=== PATIENT | male | born 1960 | race Caucasian/White ===

== ENCOUNTER 2016-10-10 11:48 | Inpatient (IN) | payer OTHER ==
[2016-10-09 16:40] VITALS: BMI 26.5
[2016-10-10] VITALS (18 sets, daily range): BP systolic 132–156; BP diastolic 63–90; PULSE 72–97; RESP 13–29; Ht 172.7 cm; Wt 72.7 kg
[~2016-10-10] VITALS: Ht 172.7 cm; Wt 72.7 kg
[~2016-10-10 11:48] MED LIST: ACET325T33 PO; ASC500 PO; Accucheck XX; BISA5TAB6 PO; CEFAZOLIN 1 GM INJ ONE; CEFAZOLIN 1 GM/50 ML (PMX) 50 ML IVPB SCH; CLOP75TA27 PO; DOCU-144 PO; ENAL10TA PO; FURO20TA3 PO; GLIM1TAB2 PO; HYDR-3498 PO; METF-480 PO; NIT1OI2 TD; NITR0.4T6 SL; NOVO3I SC; PANT40TA4 PO; TRAM-40 PO; ZINC220C5 PO; ZOLP5TAB PO
[2016-10-10] MEDS ORDERED: MUPI15CR9 TOP (12:13)
[2016-10-10] MEDS ORDERED: DOCU-144 PO (12:14)
[2016-10-10] MEDS ORDERED: CRAN425C PO (12:15)
[2016-10-10] MEDS ORDERED: BISA10SU55 RC (12:16)
[2016-10-10] MEDS ORDERED: GLIM1TAB2 PO (12:17)
[2016-10-10] MEDS ORDERED: NA P135E RC (12:17)
[2016-10-10] MEDS ORDERED: FURO20TA3 PO (12:18)
[2016-10-10] MEDS ORDERED: MAGN400O4 PO (12:18)
[2016-10-10] MEDS ORDERED: MULTI PO (12:21)
[2016-10-10] MEDS ORDERED: HYDR-906 PO (12:22)
[2016-10-10] MEDS ORDERED: ACET-2047 PO (12:23)
[2016-10-10] MEDS ORDERED: MIDAZOLAM 1 MG/ML 2 ML INJ ONE (15:36)
[2016-10-10] MEDS ORDERED: LIDOCAINE 1%/EPI (MDV) 20 ML INJ ONE (15:59)
[2016-10-10] MEDS ORDERED: LIDOCAINE 1% (STERILE-PAK) 30 ML INJ ONE (15:59)
[2016-10-10] MEDS ORDERED: MINERAL OIL LIGHT 10 ML VIAL ONE (16:00)
[2016-10-10] MEDS ORDERED: THROMBIN 5000 UNIT VIAL ONE (16:00)
[2016-10-10] MEDS ORDERED: FENTAnyl 50 MCG/ML VIAL IV PRN (16:30)
[2016-10-10] MEDS ORDERED: morphine (1 MG/ML) 10ML SYRINGE IV PRN (16:30)
[2016-10-10] MEDS ORDERED: MEPERIDINE 25 MG INJ IV PRN (16:30)
[2016-10-10] MEDS ORDERED: DIPHENHYDRAMINE 50 MG INJ IV PRN (16:30)
[2016-10-10] MEDS ORDERED: ONDANSETRON 4 MG INJ IV PRN ×2 (16:30→17:30)
[2016-10-10] MEDS ORDERED: LIDOCAINE 2% (SDV) 5 ML INJ ONE (16:50)
[2016-10-10] MEDS ORDERED: PROPOFOL 20 ML ONE (16:50)
[2016-10-10] MEDS ORDERED: ONDANSETRON 4 MG INJ ONE (16:56)
[2016-10-10] MEDS ORDERED: morphine 2 MG INJ IV PRN (17:30)
[2016-10-10] MEDS ORDERED: HYDROCODONE/APAP (5/325) TAB PO PRN ×2 (17:30→18:00)
[2016-10-10] MEDS ORDERED: morphine 10 MG INJ IM PRN (17:30)
[2016-10-10] MEDS ORDERED: DEXTROSE 50% 50 ML SYRINGE IV PRN ×2 (18:00)
[2016-10-10] MEDS ORDERED: GLUCOSE GEL 15 GRAM TUBE PO PRN ×2 (18:00)
[2016-10-10] MEDS ORDERED: GLUCOSE GEL 15 GRAM TUBE BUCCAL PRN (18:00)
[2016-10-10] MEDS ORDERED: MAGNESIUM HYDROXIDE 30ML CUP PO PRN (18:00)
[2016-10-10] MEDS ORDERED: GLUCAGON 1 MG INJ IM PRN (18:00)
[2016-10-10] MEDS ORDERED: BISACODYL 10 MG SUPP PR PRN (18:00)
--- NOTE | 2016-10-10 18:06 | OPR ---
DATE OF OPERATION: 10/10/2016 PREOPERATIVE DIAGNOSES: 1. Right foot ulceration. 2. Open transmetatarsal amputation. 3. Diabetes with peripheral neuropathy. 4. History of left above-knee amputation. POSTOPERATIVE DIAGNOSES: 1. Right foot ulceration. 2. Open transmetatarsal amputation. 3. Diabetes with peripheral neuropathy. 4. History of left above-knee amputation. SURGEON: JEWELS MCKNIGHT DPM. TILE DECORATOR: None. PROCEDURE PERFORMED: 1. Right foot excisional debridement of skin, subcutaneous tissue, muscle and bone 10 x 3 cm. 2. Delayed primary closure, right foot. PATHOLOGY: Bone cultures and bone for pathology. ESTIMATED BLOOD LOSS: 40 mL. GRAFT: None. COMPLICATIONS: None. ANESTHESIA: MAC with local. INDICATION FOR PROCEDURE: A 56-year-old male with open transmetatarsal amputation with delayed woun d healing. He has history of contralateral above knee amputation with gait disturbance. He has typ e 2 diabetes with peripheral neuropathy and history of tobacco use. The patient presents with impro lissy wound appearance and attempts for wound closure. PROCEDURE IN DETAIL: I discussed planned procedure, risks, benefits, potential complications and in formed consent was obtained. Preoperatively the site was marked. Patient was given a gram of Ancef preoperatively. The patient brought into the operating room and placed in the supine position. Fo rmal timeout was performed. The right lower extremity was prepared with chlorhexidine and Betadine and prepped and draped in usual sterile fashion. I am using a rongeur for excisional debridement of the wound performed including sample of bone which was sent for culture as well as for pathology. The Versajet was used for hydrosurgical debridement using saline solution. The patient had good ble eding tissue. Ulceration measured 10 x 3 cm. Hemostasis was achieved with compression and at this time, the skin flaps were advanced and delayed primary closure with a combination of superficial cally p sutures using 2-0 and 3-0 nylon. The patient tolerated procedure well, had lidocaine 1% injected with an ankle block preoperatively and the patient had estimated blood loss of 40 mL. Hemostasis wa s achieved with compression and wounds were dressed with Xeroform, 4 x 4 gauze, Webril and bias. Th e patient transferred to PACU with vital signs stable. POSTOPERATIVE PLAN: The patient will be admitted for 23-hour observation and monitoring of pain and continue IV antibiotics and hyperglycemia management by Dr. Belle. Dictated By: JEWELS NEAL/LINNEA Conf#: [id number] DID#: [id number]
[2016-10-10] MEDS: metFORMIN 850 MG TAB PO SCH (19:50)
[2016-10-10] MEDS: DOCUSATE SODIUM 100 MG CAP PO SCH (21:28)
[2016-10-10] MEDS: CEFAZOLIN 1 GM/50 ML (PMX) 50 ML IVPB SCH (21:28)
--- NOTE | 2016-10-10 23:07 | HP ---
Date/Time of Note Date/Time of Note DATE: 10/10/16 TIME: 23:04 Assessment/Plan VTE Prophylaxis VTE Prophylaxis Intervention: other Lines/Catheters IV Catheter Type (from Nrsg): Saline Lock Assessment/Plan Chief Complaint/Hosp Course 1. Hypertension. hx 2. Diabetes mellitus. 3. Hyperlipidemia. 4. History of peripheral vascular disease status post left above-knee amputation. 5. History of a previous right toe amputation. 6. Anemia of chronic disease. 7 Rt foot surgery plan per dr cobb Problems: HPI/ROS Admit Date/Time Admit Date/Time Oct 10, 2016 at 11:48 ROS Constitutional: no complaints Eyes: no complaints ENT: no complaints Respiratory: no complaints Cardiovascular: no complaints Gastrointestinal: no complaints Genitourinary: no complaints Musculoskeletal: no complaints Skin: no complaints Neurologic: no complaints Endocrine: No other Lymphatic: no complaints Psychological: no complaints Immunologic: no complaints PMH/Family/Social Past Medical History Medical History: diabetes, hypertension Past Surgical History Past Surgical Hx: other (left aka) Family History Significant Family History: no pertinent family hx Social History Smoking Status: Unknown if ever smoked Drug Use: none Exam/Review of Systems Vital Signs Vitals Vital Signs Date Time Temp Pulse Resp B/P Pulse Ox O2 Delivery O2 Flow Rate FiO2 10/10/16 19:40 97.9 75 16 132/63 99 10/10/16 18:59 Room Air Exam Constitutional: alert, oriented, well developed Psych: nl mood/affect, no complaints Head: atraumatic, normocephalic Eyes: EOMI, nl conjunctiva, nl lids Neck: non-tender, supple Respiratory: clear to auscultation Cardiovascular: nl pulses, regular rate and rhythm Gastrointestinal: nl liver, spleen, non-tender, soft Musculoskeletal: nl extremities to inspection Extremities: No cyanosis, No edema Neurological: EMERGENCY MANAGER II-XII intact, nl mental status, nl speech, nl strength Medications Medications Current Medications Cefazolin Sodium (Ancef 1 Gm/50 ml (Pmx)) 50 ml @ 100 mls/hr Q8 IVPB Last administered on 10/10/16t 21:28; Admin Dose 100 MLS/HR; Start 10/10/16 at 22:00 Acetaminophen/ Hydrocodone Bitart ([place] (5/325)) 1 tab Q4H PRN PO PAIN LEVEL 1 -5; Start 10/10/16 at 17:30 Acetaminophen/ Hydrocodone Bitart ([place] (5/325)) 2 tab Q4H PRN PO PAIN 6-8; Start 10/10/16 at 17:30 Morphine Sulfate (morphine) 2 mg Q2H PRN IV PAIN 9-10; Start 10/10/16 at 17:30 Morphine Sulfate (morphine) 2 mg Q4H PRN IM PAIN 9-10; Start 10/10/16 at 17:30 Ondansetron HCl (Zofran Inj) 4 mg Q6H PRN IV NAUSEA AND/OR VOMITING; Start 10/10 at 17:30 Ascorbic Acid (Vitamin C) 1,000 mg DAILY PO ; Start 10/11/16 at 09:00 Bisacodyl (Dulcolax Supp) 10 mg PRN PRN [place] constipation; Start 10/10/16 at 18:00 Clopidogrel Bisulfate (plaVIX) 75 mg DAILY PO ; Start 10/11/16 at 09:00 Docusate Sodium (Colace) 200 mg QHS PO Last administered on 10/10/16t 21:28; Admin Dose 200 MG; Start 10/10/16 at 21:00 Enalapril Maleate (Vasotec) 10 mg DAILY PO ; Start 10/11/16 at 09:00 Furosemide (Lasix) 20 mg DAILY PO ; Start 10/11/16 at 09:00 Magnesium Hydroxide (Milk Of Mag) 30 ml DAILY PRN PO CONSTIPATION; Start at 18:00 Multivitamins Therapeutic (Theragran) 1 tab DAILY PO ; Start 10/11/16 at 09:00 Mupirocin (Bactroban) 1 applic DAILY TOP ; Start 10/11/16 at 09:00 Pantoprazole (Protonix Tab) 40 mg DAILY@06 PO ; Start 10/11/16 at 06:00 Miscellaneous Information 1 ea NOTE XX ; Start 10/10/16 at 18:00 Glucose (Glutose) 15 gm Q15M PRN PO DECREASED GLUCOSE; Start 10/10/16 at 18:00 Glucose (Glutose) 22.5 gm Q15M PRN PO DECREASED GLUCOSE; Start 10/10/16 at 18:00 Dextrose (D50w Syringe) 25 ml Q15M PRN IV DECREASED GLUCOSE; Start 10/10/16 at 18:00 Dextrose (D50w Syringe) 50 ml Q15M PRN IV DECREASED GLUCOSE; Start 10/10/16 at 18:00 Glucagon (Glucagen) 1 mg Q15M PRN IM DECREASED GLUCOSE; Start 10/10/16 at 18:00 Glucose (Glutose) 15 gm Q15M PRN BUCCAL DECREASED GLUCOSE; Start 10/10/16 at 18: 00 Diagnostic Test (Pha) (Accucheck) 1 ea 02 XX ; Start 10/11/16 at 02:00 LUIS ENRIQUE MAN MD Oct 10, 2016 23:07
[2016-10-11] MEDS ORDERED: ACCUCHECK XX SCH (02:00)
[2016-10-11] MEDS: ACCUCHECK XX SCH (02:00)
[2016-10-11] MEDS: CEFAZOLIN 1 GM/50 ML (PMX) 50 ML IVPB SCH ×3 (05:44→21:01)
[2016-10-11] MEDS: PANTOPRAZOLE (EC) 40 MG TAB PO SCH (05:44)
[2016-10-11 06:14] LABS: BASOPHIL # 0.1 10^3/ul (0.0-0.1); BASOPHILS % 0.8 % (0.0-2.0); EOSINOPHILS # 0.5 10^3/ul (0.0-0.5); EOSINOPHILS % 4.1 % (0.0-7.0); HEMATOCRIT 29.3 % (42.0-52.0); HEMOGLOBIN 9.8 g/dl (14.0-18.0); LYMPHOCYTES # 1.9 10^3/ul (0.8-2.9); LYMPHOCYTES % 16.6 % (15.0-51.0); MEAN CORPUSCULAR HGB CONC 33.5 g/dl (32.0-37.0); MEAN CORPUSCULAR VOLUME 80.6 fl (82.0-101.0); MEAN PLATELET VOLUME 8.6 fl (7.4-10.4); MONOCYTE # 0.6 10^3/ul (0.3-0.9); MONOCYTES % 5.3 % (0.0-11.0); NEUTROPHIL # 8.3 10^3/ul (1.6-7.5); NEUTROPHILS % 73.2 % (39.0-77.0); PLATELET COUNT 283 10^3/UL (140-440); RED BLOOD COUNT 3.63 10^6/ul (4.70-6.10); RED CELL DISTRIBUTION WIDTH 17.1 % (11.5-14.5); UNCORRECTED WBC 11.3 10^3/ul (4.8-10.8); WHITE BLOOD COUNT 11.3 10^3/ul (4.8-10.8)
[2016-10-11 06:33] LABS: CONDITION 1; LH ANALYZER COMMENTS 1
[2016-10-11 06:55] LABS: POTASSIUM 4.1 mmol/L (3.5-5.1)
[2016-10-11 06:57] LABS: CREATININE 1.05 mg/dl (0.61-1.24)
[2016-10-11 06:58] LABS: CALCIUM 8.9 mg/dl (8.4-10.2)
[2016-10-11] MEDS: GLIMEPIRIDE 2 MG TAB PO SCH ×2 (07:50→11:52)
[2016-10-11] MEDS: INSULIN ASPART [NOVOLOG] 3 ML PEN SC SCH ×4 (07:50→20:58)
[2016-10-11] MEDS: metFORMIN 850 MG TAB PO SCH ×2 (07:50→17:01)
[2016-10-11 07:59] VITALS: BP 158/70; RESP 18
[2016-10-11] MEDS: MULTIVITAMINS THERAPEUTIC TAB PO SCH (09:34)
[2016-10-11] MEDS: CLOPIDOGREL 75 MG TAB PO SCH (09:34)
[2016-10-11] MEDS: ENALAPRIL 10 MG TAB PO SCH (09:34)
[2016-10-11] MEDS: FUROSEMIDE 20 MG TAB PO SCH (09:34)
[2016-10-11] MEDS: MUPIROCIN 2% 15 GM CR TOP SCH (09:35)
[2016-10-11] MEDS: ASCORBIC ACID 500 MG TAB PO SCH (09:35)
--- NOTE | 2016-10-11 12:36 | PN ---
Date/Time of Note Date/Time of Note DATE: 10/11/16 TIME: 12:31 Assessment/Plan VTE Prophylaxis VTE Prophylaxis Intervention: SCD's Lines/Catheters IV Catheter Type (from Nrsg): Saline Lock Assessment/Plan Assessment/Plan 1. Right foot Open wound ulceration with infection s/p Right foot excisional debridement of skin, subcutaneous tissue, muscle and bone 10 x 3 cm. Delayed primary closure, right foot. 2. H/o Left AKA due to severe PVD 3. Hypertension. 4. Diabetes mellitus. 5. Hyperlipidemia. Plan: wound care IV abx Pain control podiatry has been follwoing will wait for Podiatry final recommendations Subjective 24 Hr Interval Summary Free Text/Dictation s/p Right foot excisional debridement of skin, subcutaneous tissue, muscle and bone , Pain controlled Exam/Review of Systems Vital Signs Vitals Vital Signs Date Time Temp Pulse Resp B/P Pulse Ox O2 Delivery O2 Flow Rate FiO2 10/11/16 07:59 98.0 84 18 158/70 100 10/10/16 18:59 Room Air Intake and Output 10/10/16 10/10/16 10/11/16 15:00 23:00 07:00 Intake Total 500 ml 620 ml Output Total 20 ml 800 ml Balance 480 ml -180 ml Exam Constitutional: alert, oriented, well developed Respiratory: clear to auscultation Cardiovascular: nl pulses, regular rate and rhythm Gastrointestinal: nl liver, spleen, non-tender, soft Musculoskeletal: nl extremities to inspection Extremities: No cyanosis, No edema, Right LE dressing present Neurological: ASSISTANT VICE PRESIDENT II-XII intact, nl mental status, nl speech, nl strength Results Result Diagram: 10/11/16 0508 10/11/16 0508 Results 24 hrs Laboratory Tests Test 10/10/16 17:02 10/10/16 19:43 10/10/16 21:27 10/11/16 05:08 Bedside Glucose 105 104 108 Anion Gap 16 Basophils # 0.1 Basophils % 0.8 Blood Morphology Comment Blood Urea Nitrogen 20 Calcium Level 8.9 Carbon Dioxide Level 27 Chloride Level 106 Creatinine 1.05 Eosinophils # 0.5 Eosinophils % 4.1 Glucose Level 98 Hematocrit 29.3 L Hemoglobin 9.8 L Hemoglobin A1c 6.4 H Lymphocytes # 1.9 Lymphocytes % 16.6 Mean Corpuscular Hemoglobin 27.0 L Mean Corpuscular Hemoglobin Concent 33.5 Mean Corpuscular Volume 80.6 L Mean Platelet Volume 8.6 Monocytes # 0.6 Monocytes % 5.3 Neutrophils # 8.3 H Neutrophils % 73.2 Nucleated Red Blood Cells # 0.0 Nucleated Red Blood Cells % 0.0 Platelet Count 283 # Potassium Level 4.1 Red Blood Count 3.63 L Red Cell Distribution Width 17.1 #H Sodium Level 145 H White Blood Count 11.3 H Test 10/11/16 07:49 10/11/16 11:51 Bedside Glucose 111 122 Medications Medications Current Medications Cefazolin Sodium (Ancef 1 Gm/50 ml (Pmx)) 50 ml @ 100 mls/hr Q8 IVPB Last administered on 10/11/16 05:44; Admin Dose 100 MLS/HR; Start 10/10/16 at 22:00 Acetaminophen/ Hydrocodone Bitart ([place] (5/325)) 1 tab Q4H PRN PO PAIN LEVEL 1 -5; Start 10/10/16 at 17:30 Acetaminophen/ Hydrocodone Bitart ([place] (5/325)) 2 tab Q4H PRN PO PAIN 6-8; Start 10/10/16 at 17:30 Morphine Sulfate (morphine) 2 mg Q2H PRN IV PAIN 9-10; Start 10/10/16 at 17:30 Morphine Sulfate (morphine) 2 mg Q4H PRN IM PAIN 9-10; Start 10/10/16 at 17:30 Ondansetron HCl (Zofran Inj) 4 mg Q6H PRN IV NAUSEA AND/OR VOMITING; Start 10/10 at 17:30 Ascorbic Acid (Vitamin C) 1,000 mg DAILY PO Last administered on 10/11/16 09:35 ; Admin Dose 1,000 MG; Start 10/11/16 at 09:00 Bisacodyl (Dulcolax Supp) 10 mg PRN PRN [place] constipation; Start 10/10/16 at 18:00 Clopidogrel Bisulfate (plaVIX) 75 mg DAILY PO Last administered on 10/11/16 09: 34; Admin Dose 75 MG; Start 10/11/16 at 09:00 Docusate Sodium (Colace) 200 mg QHS PO Last administered on 10/10/16 21:28; Admin Dose 200 MG; Start 10/10/16 at 21:00 Enalapril Maleate (Vasotec) 10 mg DAILY PO Last administered on 10/11/16 09:34 ; Admin Dose 10 MG; Start 10/11/16 at 09:00 Furosemide (Lasix) 20 mg DAILY PO Last administered on 10/11/16 09:34; Admin Dose 20 MG; Start 10/11/16 at 09:00 Magnesium Hydroxide (Milk Of Mag) 30 ml DAILY PRN PO CONSTIPATION; Start at 18:00 Multivitamins Therapeutic (Theragran) 1 tab DAILY PO Last administered on 09:34; Admin Dose 1 TAB; Start 10/11/16 at 09:00 Mupirocin (Bactroban) 1 applic DAILY TOP Last administered on 10/11/16 09:35; Admin Dose 1 APPLIC; Start 10/11/16 at 09:00 Pantoprazole (Protonix Tab) 40 mg DAILY@06 PO Last administered on 10/11/16 05: 44; Admin Dose 40 MG; Start 10/11/16 at 06:00 Miscellaneous Information 1 ea NOTE XX ; Start 10/10/16 at 18:00 Glucose (Glutose) 15 gm Q15M PRN PO DECREASED GLUCOSE; Start 10/10/16 at 18:00 Glucose (Glutose) 22.5 gm Q15M PRN PO DECREASED GLUCOSE; Start 10/10/16 at 18:00 Dextrose (D50w Syringe) 25 ml Q15M PRN IV DECREASED GLUCOSE; Start 10/10/16 at 18:00 Dextrose (D50w Syringe) 50 ml Q15M PRN IV DECREASED GLUCOSE; Start 10/10/16 at 18:00 Glucagon (Glucagen) 1 mg Q15M PRN IM DECREASED GLUCOSE; Start 10/10/16 at 18:00 Glucose (Glutose) 15 gm Q15M PRN BUCCAL DECREASED GLUCOSE; Start 10/10/16 at 18: 00 Diagnostic Test (Pha) (Accucheck) 1 ea 02 XX ; Start 10/11/16 at 02:00 OLMAN TRACY MD Oct 11, 2016 12:36
[2016-10-11] MEDS: DOCUSATE SODIUM 100 MG CAP PO SCH (20:58)
[2016-10-12] MEDS: ACCUCHECK XX SCH (02:00)
[2016-10-12] MEDS: PANTOPRAZOLE (EC) 40 MG TAB PO SCH (05:07)
[2016-10-12] MEDS: CEFAZOLIN 1 GM/50 ML (PMX) 50 ML IVPB SCH ×3 (05:07→21:34)
[2016-10-12] MEDS: ACETAMINOPHEN 325 MG TAB PO PRN ×2 (05:15→13:52)
[2016-10-12 07:50] VITALS: BP 114/56; RESP 19
[2016-10-12] MEDS: INSULIN ASPART [NOVOLOG] 3 ML PEN SC SCH ×4 (08:15→20:22)
[2016-10-12] MEDS: MULTIVITAMINS THERAPEUTIC TAB PO SCH (08:17)
[2016-10-12] MEDS: metFORMIN 850 MG TAB PO SCH ×2 (08:17→17:24)
[2016-10-12] MEDS: CLOPIDOGREL 75 MG TAB PO SCH (08:17)
[2016-10-12] MEDS: GLIMEPIRIDE 2 MG TAB PO SCH ×2 (08:17→12:13)
[2016-10-12] MEDS: ASCORBIC ACID 500 MG TAB PO SCH (08:17)
[2016-10-12] MEDS: FUROSEMIDE 20 MG TAB PO SCH (08:18)
[2016-10-12] MEDS: ENALAPRIL 10 MG TAB PO SCH (08:18)
[2016-10-12] MEDS: MUPIROCIN 2% 15 GM CR TOP SCH (09:00)
--- NOTE | 2016-10-12 11:19 | PN ---
Date/Time of Note Date/Time of Note DATE: 10/12/16 TIME: 11:13 Assessment/Plan VTE Prophylaxis VTE Prophylaxis Intervention: SCD's Lines/Catheters IV Catheter Type (from Nrsg): Saline Lock Assessment/Plan Assessment/Plan 1. Right foot Open wound ulceration with infection s/p Right foot excisional debridement of skin, subcutaneous tissue, muscle and bone 10 x 3 cm. Delayed primary closure, right foot.- wound cx grew enterococcus, 2. H/o Left AKA due to severe PVD 3. Hypertension. 4. Diabetes mellitus. 5. Hyperlipidemia. Plan: wound Cx grew Staph Aureus and enterococcus IV abx Pain control podiatry has been follwoing will wait for Podiatry final recommendations Subjective 24 Hr Interval Summary Free Text/Dictation wound cx grew Staph Aureus and Enterococcus Exam/Review of Systems Vital Signs Vitals Vital Signs Date Time Temp Pulse Resp B/P Pulse Ox O2 Delivery O2 Flow Rate FiO2 10/12/16 07:50 98.1 82 19 114/56 100 10/10/16 18:59 Room Air Intake and Output 10/11/16 10/11/16 10/12/16 15:00 23:00 07:00 Intake Total 1100 ml 480 ml Output Total 1600 ml 400 ml Balance -500 ml 80 ml Exam Constitutional: alert, oriented, well developed Psych: nl mood/affect, no complaints Respiratory: clear to auscultation Cardiovascular: nl pulses, regular rate and rhythm Gastrointestinal: nl liver, spleen, non-tender, soft Musculoskeletal: nl extremities to inspection Extremities: No cyanosis, No edema Neurological: FRENCH WEAVER II-XII intact, nl mental status, nl speech, nl strength Results Result Diagram: 10/11/16 0508 10/11/16 0508 Results 24 hrs Laboratory Tests Test 10/11/16 11:51 10/11/16 17:00 10/11/16 20:57 10/12/16 07:46 Bedside Glucose 122 100 100 105 Medications Medications Current Medications Cefazolin Sodium (Ancef 1 Gm/50 ml (Pmx)) 50 ml @ 100 mls/hr Q8 IVPB Last administered on 10/12/16t 05:07; Admin Dose 100 MLS/HR; Start 10/10/16 at 22:00 Acetaminophen/ Hydrocodone Bitart ([place] (5/325)) 1 tab Q4H PRN PO PAIN LEVEL 1 -5; Start 10/10/16 at 17:30 Acetaminophen/ Hydrocodone Bitart ([place] (5/325)) 2 tab Q4H PRN PO PAIN 6-8; Start 10/10/16 at 17:30 Morphine Sulfate (morphine) 2 mg Q2H PRN IV PAIN 9-10; Start 10/10/16 at 17:30 Morphine Sulfate (morphine) 2 mg Q4H PRN IM PAIN 9-10; Start 10/10/16 at 17:30 Ondansetron HCl (Zofran Inj) 4 mg Q6H PRN IV NAUSEA AND/OR VOMITING; Start 10/10 at 17:30 Ascorbic Acid (Vitamin C) 1,000 mg DAILY PO Last administered on 10/12/16 08:17 ; Admin Dose 1,000 MG; Start 10/11/16 at 09:00 Bisacodyl (Dulcolax Supp) 10 mg PRN PRN [place] constipation; Start 10/10/16 at 18:00 Clopidogrel Bisulfate (plaVIX) 75 mg DAILY PO Last administered on 10/12/16 08: 17; Admin Dose 75 MG; Start 10/11/16 at 09:00 Docusate Sodium (Colace) 200 mg QHS PO Last administered on 10/11/16 20:58; Admin Dose 200 MG; Start 10/10/16 at 21:00 Enalapril Maleate (Vasotec) 10 mg DAILY PO Last administered on 10/12/16 08:18 ; Admin Dose 10 MG; Start 10/11/16 at 09:00 Furosemide (Lasix) 20 mg DAILY PO Last administered on 10/12/16 08:18; Admin Dose 20 MG; Start 10/11/16 at 09:00 Magnesium Hydroxide (Milk Of Mag) 30 ml DAILY PRN PO CONSTIPATION; Start at 18:00 Multivitamins Therapeutic (Theragran) 1 tab DAILY PO Last administered on 08:17; Admin Dose 1 TAB; Start 10/11/16 at 09:00 Mupirocin (Bactroban) 1 applic DAILY TOP Last administered on 10/11/16 09:35; Admin Dose 1 APPLIC; Start 10/11/16 at 09:00 Pantoprazole (Protonix Tab) 40 mg DAILY@06 PO Last administered on 10/12/16t 05: 07; Admin Dose 40 MG; Start 10/11/16 at 06:00 Miscellaneous Information 1 ea NOTE XX ; Start 10/10/16 at 18:00 Glucose (Glutose) 15 gm Q15M PRN PO DECREASED GLUCOSE; Start 10/10/16 at 18:00 Glucose (Glutose) 22.5 gm Q15M PRN PO DECREASED GLUCOSE; Start 10/10/16 at 18:00 Dextrose (D50w Syringe) 25 ml Q15M PRN IV DECREASED GLUCOSE; Start 10/10/16 at 18:00 Dextrose (D50w Syringe) 50 ml Q15M PRN IV DECREASED GLUCOSE; Start 10/10/16 at 18:00 Glucagon (Glucagen) 1 mg Q15M PRN IM DECREASED GLUCOSE; Start 10/10/16 at 18:00 Glucose (Glutose) 15 gm Q15M PRN BUCCAL DECREASED GLUCOSE; Start 10/10/16 at 18: 00 Diagnostic Test (Pha) (Accucheck) 1 ea 02 XX ; Start 10/11/16 at 02:00 OLMAN TRACY MD Oct 12, 2016 11:18
[2016-10-12 19:33] VITALS: BP 117/69; RESP 20
[2016-10-12] MEDS: DOCUSATE SODIUM 100 MG CAP PO SCH (20:22)
[2016-10-12] MEDS: HYDROCODONE/APAP (5/325) TAB PO PRN (22:25)
[2016-10-13] MEDS: ACCUCHECK XX SCH (01:47)
[2016-10-13 06:01] LABS: INR 1.08; PT RATIO 1.1
[2016-10-13 06:02] LABS: PARTIAL THROMBOPLASTIN TIME 37.4 Sec (25.0-35.0)
[2016-10-13 06:06] LABS: POTASSIUM 3.6 mmol/L (3.5-5.1)
[2016-10-13 06:09] LABS: CALCIUM 8.8 mg/dl (8.4-10.2); CREATININE 1.33 mg/dl (0.61-1.24)
[2016-10-13 06:12] LABS: BASOPHILS % 0.3 % (0.0-2.0); EOSINOPHILS # 0.5 10^3/ul (0.0-0.5); HEMATOCRIT 29.3 % (42.0-52.0); HEMOGLOBIN 9.9 g/dl (14.0-18.0); MEAN CORPUSCULAR HGB CONC 33.7 g/dl (32.0-37.0); MEAN CORPUSCULAR VOLUME 80.1 fl (82.0-101.0); MEAN PLATELET VOLUME 8.5 fl (7.4-10.4); MONOCYTES % 7.9 % (0.0-11.0); NEUTROPHIL # 8.5 10^3/ul (1.6-7.5); NEUTROPHILS % 70.8 % (39.0-77.0); PLATELET COUNT 284 10^3/UL (140-440); RED BLOOD COUNT 3.66 10^6/ul (4.70-6.10); RED CELL DISTRIBUTION WIDTH 17.3 % (11.5-14.5)
[2016-10-13 06:18] LABS: CONDITION 1; LH ANALYZER COMMENTS 1
[2016-10-13] MEDS: PANTOPRAZOLE (EC) 40 MG TAB PO SCH (06:18)
[2016-10-13] MEDS: CEFAZOLIN 1 GM/50 ML (PMX) 50 ML IVPB SCH (06:18)
[2016-10-13 07:22] VITALS: BP 120/56; RESP 18
[2016-10-13] MEDS: CLOPIDOGREL 75 MG TAB PO SCH (08:10)
[2016-10-13] MEDS: MULTIVITAMINS THERAPEUTIC TAB PO SCH (08:11)
[2016-10-13] MEDS: FUROSEMIDE 20 MG TAB PO SCH (08:11)
[2016-10-13] MEDS: ASCORBIC ACID 500 MG TAB PO SCH (08:11)
[2016-10-13] MEDS: ENALAPRIL 10 MG TAB PO SCH (08:11)
[2016-10-13] MEDS: GLIMEPIRIDE 2 MG TAB PO SCH ×2 (08:12→12:44)
[2016-10-13] MEDS: INSULIN ASPART [NOVOLOG] 3 ML PEN SC SCH ×4 (08:15→20:45)
[2016-10-13] MEDS: HYDROCODONE/APAP (5/325) TAB PO PRN (08:15)
[2016-10-13] MEDS: metFORMIN 850 MG TAB PO SCH ×2 (09:14→17:58)
[2016-10-13] MEDS: MUPIROCIN 2% 15 GM CR TOP SCH (09:14)
--- NOTE | 2016-10-13 09:28 | PDOCDIS ---
Discharge Instructions CONDITION Patient Condition: Stable HOME CARE INSTRUCTIONS: Special Diet: DIABETIC DIET ACTIVITY: Activity Restrictions: Slowly Increase Activity FOLLOW UP/APPOINTMENTS Appointments f/u dr cobb 1 wk LUIS ENRIQUE MAN MD Oct 13, 2016 09:28
[2016-10-13] MEDS ORDERED: VANCOMYCIN IV PER PHARMACY XX SCH (09:30)
[2016-10-13] MEDS: DIPHENHYDRAMINE 25 MG CAP PO PRN ×2 (10:42→20:48)
[2016-10-13] MEDS ORDERED: VANCOMYCIN 1.75 GM in NS 500 ML IVPB SCH (11:00)
--- NOTE | 2016-10-13 15:05 | PN ---
Date/Time of Note Date/Time of Note DATE: 10/13/16 TIME: 15:02 Assessment/Plan VTE Prophylaxis VTE Prophylaxis Intervention: other Lines/Catheters IV C[facility]ter Type (from [facility] Saline Lock Urinary Cath still in place: No Assessment/Plan Chief Complaint/Hosp Course 1. Hypertension. hx 2. Diabetes mellitus. 3. Hyperlipidemia. 4. History of peripheral vascular disease status post left above-knee amputation. 5. History of a previous right toe amputation. 6. Anemia of chronic disease. 7 Rt foot surgery 1. Right foot Open wound ulceration with infection s/p Right foot excisional debridement of skin, subcutaneous tissue, muscle and bone 10 x 3 cm. Delayed primary closure, right foot.- wound cx grew enterococcus, plan per dr cobb antibiotic for vre and mrsa snf Problems: Subjective 24 Hr Interval Summary Respiratory: no complaints Cardiovascular: no complaints Exam/Review of Systems Vital Signs Vitals Vital Signs Date Time Temp Pulse Resp B/P Pulse Ox O2 Delivery O2 Flow Rate FiO2 10/13/16 07:22 98.4 87 18 120/56 100 10/10/16 18:59 Room Air Intake and Output 10/12/16 10/12/16 10/13/16 15:00 23:00 07:00 Intake Total 50 ml 890 ml 290 ml Output Total 350 ml 300 ml Balance 50 ml 540 ml -10 ml Exam Neck: supple Respiratory: clear to auscultation Cardiovascular: regular rate and rhythm Gastrointestinal: soft Extremities: other (foot dressing+) Results Result Diagram: 10/13/16 0502 10/13/16 0502 Results 24 hrs Laboratory Tests Test 10/12/16 17:20 10/12/16 20:21 10/13/16 05:02 10/13/16 07:42 Bedside Glucose 87 104 97 Activated Partial Thromboplast Time 37.4 H Anion Gap 18 H Basophils # 0.0 Basophils % 0.3 Blood Morphology Comment Blood Urea Nitrogen 25 H Calcium Level 8.8 Carbon Dioxide Level 26 Chloride Level 99 Creatinine 1.33 H Eosinophils # 0.5 Eosinophils % 4.0 Glucose Level 76 Hematocrit 29.3 L Hemoglobin 9.9 L INR International Normalized Ratio 1.08 Lymphocytes # 2.0 Lymphocytes % 17.0 Mean Corpuscular Hemoglobin 27.0 L Mean Corpuscular Hemoglobin Concent 33.7 Mean Corpuscular Volume 80.1 L Mean Platelet Volume 8.5 Monocytes # 1.0 H Monocytes % 7.9 Neutrophils # 8.5 H Neutrophils % 70.8 Nucleated Red Blood Cells # 0.0 Nucleated Red Blood Cells % 0.0 Platelet Count 284 Potassium Level 3.6 Prothrombin Time 14.0 Prothrombin Time Ratio 1.1 Red Blood Count 3.66 L Red Cell Distribution Width 17.3 H Sodium Level 139 White Blood Count 12.0 H Test 10/13/16 09:11 10/13/16 11:45 Bedside Glucose 106 85 Medications Medications Current Medications Acetaminophen/ Hydrocodone Bitart ([place] (5/325)) 1 tab Q4H PRN PO PAIN LEVEL 1 -5; Start 10/10/16 at 17:30 Acetaminophen/ Hydrocodone Bitart ([place] (5/325)) 2 tab Q4H PRN PO PAIN 6-8 Last administered on 10/13/16 08:15; Admin Dose 2 TAB; Start 10/10/16 at 17:30 Morphine Sulfate (morphine) 2 mg Q2H PRN IV PAIN 9-10; Start 10/10/16 at 17:30 Morphine Sulfate (morphine) 2 mg Q4H PRN IM PAIN 9-10; Start 10/10/16 at 17:30 Ondansetron HCl (Zofran Inj) 4 mg Q6H PRN IV NAUSEA AND/OR VOMITING; Start 10/10 at 17:30 Ascorbic Acid (Vitamin C) 1,000 mg DAILY PO Last administered on 10/13/16 08:11 ; Admin Dose 1,000 MG; Start 10/11/16 at 09:00 Bisacodyl (Dulcolax Supp) 10 mg PRN PRN [place] constipation; Start 10/10/16 at 18:00 Clopidogrel Bisulfate (plaVIX) 75 mg DAILY PO Last administered on 10/13/16 08: 10; Admin Dose 75 MG; Start 10/11/16 at 09:00 Docusate Sodium (Colace) 200 mg QHS PO Last administered on 10/12/16 20:22; Admin Dose 200 MG; Start 10/10/16 at 21:00 Enalapril Maleate (Vasotec) 10 mg DAILY PO Last administered on 10/13/16 08:11 ; Admin Dose 10 MG; Start 10/11/16 at 09:00 Furosemide (Lasix) 20 mg DAILY PO Last administered on 10/13/16 08:11; Admin Dose 20 MG; Start 10/11/16 at 09:00 Magnesium Hydroxide (Milk Of Mag) 30 ml DAILY PRN PO CONSTIPATION; Start at 18:00 Multivitamins Therapeutic (Theragran) 1 tab DAILY PO Last administered on 08:11; Admin Dose 1 TAB; Start 10/11/16 at 09:00 Pantoprazole (Protonix Tab) 40 mg DAILY@06 PO Last administered on 10/13/16 06: 18; Admin Dose 40 MG; Start 10/11/16 at 06:00 Miscellaneous Information 1 ea NOTE XX ; Start 10/10/16 at 18:00 Glucose (Glutose) 15 gm Q15M PRN PO DECREASED GLUCOSE; Start 10/10/16 at 18:00 Glucose (Glutose) 22.5 gm Q15M PRN PO DECREASED GLUCOSE; Start 10/10/16 at 18:00 Dextrose (D50w Syringe) 25 ml Q15M PRN IV DECREASED GLUCOSE; Start 10/10/16 at 18:00 Dextrose (D50w Syringe) 50 ml Q15M PRN IV DECREASED GLUCOSE; Start 10/10/16 at 18:00 Glucagon (Glucagen) 1 mg Q15M PRN IM DECREASED GLUCOSE; Start 10/10/16 at 18:00 Glucose (Glutose) 15 gm Q15M PRN BUCCAL DECREASED GLUCOSE; Start 10/10/16 at 18: 00 Diagnostic Test (Pha) (Accucheck) 1 ea 02 XX ; Start 10/11/16 at 02:00 Diphenhydramine HCl 25 mg 25 mg BID PRN PO ITCHING Last administered on 10:42; Admin Dose 25 MG; Start 10/13/16 at 09:30 Linezolid (Zyvox 600mg/D5W (Pmx)) 300 ml @ 300 mls/hr Q12 IVPB ; Start 10/13/16 at 21:00 Mupirocin (Bactroban) 1 applic BID TOP ; Start 10/13/16 at 21:00; Stop 10/23/16 at 09:01 LUIS ENRIQUE MAN MD Oct 13, 2016 15:05
[2016-10-13] MEDS: TRIMETHOPRIM/SULFAMETHOX (DS) TAB NGT SCH (18:08)
--- NOTE | 2016-10-13 19:24 | CONS ---
DATE OF ADMISSION: 10/10/2016 DATE OF CONSULTATION: 10/13/2016 SUBJECTIVE FINDINGS: The patient is status post debridement and wound closure. Wound cultures as w ell as surgical specimen reveals MRSA and VRE. The patient denies any fever, nausea, vomiting. Rel ates minor pain to the right foot. OBJECTIVE FINDINGS: VITAL SIGNS: Temperature is 98.4, pulse is 87, respiratory rate is 18, blood pressure is 120/56, pu lse ox is 100%. GENERAL: The patient alert and oriented, in no acute distress. LUNGS: Regular respiration. EXTREMITIES: The patient's right foot has a 2+ DP pulse. Right foot transmetatarsal amputation mary roximately 90% of the wound with good color. The lateral aspect, there is presence of skin necrosis . There is no malodor or cellulitis. The patient has a left above knee amputation. LABORATORIES: Reveal WBC 12, hemoglobin 9.9, hematocrit 29.3, platelets 284. Sodium 139, potassium 3.6, chloride 99, BUN 25, creatinine 1.3. Wound cultures: Right foot MRSA and VRE. Pathology res ults pending. ASSESSMENT: 1. Right foot diabetic foot ulceration. 2. Status post debridement and closure. 3. Infection with the polymicrobial organisms, vancomycin resistant enterococcus and methicillin re sistant Staphylococcus aureus. PLAN: Cultures reviewed. Pathology pending. Given the multidrug resistant organisms, likely to re quire IV antibiotics. The patient with sensitivity to doxycycline and Bactrim. The patient initiat ed on these. ID consulted. [facility]. [facility]. Recommend discharge planning. Dictated By: JEWELS MCKNIGHT DPM RB/LINNEA Conf#: [id number] DID#: [id number]
--- NOTE | 2016-10-13 19:44 | CONS ---
DATE OF ADMISSION: 10/10/2016 DATE OF CONSULTATION: 10/13/2016 TYPE OF CONSULTATION: Infectious disease. REASON FOR CONSULTATION: Antibiotic management. HISTORY OF PRESENT ILLNESS: Claus Parks is a 56-year-old male with numerous problems who comes in with a diabetic foot on the right. His past problems include: 1. Hypertension. 2. Adult-onset diabetes mellitus. 3. Hyperlipidemia. 4. Peripheral vascular disease status post left above knee amputation. 5. Previous right toe amputation. 6. Anemia of chronic disease. 7. Status post right foot surgery. Acutely, the patient is admitted with a white count of 11.3, H and H of 9.8 and 29.3, platelet count of 283,000. On the , white count was 12,000. BUN and creatinine are 25/1.33. X-rays are pendi ng. A culture of the wound, surgical biopsy culture, shows methicillin-resistant Staphylococcus and vancomycin-resistant enterococcus. Biopsy was done on the by Dr. Mcknight, showed this growth a nd cultures were done for acid fast and for fungus. Operative record shows right foot excisional de bridement of the skin, subcutaneous tissue, muscle, and bone, 10 x 3 cm, delayed primary closure, ri ght foot. PAST MEDICAL HISTORY: Operations as outlined. FAMILY HISTORY: Noncontributory. SOCIAL HISTORY: He does not smoke, drink, or abuse drugs. ALLERGIES: NONE TO PENICILLIN, SULFA, OR FOODS. MEDICATIONS: Per chart. REVIEW OF SYSTEMS: As per HPI. PHYSICAL EXAMINATION: GENERAL: The patient is well-developed, well-nourished male who is alert, responsive, in no acute d istress. VITAL SIGNS: Stable. He is afebrile. SKIN: Without generalized rash. HEENT: Within normal limits. NECK: Supple. LYMPH NODES: None palpable. CHEST: Decreased breath sounds at the bases. HEART: Without murmur or gallop. ABDOMEN: Soft, nontender without organosplenomegaly or masses. EXTREMITIES: He has a left AKA. His right lower extremity is status post debridement. RECTAL AND GENITAL: Deferred. NEUROLOGIC: No focal neurological abnormalities. IMPRESSION AND PLAN: The patient was changed to linezolid, because he has vancomycin-resistant Ente rococcus, so we switched over to linezolid, which makes a lot of sense. We will continue him on thi s regimen. I will dictate my findings to Dr. Man and Dr. Mcknight. I want to thank them for askin g us to see this unfortunate gentleman in consultation. Dictated By: GHAZALA LEYVA MD, JD/LINNEA Conf#: [id number] DID#: [id number] CC: LUIS ENRIQUE MAN MD; JEWELS MCKNIGHT DPM;*End*
[2016-10-13 20:00] VITALS: BP 130/61; RESP 20
[2016-10-13] MEDS: LINEZOLID 600 MG/D5W (PMX) 300 ML IVPB SCH (20:44)
[2016-10-13] MEDS: DOCUSATE SODIUM 100 MG CAP PO SCH (20:45)
[2016-10-13] MEDS: DOXYCYCLINE 100 MG TAB PO SCH (20:45)
[2016-10-13] MEDS: MUPIROCIN 2% 22 GM OINT TOP SCH (20:50)
[2016-10-13] MEDS ORDERED: MUPIROCIN 2% 22 GM OINT TOP SCH (21:00)
[2016-10-13] MEDS ORDERED: TIGECYCLINE 50 MG in SOD CHLORIDE 0.9% 100 ML IVPB SCH (21:00)
[2016-10-13] MEDS ORDERED: VANCOMYCIN 750 MG in SOD CHLORIDE 0.9% 150 ML IVPB SCH (23:00)
[2016-10-14] MEDS: ACCUCHECK XX SCH (02:00)
[2016-10-14] MEDS: PANTOPRAZOLE (EC) 40 MG TAB PO SCH (05:51)
[2016-10-14] MEDS: INSULIN ASPART [NOVOLOG] 3 ML PEN SC SCH ×4 (08:15→21:00)
[2016-10-14 08:26] VITALS: BP 127/63; RESP 16
[2016-10-14] MEDS: DOXYCYCLINE 100 MG TAB PO SCH (09:16)
[2016-10-14] MEDS: CLOPIDOGREL 75 MG TAB PO SCH (09:16)
[2016-10-14] MEDS: ASCORBIC ACID 500 MG TAB PO SCH (09:16)
[2016-10-14] MEDS: FUROSEMIDE 20 MG TAB PO SCH (09:17)
[2016-10-14] MEDS: TRIMETHOPRIM/SULFAMETHOX (DS) TAB NGT SCH (09:17)
[2016-10-14] MEDS: GLIMEPIRIDE 2 MG TAB PO SCH ×2 (09:17→12:30)
[2016-10-14] MEDS: ENALAPRIL 10 MG TAB PO SCH (09:18)
[2016-10-14] MEDS: DIPHENHYDRAMINE 25 MG CAP PO PRN (09:18)
[2016-10-14] MEDS: metFORMIN 850 MG TAB PO SCH ×2 (09:28→18:27)
[2016-10-14] MEDS: LINEZOLID 600 MG/D5W (PMX) 300 ML IVPB SCH ×2 (09:28→21:46)
[2016-10-14] MEDS: MULTIVITAMINS THERAPEUTIC TAB PO SCH (09:28)
[2016-10-14] MEDS: MUPIROCIN 2% 22 GM OINT TOP SCH ×2 (09:28→21:47)
--- NOTE | 2016-10-14 13:31 | CONS ---
Date/Time of Note Date/Time of Note DATE: 10/14/16 TIME: 13:30 Assessment/Plan Assessment/Plan Chief Complaint/Hosp Course Per dw Dr Jenkins pt needs to be treated for OM. Can be dc on PO Zyvox vs IV Daptomycin with PCC for 6 weeks Problems: Consultation Date/Type/Reason Admit Date/Time Oct 10, 2016 at 11:48 Initial Consult Date Type of Consultation: ID Exam/Review of Systems Vital Signs Vitals Vital Signs Date Time Temp Pulse Resp B/P Pulse Ox O2 Delivery O2 Flow Rate FiO2 10/14/16 08:26 98.2 87 16 127/63 99 10/10/16 18:59 Room Air Intake and Output 10/13/16 10/13/16 10/14/16 15:00 23:00 07:00 Intake Total 1700 ml 300 ml Output Total 900 ml 1780 ml 1300 ml Balance -900 ml -80 ml -1000 ml Results Result Diagram: 10/13/16 0502 10/13/16 0502 Results 24 hrs Laboratory Tests Test 10/13/16 17:24 10/13/16 20:44 10/14/16 07:39 10/14/16 12:21 Bedside Glucose 79 124 90 157 Test 10/14/16 12:25 Bedside Glucose 148 Medications Medications Current Medications Acetaminophen/ Hydrocodone Bitart ([place] (5/325)) 1 tab Q4H PRN PO PAIN LEVEL 1 -5; Start 10/10/16 at 17:30 Acetaminophen/ Hydrocodone Bitart ([place] (5/325)) 2 tab Q4H PRN PO PAIN 6-8 Last administered on 10/13/16 08:15; Admin Dose 2 TAB; Start 10/10/16 at 17:30 Morphine Sulfate (morphine) 2 mg Q2H PRN IV PAIN 9-10; Start 10/10/16 at 17:30 Morphine Sulfate (morphine) 2 mg Q4H PRN IM PAIN 9-10; Start 10/10/16 at 17:30 Ondansetron HCl (Zofran Inj) 4 mg Q6H PRN IV NAUSEA AND/OR VOMITING; Start 10/10 at 17:30 Ascorbic Acid (Vitamin C) 1,000 mg DAILY PO Last administered on 10/14/16 09: 16; Admin Dose 1,000 MG; Start 10/11/16 at 09:00 Bisacodyl (Dulcolax Supp) 10 mg PRN PRN [place] constipation; Start 10/10/16 at 18:00 Clopidogrel Bisulfate (plaVIX) 75 mg DAILY PO Last administered on 10/14/16 09 :16; Admin Dose 75 MG; Start 10/11/16 at 09:00 Docusate Sodium (Colace) 200 mg QHS PO Last administered on 10/13/16 20:45; Admin Dose 200 MG; Start 10/10/16 at 21:00 Enalapril Maleate (Vasotec) 10 mg DAILY PO Last administered on 10/14/16 09:18 ; Admin Dose 10 MG; Start 10/11/16 at 09:00 Furosemide (Lasix) 20 mg DAILY PO Last administered on 10/14/16 09:17; Admin Dose 20 MG; Start 10/11/16 at 09:00 Magnesium Hydroxide (Milk Of Mag) 30 ml DAILY PRN PO CONSTIPATION; Start at 18:00 Multivitamins Therapeutic (Theragran) 1 tab DAILY PO Last administered on 09:28; Admin Dose 1 TAB; Start 10/11/16 at 09:00 Pantoprazole (Protonix Tab) 40 mg DAILY@06 PO Last administered on 10/14/16 05 :51; Admin Dose 40 MG; Start 10/11/16 at 06:00 Miscellaneous Information 1 ea NOTE XX ; Start 10/10/16 at 18:00 Glucose (Glutose) 15 gm Q15M PRN PO DECREASED GLUCOSE; Start 10/10/16 at 18:00 Glucose (Glutose) 22.5 gm Q15M PRN PO DECREASED GLUCOSE; Start 10/10/16 at 18:00 Dextrose (D50w Syringe) 25 ml Q15M PRN IV DECREASED GLUCOSE; Start 10/10/16 at 18:00 Dextrose (D50w Syringe) 50 ml Q15M PRN IV DECREASED GLUCOSE; Start 10/10/16 at 18:00 Glucagon (Glucagen) 1 mg Q15M PRN IM DECREASED GLUCOSE; Start 10/10/16 at 18:00 Glucose (Glutose) 15 gm Q15M PRN BUCCAL DECREASED GLUCOSE; Start 10/10/16 at 18: 00 Diagnostic Test (Pha) (Accucheck) 1 ea 02 XX ; Start 10/11/16 at 02:00 Diphenhydramine HCl 25 mg 25 mg BID PRN PO ITCHING Last administered on 09:18; Admin Dose 25 MG; Start 10/13/16 at 09:30 Linezolid (Zyvox 600mg/D5W (Pmx)) 300 ml @ 300 mls/hr Q12 IVPB Last administered on 10/14/16 09:28; Admin Dose 300 MLS/HR; Start 10/13/16 at 21:00 Mupirocin (Bactroban) 1 applic BID TOP Last administered on 10/14/16 09:28; Admin Dose 1 APPLIC; Start 10/13/16 at 21:00; Stop 10/23/16 at 09:01 SUNNY PRECIADO NP Oct 14, 2016 13:31
--- NOTE | 2016-10-14 15:09 | PN ---
DATE: 10/14/2016 SUBJECTIVE: This is an infectious disease progress note. No acute changes overnight. The patient is alert, looks comfortable. Denies pain, no fevers. VITAL SIGNS: Stable. WBC yesterday was 12. ANTIMICROBIALS: He is on Zyvox. MICROBIOLOGY: Wound culture growing MRSA and VRE. Nares swab came back positive for MRSA. PHYSICAL EXAMINATION: GENERAL: Well-developed, middle-aged man who is awake, in no distress. HEENT: Head atraumatic, normocephalic. Sclerae anicteric. Buccal mucosa dry. NECK: Supple, trachea midline. CHEST: Rise symmetrical. Breath sounds clear. HEART: S1, S2. ABDOMEN: Soft. Bowel tones present. EXTREMITIES: With right foot dressing intact. ASSESSMENT: 1. Right foot cellulitis, osteomyelitis, status post debridement and closure with wound culture growing methicillin-resistant Staphylococcus aureus and vancomycin-resistant enterococcus. 2. Methicillin-resistant Staphylococcus aureus nares colonization. 3. Diabetes. 4. Peripheral vascular disease status post left above knee amputation. PLAN: The patient remains stable. As per discussion with Dr. Jenkins patient needs to be on 6 weeks antibiotics either oral Zyvox or we can switch him to IV daptomycin. We will also order topical Bactroban to nares and Hibiclens bath daily for 7 days. Dictated By: SUNNY PRECIADO CREDIT CARD ANALYST for GHAZALA RIVERA/LINNEA Conf#: [id number] DID#: [id number] JOSUE
--- NOTE | 2016-10-14 17:41 | PN ---
Date/Time of Note Date/Time of Note DATE: 10/14/16 TIME: 17:40 Assessment/Plan VTE Prophylaxis VTE Prophylaxis Intervention: other Lines/Catheters IV Catheter Type (from Nrs): Saline Lock Urinary Cath still in place: No Assessment/Plan Chief Complaint/Hosp Course 1. Hypertension. hx 2. Diabetes mellitus. 3. Hyperlipidemia. 4. History of peripheral vascular disease status post left above-knee amputation. 5. History of a previous right toe amputation. 6. Anemia of chronic disease. 7 Rt foot surgery . Right foot Open wound ulceration with infection s/p Right foot excisional debridement of skin, subcutaneous tissue, muscle and bone 10 x 3 cm. Delayed primary closure, right foot.- wound cx grew enterococcus, mrsa/vre plan per dr cobb antibiotic for vre and mrsa snf Problems: Subjective 24 Hr Interval Summary ENT: no complaints Respiratory: no complaints Exam/Review of Systems Vital Signs Vitals Vital Signs Date Time Temp Pulse Resp B/P Pulse Ox O2 Delivery O2 Flow Rate FiO2 10/14/16 08:26 98.2 87 16 127/63 99 10/10/16 18:59 Room Air Intake and Output 10/13/16 10/13/16 10/14/16 15:00 23:00 07:00 Intake Total 1700 ml 300 ml Output Total 900 ml 1780 ml 1300 ml Balance -900 ml -80 ml -1000 ml Exam Neck: supple Respiratory: clear to auscultation Cardiovascular: regular rate and rhythm Gastrointestinal: soft Musculoskeletal: nl extremities to inspection Results Result Diagram: 10/13/16 0502 10/13/16 0502 Results 24 hrs Laboratory Tests Test 10/13/16 20:44 10/14/16 07:39 10/14/16 12:21 10/14/16 12:25 Bedside Glucose 124 90 157 148 Test 10/14/16 17:05 Bedside Glucose 74 Medications Medications Current Medications Acetaminophen/ Hydrocodone Bitart ([place] (5/325)) 1 tab Q4H PRN PO PAIN LEVEL 1 -5; Start 10/10/16 at 17:30 Acetaminophen/ Hydrocodone Bitart ([place] (5/325)) 2 tab Q4H PRN PO PAIN 6-8 Last administered on 10/13/16t 08:15; Admin Dose 2 TAB; Start 10/10/16 at 17:30 Morphine Sulfate (morphine) 2 mg Q2H PRN IV PAIN 9-10; Start 10/10/16 at 17:30 Morphine Sulfate (morphine) 2 mg Q4H PRN IM PAIN 9-10; Start 10/10/16 at 17:30 Ondansetron HCl (Zofran Inj) 4 mg Q6H PRN IV NAUSEA AND/OR VOMITING; Start 10/10 at 17:30 Ascorbic Acid (Vitamin C) 1,000 mg DAILY PO Last administered on 10/14/16 09: 16; Admin Dose 1,000 MG; Start 10/11/16 at 09:00 Bisacodyl (Dulcolax Supp) 10 mg PRN PRN [place] constipation; Start 10/10/16 at 18:00 Clopidogrel Bisulfate (plaVIX) 75 mg DAILY PO Last administered on 10/14/16 09 :16; Admin Dose 75 MG; Start 10/11/16 at 09:00 Docusate Sodium (Colace) 200 mg QHS PO Last administered on 10/13/16 20:45; Admin Dose 200 MG; Start 10/10/16 at 21:00 Enalapril Maleate (Vasotec) 10 mg DAILY PO Last administered on 10/14/16 09:18 ; Admin Dose 10 MG; Start 10/11/16 at 09:00 Furosemide (Lasix) 20 mg DAILY PO Last administered on 10/14/16 09:17; Admin Dose 20 MG; Start 10/11/16 at 09:00 Magnesium Hydroxide (Milk Of Mag) 30 ml DAILY PRN PO CONSTIPATION; Start at 18:00 Multivitamins Therapeutic (Theragran) 1 tab DAILY PO Last administered on 09:28; Admin Dose 1 TAB; Start 10/11/16 at 09:00 Pantoprazole (Protonix Tab) 40 mg DAILY@06 PO Last administered on 10/14/16 05 :51; Admin Dose 40 MG; Start 10/11/16 at 06:00 Miscellaneous Information 1 ea NOTE XX ; Start 10/10/16 at 18:00 Glucose (Glutose) 15 gm Q15M PRN PO DECREASED GLUCOSE; Start 10/10/16 at 18:00 Glucose (Glutose) 22.5 gm Q15M PRN PO DECREASED GLUCOSE; Start 10/10/16 at 18:00 Dextrose (D50w Syringe) 25 ml Q15M PRN IV DECREASED GLUCOSE; Start 10/10/16 at 18:00 Dextrose (D50w Syringe) 50 ml Q15M PRN IV DECREASED GLUCOSE; Start 10/10/16 at 18:00 Glucagon (Glucagen) 1 mg Q15M PRN IM DECREASED GLUCOSE; Start 10/10/16 at 18:00 Glucose (Glutose) 15 gm Q15M PRN BUCCAL DECREASED GLUCOSE; Start 10/10/16 at 18: 00 Diagnostic Test (Pha) (Accucheck) 1 ea 02 XX ; Start 10/11/16 at 02:00 Diphenhydramine HCl 25 mg 25 mg BID PRN PO ITCHING Last administered on 09:18; Admin Dose 25 MG; Start 10/13/16 at 09:30 Linezolid (Zyvox 600mg/D5W (Pmx)) 300 ml @ 300 mls/hr Q12 IVPB Last administered on 10/14/16 09:28; Admin Dose 300 MLS/HR; Start 10/13/16 at 21:00 Mupirocin (Bactroban) 1 applic BID TOP ; Start 10/14/16 at 21:00 LUIS ENRIQUE MAN MD Oct 14, 2016 17:41
[2016-10-14 19:35] VITALS: BP 126/60; RESP 20
--- NOTE | 2016-10-14 20:00 | CONS ---
DATE OF ADMISSION: 10/10/2016 DATE OF CONSULTATION: 10/14/2016 SUBJECTIVE FINDINGS: The patient is status post debridement and closure. Had cultures, which were from bone. Has polymicrobial organisms with multidrug resistance with MRSA and VRE. The patient cl inically nonseptic. He denies any fever, nausea, vomiting, or chills. The patient recommended anti biotics with either Zyvox or IV daptomycin per infectious disease. OBJECTIVE FINDINGS: VITAL SIGNS: Temperature 98.2, pulse is 87, respiratory rate 16, blood pressure 127/63, pulse oxime try is 99%. GENERAL: The patient alert and oriented, no acute distress. EXTREMITIES: Left above-knee amputation. Right foot with transmetatarsal amputation with closure s utures present. There is incision closed with sutures. There is mild serous drainage from the cent ral aspect. Localized skin necrosis without cellulitis, malodor. The plantar flap appears viable. The patient has a 1+ DP pulse. LABORATORIES: WBC on 10/13/2016 of 12. ASSESSMENT: 1. Right foot osteomyelitis, chronic, mid foot. 2. History of amputation. 3. Diabetic foot ulceration status post closure. PLAN: The patient seen and evaluated. Delay with transferred due to laboratory findings. Bone cul tures became available for evaluation and, due to multidrug resistant bacteria, requires further hos pitalization with ID consultation pending. PICC line versus oral Zyvox pending. Once coordinated, can be discharged to a fdc facility. Continue Hibiclens daily for the foot. Dictated By: JEWELS NEAL/LINNEA Conf#: [id number] DID#: [id number]
[2016-10-14] MEDS: DOCUSATE SODIUM 100 MG CAP PO SCH ×2 (21:00→21:46)
[2016-10-15] MEDS: ACCUCHECK XX SCH (02:00)
[2016-10-15 06:09] LABS: CREATININE 1.46 mg/dl (0.61-1.24)
[2016-10-15] MEDS: PANTOPRAZOLE (EC) 40 MG TAB PO SCH (07:07)
[2016-10-15] MEDS: metFORMIN 850 MG TAB PO SCH ×2 (08:07→17:06)
[2016-10-15] MEDS: CLOPIDOGREL 75 MG TAB PO SCH (08:07)
[2016-10-15 08:08] VITALS: BP 122/61; RESP 16
[2016-10-15] MEDS: GLIMEPIRIDE 2 MG TAB PO SCH ×2 (08:08→11:51)
[2016-10-15] MEDS: MULTIVITAMINS THERAPEUTIC TAB PO SCH (08:08)
[2016-10-15] MEDS: ASCORBIC ACID 500 MG TAB PO SCH (08:08)
[2016-10-15] MEDS: ENALAPRIL 10 MG TAB PO SCH (08:10)
[2016-10-15] MEDS: FUROSEMIDE 20 MG TAB PO SCH (08:10)
[2016-10-15] MEDS: MUPIROCIN 2% 22 GM OINT TOP SCH (08:14)
[2016-10-15] MEDS: INSULIN ASPART [NOVOLOG] 3 ML PEN SC SCH ×3 (08:15→17:10)
[2016-10-15] MEDS: LINEZOLID 600 MG/D5W (PMX) 300 ML IVPB SCH (08:34)
[2016-10-15] MEDS ORDERED: LIDOCAINE 1% (MDV) 20 ML INJ SC ONE (11:30)
[2016-10-15 13:14] LABS: BASOPHILS % 0.2 % (0.0-2.0); EOSINOPHILS # 0.4 10^3/ul (0.0-0.5); HEMATOCRIT 31.8 % (42.0-52.0); HEMOGLOBIN 10.5 g/dl (14.0-18.0); LYMPHOCYTES # 1.1 10^3/ul (0.8-2.9); LYMPHOCYTES % 11.8 % (15.0-51.0); MEAN CORPUSCULAR HEMOGLOBIN 26.4 pg (29.0-33.0); MEAN CORPUSCULAR HGB CONC 32.9 g/dl (32.0-37.0); MEAN CORPUSCULAR VOLUME 80.3 fl (82.0-101.0); MEAN PLATELET VOLUME 8.1 fl (7.4-10.4); MONOCYTE # 0.7 10^3/ul (0.3-0.9); MONOCYTES % 7.6 % (0.0-11.0); NEUTROPHIL # 7.3 10^3/ul (1.6-7.5); NEUTROPHILS % 76.4 % (39.0-77.0); PLATELET COUNT 324 10^3/UL (140-440); RED BLOOD COUNT 3.96 10^6/ul (4.70-6.10); RED CELL DISTRIBUTION WIDTH 16.9 % (11.5-14.5); UNCORRECTED WBC 9.6 10^3/ul (4.8-10.8); WHITE BLOOD COUNT 9.6 10^3/ul (4.8-10.8)
[2016-10-15 13:15] LABS: CONDITION 1; LH ANALYZER COMMENTS 1
--- NOTE | 2016-10-15 14:00 | CONS ---
Date/Time of Note Date/Time of Note DATE: 10/15/16 TIME: 13:58 Consult Date/Type/Reason Admit Date/Time Oct 10, 2016 at 11:48 Type of Consultation: ID Subjective no events, alert, feels good, no fevers, nad Objective Vital Signs Date Time Temp Pulse Resp B/P Pulse Ox O2 Delivery O2 Flow Rate FiO2 10/15/16 08:08 98.5 87 16 122/61 99 Intake and Output 10/14/16 10/14/16 10/15/16 15:00 23:00 07:00 Intake Total 1600 ml 850 ml Output Total 1100 ml 800 ml Balance 500 ml 50 ml Results/Medications Result Diagram: 10/15/16 1302 10/15/16 0540 Results 24 hrs Laboratory Tests Test 10/14/16 17:05 10/14/16 21:44 10/15/16 05:40 10/15/16 08:06 Bedside Glucose 74 114 99 Blood Urea Nitrogen 26 H Creatinine 1.46 H Test 10/15/16 11:51 10/15/16 13:02 Bedside Glucose 119 Basophils # 0.0 Basophils % 0.2 Blood Morphology Comment Eosinophils # 0.4 Eosinophils % 4.0 Hematocrit 31.8 L Hemoglobin 10.5 L Lymphocytes # 1.1 Lymphocytes % 11.8 L Mean Corpuscular Hemoglobin 26.4 L Mean Corpuscular Hemoglobin Concent 32.9 Mean Corpuscular Volume 80.3 L Mean Platelet Volume 8.1 Monocytes # 0.7 Monocytes % 7.6 Neutrophils # 7.3 Neutrophils % 76.4 Nucleated Red Blood Cells # 0.0 Nucleated Red Blood Cells % 0.0 Platelet Count 324 Red Blood Count 3.96 L Red Cell Distribution Width 16.9 H White Blood Count 9.6 Medications Current Medications Acetaminophen/ Hydrocodone Bitart ([place] (5/325)) 1 tab Q4H PRN PO PAIN LEVEL 1 -5; Start 10/10/16 at 17:30 Acetaminophen/ Hydrocodone Bitart ([place] (5/325)) 2 tab Q4H PRN PO PAIN 6-8 Last administered on 10/13/16t 08:15; Admin Dose 2 TAB; Start 10/10/16 at 17:30 Morphine Sulfate (morphine) 2 mg Q2H PRN IV PAIN 9-10; Start 10/10/16 at 17:30 Morphine Sulfate (morphine) 2 mg Q4H PRN IM PAIN 9-10; Start 10/10/16 at 17:30 Ondansetron HCl (Zofran Inj) 4 mg Q6H PRN IV NAUSEA AND/OR VOMITING; Start 10/10 at 17:30 Ascorbic Acid (Vitamin C) 1,000 mg DAILY PO Last administered on 10/15/16 08: 08; Admin Dose 1,000 MG; Start 10/11/16 at 09:00 Bisacodyl (Dulcolax Supp) 10 mg PRN PRN [place] constipation; Start 10/10/16 at 18:00 Clopidogrel Bisulfate (plaVIX) 75 mg DAILY PO Last administered on 10/15/16 08 :07; Admin Dose 75 MG; Start 10/11/16 at 09:00 Docusate Sodium (Colace) 200 mg QHS PO Last administered on 10/13/16 20:45; Admin Dose 200 MG; Start 10/10/16 at 21:00 Enalapril Maleate (Vasotec) 10 mg DAILY PO Last administered on 10/15/16 08:10 ; Admin Dose 10 MG; Start 10/11/16 at 09:00 Furosemide (Lasix) 20 mg DAILY PO Last administered on 10/15/16 08:10; Admin Dose 20 MG; Start 10/11/16 at 09:00 Magnesium Hydroxide (Milk Of Mag) 30 ml DAILY PRN PO CONSTIPATION; Start at 18:00 Multivitamins Therapeutic (Theragran) 1 tab DAILY PO Last administered on 08:08; Admin Dose 1 TAB; Start 10/11/16 at 09:00 Pantoprazole (Protonix Tab) 40 mg DAILY@06 PO Last administered on 10/15/16 07 :07; Admin Dose 40 MG; Start 10/11/16 at 06:00 Miscellaneous Information 1 ea NOTE XX ; Start 10/10/16 at 18:00 Glucose (Glutose) 15 gm Q15M PRN PO DECREASED GLUCOSE; Start 10/10/16 at 18:00 Glucose (Glutose) 22.5 gm Q15M PRN PO DECREASED GLUCOSE; Start 10/10/16 at 18:00 Dextrose (D50w Syringe) 25 ml Q15M PRN IV DECREASED GLUCOSE; Start 10/10/16 at 18:00 Dextrose (D50w Syringe) 50 ml Q15M PRN IV DECREASED GLUCOSE; Start 10/10/16 at 18:00 Glucagon (Glucagen) 1 mg Q15M PRN IM DECREASED GLUCOSE; Start 10/10/16 at 18:00 Glucose (Glutose) 15 gm Q15M PRN BUCCAL DECREASED GLUCOSE; Start 10/10/16 at 18: 00 Diagnostic Test (Pha) (Accucheck) 1 ea 02 XX ; Start 10/11/16 at 02:00 Diphenhydramine HCl 25 mg 25 mg BID PRN PO ITCHING Last administered on 09:18; Admin Dose 25 MG; Start 10/13/16 at 09:30 Linezolid (Zyvox 600mg/D5W (Pmx)) 300 ml @ 300 mls/hr Q12 IVPB Last administered on 10/15/16 08:34; Admin Dose 300 MLS/HR; Start 10/13/16 at 21:00 Mupirocin (Bactroban) 1 applic BID TOP Last administered on 10/15/16 08:14; Admin Dose 1 APPLIC; Start 10/14/16 at 21:00 Assessment/Plan Chief Complaint/Hosp Course ANTIMICROBIALS: Zyvox. MICROBIOLOGY: Wound culture growing MRSA and VRE. Nares swab came back positive for MRSA. PHYSICAL EXAMINATION: GENERAL: Well-developed, middle-aged man who is awake, in no distress. HEENT: Head atraumatic, normocephalic. Sclerae anicteric. Buccal mucosa dry. NECK: Supple, trachea midline. CHEST: Rise symmetrical. Breath sounds clear. HEART: S1, S2. ABDOMEN: Soft. Bowel tones present. EXTREMITIES: With right foot dressing intact. ASSESSMENT: 1. Right foot cellulitis, osteomyelitis, status post debridement and closure with wound culture growing methicillin-resistant Staphylococcus aureus and vancomycin-resistant enterococcus. 2. Methicillin-resistant Staphylococcus aureus nares colonization. 3. Diabetes. 4. Peripheral vascular disease status post left above knee amputation. PLAN: The patient remains stable. Continue avx, Bactroban to nares and Hibiclens baths daily, pending dc planning. Abx for 6 weeks==> Zyvox vs Daptomycin with PICC [facility] staff Problems: SUNNY PRECIADO NP Oct 15, 2016 14:00
--- NOTE | 2016-10-16 15:17 | QN ---
Documentation Comment [id number] LUIS ENRIQUE MAN MD Oct 16, 2016 15:17
--- NOTE | 2016-10-16 17:17 | DS ---
DATE OF ADMISSION: 10/10/2016 DATE OF DISCHARGE: 10/15/2016 HISTORY OF PRESENT ILLNESS: The patient was admitted with a foot wound, was seen by Dr. Jenkins in consultation. The patient has right foot ulcerations, open transmetatarsal amputation, diabetes wit h peripheral neuropathy, history of left [id number] amputation. The patient was monitored close ly, seen in infectious disease consultation, and received pain medication. The patient's cultures g rew MRSA and VRE. The patient was started on Zyvox p.o. and patient was cleared to be discharged ho ne. DISCHARGE DIAGNOSES: 1. Methicillin resistant Staphylococcus aureus and vancomycin resistant enterococcus foot status po st transmetatarsal amputation. 2. Anemia. 3. Leukocytosis. 4. Underlying chronic kidney disease. DISCHARGE MEDICATIONS: Will continue: 1. Tylenol. 2. Ascorbic acid. 3. ____. 4. Plavix. 5. Cranberry extract. 6. Docusate sodium. 7. Enalapril. 8. Lasix. 9. Amaryl. 10. [place]. 11. Magnesium hydroxide. 12. Metformin. 13. Multiple vitamin. 14. Bactroban. 15. Nitroglycerin. 16. Protonix. 17. Zyvox. FOLLOWUP: The patient to follow with Dr. Lane and Dr. Jenkins as an outpatient. DISCHARGE CONDITION: The patient is stable at the time of discharge. DIET: Cardiac diet. Dictated By: LUIS ENRIQUE MAN MD BS/NTS Conf#: [id number] DID#: [id number]
== END 2016-10-15 18:15 | DRG 629 ==
LOC: REC 11:48 → MS2 18:40
PROVIDERS: ADMIT Podiatrist Foot & Ankle Surgery; ATTEND Podiatrist Foot & Ankle Surgery
PROC: 0QBN0ZZ Excision of Right Metatarsal, Open Approach (ICD-10-PCS; principal; 2016-10-10 15:30)
DX: E11.69 Type 2 diabetes mellitus with other specified complication (principal); L03.115 Cellulitis of right lower limb; M86.671 Other chronic osteomyelitis, right ankle and foot; E11.621 Type 2 diabetes mellitus with foot ulcer; E11.22 Type 2 diabetes mellitus with diabetic chronic kidney disease; E11.42 Type 2 diabetes mellitus with diabetic polyneuropathy; L97.519 Non-pressure chronic ulcer of other part of right foot with unspecified severity; E11.51 Type 2 diabetes mellitus with diabetic peripheral angiopathy without gangrene; Z89.612 Acquired absence of left leg above knee; E78.5 Hyperlipidemia, unspecified; Z72.0 Tobacco use; Z89.431 Acquired absence of right foot; D63.8 Anemia in other chronic diseases classified elsewhere; B95.2 Enterococcus as the cause of diseases classified elsewhere; B95.62 Methicillin resistant Staphylococcus aureus infection as the cause of diseases classified elsewhere; Z16.21 Resistance to vancomycin; I12.9 Hypertensive chronic kidney disease with stage 1 through stage 4 chronic kidney disease, or unspecified chronic kidney disease; N18.9 Chronic kidney disease, unspecified
CPT/HCPCS: 80048; 82565; 82962; 83036; 84520; 85025; 85610; 85730; 87070; 87081; 87102; 87116; 88304; 88311; J0690; J1815; J2250; J2405; J3010; J3370; J7040

== ENCOUNTER 2016-12-19 14:36 | Inpatient (IN) | payer OTHER ==
[~2016-12-19] VITALS: Ht 167.6 cm; Wt 70.0 kg
[2016-12-19] VITALS (27 sets, daily range): BP systolic 127–180; BP diastolic 59–93; PULSE 67–93; RESP 15–27; Ht 167.6 cm; Wt 70.0 kg
[~2016-12-19 14:36] MED LIST changes: +ACET-2047 PO; -ACET325T33 PO; -Accucheck XX; +BISA10SU55 RC; -BISA5TAB6 PO; -CEFAZOLIN 1 GM/50 ML (PMX) 50 ML IVPB SCH; +CRAN425C PO; -HYDR-3498 PO; +HYDR-906 PO; +MAGN400O4 PO; +MULTI PO; +MUPI15CR9 TOP; +NA P135E RC; -NIT1OI2 TD; -NOVO3I SC; -TRAM-40 PO; -ZINC220C5 PO; -ZOLP5TAB PO
[2016-12-19] MEDS ORDERED: DEXT38GE15 PO (17:12)
[2016-12-19] MEDS ORDERED: PROPOFOL 20 ML ONE (17:17)
[2016-12-19] MEDS ORDERED: LIDOCAINE 2% (SDV) 5 ML INJ ONE (17:17)
[2016-12-19] MEDS ORDERED: MIDAZOLAM 1 MG/ML 2 ML INJ ONE (17:17)
[2016-12-19] MEDS ORDERED: LIDOCAINE 1% (STERILE-PAK) 30 ML INJ ONE (17:20)
[2016-12-19] MEDS ORDERED: METHYLENE BLUE 10 MG/ML VIAL ONE (17:33)
[2016-12-19] MEDS ORDERED: GELATIN SIZE 100 SPONGE ONE (17:41)
[2016-12-19] MEDS ORDERED: PROPOFOL 100 ML ONE (17:50)
--- NOTE | 2016-12-19 18:01 | OPR ---
Date/Time of Note Date/Time of Note DATE: 12/19/16 TIME: 17:56 Operative Report Free Text/Dictation Right foot debridement Procedure Date: Dec 19, 2016 Preoperative Diagnosis Right foot diabetic foot ulceration Right foot open transmetatarsal amputation h/o osteomyelitis h/o left AKA tobacco use DM2 with neuropathy Postoperative Diagnosis same Operation Performed Right foot debridement of bone 12 x 3 cm Biopsy of bone right 5th metatarsal Surgeon: JEWELS MCKNIGHT DPM Anesthesia: MAC, other Anesthesiologist: GARCIA ANDRES Tourniquet Time: none Estimated Blood Loss: 10 - 50 ml's Specimens bone for pathology 5th metatarsal culture tissue culture bone Tubes/Drains none Complications: None Pt Condition Post Procedure: stable Disposition: PACU, other JEWELS MCKNIGHT DPM Dec 19, 2016 18:00
[2016-12-19] MEDS ORDERED: MEPERIDINE 25 MG INJ IV PRN (18:30)
[2016-12-19] MEDS ORDERED: HYDROmorphONE (0.2 MG/ML) 10ML SYG IV PRN ×3 (18:30)
[2016-12-19] MEDS ORDERED: OXYCODONE/ACETAMINOPHEN (5/325) TAB PO PRN ×2 (18:30)
[2016-12-19] MEDS ORDERED: hydrALAzine 20 MG INJ IV PRN (18:30)
[2016-12-19] MEDS ORDERED: VANCOMYCIN IV PER PHARMACY XX SCH (18:30)
[2016-12-19] MEDS ORDERED: IBUPROFEN 600 MG TAB PO PRN (18:30)
[2016-12-19] MEDS ORDERED: METOCLOPRAMIDE 10 MG INJ IV PRN (18:30)
[2016-12-19] MEDS ORDERED: ONDANSETRON 4 MG INJ IV PRN ×2 (18:30)
[2016-12-19] MEDS ORDERED: DIPHENHYDRAMINE 50 MG INJ IV PRN (18:30)
--- NOTE | 2016-12-19 19:04 | OPR ---
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 PREOPERATIVE DIAGNOSES: 1. Right foot diabetic foot ulceration. 2. Osteomyelitis history. 3. Type 2 diabetes. 4. Right foot open transmetatarsal amputation. 5. Left above-knee amputation. POSTOPERATIVE DIAGNOSES: 1. Right foot diabetic foot ulceration. 2. Osteomyelitis history. 3. Type 2 diabetes. 4. Right foot open transmetatarsal amputation. 5. Left above-knee amputation. PATHOLOGY: Tissue culture, bone culture and bone for pathology. ANESTHESIA: MAC with local 20 mL of lidocaine 1%. HEMOSTASIS: Compression and Gelfoam. ESTIMATED BLOOD LOSS: 30 mL. COMPLICATIONS: None. INDICATION FOR PROCEDURE: The patient with delayed wound healing, has nonviable tissue. At this ti me presents for a debridement with lavage using hydrosurgical instrumentation. I discussed planned procedure in [place]. Informed consent was obtained, the foot was marked preoperatively and all of his questions were answered to his satisfaction. DESCRIPTION OF PROCEDURE: The patient brought into the operating room and placed in the supine posi tion. Formal timeout was performed. The foot was properly marked, confirmed by the surgical team. Extremity was prepped and draped in usual sterile fashion and at this time, the base of the wound w as painted with methylene blue. Ankle block was given, using lidocaine 1% plain and using the Versa jet and saline solution, the wound was debrided of nonviable skin and subcutaneous tissue. A rongeu r was used to obtain a tissue sample as well as a bone sample from fifth metatarsal. Bone was sent also for pathology from the fifth metatarsal and the patient had estimated blood loss of 30 mL. Ulc eration measured approximately 12 x 3 cm and hemostasis was achieved using compression as well as Ge lfoam and was wrapped with 4 x 4, Kerlix and bias. The patient transferred to PACU with vital signs stable. POSTOPERATIVE PLAN: Recommend hospitalization initiation on IV antibiotics, ID consultation and fu rther recommendations pending the clinical appearance. Likely to require revisional surgical interv ention for wound closure. Dr. Belle consulted for medical management. Dictated By: JEWELS NEAL/LINNEA Conf#: [id number] DID#: [id number]
--- NOTE | 2016-12-19 19:12 | CONS ---
DATE OF ADMISSION: 12/19/2016 DATE OF CONSULTATION: 12/19/2016 CHIEF COMPLAINT: Right foot ulceration. HISTORY OF PRESENT ILLNESS: This is a 56-year-old gentleman who is postop wound debridement of the right foot. The patient with history of osteomyelitis and is being admitted for IV antibiotics and staged intervention. PAST MEDICAL HISTORY: 1. Hypertension. 2. Diabetes type 2. 3. Diabetes with peripheral neuropathy. 4. Hyperlipidemia. 5. Left above-knee amputation. 6. Right transmetatarsal amputation. 7. Anemia of chronic disease. FAMILY HISTORY: Diabetes. SOCIAL HISTORY: Tobacco use 1 or 2 cigarettes daily. Denies any recreational drug use. PHYSICAL EXAMINATION: VITAL SIGNS: Temperature 97.6, pulse 81, respiratory rate 18, blood pressure 164/77, pulse ox room air. GENERAL: The patient is alert and pleasant mood. HEAD: Normocephalic, atraumatic. NECK: Trachea is midline. PULMONARY: Regular respiration unlabored. ABDOMEN: The patient has a soft abdomen and nontender. EXTREMITIES: The patient has left above-knee amputation. Right foot open transmetatarsal amputatio n with ulceration distal aspect, has a 2+ PT pulse, 1+ DP, and 2+ popliteal pulse. The patient has dry skin. No evidence of decubitus ulceration. Transmetatarsal amputation noted with viable planta r skin. Skin is warm. No lymphangitis or tender popliteal lymph nodes. ASSESSMENT: 1. Right foot diabetic foot ulceration, status post debridement of wound. 2. Differential diagnosis: Osteomyelitis. 3. Transmetatarsal amputation. 4. Limited mobility from prior above knee amputation. 5. Diabetes type 2. 6. Tobacco use. PLAN: The patient is being admitted, initiated on broad spectrum IV antibiotics. ID consultation. Dr. Rolando Belle, medically manage. We will await culture results. Anticipate revisional procedur e for skin grafting or allograft application. Dictated By: JEWELS NEAL/LINNEA Conf#: [id number] DID#: [id number]
[2016-12-19] MEDS ORDERED: VANCOMYCIN 1.25 GM in SOD CHLORIDE 0.9% 250 ML IVPB ONE (21:00)
[2016-12-19] MEDS: PIPER-TAZO 3.375 GM IV (PMX) 100 ML IVPB SCH ×2 (22:00→23:49)
[2016-12-19] MEDS: INSULIN ASPART [NOVOLOG] 3 ML PEN SC SCH (22:57)
[2016-12-19] MEDS: ACCU-CHEK XX SCH (22:57)
[2016-12-19] MEDS ORDERED: GLUCOSE GEL 15 GRAM TUBE PO PRN ×2 (23:00)
[2016-12-19] MEDS ORDERED: GLUCAGON 1 MG INJ IM PRN (23:00)
[2016-12-19] MEDS ORDERED: GLUCOSE GEL 15 GRAM TUBE BUCCAL PRN (23:00)
[2016-12-19] MEDS ORDERED: DEXTROSE 50% 50 ML SYRINGE IV PRN ×2 (23:00)
[2016-12-20] VITALS: BP 143/73; PULSE 72; RESP 16
[2016-12-20 05:08] LABS: ADD SCAN DIFF NO
[2016-12-20 05:18] LABS: BASOPHIL # 0.1 10^3/ul (0.0-0.1); BASOPHILS % 0.3 % (0.0-2.0); EOSINOPHILS # 0.3 10^3/ul (0.0-0.5); EOSINOPHILS % 1.9 % (0.0-7.0); HEMATOCRIT 31.4 % (42.0-52.0); HEMOGLOBIN 10.1 g/dl (14.0-18.0); LYMPHOCYTES # 1.4 10^3/ul (0.8-2.9); LYMPHOCYTES % 9.5 % (15.0-51.0); MEAN CORPUSCULAR HEMOGLOBIN 26.6 pg (29.0-33.0); MEAN CORPUSCULAR HGB CONC 32.2 g/dl (32.0-37.0); MEAN CORPUSCULAR VOLUME 82.8 fl (82.0-101.0); MEAN PLATELET VOLUME 10.8 fl (7.4-10.4); MONOCYTE # 0.7 10^3/ul (0.3-0.9); NEUTROPHILS % 82.9 % (39.0-77.0); PLATELET COUNT 263 10^3/UL (140-415); RED BLOOD COUNT 3.79 10^6/ul (4.70-6.10); RED CELL DISTRIBUTION WIDTH 15.5 % (11.5-14.5); WHITE BLOOD COUNT 14.5 10^3/ul (4.8-10.8)
[2016-12-20 05:55] LABS: ALBUMIN 3.5 g/dl (3.3-4.9)
[2016-12-20 05:58] LABS: BILIRUBIN,INDIRECT 0.1 mg/dl (0-1.1); BILIRUBIN,TOTAL 0.1 mg/dl (0.2-1.3); CREATININE 1.1 mg/dl (0.61-1.24)
[2016-12-20 05:59] LABS: ALBUMIN/GLOBULIN RATIO 0.97; CALCIUM 8.6 mg/dl (8.4-10.2); TOTAL PROTEIN 7.1 g/dl (6.1-8.1)
[2016-12-20] MEDS: PIPER-TAZO 3.375 GM IV (PMX) 100 ML IVPB SCH ×3 (07:43→21:17)
[2016-12-20] MEDS: PANTOPRAZOLE (EC) 40 MG TAB PO SCH (07:43)
[2016-12-20] MEDS: ENOXAPARIN 40 MG/0.4 ML SYG SC SCH (07:45)
[2016-12-20 07:48] VITALS: BP 132/66; RESP 22
[2016-12-20] MEDS: INSULIN ASPART [NOVOLOG] 3 ML PEN SC SCH ×4 (07:50→20:59)
[2016-12-20] MEDS ORDERED: VANCOMYCIN 1 GM in NS 250 ML IVPB SCH (09:00)
--- NOTE | 2016-12-20 10:35 | CONS ---
Date/Time of Note Date/Time of Note DATE: 12/20/16 TIME: 10:16 Assessment/Plan Assessment/Plan Chief Complaint/Hosp Course 1. Pt needs to improve his gait, will order crutches and wheelchair for home use 2. Pt needs strict glycemic control and physical therapy. Will wait for surgeon to clear pt on weight bearing status 3. wound care per dr Jenkins Problems: Cont'd Hospitalization Reason: wound care, after surgical procedure reabilitation Consultation Date/Type/Reason Admit Date/Time Dec 19, 2016 at 14:36 Date of Consultation: Dec 20, 2016 Reason for Consultation 1. Diabetes mellitus type II with peripheral neuropathy 2. Hypertension, controlled 3. Left Above the knee amputation 4. Right foot ulceration with delayed healing 5. S/p debridement of the right foot with open metatarsal amputation 6. Gait impairment Constitutional: other (imbalance) Eyes: no complaints ENT: no complaints Respiratory: no complaints Cardiovascular: no complaints Gastrointestinal: no complaints Genitourinary: no complaints Musculoskeletal: restricted range of motion Skin: other (right foot wound) Neurologic: no complaints Endocrine: no complaints Psychological: other (bad mood) Immunologic: no complaints Past Medical History Medical History: hypertension, other (periferal vascular disease) Past Surgical History Past Surgical Hx: other (recent rightfoot debridement) Family History Significant Family History: diabetes Social History Alcohol Use: occasionally Smoking Status: Current some day smoker Drug Use: none Exam/Review of Systems Vital Signs Vitals Vital Signs Date Time Temp Pulse Resp B/P Pulse Ox O2 Delivery O2 Flow Rate FiO2 12/20/16 07:48 98.8 86 22 132/66 99 12/20/16 00:00 Room Air Intake and Output 12/19/16 12/19/16 12/20/16 15:00 23:00 07:00 Intake Total 1900 ml 1450 ml Output Total 30 ml 800 ml Balance 1870 ml 650 ml Exam Constitutional: alert, oriented, well developed Psych: other (impulsive) Head: normocephalic Eyes: nl conjunctiva ENMT: nl external ears & nose Neck: supple Respiratory: clear to auscultation Cardiovascular: regular rate and rhythm Gastrointestinal: soft Genitourinary - Male: nl penis Musculoskeletal: nl extremities to inspection Extremities: other (left AKA, s/p debridement right foot 12/19/2016) Neurological: nl mental status, nl speech Skin: nl turgor Results Result Diagram: 12/20/16 0426 12/20/16 0426 Results 24 hrs Laboratory Tests Test 12/19/16 15:52 12/19/16 20:25 12/19/16 22:53 12/20/16 04:26 Bedside Glucose 125 171 Creatinine 0.99 1.10 Alanine Aminotransferase (ALT/SGPT) 15 Albumin 3.5 Albumin/Globulin Ratio 0.97 Alkaline Phosphatase 87 Anion Gap 16 Aspartate Amino Transf (AST/SGOT) 17 Basophils # 0.1 Basophils % 0.3 Blood Urea Nitrogen 29 H Calcium Level 8.6 Carbon Dioxide Level 27 Chloride Level 103 Direct Bilirubin 0.00 Eosinophils # 0.3 Eosinophils % 1.9 Globulin 3.60 H Glucose Level 166 Hematocrit 31.4 L Hemoglobin 10.1 L Indirect Bilirubin 0.1 Lymphocytes # 1.4 Lymphocytes % 9.5 L Mean Corpuscular Hemoglobin 26.6 L Mean Corpuscular Hemoglobin Concent 32.2 Mean Corpuscular Volume 82.8 Mean Platelet Volume 10.8 #H Monocytes # 0.7 Monocytes % 5.0 Neutrophils # 12.0 H Neutrophils % 82.9 H Nucleated Red Blood Cells # 0.0 Nucleated Red Blood Cells % 0.0 Platelet Count 263 Potassium Level 4.0 Red Blood Count 3.79 L Red Cell Distribution Width 15.5 H Sodium Level 142 Total Bilirubin 0.1 L Total Protein 7.1 White Blood Count 14.5 #H Test 12/20/16 07:56 Bedside Glucose 138 Medications Medications Current Medications Ibuprofen (Motrin) 600 mg Q6H PRN PO PAIN LEVEL 6-10; Start 12/19/16 at 18:30 Acetaminophen/ Hydrocodone Bitart ([place] (5/325)) 1 tab Q6H PRN PO PAIN LEVEL 6 -10; Start 12/19/16 at 18:30 Ondansetron HCl (Zofran Inj) 4 mg Q6H PRN IV NAUSEA AND/OR VOMITING; Start at 18:30 Diphenhydramine HCl (Benadryl) 25 mg Q6H PRN IV ITCHING; Start 12/19/16 at 18: 30 Pantoprazole (Protonix Tab) 40 mg DAILY@06 PO Last administered on 12/20/16t 07 :43; Admin Dose 40 MG; Start 12/20/16 at 06:00 Enoxaparin Sodium 40 mg 40 mg DAILY@07 SC Last administered on 12/20/16 07:45 ; Admin Dose 40 MG; Start 12/20/16 at 07:00 Piperacillin Sod/ Tazobactam Sod 100 ml @ 200 mls/hr Q8 IVPB Last administered on 12/20/16 07:43; Admin Dose 200 MLS/HR; Start 12/19/16 at 22:00 Vancomycin HCl (Vancocin) 250 ml @ 125 mls/hr Q12H IVPB Last administered on 08:49; Admin Dose 125 MLS/HR; Start 12/20/16 at 09:00; Stop 12/20/16 at 13:00 Diagnostic Test (Pha) (Accucheck) 1 ea 02 XX ; Start 12/20/16 at 02:00 Miscellaneous Information 1 ea NOTE XX ; Start 12/19/16 at 23:00 Glucose (Glutose) 15 gm Q15M PRN PO DECREASED GLUCOSE; Start 12/19/16 at 23:00 Glucose (Glutose) 22.5 gm Q15M PRN PO DECREASED GLUCOSE; Start 12/19/16 at 23: 00 Dextrose (D50w Syringe) 25 ml Q15M PRN IV DECREASED GLUCOSE; Start 12/19/16 at 23:00 Dextrose (D50w Syringe) 50 ml Q15M PRN IV DECREASED GLUCOSE; Start 12/19/16 at 23:00 Glucagon (Glucagen) 1 mg Q15M PRN IM DECREASED GLUCOSE; Start 12/19/16 at 23:00 Glucose 15 gm 15 gm Q15M PRN BUCCAL DECREASED GLUCOSE; Start 12/19/16 at 23:00 Vancomycin HCl/ Sodium Chloride (Vancocin/NS) 150 ml @ 75 mls/hr Q12H IVPB ; Start 12/20/16 at 23:00 Miscellaneous Information (*Rx Drug Level Order Reminder*) VANCOMYCIN TROUGH AT 1000 ONCE ONCE XX ; Start 12/21/16 at 10:00; Stop 12/21/16 at 10:01 RADHA ESTRADA Dec 20, 2016 10:33
[2016-12-20 19:00] VITALS: BP 153/73; RESP 19
[2016-12-20 19:43] VITALS: BP 150/70; PULSE 72; RESP 18
[2016-12-20] MEDS: GENTAMICIN 0.1% 15 GM OINT TOP SCH (21:00)
[2016-12-20] MEDS: VANCOMYCIN 750 MG in SOD CHLORIDE 0.9% 150 ML IVPB SCH (22:38)
[2016-12-21] MEDS: ACCU-CHEK XX SCH (01:54)
--- NOTE | 2016-12-21 04:22 | CONS ---
DATE OF ADMISSION: 12/19/2016 DATE OF CONSULTATION: 12/20/2016 SUBJECTIVE FINDINGS: The patient is postoperative day #1 right foot debridement. The patient has p reliminary cultures, gram-negative rods. Denies any fever, nausea, vomiting. The patient with elev ated white count. OBJECTIVE FINDINGS: VITAL SIGNS: Temperature 99, pulse is 77, respiratory rate 19, blood pressure 153/73, pulse ox is 9 8%. GENERAL: The patient alert, oriented, no acute distress. RESPIRATORY: Regular respiration. EXTREMITIES: Left above-knee amputation. Right foot transmetatarsal amputation. Dressings clean, dry, and intact. LABORATORY DATA: Cultures: Preliminary gram-negative rods. WBC 14.5, hemoglobin 10.1, hematocrit 31.4, platelets 263. Sodium 142, potassium 4, chloride 103, BUN 29, creatinine 1.1, glucose 166. ASSESSMENT 1. Right foot transmetatarsal amputation, open, status post debridement. 2. Peripheral arterial disease, awaiting consultation by Dr. Morejon. 3. Diabetes type 2 with peripheral neuropathy. 4. Leukocytosis. PLAN: Recommend daily dressing changes with gentamicin ointment. Further recommendations pending v ascular consultation and biopsy results. Wound clinically appears improved and discussed alternativ es for skin graft or skin graft alternatives. The patient is currently on vancomycin and Zosyn. Th e patient is weightbearing as tolerated with crutches and assistance. Dictated By: JEWELS NEAL/LINNEA Conf#: [id number] DID#: [id number]
[2016-12-21] MEDS: PANTOPRAZOLE (EC) 40 MG TAB PO SCH (05:59)
[2016-12-21] MEDS: PIPER-TAZO 3.375 GM IV (PMX) 100 ML IVPB SCH (05:59)
[2016-12-21] MEDS: ENOXAPARIN 40 MG/0.4 ML SYG SC SCH (06:01)
[2016-12-21 06:07] LABS: CREATININE 1.08 mg/dl (0.61-1.24)
[2016-12-21] MEDS: INSULIN ASPART [NOVOLOG] 3 ML PEN SC SCH ×4 (07:50→20:49)
[2016-12-21 08:57] VITALS: BP 162/78; RESP 20
[2016-12-21] MEDS: GENTAMICIN 0.1% 15 GM OINT TOP SCH ×3 (09:55→21:32)
[2016-12-21] MEDS: VANCOMYCIN 750 MG in SOD CHLORIDE 0.9% 150 ML IVPB SCH (11:34)
--- NOTE | 2016-12-21 15:20 | CONS ---
Date/Time of Note Date/Time of Note DATE: 12/21/16 TIME: 15:00 Assessment/Plan Assessment/Plan Chief Complaint/Hosp Course 1. R foot acute on chronic cellulitis/OM, s/p debridement==> cx + Kleb ESBL/ Enterococcus 2. Diabetes. 3. Peripheral vascular disease status post left above knee amputation. 4. Hx MRSA colonization Plan: Change abx to Invanz and Zyvox, f/u final cx, podiatry rec-s Problems: Consultation Date/Type/Reason Admit Date/Time Dec 19, 2016 at 14:36 Type of Consultation: ID Referring Provider: JEWELS MCKNIGHT DPM Constitutional: other (imbalance) Eyes: no complaints ENT: no complaints Respiratory: no complaints Cardiovascular: no complaints Gastrointestinal: no complaints Genitourinary: no complaints Musculoskeletal: restricted range of motion Skin: other (right foot wound) Neurologic: no complaints Endocrine: no complaints Psychological: other (impulsive) Immunologic: no complaints Past Medical History Medical History: hypertension, other (periferal vascular disease) Past Surgical History Past Surgical Hx: other (recent rightfoot debridement) Social History Alcohol Use: occasionally Smoking Status: Current some day smoker Drug Use: none Exam/Review of Systems Vital Signs Vitals Vital Signs Date Time Temp Pulse Resp B/P Pulse Ox O2 Delivery O2 Flow Rate FiO2 12/21/16 08:57 98.2 78 20 162/78 98 12/20/16 19:43 Room Air Intake and Output 12/20/16 12/20/16 12/21/16 15:00 23:00 07:00 Intake Total 350 ml 750 ml 1250 ml Output Total 1200 ml 900 ml Balance 350 ml -450 ml 350 ml Results Result Diagram: 12/20/16 0426 12/21/16 0425 Results 24 hrs Laboratory Tests Test 12/20/16 17:37 12/20/16 20:12 12/21/16 04:25 12/21/16 08:43 Bedside Glucose 174 153 136 Blood Urea Nitrogen 18 # Creatinine 1.08 Test 12/21/16 10:10 12/21/16 12:09 Vancomycin Level Trough 13.4 Bedside Glucose 174 Medications Medications Current Medications Ibuprofen (Motrin) 600 mg Q6H PRN PO PAIN LEVEL 6-10; Start 12/19/16 at 18:30 Acetaminophen/ Hydrocodone Bitart ([place] (5/325)) 1 tab Q6H PRN PO PAIN LEVEL 6 -10; Start 12/19/16 at 18:30 Ondansetron HCl (Zofran Inj) 4 mg Q6H PRN IV NAUSEA AND/OR VOMITING; Start at 18:30 Diphenhydramine HCl (Benadryl) 25 mg Q6H PRN IV ITCHING; Start 12/19/16 at 18: 30 Pantoprazole (Protonix Tab) 40 mg DAILY@06 PO Last administered on 12/21/16 05 :59; Admin Dose 40 MG; Start 12/20/16 at 06:00 Enoxaparin Sodium 40 mg 40 mg DAILY@07 SC Last administered on 12/21/16 06:01 ; Admin Dose 40 MG; Start 12/20/16 at 07:00 Piperacillin Sod/ Tazobactam Sod (Zosyn 3.375gm/ 100 ml (Pmx)) 100 ml @ 200 mls /hr Q8 IVPB Last administered on 12/21/16 05:59; Admin Dose 200 MLS/HR; Start 12/19/16 at 22:00 Diagnostic Test (Pha) (Accucheck) 1 ea 02 XX ; Start 12/20/16 at 02:00 Miscellaneous Information 1 ea NOTE XX ; Start 12/19/16 at 23:00 Glucose (Glutose) 15 gm Q15M PRN PO DECREASED GLUCOSE; Start 12/19/16 at 23:00 Glucose (Glutose) 22.5 gm Q15M PRN PO DECREASED GLUCOSE; Start 12/19/16 at 23: 00 Dextrose (D50w Syringe) 25 ml Q15M PRN IV DECREASED GLUCOSE; Start 12/19/16 at 23:00 Dextrose (D50w Syringe) 50 ml Q15M PRN IV DECREASED GLUCOSE; Start 12/19/16 at 23:00 Glucagon (Glucagen) 1 mg Q15M PRN IM DECREASED GLUCOSE; Start 12/19/16 at 23:00 Glucose 15 gm 15 gm Q15M PRN BUCCAL DECREASED GLUCOSE; Start 12/19/16 at 23:00 Vancomycin HCl/ Sodium Chloride (Vancocin/NS) 150 ml @ 75 mls/hr Q12H IVPB Last administered on 12/21/16 11:34; Admin Dose 75 MLS/HR; Start 12/20/16 at 23 :00 Gentamicin Sulfate (Gentamicin 0.1% Oint) 1 applic TID TOP Last administered on 12/21/16t 12:39; Admin Dose 1 APPLIC; Start 12/20/16 at 21:00 SUNNY PRECIADO NP Dec 21, 2016 15:11
[2016-12-21] MEDS: ERTAPENEM SODIUM 1 GM in SOD CHLORIDE 0.9% 100 ML IVPB SCH (16:35)
--- NOTE | 2016-12-21 18:03 | CONS ---
Date/Time of Note Date/Time of Note DATE: 12/21/16 TIME: 18:00 Assessment/Plan Assessment/Plan Problems: (1) PAD (peripheral artery disease) Additional Assessment/Plan Patient with likely SEVER PAD DM Amputation Non healing DM foot ulcer amputaiton Pt will need Vascular Duplex likely below the knee disease. will need peripheral angiogram with possbile intervention. will fu with art duplex Thank you Dr Jenkins for consultation. Consultation Date/Type/Reason Admit Date/Time Dec 19, 2016 at 14:36 Date of Consultation: Dec 21, 2016 Type of Consultation: Endovascular Cardiology Reason for Consultation PAD Hx of Present Illness Patient is 56 year old male with PMH of Dm, HTN, HLD, PAD with leg ampuation of left leg AKA, came in with non healing ulcer s/p debridement. I was consulted for severe PAD and possbile endovascular revascularization for possible severe PAD. Pt does have signs of ischemia on skin. Constitutional: other Eyes: no complaints ENT: no complaints Respiratory: no complaints Cardiovascular: no complaints Gastrointestinal: no complaints Genitourinary: no complaints Musculoskeletal: restricted range of motion Skin: other Neurologic: no complaints Endocrine: no complaints Psychological: other Immunologic: no complaints Past Medical History Medical History: hypertension, other Past Surgical History Past Surgical Hx: other Social History Alcohol Use: occasionally Smoking Status: Current some day smoker Drug Use: none Exam/Review of Systems Vital Signs Vitals Vital Signs Date Time Temp Pulse Resp B/P Pulse Ox O2 Delivery O2 Flow Rate FiO2 12/21/16 08:57 98.2 78 20 162/78 98 12/20/16 19:43 Room Air Intake and Output 12/20/16 12/20/16 12/21/16 15:00 23:00 07:00 Intake Total 350 ml 750 ml 1250 ml Output Total 1200 ml 900 ml Balance 350 ml -450 ml 350 ml Exam Constitutional: alert, oriented Psych: no complaints Head: normocephalic Eyes: nl conjunctiva ENMT: nl external ears & nose Neck: supple Respiratory: clear to auscultation Cardiovascular: regular rate and rhythm Gastrointestinal: soft Results Result Diagram: 12/20/16 0426 12/21/16 0425 Results 24 hrs Laboratory Tests Test 12/20/16 20:12 12/21/16 04:25 12/21/16 08:43 12/21/16 10:10 Bedside Glucose 153 136 Blood Urea Nitrogen 18 # Creatinine 1.08 Vancomycin Level Trough 13.4 Test 12/21/16 12:09 12/21/16 17:36 Bedside Glucose 174 105 Medications Medications Current Medications Ibuprofen (Motrin) 600 mg Q6H PRN PO PAIN LEVEL 6-10; Start 12/19/16 at 18:30 Acetaminophen/ Hydrocodone Bitart ([place] (5/325)) 1 tab Q6H PRN PO PAIN LEVEL 6 -10; Start 12/19/16 at 18:30 Ondansetron HCl (Zofran Inj) 4 mg Q6H PRN IV NAUSEA AND/OR VOMITING; Start at 18:30 Diphenhydramine HCl (Benadryl) 25 mg Q6H PRN IV ITCHING; Start 12/19/16 at 18: 30 Pantoprazole (Protonix Tab) 40 mg DAILY@06 PO Last administered on 12/21/16 05 :59; Admin Dose 40 MG; Start 12/20/16 at 06:00 Enoxaparin Sodium (Lovenox) 40 mg DAILY@07 SC Last administered on 12/21/16 06 :01; Admin Dose 40 MG; Start 12/20/16 at 07:00 Diagnostic Test (Pha) (Accucheck) 1 ea 02 XX ; Start 12/20/16 at 02:00 Miscellaneous Information 1 ea NOTE XX ; Start 12/19/16 at 23:00 Glucose (Glutose) 15 gm Q15M PRN PO DECREASED GLUCOSE; Start 12/19/16 at 23:00 Glucose (Glutose) 22.5 gm Q15M PRN PO DECREASED GLUCOSE; Start 12/19/16 at 23: 00 Dextrose (D50w Syringe) 25 ml Q15M PRN IV DECREASED GLUCOSE; Start 12/19/16 at 23:00 Dextrose (D50w Syringe) 50 ml Q15M PRN IV DECREASED GLUCOSE; Start 12/19/16 at 23:00 Glucagon (Glucagen) 1 mg Q15M PRN IM DECREASED GLUCOSE; Start 12/19/16 at 23:00 Glucose (Glutose) 15 gm Q15M PRN BUCCAL DECREASED GLUCOSE; Start 12/19/16 at 23 :00 Gentamicin Sulfate 1 applic 1 applic TID TOP Last administered on 12/21/16 12: 39; Admin Dose 1 APPLIC; Start 12/20/16 at 21:00 Ertapenem/Sodium Chloride (Invanz/NS) 100 ml @ 200 mls/hr Q24H IVPB Last administered on 12/21/16t 16:35; Admin Dose 200 MLS/HR; Start 12/21/16 at 15:30 Linezolid (Zyvox) 600 mg BID PO ; Start 12/21/16 at 21:00 TANIA SEALS MD Dec 21, 2016 18:03
--- NOTE | 2016-12-21 18:10 | PN ---
DATE: 12/21/2016 REQUESTING PHYSICIAN: Dr. Jenkins and Dr. Belle. Thank you for this consultation. HISTORY OF PRESENT ILLNESS: This is a 56-year-old man well known to our service from multi ple previous admissions. The patient was seen by our service in August 2017 for right lower extre mity osteomyelitis with wound culture at that time grew out VRE and MRSA. The patient also has a hi story of diabetes, peripheral vascular disease, status post left above knee amputation, MRSA nares c olonization. He was readmitted with recurrent infection of his right foot, underwent right foot ope n transmetatarsal amputation with debridement of the bone on 12/19/2016. MICROBIOLOGY: Cultures are growing Klebsiella, ESBL, Enterococcus species, gram-negative rods. ANTIMICROBIALS: 1. The patient is on vancomycin. 2. Topical gentamicin. 3. Zosyn. LABORATORY DATA: WBC 14.5, hemoglobin and hematocrit 10.1 and 31.4, platelets 363,000, neutrophils 82.9, BUN 18, creatinine 1.08. PAST MEDICAL HISTORY: Significant for also hypertension, hyperlipidemia, anemia of chronic disease, multiple right foot surgeries. SOCIAL HISTORY: No smoking, alcohol, or illicits. ALLERGIES: NONE. PHYSICAL EXAMINATION: GENERAL: This is a well-nourished, well-developed, middle-aged man who is alert, in no dis tress. HEENT: Head atraumatic, normocephalic. Sclerae anicteric. Buccal mucosa pink. NECK: Supple, trachea midline. CHEST: Rise symmetrical. Breath sounds clear. HEART: S1, S2. ABDOMEN: Soft, bowel tones present. EXTREMITIES: With right foot dressings intact. IMPRESSION: A 56-year-old man who has numerous medical problems, readmitted for infected right foot , status post incision and drainage with culture growing Klebsiella, extended-spectrum beta lactamas e, enterococcus, and gram-negative rods. Patient with a history of methicillin-resistant Staphyloco ccus aureus and vancomycin resistant enterococcus that he grew on previous admission from his wounds . We are going to start him on Zyvox and Invanz to cover Klebsiella, extended-spectrum beta-lactama se, and Enterococcus species. Await for final cultures. Await for bone biopsy and pathology report . We will follow podiatry recommendations in regards to length of antibiotics. Above was discussed with Dr. Ghazala Lane. Dictated By: SUNNY PRECIADO [employer] TECHNICIAN for GHAZAL[facility] RIVERA/LINNEA Conf#: [id number] DID#: [id number]
[2016-12-21 20:00] VITALS: BP 164/77; RESP 18
[2016-12-21] MEDS: ZYVOX 600 MG TAB PO SCH (21:32)
[2016-12-21] MEDS: HYDROCODONE/APAP (5/325) TAB PO PRN (21:33)
[2016-12-21 22:38] VITALS: BP 138/61; RESP 16
[2016-12-22] VITALS (21 sets, daily range): BP systolic 135–193; BP diastolic 60–88; PULSE 68–88; RESP 14–22
[2016-12-22] MEDS: ACCU-CHEK XX SCH (01:42)
[2016-12-22] MEDS: PANTOPRAZOLE (EC) 40 MG TAB PO SCH (06:22)
[2016-12-22] MEDS: ENOXAPARIN 40 MG/0.4 ML SYG SC SCH (06:24)
--- NOTE | 2016-12-22 07:31 | RADRPT ---
PROCEDURE: Doppler US right lower extremity arteries. CLINICAL INDICATION: Right leg pain. Claudication that interferes significantly with the patient' s lifestyle. TECHNIQUE: Multiple longitudinal and transverse images of the right lower extremity arteries were obtained with galeas scale, pulsed Doppler and color Doppler imaging. COMPARISON: No prior studies are available for comparison. FINDINGS: Location Right PVH760 cm/sec PSFA73 cm/sec MSFA73 cm/sec DSFA84 cm/sec LIB277 cm/sec PTA46 cm/sec DPA27 cm/sec There is normal triphasic flow in the right common femoral artery, superficial femoral artery, and p opliteal artery. Biphasic flow is present in the posterior tibial artery and monophasic flow is pre sent in the dorsalis pedis artery. Ankle-brachial index was unobtainable due to calcified vessels. IMPRESSION: 1. Normal femoral and popliteal systems. 2. Abnormal calf arteries consistent with significant stenosis or occlusion. RPTAT: QQ .Srini Sandoval MD, MD Date Time Electronically viewed and signed by .Srini Sandoval MD, MD on 12/22/2016 07:31 .R/
[2016-12-22] MEDS: INSULIN ASPART [NOVOLOG] 3 ML PEN SC SCH ×4 (07:50→20:34)
[2016-12-22] MEDS: ZYVOX 600 MG TAB PO SCH ×2 (08:58→20:33)
[2016-12-22] MEDS: GENTAMICIN 0.1% 15 GM OINT TOP SCH ×3 (08:58→20:35)
--- NOTE | 2016-12-22 11:14 | CONS ---
DATE OF ADMISSION: 12/19/2016 DATE OF CONSULTATION: 12/22/2016 SUBJECTIVE FINDINGS: The patient being followed for right foot open transmetatarsal amputation, sta tus post debridement with polymicrobial infection. Patient with Klebsiella pneumoniae, ESBL and gra m-negative rods and Enterococcus species. The patient seen for vascular consultation noninvasive te sts performed, results reveal abnormal calf arteries consistent with significant stenosis or occlusi on. The patient denies any acute complaints. VITAL SIGNS: Temperature 98.2, pulse is 82, respiratory rate 18, blood pressure 174/81, pulse oxime try is 92 on room air. EXTREMITIES: Patient with left AKA, stable right transmetatarsal amputation with open wound, decrea sed malodor. Patient has decreased protective sensation. There is a persistent nonviable tissue to the right foot. Ulceration measures approximately 12 x 3 cm. Decreased malodor and mild serosanguin eous drainage. ASSESSMENT: 1. Right foot open transmetatarsal amputation with polymicrobial growth. 2. Diabetes type 2 with neuropathy. 3. Peripheral arterial disease with infrapopliteal involvement. 4. Leukocytosis. PLAN: Patient with polymicrobial infection initiated on Zyvox. Bone biopsy results are pending. Re commend revisional debridement to help reduce bacterial bioburden and will coordinate with surgical scheduling. Discussed planned procedure with patient. Obtained consents. Dictated By: JEWELS NEAL/LINNEA Conf#: [id number] DID#: [id number]
[2016-12-22] MEDS: ERTAPENEM SODIUM 1 GM in SOD CHLORIDE 0.9% 100 ML IVPB SCH (16:06)
[2016-12-22 16:24] LABS: ADD SCAN DIFF NO
[2016-12-22 16:26] LABS: BASOPHILS % 0.4 % (0.0-2.0); EOSINOPHILS # 0.3 10^3/ul (0.0-0.5); EOSINOPHILS % 4.4 % (0.0-7.0); HEMATOCRIT 31.9 % (42.0-52.0); HEMOGLOBIN 10.6 g/dl (14.0-18.0); LYMPHOCYTES # 1.7 10^3/ul (0.8-2.9); LYMPHOCYTES % 23.6 % (15.0-51.0); MEAN CORPUSCULAR HEMOGLOBIN 27.2 pg (29.0-33.0); MEAN CORPUSCULAR HGB CONC 33.2 g/dl (32.0-37.0); MEAN PLATELET VOLUME 10.3 fl (7.4-10.4); MONOCYTE # 0.6 10^3/ul (0.3-0.9); MONOCYTES % 7.8 % (0.0-11.0); NEUTROPHIL # 4.5 10^3/ul (1.6-7.5); NEUTROPHILS % 63.7 % (39.0-77.0); PLATELET COUNT 273 10^3/UL (140-415); RED BLOOD COUNT 3.89 10^6/ul (4.70-6.10); RED CELL DISTRIBUTION WIDTH 14.6 % (11.5-14.5)
[2016-12-22] MEDS ORDERED: MIDAZOLAM 1 MG/ML 2 ML INJ ONE (17:07)
[2016-12-22] MEDS ORDERED: FENTAnyl 50 MCG/ML VIAL ONE (17:07)
[2016-12-22] MEDS ORDERED: GELATIN SIZE 100 SPONGE ONE (17:35)
[2016-12-22] MEDS ORDERED: LIDOCAINE 2% (SDV) 5 ML INJ ONE (17:48)
[2016-12-22] MEDS ORDERED: PROPOFOL 20 ML ONE (17:48)
[2016-12-22] MEDS ORDERED: ONDANSETRON 4 MG INJ ONE (17:49)
[2016-12-22] MEDS ORDERED: ONDANSETRON 4 MG INJ IV PRN ×2 (18:00)
[2016-12-22] MEDS ORDERED: hydrALAzine 20 MG INJ IV PRN (18:00)
[2016-12-22] MEDS ORDERED: morphine (1 MG/ML) 10ML SYRINGE IV PRN (18:00)
[2016-12-22] MEDS ORDERED: MEPERIDINE 25 MG INJ IV PRN (18:00)
[2016-12-22] MEDS ORDERED: DIPHENHYDRAMINE 50 MG INJ IV PRN ×2 (18:00)
[2016-12-22] MEDS ORDERED: LABETALOL HCL 20MG INJ IV PRN (18:00)
[2016-12-22] MEDS ORDERED: FENTAnyl 50 MCG/ML VIAL IV PRN (18:00)
--- NOTE | 2016-12-22 20:47 | PN ---
DATE: 12/22/2016 SUBJECTIVE: No acute changes. The patient is alert, denies pain, discomfort. No fevers. VITAL SIGNS: Stable. ANTIMICROBIALS: Zyvox, Invanz. MICROBIOLOGY: Wound culture on 12/19/2016 grew Proteus mirabilis, Klebsiella extended-spectrum beta -lactamase, enterococcus species and Staphylococcus aureus. PHYSICAL EXAMINATION: GENERAL: This is a well-nourished, well-developed, middle-aged man who is alert, in no dis tress. HEENT: Head atraumatic, normocephalic. Sclerae anicteric. Buccal mucosa pink. NECK: Supple. CHEST: Rise symmetrical. Breath sounds clear. HEART: S1, S2. ABDOMEN: Soft. Bowel tones present. EXTREMITIES: With right foot dressing intact. ASSESSMENT: 1. Right foot open transmetatarsal amputation with wound culture growing multiple multi-drug resist ant organism. 2. Diabetes. 3. Peripheral arterial disease status post left above knee amputation. 4. History of methicillin-resistant Staphylococcus aureus nares colonization. PLAN: The patient remains stable, covered with appropriate antimicrobials. Followed by podiatry. We are going to repeat labs in a.m. Continue present care. Follow vascular and podiatry recommenda tions. Dictated By: SUNNY PRECIADO SLOT FLOORPERSON for GHAZALA RIVERA/LINNEA Conf#: [id number] DID#: [id number]
[2016-12-23] VITALS (11 sets, daily range): BP systolic 82–158; BP diastolic 51–72; PULSE 63–84; RESP 16–20
[2016-12-23] MEDS: ACCU-CHEK XX SCH (02:00)
--- NOTE | 2016-12-23 04:51 | OPR ---
DATE OF OPERATION: 12/22/2016 SURGEON: Jewels Jenkins DPM LOGISTICS PLANNER: None. PREOPERATIVE DIAGNOSES: 1. Right foot infected diabetic foot ulceration. 2. Polymicrobial infection Escherichia coli extended-spectrum beta lactase and Klebsiella. 3. Right foot transmetatarsal amputation, open. 4. Left above-knee amputation. 5. Diabetes with peripheral neuropathy. 6. Peripheral arterial disease. POSTOPERATIVE DIAGNOSES: 1. Right foot infected diabetic foot ulceration. 2. Polymicrobial infection Escherichia coli extended-spectrum beta lactase and Klebsiella. 3. Right foot transmetatarsal amputation, open. 4. Left above-knee amputation. 5. Diabetes with peripheral neuropathy. 6. Peripheral arterial disease. PROCEDURE PERFORMED: 1. Excisional debridement, skin, subcutaneous tissue, muscle and bone 13 x 3 cm, right foot. 2. Biopsy of bone. ANESTHESIA: MAC. ESTIMATED BLOOD LOSS: 30 mL. COMPLICATIONS: None. INDICATION FOR PROCEDURE: A 56-year-old gentleman status post debridement has improvement in clinic al appearance of the wound bed, has polymicrobial infection, though multidrug resistant bacteria. R ecommend further debridement. The patient has undergone arterial noninvasives and consultation with vascular. The foot was marked in the holding area, discussed planned procedure, risks, benefits, p otential complications. Informed consent was obtained. Discussed planned in [place] with the patie nt and planned procedure due to persistent infection. PROCEDURE IN DETAIL: The patient was brought into the operating room and placed in the supine posit ion. Formal timeout performed. The foot was properly marked, confirmed by the surgical team, prepp ed and draped in the usual sterile fashion. At this time, using a combination of instrumentation, p ickups, scissors, rongeur, curet, and the Versajet hydrosurgical debridement, the wound was debrided of nonviable skin, slough, necrotic fascia, tendon, and bone. Bone was obtained from the first met atarsal for culture as well as pathology. Wound was irrigated with hydrogen peroxide. Estimated bl ood loss of 30 mL. The patient tolerated the procedure well and was transferred to the PACU with vi sonia signs stable. The patient had estimated blood loss of 30 mL. Hemostasis was achieved intraoper atively with compression and Gelfoam. Dictated By: JEWELS JENKINS DPM RB/LINNEA Conf#: [id number] [facility]#: [id number]
[2016-12-23] MEDS: ENOXAPARIN 40 MG/0.4 ML SYG SC SCH (06:22)
[2016-12-23] MEDS: PANTOPRAZOLE (EC) 40 MG TAB PO SCH (06:23)
[2016-12-23] MEDS: INSULIN ASPART [NOVOLOG] 3 ML PEN SC SCH ×4 (07:50→20:51)
--- NOTE | 2016-12-23 08:41 | CONS ---
Date/Time of Note Date/Time of Note DATE: 12/23/16 TIME: 08:39 Consult Date/Type/Reason Admit Date/Time Dec 19, 2016 at 14:36 Initial Consult Date 12/21/16 Type of Consultation: Endovascular Cardiology Ordering Provider: JEWELS MCKNIGHT DPM Objective Vital Signs Date Time Temp Pulse Resp B/P Pulse Ox O2 Delivery O2 Flow Rate FiO2 12/23/16 07:58 98.5 88 20 158/72 96 12/23/16 00:05 Room Air Intake and Output 12/22/16 12/22/16 12/23/16 15:00 23:00 07:00 Intake Total 700 ml Output Total 30 ml Balance 670 ml Results/Medications Result Diagram: 12/22/16 1610 12/21/16 0425 Results 24 hrs Laboratory Tests Test 12/22/16 12:19 12/22/16 16:03 12/22/16 16:10 12/22/16 20:01 Bedside Glucose 143 100 108 Basophils # 0.0 Basophils % 0.4 Eosinophils # 0.3 Eosinophils % 4.4 Hematocrit 31.9 L Hemoglobin 10.6 L Lymphocytes # 1.7 Lymphocytes % 23.6 Mean Corpuscular Hemoglobin 27.2 L Mean Corpuscular Hemoglobin Concent 33.2 Mean Corpuscular Volume 82.0 Mean Platelet Volume 10.3 Monocytes # 0.6 Monocytes % 7.8 Neutrophils # 4.5 Neutrophils % 63.7 Nucleated Red Blood Cells # 0.0 Nucleated Red Blood Cells % 0.0 Platelet Count 273 Red Blood Count 3.89 L Red Cell Distribution Width 14.6 H White Blood Count 7.0 # Test 12/23/16 08:18 Bedside Glucose 132 Medications Current Medications Ibuprofen (Motrin) 600 mg Q6H PRN PO PAIN LEVEL 6-10; Start 12/19/16 at 18:30 Acetaminophen/ Hydrocodone Bitart ([place] (5/325)) 1 tab Q6H PRN PO PAIN LEVEL 6 -10 Last administered on 12/21/16 21:33; Admin Dose 1 TAB; Start 12/19/16 at 18 :30 Enoxaparin Sodium (Lovenox) 40 mg DAILY@07 SC Last administered on 12/23/16 06 :22; Admin Dose 40 MG; Start 12/20/16 at 07:00 Diagnostic Test (Pha) (Accucheck) 1 XX ; Start 12/20/16 at 02:00 Miscellaneous Information 1 ea NOTE XX ; Start 12/19/16 at 23:00 Glucose (Glutose) 15 gm Q15M PRN PO DECREASED GLUCOSE; Start 12/19/16 at 23:00 Glucose (Glutose) 22.5 gm Q15M PRN PO DECREASED GLUCOSE; Start 12/19/16 at 23: 00 Dextrose (D50w Syringe) 25 ml Q15M PRN IV DECREASED GLUCOSE; Start 12/19/16 at 23:00 Dextrose (D50w Syringe) 50 ml Q15M PRN IV DECREASED GLUCOSE; Start 12/19/16 at 23:00 Glucagon (Glucagen) 1 mg Q15M PRN IM DECREASED GLUCOSE; Start 12/19/16 at 23:00 Glucose 15 gm 15 gm Q15M PRN BUCCAL DECREASED GLUCOSE; Start 12/19/16 at 23:00 Ertapenem/Sodium Chloride (Invanz/NS) 100 ml @ 200 mls/hr Q24H IVPB Last administered on 12/22/16 16:06; Admin Dose 200 MLS/HR; Start 12/21/16 at 15:30 Linezolid (Zyvox) 600 mg BID PO Last administered on 12/22/16 20:33; Admin Dose 600 MG; Start 12/21/16 at 21:00 Ondansetron HCl (Zofran Inj) 4 mg Q6H PRN IV NAUSEA AND/OR VOMITING; Start at 18:00 Diphenhydramine HCl (Benadryl) 25 mg Q6H PRN IV ITCHING; Start 12/22/16 at 18: 00 Pantoprazole (Protonix Tab) 40 mg DAILY@06 PO Last administered on 12/23/16 06 :23; Admin Dose 40 MG; Start 12/23/16 at 06:00 Clonidine (Catapres) 0.1 mg Q6H PRN PO HIGH BP; Start 12/22/16 at 21:30 Assessment/Plan Chief Complaint/Hosp Course Patient is 56 year old male with PMH of Dm, HTN, HLD, PAD with leg ampuation of left leg AKA, came in with non healing ulcer s/p debridement. I was consulted for severe PAD and possbile endovascular revascularization for possible severe PAD. Pt does have signs of ischemia on skin. Problems: Additional Assessment/Plan Non healing right foot ulcer. Patient has CLI with non healing ulcer Debridement was done Severe below the knee disease which need revascularization to prevent amputation. NPO plan for BLE today wit possible interventions. will .TANIA Gan MD Dec 23, 2016 08:41
[2016-12-23] MEDS: ZYVOX 600 MG TAB PO SCH (09:26)
[2016-12-23] MEDS ORDERED: HEPARIN 1000 UNITS/NS (A-LINE) 1,000 ML ONE (11:17)
[2016-12-23] MEDS ORDERED: LIDOCAINE 1% (MDV) 20 ML INJ ONE (11:17)
[2016-12-23] MEDS ORDERED: IODIXANOL LOCM 100 ML BTL ONE (11:17)
[2016-12-23] MEDS ORDERED: MIDAZOLAM 1 MG/ML 2 ML INJ ONE (11:17)
[2016-12-23] MEDS ORDERED: FENTAnyl 50 MCG/ML VIAL ONE ×2 (11:18→13:17)
[2016-12-23] MEDS ORDERED: SOD CHLORIDE 0.9% 500 ML ONE (11:23)
[2016-12-23] MEDS ORDERED: VERAPAMIL IV ONE (12:30)
[2016-12-23] MEDS ORDERED: NITROGLYCERIN IRR ONE (12:30)
[2016-12-23] MEDS ORDERED: SOD CHLORIDE 0.9% IRR ONE (12:30)
[2016-12-23] MEDS ORDERED: SOD CHLORIDE 0.9% IV ONE (12:30)
[2016-12-23] MEDS ORDERED: NITROGLYCERIN IV ONE (12:30)
[2016-12-23] MEDS ORDERED: VERAPAMIL IRR ONE (12:30)
[2016-12-23] MEDS ORDERED: NITROGLYCERIN 50 MG/D5W (PMX) 250 ML ONE (13:16)
[2016-12-23] MEDS ORDERED: NITROGLYCERIN (IC) 100 MCG/ML INJ ONE (13:48)
[2016-12-23] MEDS ORDERED: VANCOMYCIN IV PER PHARMACY XX SCH (14:00)
--- NOTE | 2016-12-23 14:08 | PN ---
DATE: 12/23/2016 SUBJECTIVE: No acute changes. The patient is awake, looks comfortable, no fevers. Vital signs sta ble. ANTIMICROBIALS: The patient is on: 1. Oral Zyvox. 2. Invanz. MICROBIOLOGY: Wound culture growing Klebsiella pneumoniae ESBL, Proteus, enterococcus species and M RSA. Anaerobic culture grew Bacteroides fragilis. PHYSICAL EXAMINATION: GENERAL: Well-developed, middle-aged, man in no distress. HEENT: Head atraumatic, normocephalic. Sclerae anicteric. Buccal mucosa pink. NECK: Supple. CHEST: Rise symmetrical. Breath sounds clear. HEART: S1, S2. ABDOMEN: Soft, bowel sounds present. EXTREMITIES: With right foot dressing intact. ASSESSMENT 1. Right foot infected diabetic ulceration with osteomyelitis, status post open transmetatarsal amp utation. 2. Diabetes. 3. Severe peripheral vascular disease with a history of left above-knee amputation. PLAN: The patient remains stable. He is being followed by multiple consultants. As per discussion with Dr. Jenkins, we will plan to treat him for osteomyelitis for 6 weeks. We are going to change Zyvox to IV vancomycin or IV daptomycin to cover MRSA and enterococcus. Dictated By: SUNNY PERCIADO MEAT STUFFER for GHAZALA RIVERA/NTS Conf#: [id number] DID#: [id number]
[2016-12-23] MEDS ORDERED: ALTEPLASE (CATHFLO) 2 MG INJ CATHETER SCH (14:30)
[2016-12-23] MEDS ORDERED: VANCOMYCIN 750 MG in SOD CHLORIDE 0.9% 150 ML IVPB SCH (14:30)
[2016-12-23] MEDS ORDERED: HEPARIN 1000 UNITS/ML 10 ML INJ ONE ×2 (14:32)
[2016-12-23] MEDS ORDERED: ONDANSETRON 4 MG INJ ONE (14:37)
[2016-12-23] MEDS: SOD CHLORIDE 0.9% 1,000 ML IV SCH (15:38)
[2016-12-23] MEDS: ERTAPENEM SODIUM 1 GM in SOD CHLORIDE 0.9% 100 ML IVPB SCH ×2 (15:39→16:40)
[2016-12-23] MEDS: morphine 2 MG INJ IV PRN (15:56)
[2016-12-23] MEDS: HYDROCODONE/APAP (5/325) TAB PO PRN (16:53)
[2016-12-23] MEDS: CLOPIDOGREL 75 MG TAB PO SCH (17:35)
[2016-12-23] MEDS: MUPIROCIN 2% 22 GM OINT TOP SCH (21:15)
[2016-12-24 00:11] VITALS: BP 118/58; RESP 18
[2016-12-24] MEDS: ACCU-CHEK XX SCH ×2 (01:28→21:48)
[2016-12-24] MEDS: SOD CHLORIDE 0.9% 1,000 ML IV SCH (04:16)
[2016-12-24] MEDS: VANCOMYCIN 750 MG in SOD CHLORIDE 0.9% 150 ML IVPB SCH ×2 (05:17→17:53)
[2016-12-24] MEDS: PANTOPRAZOLE (EC) 40 MG TAB PO SCH (05:17)
[2016-12-24 05:27] VITALS: BP 118/59; RESP 20
[2016-12-24 05:34] LABS: CREATININE 1.26 mg/dl (0.61-1.24)
[2016-12-24] MEDS: ENOXAPARIN 40 MG/0.4 ML SYG SC SCH (06:29)
[2016-12-24 07:00] VITALS: BP 111/59; RESP 20
--- NOTE | 2016-12-24 07:43 | SP ---
DATE OF PROCEDURE: 12/23/2016 REFERRING PHYSICIAN: Kj Jenkins DPM INDICATIONS FOR THE PROCEDURE: 1. Critical limb ischemia. 2. Open wound, nonhealing ulcer, diabetic foot. 3. Resting ischemic leg pain. PROCEDURES PERFORMED: 1. Abdominal aortogram with runoff. 2. 3rd order catheterization. 3. Ultrasound-guided access of the artery. 4. Intra-arterial drug administration. 5. Successful atherectomy with PIANO STRINGER with drug-coated balloon with stenting of distal SFA with Zilver PTX 6.0 x 40 mm. 6. Successful atherectomy with drug-coated balloon of popliteal artery. 7. Successful atherectomy of tibioperoneal trunk with drug-coated balloon, PIANO STRINGER. 8. Successful atherectomy with PIANO STRINGER of peroneal artery. 9. Successful atherectomy with PIANO STRINGER of non cdl driver tibial artery. 10. Successful atherectomy with PIANO STRINGER of anterior tibial artery. 11. Successful mechanical thrombectomy of tibioperoneal trunk. PROCEDURE DETAILS: After informed consent, the patient was brought to cardiac catheterization lab. The patient has been explained in detail regarding the procedure and procedure complications. The patient has a nonhealing diabetic ulcer on the bone. The patient has been explained in detail regarding the criticalness of the procedure as well as incidence of losing limb amputation versus IM hemodialysis due to contrast nephropathy. The patient agrees for the procedure. Final check was performed prior to the procedure. The patient's left groin was prepped and draped and accessed with a 4-Irish sheath. Followed by that, a left groin, left leg angiogram was performed. Followed by that, with the help of 0.035 wire and Omni Flush catheter, abdominal aortogram was performed, and access was performed up and over to right lower extremity. Followed by right lower extremity access, the right lower extremity angiogram was performed and found to have significant distal SFA stenosis, popliteal stenosis as well as below the knee, 0 vessel runoff going to the foot. At this time, we decided to go ahead and intervene the patient. Sheath was upsized to a 6-Irish sheath, 90 cm. Followed by that, we entered below the knee area with a 0.014 Fielder XT wire with the 0.014 support catheter. Then successfully crossed the SECURITIES TELLER of TP trunk to peroneal artery and successful drug-coated balloon angioplasty was performed in the distal SFA, TP trunk and peroneal artery. Followed by that, atherectomy with a good angiographic result. Followed by that, a second Fielder XT wire was crossed ___ __ posterior tibial artery and it was extended . Atherectomy was performed and balloon angioplasty was performed. After the balloon angioplasty of the posterior tibial artery, there was only selective posterior tibial artery and peroneal artery was closed. Before the start of the procedure, there was a clot seen into TP trunk and now it was better than before. Followed by that, we did a drug-coated balloon angioplasty of the tibioperoneal trunk as well as popliteal artery with good angiographic results. Followed by that, we took a 3.0 x 220 mm balloon and angioplasty was performed of the posterior tibial artery. At this time, we had good flow going from TP trunk all the way to the posterior tibial artery. We did see a clot still remaining into the TP trunk area. After the balloon angioplasty, we decided to do a thrombectomy with a 5-Irish catheter and successful thrombectomy was performed with tibioperoneal trunk. Followed by that, we took a second drug-coated balloon and drug-coated balloon angioplasty was performed of the distal SFA and followed by that short segment of the distal SFA was stented with Zilver PTX 6.0 x 40 mm drug-eluting stent. Followed by that, with good angiographic result after thrombectomy, we had a 1-vessel runoff going to the foot. This was posterior tibial. At this time, we paid our attention to the anterior tibial artery. Fielder XT wire was taken out and entered into anterior tibial artery and successfully recanalized anterior tibial SECURITIES TELLER all the way to the pedal and we took a Viper wire and a successful atherectomy was performed. Followed by that, balloon angioplasty with 3.0 x 220 mm balloon angioplasty was performed and a second 2.5 x 150 mm balloon angioplasty was performed at the feet area with a good angiographic result with good flow into the pedal access. Followed by that, final angiographic result was performed and was found to have a 2-vessel good runoff posterior tibial and anterior tibial going to the foot, as well as less than 10% residual stenosis of the popliteal and distal SFA area. BILATERAL LOWER EXTREMITY FINDINGS: 1. Abdominal aorta, mild diffuse disease. 2. Bilateral common iliac, external iliac and common femoral artery with mild diffuse disease. Left lower extremity angiography, 100% occluded left SFA. The patient is an amputee on the left side with no vessel going except profunda femoris supplying the left leg. RIGHT LOWER EXTREMITY ANGIOGRAPHY: 1. Superficial femoral artery: Proximal to mid segment with mild diffuse disease. The distal segment has 70% calcified stenosis going into popliteal. 2. Popliteal artery: Severely diffuse disease with multiple 70% to 80% stenosis. 3. Anterior tibial artery: Proximal to mid segments and multiple 90% to 99% stenosis followed by 100% occluded distal anterior tibial artery. 4. Tibioperoneal trunk: 99% stenosis of tibioperoneal trunk with fresh thrombus seen in the TP trunk. 5. Peroneal artery: Ostial 99% stenosis followed by a severely calcified 100% occluded peroneal artery. 6. Posterior tibial artery: 99% ostial posterior tibial calcified stenosis followed the mid segment has 100% occluded severely calcified non cdl driver tibial artery. There is no good vessel going into the foot. CONCLUSION: 1. Severe 3-vessel below the knee disease. 2. Severe SFA and popliteal disease. 3. Successful recanalization of anterior tibial artery and posterior tibial artery with atherectomy and balloon angioplasty. 4. Successful thrombectomy of tibioperoneal trunk. 5. Successful drug-coated balloon angioplasty of the tibioperoneal trunk and popliteal with atherectomy. 6. Successful drug-coated balloon angioplasty with atherectomy with a Zilver PTX drug-coated stent placed into distal SFA, 6.0 x 40 mm. RECOMMENDATION: 1. Plavix started at least for 3 months. 2. Aggressive wound care as per podiatry. Lifestyle modification and aggressive medical management. Dictated By: TANIA BECKETT/LINNEA Conf#: [id number] DID#: [id number]
[2016-12-24] MEDS: INSULIN ASPART [NOVOLOG] 3 ML PEN SC SCH ×4 (07:50→21:00)
[2016-12-24] MEDS: CLOPIDOGREL 75 MG TAB PO SCH (08:12)
[2016-12-24] MEDS: MUPIROCIN 2% 22 GM OINT TOP SCH (08:18)
--- NOTE | 2016-12-24 12:22 | CONS ---
Date/Time of Note Date/Time of Note DATE: 12/24/16 TIME: 12:20 Assessment/Plan Assessment/Plan Chief Complaint/Hosp Course SUBJECTIVE: No acute changes. The patient is awake, looks comfortable, no fevers. Vital signs stable. ANTIMICROBIALS: The patient is on: 1. Vanco. 2. Invanz. MICROBIOLOGY: Wound culture growing Klebsiella pneumoniae ESBL, Proteus, enterococcus species and MRSA. Anaerobic culture grew Bacteroides fragilis. PHYSICAL EXAMINATION: GENERAL: Well-developed, middle-aged, man in no distress. HEENT: Head atraumatic, normocephalic. Sclerae anicteric. Buccal mucosa pink. NECK: Supple. CHEST: Rise symmetrical. Breath sounds clear. HEART: S1, S2. ABDOMEN: Soft, bowel sounds present. EXTREMITIES: With right foot dressing intact. ASSESSMENT 1. Right foot infected diabetic ulceration with osteomyelitis, status post open transmetatarsal amputation==> patho is negative OM. 2. Diabetes. 3. Severe peripheral vascular disease with a history of left above-knee amputation. PLAN: The patient remains stable. No OM per patho report, continue abx for 2 weeks==> will dw Dr Jenkins final plan for abx [facility] staff Problems: Consultation Date/Type/Reason Admit Date/Time Dec 19, 2016 at 14:36 Initial Consult Date 12/21/16 Type of Consultation: ID Referring Provider: JEWELS JENKINS DPM Exam/Review of Systems Vital Signs Vitals Vital Signs Date Time Temp Pulse Resp B/P Pulse Ox O2 Delivery O2 Flow Rate FiO2 12/24/16 07:00 98.7 77 20 111/59 98 12/23/16 18:30 Room Air Intake and Output 12/23/16 12/23/16 12/24/16 15:00 23:00 07:00 Intake Total 800 ml 323 ml 1300 ml Output Total 900 ml 450 ml 550 ml Balance -100 ml -127 ml 750 ml Results Result Diagram: 12/22/16 1610 12/24/16 0443 Results 24 hrs Laboratory Tests Test 12/23/16 17:43 12/23/16 20:48 12/24/16 04:43 12/24/16 08:15 Bedside Glucose 157 156 90 Blood Urea Nitrogen 15 Creatinine 1.26 H Test 12/24/16 12:13 Bedside Glucose 162 Medications Medications Current Medications Ibuprofen (Motrin) 600 mg Q6H PRN PO PAIN LEVEL 6-10; Start 12/19/16 at 18:30 Acetaminophen/ Hydrocodone Bitart ([place] (5/325)) 1 tab Q6H PRN PO PAIN LEVEL 6 -10 Last administered on 12/23/16 16:53; Admin Dose 1 TAB; Start 12/19/16 at 18 :30 Enoxaparin Sodium (Lovenox) 40 mg DAILY@07 SC Last administered on 12/24/16 06 :29; Admin Dose 40 MG; Start 12/20/16 at 07:00 Diagnostic Test (Pha) (Accucheck) 1 ea 02 XX ; Start 12/20/16 at 02:00 Miscellaneous Information 1 ea NOTE XX ; Start 12/19/16 at 23:00 Glucose (Glutose) 15 gm Q15M PRN PO DECREASED GLUCOSE; Start 12/19/16 at 23:00 Glucose (Glutose) 22.5 gm Q15M PRN PO DECREASED GLUCOSE; Start 12/19/16 at 23: 00 Dextrose (D50w Syringe) 25 ml Q15M PRN IV DECREASED GLUCOSE; Start 12/19/16 at 23:00 Dextrose (D50w Syringe) 50 ml Q15M PRN IV DECREASED GLUCOSE; Start 12/19/16 at 23:00 Glucagon (Glucagen) 1 mg Q15M PRN IM DECREASED GLUCOSE; Start 12/19/16 at 23:00 Glucose 15 gm 15 gm Q15M PRN BUCCAL DECREASED GLUCOSE; Start 12/19/16 at 23:00 Ertapenem/Sodium Chloride (Invanz/NS) 100 ml @ 200 mls/hr Q24H IVPB Last administered on 12/23/16 16:40; Admin Dose 200 MLS/HR; Start 12/21/16 at 15:30 Ondansetron HCl (Zofran Inj) 4 mg Q6H PRN IV NAUSEA AND/OR VOMITING Last administered on 12/23/16 15:56; Admin Dose 4 MG; Start 12/22/16 at 18:00 Diphenhydramine HCl (Benadryl) 25 mg Q6H PRN IV ITCHING; Start 12/22/16 at 18: 00 Pantoprazole (Protonix Tab) 40 mg DAILY@06 PO Last administered on 12/24/16 05 :17; Admin Dose 40 MG; Start 12/23/16 at 06:00 Clonidine (Catapres) 0.1 mg Q6H PRN PO HIGH BP; Start 12/22/16 at 21:30 Miscellaneous Information (* Miscellaneous Pharmacy Order) HOLD all METFORMIN ... ONCE XX ; Start 12/23/16 at 15:00; Stop 12/25/16 at 14:59 Morphine Sulfate (morphine) 2 mg Q4H PRN IV PAIN Last administered on 15:56; Admin Dose 2 MG; Start 12/23/16 at 16:00 Clopidogrel Bisulfate (plaVIX) 75 mg DAILY PO Last administered on 12/24/16 08 :12; Admin Dose 75 MG; Start 12/23/16 at 17:00 Mupirocin 1 applic 1 applic DAILY TOP Last administered on 12/24/16 08:18; Admin Dose 1 APPLIC; Start 12/23/16 at 21:00 Vancomycin HCl/ Sodium Chloride (Vancocin/NS) 150 ml @ 75 mls/hr Q12H IVPB Last administered on 12/24/16 05:17; Admin Dose 75 MLS/HR; Start 12/24/16 at 05 :30 SUNNY PRECIADO NP Dec 24, 2016 12:22
[2016-12-24] MEDS: ERTAPENEM SODIUM 1 GM in SOD CHLORIDE 0.9% 100 ML IVPB SCH (15:27)
[2016-12-24] MEDS: morphine 2 MG INJ IV PRN (15:28)
[2016-12-24 20:03] VITALS: BP 164/74; RESP 18
[2016-12-25 05:51] LABS: CREATININE 1.12 mg/dl (0.61-1.24)
[2016-12-25] MEDS: PANTOPRAZOLE (EC) 40 MG TAB PO SCH (06:18)
[2016-12-25] MEDS: ENOXAPARIN 40 MG/0.4 ML SYG SC SCH (06:20)
[2016-12-25] MEDS: VANCOMYCIN 750 MG in SOD CHLORIDE 0.9% 150 ML IVPB SCH ×2 (06:28→17:15)
[2016-12-25] MEDS: INSULIN ASPART [NOVOLOG] 3 ML PEN SC SCH ×4 (07:50→20:22)
[2016-12-25] MEDS: CLOPIDOGREL 75 MG TAB PO SCH (08:16)
[2016-12-25] MEDS: MUPIROCIN 2% 22 GM OINT TOP SCH (08:16)
[2016-12-25 08:21] VITALS: BP 149/70; RESP 18
--- NOTE | 2016-12-25 13:12 | CONS ---
Date/Time of Note Date/Time of Note DATE: 12/25/16 TIME: 13:11 Assessment/Plan Assessment/Plan Chief Complaint/Hosp Course SUBJECTIVE: No acute changes. The patient is awake, looks comfortable, no fevers. ANTIMICROBIALS: The patient is on: 1. Vanco. 2. Invanz. MICROBIOLOGY: Wound culture growing Klebsiella pneumoniae ESBL, Proteus, enterococcus species and MRSA. Anaerobic culture grew Bacteroides fragilis. PHYSICAL EXAMINATION: GENERAL: Well-developed, middle-aged, man in no distress. HEENT: Head atraumatic, normocephalic. Sclerae anicteric. Buccal mucosa pink. NECK: Supple. CHEST: Rise symmetrical. Breath sounds clear. HEART: S1, S2. ABDOMEN: Soft, bowel sounds present. EXTREMITIES: With right foot dressing intact. ASSESSMENT 1. Right foot infected diabetic ulceration, status post open transmetatarsal amputation==> patho is negative OM. 2. Diabetes. 3. Severe peripheral vascular disease with a history of left above-knee amputation. PLAN: The patient remains stable. No OM per patho report, will keep on current abx for 2 weeks==> per adia [facility] staff Problems: Consultation Date/Type/Reason Admit Date/Time Dec 19, 2016 at 14:36 Initial Consult Date 12/21/16 Type of Consultation: ID Referring Provider: JEWELS MCKNIGHT DPM Exam/Review of Systems Vital Signs Vitals Vital Signs Date Time Temp Pulse Resp B/P Pulse Ox O2 Delivery O2 Flow Rate FiO2 12/25/16 08:21 98.2 76 18 149/70 99 12/23/16 18:30 Room Air Intake and Output 12/24/16 12/24/16 12/25/16 15:00 23:00 07:00 Intake Total 150 ml 740 ml 850 ml Output Total 650 ml 700 ml Balance 150 ml 90 ml 150 ml Results Result Diagram: 12/22/16 1610 12/25/16 0445 Results 24 hrs Laboratory Tests Test 12/24/16 17:50 12/24/16 20:28 12/25/16 04:40 12/25/16 04:45 Bedside Glucose 109 125 Vancomycin Level Trough 14.3 Blood Urea Nitrogen 16 Creatinine 1.12 Test 12/25/16 08:15 12/25/16 12:11 Bedside Glucose 113 142 Medications Medications Current Medications Ibuprofen (Motrin) 600 mg Q6H PRN PO PAIN LEVEL 6-10; Start 12/19/16 at 18:30 Acetaminophen/ Hydrocodone Bitart ([place] (5/325)) 1 tab Q6H PRN PO PAIN LEVEL 6 -10 Last administered on 12/23/16 16:53; Admin Dose 1 TAB; Start 12/19/16 at 18 :30 Enoxaparin Sodium (Lovenox) 40 mg DAILY@07 SC Last administered on 12/25/16 06 :20; Admin Dose 40 MG; Start 12/20/16 at 07:00 Diagnostic Test (Pha) (Accucheck) 1 ea 02 XX ; Start 12/20/16 at 02:00 Miscellaneous Information 1 ea NOTE XX ; Start 12/19/16 at 23:00 Glucose (Glutose) 15 gm Q15M PRN PO DECREASED GLUCOSE; Start 12/19/16 at 23:00 Glucose (Glutose) 22.5 gm Q15M PRN PO DECREASED GLUCOSE; Start 12/19/16 at 23: 00 Dextrose (D50w Syringe) 25 ml Q15M PRN IV DECREASED GLUCOSE; Start 12/19/16 at 23:00 Dextrose (D50w Syringe) 50 ml Q15M PRN IV DECREASED GLUCOSE; Start 12/19/16 at 23:00 Glucagon (Glucagen) 1 mg Q15M PRN IM DECREASED GLUCOSE; Start 12/19/16 at 23:00 Glucose 15 gm 15 gm Q15M PRN BUCCAL DECREASED GLUCOSE; Start 12/19/16 at 23:00 Ertapenem/Sodium Chloride (Invanz/NS) 100 ml @ 200 mls/hr Q24H IVPB Last administered on 12/24/16 15:27; Admin Dose 200 MLS/HR; Start 12/21/16 at 15:30 Ondansetron HCl (Zofran Inj) 4 mg Q6H PRN IV NAUSEA AND/OR VOMITING Last administered on 12/23/16 15:56; Admin Dose 4 MG; Start 12/22/16 at 18:00 Diphenhydramine HCl (Benadryl) 25 mg Q6H PRN IV ITCHING; Start 12/22/16 at 18: 00 Pantoprazole (Protonix Tab) 40 mg DAILY@06 PO Last administered on 12/25/16 06 :18; Admin Dose 40 MG; Start 12/23/16 at 06:00 Clonidine (Catapres) 0.1 mg Q6H PRN PO HIGH BP; Start 12/22/16 at 21:30 Miscellaneous Information (* Miscellaneous Pharmacy Order) HOLD all METFORMIN ... ONCE XX ; Start 12/23/16 at 15:00; Stop 12/25/16 at 14:59 Morphine Sulfate (morphine) 2 mg Q4H PRN IV PAIN Last administered on 15:28; Admin Dose 2 MG; Start 12/23/16 at 16:00 Clopidogrel Bisulfate (plaVIX) 75 mg DAILY PO Last administered on 12/25/16 08 :16; Admin Dose 75 MG; Start 12/23/16 at 17:00 Mupirocin 1 applic 1 applic DAILY TOP Last administered on 12/25/16 08:16; Admin Dose 1 APPLIC; Start 12/23/16 at 21:00 Vancomycin HCl/ Sodium Chloride (Vancocin/NS) 150 ml @ 75 mls/hr Q12H IVPB Last administered on 12/25/16 06:28; Admin Dose 75 MLS/HR; Start 12/24/16 at 05 :30 SUNNY PRECIADO NP Dec 25, 2016 13:12
[2016-12-25] MEDS: ERTAPENEM SODIUM 1 GM in SOD CHLORIDE 0.9% 100 ML IVPB SCH (15:42)
--- NOTE | 2016-12-25 16:18 | CONS ---
Date/Time of Note Date/Time of Note DATE: 12/25/16 TIME: 16:17 Consult Date/Type/Reason Admit Date/Time Dec 19, 2016 at 14:36 Initial Consult Date 12/21/16 Type of Consultation: Endovascular Cardiology Ordering Provider: JEWELS MCKNIGHT DPM Objective Vital Signs Date Time Temp Pulse Resp B/P Pulse Ox O2 Delivery O2 Flow Rate FiO2 12/25/16 08:21 98.2 76 18 149/70 99 12/23/16 18:30 Room Air Intake and Output 12/24/16 12/24/16 12/25/16 15:00 23:00 07:00 Intake Total 150 ml 740 ml 850 ml Output Total 650 ml 700 ml Balance 150 ml 90 ml 150 ml Results/Medications Result Diagram: 12/22/16 1610 12/25/16 0445 Results 24 hrs Laboratory Tests Test 12/24/16 17:50 12/24/16 20:28 12/25/16 04:40 12/25/16 04:45 Bedside Glucose 109 125 Vancomycin Level Trough 14.3 Blood Urea Nitrogen 16 Creatinine 1.12 Test 12/25/16 08:15 12/25/16 12:11 Bedside Glucose 113 142 Medications Current Medications Ibuprofen (Motrin) 600 mg Q6H PRN PO PAIN LEVEL 6-10; Start 12/19/16 at 18:30 Acetaminophen/ Hydrocodone Bitart ([place] (5/325)) 1 tab Q6H PRN PO PAIN LEVEL 6 -10 Last administered on 12/23/16t 16:53; Admin Dose 1 TAB; Start 12/19/16 at 18 :30 Enoxaparin Sodium (Lovenox) 40 mg DAILY@07 SC Last administered on 12/25/16t 06 :20; Admin Dose 40 MG; Start 12/20/16 at 07:00 Diagnostic Test (Pha) (Accucheck) 1 ea 02 XX ; Start 12/20/16 at 02:00 Miscellaneous Information 1 ea NOTE XX ; Start 12/19/16 at 23:00 Glucose (Glutose) 15 gm Q15M PRN PO DECREASED GLUCOSE; Start 12/19/16 at 23:00 Glucose (Glutose) 22.5 gm Q15M PRN PO DECREASED GLUCOSE; Start 12/19/16 at 23: 00 Dextrose (D50w Syringe) 25 ml Q15M PRN IV DECREASED GLUCOSE; Start 12/19/16 at 23:00 Dextrose (D50w Syringe) 50 ml Q15M PRN IV DECREASED GLUCOSE; Start 12/19/16 at 23:00 Glucagon (Glucagen) 1 mg Q15M PRN IM DECREASED GLUCOSE; Start 12/19/16 at 23:00 Glucose 15 gm 15 gm Q15M PRN BUCCAL DECREASED GLUCOSE; Start 12/19/16 at 23:00 Ertapenem/Sodium Chloride (Invanz/NS) 100 ml @ 200 mls/hr Q24H IVPB Last administered on 12/25/16 15:42; Admin Dose 200 MLS/HR; Start 12/21/16 at 15:30 Ondansetron HCl (Zofran Inj) 4 mg Q6H PRN IV NAUSEA AND/OR VOMITING Last administered on 12/23/16 15:56; Admin Dose 4 MG; Start 12/22/16 at 18:00 Diphenhydramine HCl (Benadryl) 25 mg Q6H PRN IV ITCHING; Start 12/22/16 at 18: 00 Pantoprazole (Protonix Tab) 40 mg DAILY@06 PO Last administered on 12/25/16 06 :18; Admin Dose 40 MG; Start 12/23/16 at 06:00 Clonidine (Catapres) 0.1 mg Q6H PRN PO HIGH BP; Start 12/22/16 at 21:30 Morphine Sulfate (morphine) 2 mg Q4H PRN IV PAIN Last administered on 15:28; Admin Dose 2 MG; Start 12/23/16 at 16:00 Clopidogrel Bisulfate (plaVIX) 75 mg DAILY PO Last administered on 12/25/16 08 :16; Admin Dose 75 MG; Start 12/23/16 at 17:00 Mupirocin 1 applic 1 applic DAILY TOP Last administered on 12/25/16 08:16; Admin Dose 1 APPLIC; Start 12/23/16 at 21:00 Vancomycin HCl/ Sodium Chloride (Vancocin/NS) 150 ml @ 75 mls/hr Q12H IVPB Last administered on 12/25/16 06:28; Admin Dose 75 MLS/HR; Start 12/24/16 at 05 :30 Assessment/Plan Chief Complaint/Hosp Course Patient is 56 year old male with PMH of Dm, HTN, HLD, PAD with leg ampuation of left leg AKA, came in with non healing ulcer s/p debridement. I was consulted for severe PAD and possbile endovascular revascularization for possible severe PAD. Pt does have signs of ischemia on skin. Problems: Additional Assessment/Plan Pt leg is significantly warm Will repeat Art Duplex. will ./TANIA Gan MD Dec 25, 2016 16:18
--- NOTE | 2016-12-25 17:30 | RADRPT ---
PROCEDURE: Doppler US right lower extremity arteries. CLINICAL INDICATION: Right leg pain. Recent right lower extremity vascular surgery. TECHNIQUE: Multiple longitudinal and transverse images of the right lower extremity arteries were obtained with galeas scale, pulsed Doppler and color Doppler imaging. COMPARISON: 12/22/2016. FINDINGS: Location Right CFA67 cm/sec RQNL033 cm/sec ITEK945 cm/sec KCYY119 cm/sec SBE844 cm/sec ATA64 cm/sec PTA93 cm/sec DPA20 cm/sec Triphasic normal flow is present in the right common femoral artery. Biphasic flow is present in th e right superficial femoral artery, popliteal artery, posterior tibial artery, and anterior tibial a rtery. Abnormal monophasic flow is present in the right dorsalis pedis artery. IMPRESSION: 1. Normal right femoral and popliteal systems. 2. Abnormal monophasic flow in the right dorsalis pedis artery which may indicate significant steno sis. RPTAT: QQ .Srini Sandoval MD, MD Date Time Electronically viewed and signed by .Srini Sandoval MD, on 12/25/2016 17:30 .R/
[2016-12-25 20:33] VITALS: BP 151/70; RESP 20
[2016-12-26] MEDS: ACCU-CHEK XX SCH (02:00)
[2016-12-26] MEDS: PANTOPRAZOLE (EC) 40 MG TAB PO SCH (06:15)
[2016-12-26] MEDS: VANCOMYCIN 750 MG in SOD CHLORIDE 0.9% 150 ML IVPB SCH ×2 (06:16→17:47)
[2016-12-26] MEDS: ENOXAPARIN 40 MG/0.4 ML SYG SC SCH (06:22)
[2016-12-26 08:47] VITALS: BP 161/77; RESP 18
[2016-12-26] MEDS: CLOPIDOGREL 75 MG TAB PO SCH (09:06)
[2016-12-26] MEDS: MUPIROCIN 2% 22 GM OINT TOP SCH (09:07)
[2016-12-26] MEDS: INSULIN ASPART [NOVOLOG] 3 ML PEN SC SCH ×4 (09:11→21:00)
--- NOTE | 2016-12-26 11:32 | CONS ---
Date/Time of Note Date/Time of Note DATE: 12/26/16 TIME: 11:32 Assessment/Plan Assessment/Plan Chief Complaint/Hosp Course SUBJECTIVE: No acute changes. The patient is awake, looks comfortable, no fevers. ANTIMICROBIALS: The patient is on: 1. Vanco. 2. Invanz. MICROBIOLOGY: Wound culture growing Klebsiella pneumoniae ESBL, Proteus, enterococcus species and MRSA. Anaerobic culture grew Bacteroides fragilis. PHYSICAL EXAMINATION: GENERAL: Well-developed, middle-aged, man in no distress. HEENT: Head atraumatic, normocephalic. Sclerae anicteric. Buccal mucosa pink. NECK: Supple. CHEST: Rise symmetrical. Breath sounds clear. HEART: S1, S2. ABDOMEN: Soft, bowel sounds present. EXTREMITIES: With right foot dressing intact. ASSESSMENT 1. Right foot infected diabetic ulceration, status post open transmetatarsal amputation==> patho is negative OM. 2. Diabetes. 3. Severe peripheral vascular disease with a history of left above-knee amputation. PLAN: The patient remains stable. No OM per patho report, will keep on current abx for 2 weeks==> per dw Dr Jenkins DW staff DW Dr Belle Problems: Consultation Date/Type/Reason Admit Date/Time Dec 19, 2016 at 14:36 Initial Consult Date 12/21/16 Type of Consultation: id Referring Provider: JEWELS JENKINS DPM Exam/Review of Systems Vital Signs Vitals Vital Signs Date Time Temp Pulse Resp B/P Pulse Ox O2 Delivery O2 Flow Rate FiO2 12/26/16 08:47 97.7 73 18 161/77 100 12/23/16 18:30 Room Air Intake and Output 12/25/16 12/25/16 12/26/16 15:00 23:00 07:00 Intake Total 490 ml 900 ml Output Total 950 ml 850 ml Balance -460 ml 50 ml Results Result Diagram: 12/22/16 1610 12/25/16 0445 Results 24 hrs Laboratory Tests Test 12/25/16 12:11 12/25/16 17:14 12/25/16 20:08 12/26/16 01:41 Bedside Glucose 142 206 203 170 Test 12/26/16 08:19 Bedside Glucose 154 Medications Medications Current Medications Ibuprofen (Motrin) 600 mg Q6H PRN PO PAIN LEVEL 6-10; Start 12/19/16 at 18:30 Acetaminophen/ Hydrocodone Bitart ([place] (5/325)) 1 tab Q6H PRN PO PAIN LEVEL 6 -10 Last administered on 12/23/16 16:53; Admin Dose 1 TAB; Start 12/19/16 at 18 :30 Enoxaparin Sodium (Lovenox) 40 mg DAILY@07 SC Last administered on 12/26/16 06 :22; Admin Dose 40 MG; Start 12/20/16 at 07:00 Diagnostic Test (Pha) (Accucheck) 1 ea 02 XX ; Start 12/20/16 at 02:00 Miscellaneous Information 1 ea NOTE XX ; Start 12/19/16 at 23:00 Glucose (Glutose) 15 gm Q15M PRN PO DECREASED GLUCOSE; Start 12/19/16 at 23:00 Glucose (Glutose) 22.5 gm Q15M PRN PO DECREASED GLUCOSE; Start 12/19/16 at 23: 00 Dextrose (D50w Syringe) 25 ml Q15M PRN IV DECREASED GLUCOSE; Start 12/19/16 at 23:00 Dextrose (D50w Syringe) 50 ml Q15M PRN IV DECREASED GLUCOSE; Start 12/19/16 at 23:00 Glucagon (Glucagen) 1 mg Q15M PRN IM DECREASED GLUCOSE; Start 12/19/16 at 23:00 Glucose 15 gm 15 gm Q15M PRN BUCCAL DECREASED GLUCOSE; Start 12/19/16 at 23:00 Ertapenem/Sodium Chloride (Invanz/NS) 100 ml @ 200 mls/hr Q24H IVPB Last administered on 12/25/16 15:42; Admin Dose 200 MLS/HR; Start 12/21/16 at 15:30 Ondansetron HCl (Zofran Inj) 4 mg Q6H PRN IV NAUSEA AND/OR VOMITING Last administered on 12/23/16 15:56; Admin Dose 4 MG; Start 12/22/16 at 18:00 Diphenhydramine HCl (Benadryl) 25 mg Q6H PRN IV ITCHING; Start 12/22/16 at 18: 00 Pantoprazole (Protonix Tab) 40 mg DAILY@06 PO Last administered on 12/26/16 06 :15; Admin Dose 40 MG; Start 12/23/16 at 06:00 Clonidine (Catapres) 0.1 mg Q6H PRN PO HIGH BP; Start 12/22/16 at 21:30 Morphine Sulfate (morphine) 2 mg Q4H PRN IV PAIN Last administered on 15:28; Admin Dose 2 MG; Start 12/23/16 at 16:00 Clopidogrel Bisulfate (plaVIX) 75 mg DAILY PO Last administered on 12/26/16 09 :06; Admin Dose 75 MG; Start 12/23/16 at 17:00 Mupirocin 1 applic 1 applic DAILY TOP Last administered on 12/26/16 09:07; Admin Dose 1 APPLIC; Start 12/23/16 at 21:00 Vancomycin HCl/ Sodium Chloride (Vancocin/NS) 150 ml @ 75 mls/hr Q12H IVPB Last administered on 12/26/16 06:16; Admin Dose 75 MLS/HR; Start 12/24/16 at 05 :30 SUNNY PRECIADO NP Dec 26, 2016 11:32
--- NOTE | 2016-12-26 15:27 | CONS ---
Date/Time of Note Date/Time of Note DATE: 12/26/16 TIME: 15:25 Assessment/Plan Assessment/Plan Chief Complaint/Hosp Course 1. Pt ambulated with cratches 2. Per oliva skin gaft might be needed to cover skin defect. 3. wound care per dr eJnkins Problems: Additional Assessment/Plan 1. Per surgeon Consultation Date/Type/Reason Admit Date/Time Dec 19, 2016 at 14:36 Initial Consult Date 12/21/16 Type of Consultation: Dr Belle Reason for Consultation nephrology Referring Provider: JEWELS JENKINS DPM 24 HR Interval Summary Constitutional: improved, no complaints Exam/Review of Systems Vital Signs Vitals Vital Signs Date Time Temp Pulse Resp B/P Pulse Ox O2 Delivery O2 Flow Rate FiO2 12/26/16 08:47 97.7 73 18 161/77 100 12/23/16 18:30 Room Air Intake and Output 12/25/16 12/25/16 12/26/16 15:00 23:00 07:00 Intake Total 490 ml 900 ml Output Total 950 ml 850 ml Balance -460 ml 50 ml Exam Constitutional: alert, oriented Psych: nl mood/affect, no complaints Head: normocephalic Respiratory: clear to auscultation Cardiovascular: regular rate and rhythm Gastrointestinal: soft Extremities: other (left ALA, right metatarsal wound with amputation) Results Result Diagram: 12/22/16 1610 12/25/16 0445 Results 24 hrs Laboratory Tests Test 12/25/16 17:14 12/25/16 20:08 12/26/16 01:41 12/26/16 08:19 Bedside Glucose 206 203 170 154 Test 12/26/16 12:32 Bedside Glucose 180 Medications Medications Current Medications Ibuprofen (Motrin) 600 mg Q6H PRN PO PAIN LEVEL 6-10; Start 12/19/16 at 18:30 Acetaminophen/ Hydrocodone Bitart ([place] (5/325)) 1 tab Q6H PRN PO PAIN LEVEL 6 -10 Last administered on 12/23/16 16:53; Admin Dose 1 TAB; Start 12/19/16 at 18 :30 Enoxaparin Sodium (Lovenox) 40 mg DAILY@07 SC Last administered on 12/26/16 06 :22; Admin Dose 40 MG; Start 12/20/16 at 07:00 Diagnostic Test (Pha) (Accucheck) 1 ea 02 XX ; Start 12/20/16 at 02:00 Miscellaneous Information 1 ea NOTE XX ; Start 12/19/16 at 23:00 Glucose (Glutose) 15 gm Q15M PRN PO DECREASED GLUCOSE; Start 12/19/16 at 23:00 Glucose (Glutose) 22.5 gm Q15M PRN PO DECREASED GLUCOSE; Start 12/19/16 at 23: 00 Dextrose (D50w Syringe) 25 ml Q15M PRN IV DECREASED GLUCOSE; Start 12/19/16 at 23:00 Dextrose (D50w Syringe) 50 ml Q15M PRN IV DECREASED GLUCOSE; Start 12/19/16 at 23:00 Glucagon (Glucagen) 1 mg Q15M PRN IM DECREASED GLUCOSE; Start 12/19/16 at 23:00 Glucose 15 gm 15 gm Q15M PRN BUCCAL DECREASED GLUCOSE; Start 12/19/16 at 23:00 Ertapenem/Sodium Chloride (Invanz/NS) 100 ml @ 200 mls/hr Q24H IVPB Last administered on 12/25/16 15:42; Admin Dose 200 MLS/HR; Start 12/21/16 at 15:30 Ondansetron HCl (Zofran Inj) 4 mg Q6H PRN IV NAUSEA AND/OR VOMITING Last administered on 12/23/16 15:56; Admin Dose 4 MG; Start 12/22/16 at 18:00 Diphenhydramine HCl (Benadryl) 25 mg Q6H PRN IV ITCHING; Start 12/22/16 at 18: 00 Pantoprazole (Protonix Tab) 40 mg DAILY@06 PO Last administered on 12/26/16 06 :15; Admin Dose 40 MG; Start 12/23/16 at 06:00 Clonidine (Catapres) 0.1 mg Q6H PRN PO HIGH BP; Start 12/22/16 at 21:30 Morphine Sulfate (morphine) 2 mg Q4H PRN IV PAIN Last administered on 15:28; Admin Dose 2 MG; Start 12/23/16 at 16:00 Clopidogrel Bisulfate (plaVIX) 75 mg DAILY PO Last administered on 12/26/16 09 :06; Admin Dose 75 MG; Start 12/23/16 at 17:00 Mupirocin 1 applic 1 applic DAILY TOP Last administered on 12/26/16 09:07; Admin Dose 1 APPLIC; Start 12/23/16 at 21:00 Vancomycin HCl/ Sodium Chloride (Vancocin/NS) 150 ml @ 75 mls/hr Q12H IVPB Last administered on 12/26/16 06:16; Admin Dose 75 MLS/HR; Start 12/24/16 at 05 :30 RADHA ESTRADA 24, 2017 15:27
[2016-12-26] MEDS: ERTAPENEM SODIUM 1 GM in SOD CHLORIDE 0.9% 100 ML IVPB SCH (15:46)
--- NOTE | 2016-12-26 15:53 | CONS ---
Date/Time of Note Date/Time of Note DATE: 12/26/16 TIME: 15:51 Consult Date/Type/Reason Admit Date/Time Dec 19, 2016 at 14:36 Initial Consult Date 12/21/16 Type of Consultation: Endovascular Interventions Ordering Provider: JEWELS MCKNIGHT DPM Objective Vital Signs Date Time Temp Pulse Resp B/P Pulse Ox O2 Delivery O2 Flow Rate FiO2 12/26/16 08:47 97.7 73 18 161/77 100 12/23/16 18:30 Room Air Intake and Output 12/25/16 12/25/16 12/26/16 15:00 23:00 07:00 Intake Total 490 ml 900 ml Output Total 950 ml 850 ml Balance -460 ml 50 ml Results/Medications Result Diagram: 12/22/16 1610 12/25/16 0445 Results 24 hrs Laboratory Tests Test 12/25/16 17:14 12/25/16 20:08 12/26/16 01:41 12/26/16 08:19 Bedside Glucose 206 203 170 154 Test 12/26/16 12:32 Bedside Glucose 180 Medications Current Medications Ibuprofen (Motrin) 600 mg Q6H PRN PO PAIN LEVEL 6-10; Start 12/19/16 at 18:30 Acetaminophen/ Hydrocodone Bitart ([place] (5/325)) 1 tab Q6H PRN PO PAIN LEVEL 6 -10 Last administered on 12/23/16 16:53; Admin Dose 1 TAB; Start 12/19/16 at 18 :30 Enoxaparin Sodium (Lovenox) 40 mg DAILY@07 SC Last administered on 12/26/16 06 :22; Admin Dose 40 MG; Start 12/20/16 at 07:00 Diagnostic Test (Pha) (Accucheck) 1 ea 02 XX ; Start 12/20/16 at 02:00 Miscellaneous Information 1 ea NOTE XX ; Start 12/19/16 at 23:00 Glucose (Glutose) 15 gm Q15M PRN PO DECREASED GLUCOSE; Start 12/19/16 at 23:00 Glucose (Glutose) 22.5 gm Q15M PRN PO DECREASED GLUCOSE; Start 12/19/16 at 23: 00 Dextrose (D50w Syringe) 25 ml Q15M PRN IV DECREASED GLUCOSE; Start 12/19/16 at 23:00 Dextrose (D50w Syringe) 50 ml Q15M PRN IV DECREASED GLUCOSE; Start 12/19/16 at 23:00 Glucagon (Glucagen) 1 mg Q15M PRN IM DECREASED GLUCOSE; Start 12/19/16 at 23:00 Glucose 15 gm 15 gm Q15M PRN BUCCAL DECREASED GLUCOSE; Start 12/19/16 at 23:00 Ertapenem/Sodium Chloride (Invanz/NS) 100 ml @ 200 mls/hr Q24H IVPB Last administered on 12/26/16 15:46; Admin Dose 200 MLS/HR; Start 12/21/16 at 15:30 Ondansetron HCl (Zofran Inj) 4 mg Q6H PRN IV NAUSEA AND/OR VOMITING Last administered on 12/23/16 15:56; Admin Dose 4 MG; Start 12/22/16 at 18:00 Diphenhydramine HCl (Benadryl) 25 mg Q6H PRN IV ITCHING; Start 12/22/16 at 18: 00 Pantoprazole (Protonix Tab) 40 mg DAILY@06 PO Last administered on 12/26/16 06 :15; Admin Dose 40 MG; Start 12/23/16 at 06:00 Clonidine (Catapres) 0.1 mg Q6H PRN PO HIGH BP; Start 12/22/16 at 21:30 Morphine Sulfate (morphine) 2 mg Q4H PRN IV PAIN Last administered on 15:28; Admin Dose 2 MG; Start 12/23/16 at 16:00 Clopidogrel Bisulfate (plaVIX) 75 mg DAILY PO Last administered on 12/26/16 09 :06; Admin Dose 75 MG; Start 12/23/16 at 17:00 Mupirocin 1 applic 1 applic DAILY TOP Last administered on 12/26/16 09:07; Admin Dose 1 APPLIC; Start 12/23/16 at 21:00 Vancomycin HCl/ Sodium Chloride (Vancocin/NS) 150 ml @ 75 mls/hr Q12H IVPB Last administered on 12/26/16 06:16; Admin Dose 75 MLS/HR; Start 12/24/16 at 05 :30 Assessment/Plan Chief Complaint/Hosp Course Patient is 56 year old male with PMH of Dm, HTN, HLD, PAD with leg ampuation of left leg AKA, came in with non healing ulcer s/p debridement. I was consulted for severe PAD and possbile endovascular revascularization for possible severe PAD. Pt does have signs of ischemia on skin. Problems: Additional Assessment/Plan Stable doing fine good Repeat US now pt has triphsic flow in to AT and PT. good healing TANIA SEALS MD Dec 26, 2016 15:53
--- NOTE | 2016-12-26 16:07 | RADRPT ---
Echocardiogram Report Patient Name: YASIR PINTO Gender: Male Date: 1960 Study Date: 22-Dec-2016 Tractor Technician: Cl Mejia [facility] Location: 404 Ref. Physician: LILI MOREJON Quality: Good Procedures: Transthoracic echocardiogram with complete 2D, M-Mode, and doppler examination. Indications: Pre-op. 2D/M Mode Doppler Measurement Value Normal Ranges Measurement Value Normal Ranges LVIDd 2D 5.1 3.5 - 5.6 cm AV Peak Humberto 0.9 m/sec LVIDs 2D 3.2 2.1 - 4.1 cm AV Peak PG 3.5 mmHg LVPWd 2D 1.0 0.6 - 1.1 cm LVOT Peak Humberto 0.7 m/sec IVSd 2D 1.0 0.6 - 1.1 cm LVOT Peak PG 2.2 mmHg AoR Diam 2D 2.8 2.0 - 3.7 cm MV E Peak Humberto 0.7 m/sec EDV 2D 121.3 cm3 MV A Peak Humberto 0.7 m/sec ESV 2D 33.7 cm3 MV E/A 1.0 LA Dimen 2D 4.2 2.3 - 4.0 cm MV Decel Time 188 msec MV Decel [place] 4 MV E/A 1.0 Findings Left Ventricle: Normal left ventricular systolic function. Normal left ventricular cavity size. Normal left ventricular wall thickness. Ejection fraction is visually estimated at 65 %. Tissue Doppler/Mitral Doppler indices are consistent with impaired relaxation (Stage I diastolic dysfunction). Right Ventricle: Normal right ventricular size. Normal right ventricular systolic function. Left Atrium: There is mild enlargement of left atrium. Right Atrium: The right atrium is normal in size. Mitral Valve: Normal appearance and function of the mitral valve with trace physiologic regurgitation. Aortic Valve: Normal appearance of the aortic valve. No significant aortic stenosis or insufficiency. Tricuspid Valve: Normal appearance of the tricuspid valve. Unable to obtain RVSP due to minimal presence of tricuspid regurgitation. Pulmonic Valve: Normal pulmonic valve appearance. There is trace pulmonic regurgitation. Pericardium: Normal pericardium with no significant pericardial effusion. Aorta: Normal aortic root. IVC: Normal size and normal respiratory collapse consistent with normal right atrial pressure. Conclusions 1.Normal left ventricular systolic function. Normal left ventricular cavity size. Normal left ventricular wall thickness. Ejection fraction is visually estimated at 65 %. Tissue Doppler/Mitral Doppler indices are consistent with impaired relaxation (Stage I diastolic dysfunction). 2.Normal appearance and function of the mitral valve with trace physiologic regurgitation. 3.Normal appearance of the aortic valve. No significant aortic stenosis or insufficiency. 4.Normal appearance of the tricuspid valve. Unable to obtain RVSP due to minimal presence of tricuspid regurgitation. Electronically Signed By: Lili Morejon 26-Dec-2016 16:05:56 -0700 Patient Name: YASIR PINTO Study Date: 22-Dec-2016 [id number]
[2016-12-26 20:49] VITALS: BP 163/74; RESP 20
--- NOTE | 2016-12-26 21:00 | CONS ---
DATE OF ADMISSION: 12/19/2016 DATE OF CONSULTATION: 12/26/2016 SUBJECTIVE FINDINGS: The patient is status post debridement of right foot and status post atherecto my with SHIELD RUNNER with drug-coated balloon and stenting of the distal SFA, atherectomy of the popliteal ar cherry and tibioperoneal trunk, peroneal artery, posterior tibial artery and anterior tibial artery. The patient currently with isolation status due to Klebsiella, ESBL Proteus, enterococcus and MRSA, and B fragilis. REVIEW OF SYSTEMS: The patient denies any fever, nausea, vomiting. OBJECTIVE FINDINGS: VITAL SIGNS: Temperature 97.7, pulse 73, respiratory rate 18, blood pressure 161/77, pulse ox is 10 0%. GENERAL: The patient is alert and oriented, in no acute distress. Regular respiration. EXTREMITIES: Foot with transmetatarsal amputation, right foot open with exposed bone. There is dec reased edema, no malodor. The patient has a warm foot. 2+ DP, PT pulse. Left above-knee amputatio n. LABORATORIES: WBC 7, hemoglobin 10.6, hematocrit 31.9, platelets 273. ASSESSMENT: 1. Right foot status post open transmetatarsal amputation. 2. Diabetes type 2. 3. Peripheral arterial disease, status post endovascular revascularization. 4. Left above-knee amputation. PLAN: Recommend discharge planning. Patient unable to be discharged given lack of private roomsmary anne iven his isolation status. Continue antibiotics. Will obtain new cultures. The patient is plannin g to be discharged to [facility] once a room is available or patient is no longer isolation status. Dictated By: JEWELS NEAL/LINNEA Conf#: [id number] DID#: [id number]
[2016-12-27] MEDS: ACCU-CHEK XX SCH (02:00)
[2016-12-27 05:02] LABS: ADD SCAN DIFF NO
[2016-12-27 05:06] LABS: BASOPHILS % 0.2 % (0.0-2.0); EOSINOPHILS # 0.6 10^3/ul (0.0-0.5); EOSINOPHILS % 6.6 % (0.0-7.0); HEMATOCRIT 29.1 % (42.0-52.0); HEMOGLOBIN 9.7 g/dl (14.0-18.0); LYMPHOCYTES # 1.9 10^3/ul (0.8-2.9); LYMPHOCYTES % 22.8 % (15.0-51.0); MEAN CORPUSCULAR HEMOGLOBIN 27.3 pg (29.0-33.0); MEAN CORPUSCULAR HGB CONC 33.3 g/dl (32.0-37.0); MEAN PLATELET VOLUME 10.5 fl (7.4-10.4); MONOCYTE # 0.7 10^3/ul (0.3-0.9); MONOCYTES % 8.1 % (0.0-11.0); NEUTROPHIL # 5.3 10^3/ul (1.6-7.5); NEUTROPHILS % 62.1 % (39.0-77.0); PLATELET COUNT 270 10^3/UL (140-415); RED BLOOD COUNT 3.55 10^6/ul (4.70-6.10); RED CELL DISTRIBUTION WIDTH 14.6 % (11.5-14.5); WHITE BLOOD COUNT 8.5 10^3/ul (4.8-10.8)
[2016-12-27] MEDS: VANCOMYCIN 750 MG in SOD CHLORIDE 0.9% 150 ML IVPB SCH ×2 (05:19→18:21)
[2016-12-27 05:22] LABS: CREATININE 0.99 mg/dl (0.61-1.24)
[2016-12-27] MEDS: PANTOPRAZOLE (EC) 40 MG TAB PO SCH (06:00)
[2016-12-27] MEDS: ENOXAPARIN 40 MG/0.4 ML SYG SC SCH (06:44)
[2016-12-27 08:12] VITALS: BP 164/75; RESP 20
[2016-12-27] MEDS: INSULIN ASPART [NOVOLOG] 3 ML PEN SC SCH ×5 (08:56→20:09)
[2016-12-27] MEDS: morphine 2 MG INJ IV PRN ×3 (09:08→17:05)
--- NOTE | 2016-12-27 09:54 | CONS ---
Date/Time of Note Date/Time of Note DATE: 12/27/16 TIME: 09:53 Assessment/Plan Assessment/Plan Chief Complaint/Hosp Course ID PROGRESS NOTE TOTAL ABX DAY # 9 => Vanco IV + Invanz 24H INTERVAL SUMMARY * A/A/O -> "No dolor", doing OK, no c/p * MICROBIOLOGY: Wound culture growing Klebsiella pneumoniae ESBL, Proteus, enterococcus species and MRSA. Anaerobic culture grew Bacteroides fragilis. PHYSICAL EXAMINATION: GENERAL: VSS, NAD HEENT: Unremarkable NECK: Trach midline CHEST: Equal chest rise bilaterally, without dyspnea on observation HEART: Pulse RRR ABDOMEN: Soft EXTREMITIES: Warm, right foot dressing intact. SKIN: See hard chart skin assessment ID ASSESSMENT: 56 yo M w/PMHx 1. Right foot infected diabetic ulceration, status post open transmetatarsal amputation=> patho is negative OM. 2. Diabetes w/complication of DM Peripheral Neuropathy 3. Severe peripheral vascular disease with a history of left above-knee amputation. ()MRSA Nares INVASIVES: PIV ABX ALLERGY: KNDA CURRENT ABX: TOTAL ABX DAY # 9 => Vanco IV + Invanz ID RECOMMENDATIONS: 1. Per Clair's ID report => February DC home on current ABX for an additional 14 days for a total of 3 weeks . . Problems: Consultation Date/Type/Reason Admit Date/Time Dec 19, 2016 at 14:36 Initial Consult Date 12/21/16 Type of Consultation: ID Referring Provider: JEWELS MCKNIGHT DPM Exam/Review of Systems Vital Signs Vitals Vital Signs Date Time Temp Pulse Resp B/P Pulse Ox O2 Delivery O2 Flow Rate FiO2 12/27/16 08:12 98.3 67 20 164/75 97 12/23/16 18:30 Room Air Intake and Output 12/26/16 12/26/16 12/27/16 15:00 23:00 07:00 Intake Total 1450 ml 690 ml Output Total 640 ml 650 ml Balance 810 ml 40 ml Results Result Diagram: 12/27/16 0438 12/27/16 0435 Results 24 hrs Laboratory Tests Test 12/26/16 12:32 12/26/16 20:59 12/27/16 04:35 12/27/16 04:38 Bedside Glucose 180 144 Blood Urea Nitrogen 14 Creatinine 0.99 White Blood Count 8.5 # Red Blood Count 3.55 L Hemoglobin 9.7 L Hematocrit 29.1 L Mean Corpuscular Volume 82.0 Mean Corpuscular Hemoglobin 27.3 L Mean Corpuscular Hemoglobin Concent 33.3 Red Cell Distribution Width 14.6 H Platelet Count 270 Mean Platelet Volume 10.5 H Neutrophils % 62.1 Lymphocytes % 22.8 Monocytes % 8.1 Eosinophils % 6.6 Basophils % 0.2 Nucleated Red Blood Cells % 0.0 Neutrophils # 5.3 Lymphocytes # 1.9 Monocytes # 0.7 Eosinophils # 0.6 H Basophils # 0.0 Nucleated Red Blood Cells # 0.0 Test 12/27/16 08:09 Bedside Glucose 153 Medications Medications Current Medications Ibuprofen (Motrin) 600 mg Q6H PRN PO PAIN LEVEL 6-10; Start 12/19/16 at 18:30 Acetaminophen/ Hydrocodone Bitart ([place] (5/325)) 1 tab Q6H PRN PO PAIN LEVEL 6 -10 Last administered on 12/23/16 16:53; Admin Dose 1 TAB; Start 12/19/16 at 18 :30 Enoxaparin Sodium (Lovenox) 40 mg DAILY@07 SC Last administered on 12/27/16 06 :44; Admin Dose 40 MG; Start 12/20/16 at 07:00 Diagnostic Test (Pha) (Accucheck) 1 ea 02 XX ; Start 12/20/16 at 02:00 Miscellaneous Information 1 ea NOTE XX ; Start 12/19/16 at 23:00 Glucose (Glutose) 15 gm Q15M PRN PO DECREASED GLUCOSE; Start 12/19/16 at 23:00 Glucose (Glutose) 22.5 gm Q15M PRN PO DECREASED GLUCOSE; Start 12/19/16 at 23: 00 Dextrose (D50w Syringe) 25 ml Q15M PRN IV DECREASED GLUCOSE; Start 12/19/16 at 23:00 Dextrose (D50w Syringe) 50 ml Q15M PRN IV DECREASED GLUCOSE; Start 12/19/16 at 23:00 Glucagon (Glucagen) 1 mg Q15M PRN IM DECREASED GLUCOSE; Start 12/19/16 at 23:00 Glucose 15 gm 15 gm Q15M PRN BUCCAL DECREASED GLUCOSE; Start 12/19/16 at 23:00 Ertapenem/Sodium Chloride (Invanz/NS) 100 ml @ 200 mls/hr Q24H IVPB Last administered on 12/26/16 15:46; Admin Dose 200 MLS/HR; Start 12/21/16 at 15:30 Ondansetron HCl (Zofran Inj) 4 mg Q6H PRN IV NAUSEA AND/OR VOMITING Last administered on 12/23/16 15:56; Admin Dose 4 MG; Start 12/22/16 at 18:00 Diphenhydramine HCl (Benadryl) 25 mg Q6H PRN IV ITCHING; Start 12/22/16 at 18: 00 Pantoprazole (Protonix Tab) 40 mg DAILY@06 PO Last administered on 12/26/16 06 :15; Admin Dose 40 MG; Start 12/23/16 at 06:00 Clonidine (Catapres) 0.1 mg Q6H PRN PO HIGH BP; Start 12/22/16 at 21:30 Morphine Sulfate (morphine) 2 mg Q4H PRN IV PAIN Last administered on 09:08; Admin Dose 2 MG; Start 12/23/16 at 16:00 Clopidogrel Bisulfate (plaVIX) 75 mg DAILY PO Last administered on 12/26/16 09 :06; Admin Dose 75 MG; Start 12/23/16 at 17:00 Mupirocin 1 applic 1 applic DAILY TOP Last administered on 12/26/16 09:07; Admin Dose 1 APPLIC; Start 12/23/16 at 21:00 Vancomycin HCl/ Sodium Chloride (Vancocin/NS) 150 ml @ 75 mls/hr Q12H IVPB Last administered on 12/27/16 05:19; Admin Dose 75 MLS/HR; Start 12/24/16 at 05 :30 CAMILLE ENCISO NP Dec 27, 2016 09:54
--- NOTE | 2016-12-27 11:01 | CONS ---
Date/Time of Note Date/Time of Note DATE: 12/27/16 TIME: 10:58 Assessment/Plan Assessment/Plan Chief Complaint/Hosp Course 1. Pt ambulated with crutches 2. Per surgeon skin graft might be needed to cover skin defect. 3. wound care per dr Jenkins Problems: Consultation Date/Type/Reason Admit Date/Time Dec 19, 2016 at 14:36 Initial Consult Date 12/21/16 Type of Consultation: nephrology Reason for Consultation Dr Belle Referring Provider: JEWELS JENKINS DPM 24 HR Interval Summary Constitutional: improved, no complaints Exam/Review of Systems Vital Signs Vitals Vital Signs Date Time Temp Pulse Resp B/P Pulse Ox O2 Delivery O2 Flow Rate FiO2 12/27/16 08:12 98.3 67 20 164/75 97 12/23/16 18:30 Room Air Intake and Output 12/26/16 12/26/16 12/27/16 15:00 23:00 07:00 Intake Total 1450 ml 690 ml Output Total 640 ml 650 ml Balance 810 ml 40 ml Exam Eyes: nl conjunctiva ENMT: nl external ears & nose Neck: supple Cardiovascular: regular rate and rhythm Gastrointestinal: soft Genitourinary - Male: nl penis Extremities: other (left AKA, right foot with dresasing) Results Result Diagram: 12/27/16 0438 12/27/16 0435 Results 24 hrs Laboratory Tests Test 12/26/16 12:32 12/26/16 20:59 12/27/16 04:35 12/27/16 04:38 Bedside Glucose 180 144 Blood Urea Nitrogen 14 Creatinine 0.99 White Blood Count 8.5 # Red Blood Count 3.55 L Hemoglobin 9.7 L Hematocrit 29.1 L Mean Corpuscular Volume 82.0 Mean Corpuscular Hemoglobin 27.3 L Mean Corpuscular Hemoglobin Concent 33.3 Red Cell Distribution Width 14.6 H Platelet Count 270 Mean Platelet Volume 10.5 H Neutrophils % 62.1 Lymphocytes % 22.8 Monocytes % 8.1 Eosinophils % 6.6 Basophils % 0.2 Nucleated Red Blood Cells % 0.0 Neutrophils # 5.3 Lymphocytes # 1.9 Monocytes # 0.7 Eosinophils # 0.6 H Basophils # 0.0 Nucleated Red Blood Cells # 0.0 Test 12/27/16 08:09 Bedside Glucose 153 Medications Medications Current Medications Ibuprofen (Motrin) 600 mg Q6H PRN PO PAIN LEVEL 6-10; Start 12/19/16 at 18:30 Acetaminophen/ Hydrocodone Bitart ([place] (5/325)) 1 tab Q6H PRN PO PAIN LEVEL 6 -10 Last administered on 12/23/16 16:53; Admin Dose 1 TAB; Start 12/19/16 at 18 :30 Enoxaparin Sodium (Lovenox) 40 mg DAILY@07 SC Last administered on 12/27/16 06 :44; Admin Dose 40 MG; Start 12/20/16 at 07:00 Diagnostic Test (Pha) (Accucheck) 1 ea 02 XX ; Start 12/20/16 at 02:00 Miscellaneous Information 1 ea NOTE XX ; Start 12/19/16 at 23:00 Glucose (Glutose) 15 gm Q15M PRN PO DECREASED GLUCOSE; Start 12/19/16 at 23:00 Glucose (Glutose) 22.5 gm Q15M PRN PO DECREASED GLUCOSE; Start 12/19/16 at 23: 00 Dextrose (D50w Syringe) 25 ml Q15M PRN IV DECREASED GLUCOSE; Start 12/19/16 at 23:00 Dextrose (D50w Syringe) 50 ml Q15M PRN IV DECREASED GLUCOSE; Start 12/19/16 at 23:00 Glucagon (Glucagen) 1 mg Q15M PRN IM DECREASED GLUCOSE; Start 12/19/16 at 23:00 Glucose 15 gm 15 gm Q15M PRN BUCCAL DECREASED GLUCOSE; Start 12/19/16 at 23:00 Ertapenem/Sodium Chloride (Invanz/NS) 100 ml @ 200 mls/hr Q24H IVPB Last administered on 12/26/16 15:46; Admin Dose 200 MLS/HR; Start 12/21/16 at 15:30 Ondansetron HCl (Zofran Inj) 4 mg Q6H PRN IV NAUSEA AND/OR VOMITING Last administered on 12/23/16 15:56; Admin Dose 4 MG; Start 12/22/16 at 18:00 Diphenhydramine HCl (Benadryl) 25 mg Q6H PRN IV ITCHING; Start 12/22/16 at 18: 00 Pantoprazole (Protonix Tab) 40 mg DAILY@06 PO Last administered on 3/24/17at 06 :15; Admin Dose 40 MG; Start 12/23/16 at 06:00 Clonidine (Catapres) 0.1 mg Q6H PRN PO HIGH BP; Start 12/22/16 at 21:30 Morphine Sulfate (morphine) 2 mg Q4H PRN IV PAIN Last administered on 09:08; Admin Dose 2 MG; Start 12/23/16 at 16:00 Clopidogrel Bisulfate (plaVIX) 75 mg DAILY PO Last administered on 12/26/16 09 :06; Admin Dose 75 MG; Start 12/23/16 at 17:00 Mupirocin 1 applic 1 applic DAILY TOP Last administered on 12/26/16 09:07; Admin Dose 1 APPLIC; Start 12/23/16 at 21:00 Vancomycin HCl/ Sodium Chloride (Vancocin/NS) 150 ml @ 75 mls/hr Q12H IVPB Last administered on 12/27/16 05:19; Admin Dose 75 MLS/HR; Start 12/24/16 at 05 :30 RADHA ESTRADA Dec 27, 2016 11:01
[2016-12-27] MEDS: CLOPIDOGREL 75 MG TAB PO SCH (12:34)
[2016-12-27] MEDS: MUPIROCIN 2% 22 GM OINT TOP SCH (12:34)
--- NOTE | 2016-12-27 13:12 | CONS ---
Date/Time of Note Date/Time of Note DATE: 12/27/16 TIME: 13:12 Consult Date/Type/Reason Admit Date/Time Dec 19, 2016 at 14:36 Initial Consult Date 12/21/16 Type of Consultation: Card Ordering Provider: JEWELS MCKNIGHT DPM Objective Vital Signs Date Time Temp Pulse Resp B/P Pulse Ox O2 Delivery O2 Flow Rate FiO2 12/27/16 08:12 98.3 67 20 164/75 97 12/23/16 18:30 Room Air Intake and Output 12/26/16 12/26/16 12/27/16 15:00 23:00 07:00 Intake Total 1450 ml 690 ml Output Total 640 ml 650 ml Balance 810 ml 40 ml Results/Medications Result Diagram: 12/27/16 0438 12/27/16 0435 Results 24 hrs Laboratory Tests Test 12/26/16 20:59 12/27/16 04:35 12/27/16 04:38 12/27/16 08:09 Bedside Glucose 144 153 Blood Urea Nitrogen 14 Creatinine 0.99 White Blood Count 8.5 # Red Blood Count 3.55 L Hemoglobin 9.7 L Hematocrit 29.1 L Mean Corpuscular Volume 82.0 Mean Corpuscular Hemoglobin 27.3 L Mean Corpuscular Hemoglobin Concent 33.3 Red Cell Distribution Width 14.6 H Platelet Count 270 Mean Platelet Volume 10.5 H Neutrophils % 62.1 Lymphocytes % 22.8 Monocytes % 8.1 Eosinophils % 6.6 Basophils % 0.2 Nucleated Red Blood Cells % 0.0 Neutrophils # 5.3 Lymphocytes # 1.9 Monocytes # 0.7 Eosinophils # 0.6 H Basophils # 0.0 Nucleated Red Blood Cells # 0.0 Test 12/27/16 12:32 Bedside Glucose 234 H Medications Current Medications Ibuprofen (Motrin) 600 mg Q6H PRN PO PAIN LEVEL 6-10; Start 12/19/16 at 18:30 Acetaminophen/ Hydrocodone Bitart ([place] (5/325)) 1 tab Q6H PRN PO PAIN LEVEL 6 -10 Last administered on 12/23/16 16:53; Admin Dose 1 TAB; Start 12/19/16 at 18 :30 Enoxaparin Sodium (Lovenox) 40 mg DAILY@07 SC Last administered on 12/27/16 06 :44; Admin Dose 40 MG; Start 12/20/16 at 07:00 Diagnostic Test (Pha) (Accucheck) 1 ea 02 XX ; Start 12/20/16 at 02:00 Miscellaneous Information 1 ea NOTE XX ; Start 12/19/16 at 23:00 Glucose (Glutose) 15 gm Q15M PRN PO DECREASED GLUCOSE; Start 12/19/16 at 23:00 Glucose (Glutose) 22.5 gm Q15M PRN PO DECREASED GLUCOSE; Start 12/19/16 at 23: 00 Dextrose (D50w Syringe) 25 ml Q15M PRN IV DECREASED GLUCOSE; Start 12/19/16 at 23:00 Dextrose (D50w Syringe) 50 ml Q15M PRN IV DECREASED GLUCOSE; Start 12/19/16 at 23:00 Glucagon (Glucagen) 1 mg Q15M PRN IM DECREASED GLUCOSE; Start 12/19/16 at 23:00 Glucose 15 gm 15 gm Q15M PRN BUCCAL DECREASED GLUCOSE; Start 12/19/16 at 23:00 Ertapenem/Sodium Chloride (Invanz/NS) 100 ml @ 200 mls/hr Q24H IVPB Last administered on 12/26/16 15:46; Admin Dose 200 MLS/HR; Start 12/21/16 at 15:30 Ondansetron HCl (Zofran Inj) 4 mg Q6H PRN IV NAUSEA AND/OR VOMITING Last administered on 12/23/16 15:56; Admin Dose 4 MG; Start 12/22/16 at 18:00 Diphenhydramine HCl (Benadryl) 25 mg Q6H PRN IV ITCHING; Start 12/22/16 at 18: 00 Pantoprazole (Protonix Tab) 40 mg DAILY@06 PO Last administered on 12/26/16 06 :15; Admin Dose 40 MG; Start 12/23/16 at 06:00 Clonidine (Catapres) 0.1 mg Q6H PRN PO HIGH BP; Start 12/22/16 at 21:30 Morphine Sulfate (morphine) 2 mg Q4H PRN IV PAIN Last administered on 12:34; Admin Dose 2 MG; Start 12/23/16 at 16:00 Clopidogrel Bisulfate (plaVIX) 75 mg DAILY PO Last administered on 12/27/16 12 :34; Admin Dose 75 MG; Start 12/23/16 at 17:00 Mupirocin 1 applic 1 applic DAILY TOP Last administered on 12/27/16 12:34; Admin Dose 1 APPLIC; Start 12/23/16 at 21:00 Vancomycin HCl/ Sodium Chloride (Vancocin/NS) 150 ml @ 75 mls/hr Q12H IVPB Last administered on 12/27/16 05:19; Admin Dose 75 MLS/HR; Start 12/24/16 at 05 :30 Miscellaneous Information (*Rx Drug Level Order Reminder*) VANCOMYCIN TROUGH AT 0430 ONCE ONCE XX ; Start 12/28/16 at 04:30; Stop 12/28/16 at 04:31 Assessment/Plan Chief Complaint/Hosp Course Patient is 56 year old male with PMH of Dm, HTN, HLD, PAD with leg ampuation of left leg AKA, came in with non healing ulcer s/p debridement. I was consulted for severe PAD and possbile endovascular revascularization for possible severe PAD. Pt does have signs of ischemia on skin. Problems: Additional Assessment/Plan Pt stable good flow no below the knee wound care TANIA SEALS MD Dec 27, 2016 13:12
[2016-12-27] MEDS: ERTAPENEM SODIUM 1 GM in SOD CHLORIDE 0.9% 100 ML IVPB SCH (15:30)
[2016-12-27 19:25] VITALS: BP 165/76; RESP 16
[2016-12-27 20:29] VITALS: BP 165/82; PULSE 68; RESP 18
[2016-12-28] MEDS: ACCU-CHEK XX SCH (02:00)
[2016-12-28] MEDS: PANTOPRAZOLE (EC) 40 MG TAB PO SCH (06:08)
[2016-12-28] MEDS: VANCOMYCIN 750 MG in SOD CHLORIDE 0.9% 150 ML IVPB SCH (06:08)
[2016-12-28] MEDS: ENOXAPARIN 40 MG/0.4 ML SYG SC SCH (06:09)
[2016-12-28 07:40] VITALS: BP 155/75; RESP 16
[2016-12-28] MEDS: INSULIN ASPART [NOVOLOG] 3 ML PEN SC SCH ×4 (07:50→21:07)
[2016-12-28] MEDS: CLOPIDOGREL 75 MG TAB PO SCH (09:30)
[2016-12-28] MEDS: MUPIROCIN 2% 22 GM OINT TOP SCH (11:47)
[2016-12-28] MEDS: morphine 2 MG INJ IV PRN (11:47)
[2016-12-28] MEDS: ERTAPENEM SODIUM 1 GM in SOD CHLORIDE 0.9% 100 ML IVPB SCH (15:30)
--- NOTE | 2016-12-28 16:22 | CONS ---
Date/Time of Note Date/Time of Note DATE: 12/28/16 TIME: 16:21 Consult Date/Type/Reason Admit Date/Time Dec 19, 2016 at 14:36 Initial Consult Date 12/21/16 Type of Consultation: Card Ordering Provider: JEWELS MCKNIGHT DPM Objective Vital Signs Date Time Temp Pulse Resp B/P Pulse Ox O2 Delivery O2 Flow Rate FiO2 12/28/16 07:40 98.4 69 16 155/75 98 12/27/16 20:29 Room Air Intake and Output 12/27/16 12/27/16 12/28/16 15:00 23:00 07:00 Intake Total 900 ml 700 ml Output Total 1000 ml 1200 ml Balance -100 ml -500 ml Results/Medications Result Diagram: 12/27/16 0438 12/27/16 0435 Results 24 hrs Laboratory Tests Test 12/27/16 17:55 12/27/16 20:04 12/28/16 03:37 12/28/16 04:25 Bedside Glucose 217 186 219 Vancomycin Level Trough 17.2 Test 12/28/16 08:36 12/28/16 11:49 Bedside Glucose 176 166 Medications Current Medications Ibuprofen (Motrin) 600 mg Q6H PRN PO PAIN LEVEL 6-10; Start 12/19/16 at 18:30 Acetaminophen/ Hydrocodone Bitart ([place] (5/325)) 1 tab Q6H PRN PO PAIN LEVEL 6 -10 Last administered on 12/23/16 16:53; Admin Dose 1 TAB; Start 12/19/16 at 18 :30 Enoxaparin Sodium (Lovenox) 40 mg DAILY@07 SC Last administered on 12/28/16 06 :09; Admin Dose 40 MG; Start 12/20/16 at 07:00 Diagnostic Test (Pha) (Accucheck) 1 ea 02 XX Last administered on 12/28/16 02: 00; Admin Dose 1 EA; Start 12/20/16 at 02:00 Miscellaneous Information 1 ea NOTE XX ; Start 12/19/16 at 23:00 Glucose (Glutose) 15 gm Q15M PRN PO DECREASED GLUCOSE; Start 12/19/16 at 23:00 Glucose (Glutose) 22.5 gm Q15M PRN PO DECREASED GLUCOSE; Start 12/19/16 at 23: 00 Dextrose (D50w Syringe) 25 ml Q15M PRN IV DECREASED GLUCOSE; Start 12/19/16 at 23:00 Dextrose (D50w Syringe) 50 ml Q15M PRN IV DECREASED GLUCOSE; Start 12/19/16 at 23:00 Glucagon (Glucagen) 1 mg Q15M PRN IM DECREASED GLUCOSE; Start 12/19/16 at 23:00 Glucose 15 gm 15 gm Q15M PRN BUCCAL DECREASED GLUCOSE; Start 12/19/16 at 23:00 Ertapenem/Sodium Chloride (Invanz/NS) 100 ml @ 200 mls/hr Q24H IVPB Last administered on 12/27/16 15:30; Admin Dose 200 MLS/HR; Start 12/21/16 at 15:30 Ondansetron HCl (Zofran Inj) 4 mg Q6H PRN IV NAUSEA AND/OR VOMITING Last administered on 12/23/16 15:56; Admin Dose 4 MG; Start 12/22/16 at 18:00 Diphenhydramine HCl (Benadryl) 25 mg Q6H PRN IV ITCHING; Start 12/22/16 at 18: 00 Pantoprazole (Protonix Tab) 40 mg DAILY@06 PO Last administered on 12/28/16 06 :08; Admin Dose 40 MG; Start 12/23/16 at 06:00 Clonidine (Catapres) 0.1 mg Q6H PRN PO HIGH BP Last administered on 12/27/16 20:08; Admin Dose 0.1 MG; Start 12/22/16 at 21:30 Morphine Sulfate (morphine) 2 mg Q4H PRN IV PAIN Last administered on 11:47; Admin Dose 2 MG; Start 12/23/16 at 16:00 Clopidogrel Bisulfate (plaVIX) 75 mg DAILY PO Last administered on 12/28/16 09 :30; Admin Dose 75 MG; Start 12/23/16 at 17:00 Mupirocin 1 applic 1 applic DAILY TOP Last administered on 12/28/16 11:47; Admin Dose 1 APPLIC; Start 12/23/16 at 21:00 Vancomycin HCl (Vancocin) 100 ml @ 100 mls/hr Q12H IVPB ; Start 12/28/16 at 21: 00 Assessment/Plan Chief Complaint/Hosp Course Patient is 56 year old male with PMH of Dm, HTN, HLD, PAD with leg ampuation of left leg AKA, came in with non healing ulcer s/p debridement. I was consulted for severe PAD and possbile endovascular revascularization for possible severe PAD. Pt does have signs of ischemia on skin. Problems: Additional Assessment/Plan doing much fine post PAD intervention repeat US open arteries wound care wll ./TANIA Gan MD Dec 28, 2016 16:22
[2016-12-28 19:45] VITALS: BP 143/67; RESP 17
--- NOTE | 2016-12-28 20:50 | CONS ---
Date/Time of Note Date/Time of Note DATE: 12/28/16 TIME: 20:49 Assessment/Plan Assessment/Plan Chief Complaint/Hosp Course ID PROGRESS NOTE TOTAL ABX DAY # 10 => Vanco IV + Invanz 24H INTERVAL SUMMARY * Doing well -- watching TV, NAD, no fevers, no c.o "I don't know" to the plan = = DC planning in process * MICROBIOLOGY: Wound culture growing Klebsiella pneumoniae ESBL, Proteus, enterococcus species and MRSA. Anaerobic culture grew Bacteroides fragilis. PHYSICAL EXAMINATION: GENERAL: VSS, NAD HEENT: Unremarkable NECK: Trach midline CHEST: Equal chest rise bilaterally, without dyspnea on observation HEART: Pulse RRR ABDOMEN: Soft EXTREMITIES: Warm, right foot dressing intact. SKIN: See hard chart skin assessment ID ASSESSMENT: 56 yo M w/PMHx 1. Right foot infected diabetic ulceration, status post open transmetatarsal amputation=> patho is negative OM. 2. Diabetes w/complication of DM Peripheral Neuropathy 3. Severe peripheral vascular disease with a history of left above-knee amputation. ()MRSA Nares INVASIVES: PIV ABX ALLERGY: KNDA CURRENT ABX: TOTAL ABX DAY # 10 => Vanco IV + Invanz ID RECOMMENDATIONS: 1. Per Clair's ID report => February DC home on current ABX for an additional 14 days for a total of 3 weeks . . Problems: Consultation Date/Type/Reason Admit Date/Time Dec 19, 2016 at 14:36 Initial Consult Date 12/21/16 Type of Consultation: ID Referring Provider: JEWELS MCKNIGHT DPM Exam/Review of Systems Vital Signs Vitals Vital Signs Date Time Temp Pulse Resp B/P Pulse Ox O2 Delivery O2 Flow Rate FiO2 12/28/16 19:45 98.3 63 17 143/67 99 12/27/16 20:29 Room Air Intake and Output 12/27/16 12/27/16 12/28/16 15:00 23:00 07:00 Intake Total 900 ml 700 ml Output Total 1000 ml 1200 ml Balance -100 ml -500 ml Results Result Diagram: 12/27/16 0438 12/27/16 0435 Results 24 hrs Laboratory Tests Test 12/28/16 03:37 12/28/16 04:25 12/28/16 08:36 12/28/16 11:49 Bedside Glucose 219 176 166 Vancomycin Level Trough 17.2 Test 12/28/16 17:35 12/28/16 20:36 Bedside Glucose 216 184 Medications Medications Current Medications Ibuprofen (Motrin) 600 mg Q6H PRN PO PAIN LEVEL 6-10; Start 12/19/16 at 18:30 Acetaminophen/ Hydrocodone Bitart ([place] (5/325)) 1 tab Q6H PRN PO PAIN LEVEL 6 -10 Last administered on 12/23/16 16:53; Admin Dose 1 TAB; Start 12/19/16 at 18 :30 Enoxaparin Sodium (Lovenox) 40 mg DAILY@07 SC Last administered on 12/28/16 06 :09; Admin Dose 40 MG; Start 12/20/16 at 07:00 Diagnostic Test (Pha) (Accucheck) 1 ea 02 XX Last administered on 12/28/16 02: 00; Admin Dose 1 EA; Start 12/20/16 at 02:00 Miscellaneous Information 1 ea NOTE XX ; Start 12/19/16 at 23:00 Glucose (Glutose) 15 gm Q15M PRN PO DECREASED GLUCOSE; Start 12/19/16 at 23:00 Glucose (Glutose) 22.5 gm Q15M PRN PO DECREASED GLUCOSE; Start 12/19/16 at 23: 00 Dextrose (D50w Syringe) 25 ml Q15M PRN IV DECREASED GLUCOSE; Start 12/19/16 at 23:00 Dextrose (D50w Syringe) 50 ml Q15M PRN IV DECREASED GLUCOSE; Start 12/19/16 at 23:00 Glucagon (Glucagen) 1 mg Q15M PRN IM DECREASED GLUCOSE; Start 12/19/16 at 23:00 Glucose 15 gm 15 gm Q15M PRN BUCCAL DECREASED GLUCOSE; Start 12/19/16 at 23:00 Ertapenem/Sodium Chloride (Invanz/NS) 100 ml @ 200 mls/hr Q24H IVPB Last administered on 12/28/16 15:30; Admin Dose 200 MLS/HR; Start 12/21/16 at 15:30 Ondansetron HCl (Zofran Inj) 4 mg Q6H PRN IV NAUSEA AND/OR VOMITING Last administered on 12/23/16 15:56; Admin Dose 4 MG; Start 12/22/16 at 18:00 Diphenhydramine HCl (Benadryl) 25 mg Q6H PRN IV ITCHING; Start 12/22/16 at 18: 00 Pantoprazole (Protonix Tab) 40 mg DAILY@06 PO Last administered on 12/28/16 06 :08; Admin Dose 40 MG; Start 12/23/16 at 06:00 Clonidine (Catapres) 0.1 mg Q6H PRN PO HIGH BP Last administered on 12/27/16 20:08; Admin Dose 0.1 MG; Start 12/22/16 at 21:30 Morphine Sulfate (morphine) 2 mg Q4H PRN IV PAIN Last administered on 11:47; Admin Dose 2 MG; Start 12/23/16 at 16:00 Clopidogrel Bisulfate (plaVIX) 75 mg DAILY PO Last administered on 12/28/16 09 :30; Admin Dose 75 MG; Start 12/23/16 at 17:00 Mupirocin 1 applic 1 applic DAILY TOP Last administered on 12/28/16 11:47; Admin Dose 1 APPLIC; Start 12/23/16 at 21:00 Vancomycin HCl (Vancocin) 100 ml @ 100 mls/hr Q12H IVPB ; Start 12/28/16 at 21: 00 CAMILLE ENCISO NP Dec 28, 2016 20:50
[2016-12-28] MEDS: VANCOMYCIN 500MG/NS (PMX) 100 ML IVPB SCH (20:51)
[2016-12-29] MEDS: ACCU-CHEK XX SCH (02:05)
[2016-12-29 06:14] LABS: CREATININE 1.1 mg/dl (0.61-1.24)
[2016-12-29] MEDS: PANTOPRAZOLE (EC) 40 MG TAB PO SCH (06:16)
[2016-12-29] MEDS: ENOXAPARIN 40 MG/0.4 ML SYG SC SCH (06:24)
[2016-12-29 08:19] VITALS: BP 137/70; RESP 16
[2016-12-29] MEDS: CLOPIDOGREL 75 MG TAB PO SCH (09:39)
[2016-12-29] MEDS: INSULIN ASPART [NOVOLOG] 3 ML PEN SC SCH ×4 (09:40→21:16)
[2016-12-29] MEDS: VANCOMYCIN 500MG/NS (PMX) 100 ML IVPB SCH ×2 (09:42→21:15)
[2016-12-29] MEDS: MUPIROCIN 2% 22 GM OINT TOP SCH (09:43)
--- NOTE | 2016-12-29 12:00 | CONS ---
Date/Time of Note Date/Time of Note DATE: 12/29/16 TIME: 11:59 Assessment/Plan Assessment/Plan Chief Complaint/Hosp Course SUBJECTIVE: No acute changes. no fevers. ANTIMICROBIALS: The patient is on: 1. Vanco. 2. Invanz. MICROBIOLOGY: Wound culture growing Klebsiella pneumoniae ESBL, Proteus, enterococcus species and MRSA. Anaerobic culture grew Bacteroides fragilis. PHYSICAL EXAMINATION: GENERAL: Well-developed, middle-aged, man in no distress. HEENT: Head atraumatic, normocephalic. Sclerae anicteric. Buccal mucosa pink. NECK: Supple. CHEST: Rise symmetrical. Breath sounds clear. HEART: S1, S2. ABDOMEN: Soft, bowel sounds present. EXTREMITIES: With right foot dressing intact. ASSESSMENT 1. Right foot infected diabetic ulceration, status post open transmetatarsal amputation==> patho is negative OM. 2. Diabetes. 3. Severe peripheral vascular disease with a history of left above-knee amputation. PLAN: The patient remains stable. Continue abx for 10 more days, pending SNF DW staff DW Dr Belle Problems: Consultation Date/Type/Reason Admit Date/Time Dec 19, 2016 at 14:36 Initial Consult Date 12/21/16 Type of Consultation: ID Referring Provider: JEWELS MCKNIGHT DPM Exam/Review of Systems Vital Signs Vitals Vital Signs Date Time Temp Pulse Resp B/P Pulse Ox O2 Delivery O2 Flow Rate FiO2 12/29/16 08:19 98.4 68 16 137/70 100 12/27/16 20:29 Room Air Intake and Output 12/28/16 12/28/16 12/29/16 15:00 23:00 07:00 Intake Total 150 ml 200 ml 600 ml Output Total 450 ml Balance 150 ml 200 ml 150 ml Results Result Diagram: 12/27/16 0438 12/29/16 0422 Results 24 hrs Laboratory Tests Test 12/28/16 17:35 12/28/16 20:36 12/29/16 02:02 12/29/16 04:22 Bedside Glucose 216 184 144 Blood Urea Nitrogen 18 Creatinine 1.10 Test 12/29/16 08:13 Bedside Glucose 170 Medications Medications Current Medications Ibuprofen (Motrin) 600 mg Q6H PRN PO PAIN LEVEL 6-10; Start 12/19/16 at 18:30 Acetaminophen/ Hydrocodone Bitart ([place] (5/325)) 1 tab Q6H PRN PO PAIN LEVEL 6 -10 Last administered on 12/23/16 16:53; Admin Dose 1 TAB; Start 12/19/16 at 18 :30 Enoxaparin Sodium (Lovenox) 40 mg DAILY@07 SC Last administered on 12/29/16 06 :24; Admin Dose 40 MG; Start 12/20/16 at 07:00 Diagnostic Test (Pha) (Accucheck) 1 ea 02 XX Last administered on 12/29/16 02: 05; Admin Dose 1 EA; Start 12/20/16 at 02:00 Miscellaneous Information 1 ea NOTE XX ; Start 12/19/16 at 23:00 Glucose (Glutose) 15 gm Q15M PRN PO DECREASED GLUCOSE; Start 12/19/16 at 23:00 Glucose (Glutose) 22.5 gm Q15M PRN PO DECREASED GLUCOSE; Start 12/19/16 at 23: 00 Dextrose (D50w Syringe) 25 ml Q15M PRN IV DECREASED GLUCOSE; Start 12/19/16 at 23:00 Dextrose (D50w Syringe) 50 ml Q15M PRN IV DECREASED GLUCOSE; Start 12/19/16 at 23:00 Glucagon (Glucagen) 1 mg Q15M PRN IM DECREASED GLUCOSE; Start 12/19/16 at 23:00 Glucose 15 gm 15 gm Q15M PRN BUCCAL DECREASED GLUCOSE; Start 12/19/16 at 23:00 Ertapenem/Sodium Chloride (Invanz/NS) 100 ml @ 200 mls/hr Q24H IVPB Last administered on 12/28/16 15:30; Admin Dose 200 MLS/HR; Start 12/21/16 at 15:30 Ondansetron HCl (Zofran Inj) 4 mg Q6H PRN IV NAUSEA AND/OR VOMITING Last administered on 12/23/16 15:56; Admin Dose 4 MG; Start 12/22/16 at 18:00 Diphenhydramine HCl (Benadryl) 25 mg Q6H PRN IV ITCHING; Start 12/22/16 at 18: 00 Pantoprazole (Protonix Tab) 40 mg DAILY@06 PO Last administered on 12/29/16 06 :16; Admin Dose 40 MG; Start 12/23/16 at 06:00 Clonidine (Catapres) 0.1 mg Q6H PRN PO HIGH BP Last administered on 12/27/16 20:08; Admin Dose 0.1 MG; Start 12/22/16 at 21:30 Morphine Sulfate (morphine) 2 mg Q4H PRN IV PAIN Last administered on 11:47; Admin Dose 2 MG; Start 12/23/16 at 16:00 Clopidogrel Bisulfate (plaVIX) 75 mg DAILY PO Last administered on 12/29/16 09 :39; Admin Dose 75 MG; Start 12/23/16 at 17:00 Mupirocin 1 applic 1 applic DAILY TOP Last administered on 12/29/16 09:43; Admin Dose 1 APPLIC; Start 12/23/16 at 21:00 Vancomycin HCl (Vancocin) 100 ml @ 100 mls/hr Q12H IVPB Last administered on 09:42; Admin Dose 100 MLS/HR; Start 12/28/16 at 21:00 Miscellaneous Information (*Rx Drug Level Order Reminder*) VANCOMYCIN TROUGH AT 0800 ONCE ONCE XX ; Start 12/30/16 at 08:00; Stop 12/30/16 at 08:01 SUNNY PRECIADO NP Dec 29, 2016 12:00
[2016-12-29] MEDS: ERTAPENEM SODIUM 1 GM in SOD CHLORIDE 0.9% 100 ML IVPB SCH (16:00)
--- NOTE | 2016-12-29 18:59 | QN ---
Documentation Comment [id number] note LUIS ENRIQUE MAN MD Dec 29, 2016 18:59
--- NOTE | 2016-12-29 19:03 | PN ---
Date/Time of Note Date/Time of Note DATE: 12/29/16 TIME: 19:00 Assessment/Plan VTE Prophylaxis VTE Prophylaxis Intervention: other Lines/Catheters IV Catheter Type (from Nrsg): Saline Lock Assessment/Plan Chief Complaint/Hosp Course dm htn ckd pvd s/p tma s/p debridement s/p lower ex angio and intervention esbl wounf mrsa plan per id and vascular and podiatry Problems: Subjective 24 Hr Interval Summary Respiratory: no complaints Cardiovascular: no complaints Exam/Review of Systems Vital Signs Vitals Vital Signs Date Time Temp Pulse Resp B/P Pulse Ox O2 Delivery O2 Flow Rate FiO2 12/29/16 08:19 98.4 68 16 137/70 100 12/27/16 20:29 Room Air Intake and Output 12/28/16 12/28/16 12/29/16 15:00 23:00 07:00 Intake Total 150 ml 200 ml 600 ml Output Total 450 ml Balance 150 ml 200 ml 150 ml Exam Neck: supple Respiratory: clear to auscultation Cardiovascular: regular rate and rhythm Gastrointestinal: soft Extremities: No edema Results Result Diagram: 12/27/16 0438 12/29/16 0422 Results 24 hrs Laboratory Tests Test 12/28/16 20:36 12/29/16 02:02 12/29/16 04:22 12/29/16 08:13 Bedside Glucose 184 144 170 Blood Urea Nitrogen 18 Creatinine 1.10 Test 12/29/16 12:04 12/29/16 16:48 Bedside Glucose 131 217 Medications Medications Current Medications Ibuprofen (Motrin) 600 mg Q6H PRN PO PAIN LEVEL 6-10; Start 12/19/16 at 18:30 Acetaminophen/ Hydrocodone Bitart ([place] (5/325)) 1 tab Q6H PRN PO PAIN LEVEL 6 -10 Last administered on 12/23/16 16:53; Admin Dose 1 TAB; Start 12/19/16 at 18 :30 Enoxaparin Sodium (Lovenox) 40 mg DAILY@07 SC Last administered on 12/29/16 06 :24; Admin Dose 40 MG; Start 12/20/16 at 07:00 Diagnostic Test (Pha) (Accucheck) 1 ea 02 XX Last administered on 12/29/16 02: 05; Admin Dose 1 EA; Start 12/20/16 at 02:00 Miscellaneous Information 1 ea NOTE XX ; Start 12/19/16 at 23:00 Glucose (Glutose) 15 gm Q15M PRN PO DECREASED GLUCOSE; Start 12/19/16 at 23:00 Glucose (Glutose) 22.5 gm Q15M PRN PO DECREASED GLUCOSE; Start 12/19/16 at 23: 00 Dextrose (D50w Syringe) 25 ml Q15M PRN IV DECREASED GLUCOSE; Start 12/19/16 at 23:00 Dextrose (D50w Syringe) 50 ml Q15M PRN IV DECREASED GLUCOSE; Start 12/19/16 at 23:00 Glucagon (Glucagen) 1 mg Q15M PRN IM DECREASED GLUCOSE; Start 12/19/16 at 23:00 Glucose 15 gm 15 gm Q15M PRN BUCCAL DECREASED GLUCOSE; Start 12/19/16 at 23:00 Ertapenem/Sodium Chloride (Invanz/NS) 100 ml @ 200 mls/hr Q24H IVPB Last administered on 12/29/16 16:00; Admin Dose 200 MLS/HR; Start 12/21/16 at 15:30 Ondansetron HCl (Zofran Inj) 4 mg Q6H PRN IV NAUSEA AND/OR VOMITING Last administered on 12/23/16 15:56; Admin Dose 4 MG; Start 12/22/16 at 18:00 Diphenhydramine HCl (Benadryl) 25 mg Q6H PRN IV ITCHING; Start 12/22/16 at 18: 00 Pantoprazole (Protonix Tab) 40 mg DAILY@06 PO Last administered on 12/29/16 06 :16; Admin Dose 40 MG; Start 12/23/16 at 06:00 Clonidine (Catapres) 0.1 mg Q6H PRN PO HIGH BP Last administered on 12/27/16 20:08; Admin Dose 0.1 MG; Start 12/22/16 at 21:30 Morphine Sulfate (morphine) 2 mg Q4H PRN IV PAIN Last administered on 11:47; Admin Dose 2 MG; Start 12/23/16 at 16:00 Clopidogrel Bisulfate (plaVIX) 75 mg DAILY PO Last administered on 12/29/16 09 :39; Admin Dose 75 MG; Start 12/23/16 at 17:00 Mupirocin 1 applic 1 applic DAILY TOP Last administered on 12/29/16 09:43; Admin Dose 1 APPLIC; Start 12/23/16 at 21:00 Vancomycin HCl (Vancocin) 100 ml @ 100 mls/hr Q12H IVPB Last administered on 09:42; Admin Dose 100 MLS/HR; Start 12/28/16 at 21:00 Miscellaneous Information (*Rx Drug Level Order Reminder*) VANCOMYCIN TROUGH AT 0800 ONCE ONCE XX ; Start 12/30/16 at 08:00; Stop 12/30/16 at 08:01 LUIS ENRIQUE MAN MD Dec 29, 2016 19:03
[2016-12-29] MEDS: HYDROCODONE/APAP (5/325) TAB PO PRN (19:16)
[2016-12-29 19:53] VITALS: BP 150/72; RESP 20
--- NOTE | 2016-12-30 01:27 | PN ---
DATE: 12/29/2016 SUBJECTIVE: The patient was seen yesterday also. Progress note was not saved. The patient is status post right foot surgery being seen by Dr. baker from vascular. His impression, a 56-year-old male with diabetes, hypertension, hyperlipidemia, PAD, with leg amputation of left leg AK. Patient has PAD and Patient is also being seen by Dr. Lnae in consultation. The patient is stable. The patient is waiting for transfer to SNF. At the time of transfer to SNF, diagnoses include: DIAGNOSES: 1. The patient has foot surgery. 2. Diabetes. 3. Hypertension. 4. Anemia 5. The patient has Klebsiella pneumoniae, ESBL, Proteus mirabilis, enterococcus species, and MRSA from the wound. PLAN: To continue antibiotic, wound care. The patient is waiting for SNF. Dictated By: LUIS ENRIQUE MAN MD BS/LINNEA Conf#: [id number] DID#: [id number] MTDD
--- NOTE | 2016-12-30 01:54 | CONS ---
DATE OF ADMISSION: 12/19/2016 DATE OF CONSULTATION: 12/29/2016 SUBJECTIVE FINDINGS: The patient is being followed for a right foot diabetic ulceration. He has pe rsistent polymicrobial growth with most recent cultures Klebsiella pneumoniae and MRSA. The patient denies any fever, nausea, vomiting. Has a pending SNF placement. The patient on vancomycin and In vanz. OBJECTIVE FINDINGS: VITAL SIGNS: Temperature 98.4, pulse is 68, respiratory 16, blood pressure 137/70, pulse oximetry i s 100 on room air. GENERAL: The patient is alert, oriented, no acute distress. Regular respiration. EXTREMITIES: Left above-knee amputation. Right foot with transmetatarsal amputation. There is imp roved color and temperature of foot. The patient has 2+ DP, PT pulses. The patient with ulceration with exposed metatarsal bone. Ulceration measures approximately 13 x 3 cm. No malodor, no tunneli ng wounds. No signs of cellulitis, lymphangitis. No tender popliteal lymph nodes. The wound has im proved granulation. LABORATORY DATA: Glucose is 217. ASSESSMENT: 1. Right foot diabetic ulceration. 2. History of open transmetatarsal amputation. 3. Right foot with cellulitis and bacterial growth with polymicrobial organisms with resistance inc luding MRSA and Klebsiella pneumoniae, ESBL. 4. Diabetes with neuropathy. 5. Left above-knee amputation. 6. Chronic kidney disease. 7. Peripheral arterial disease. PLAN: The patient seen and evaluated. Wound appears improved. The patient consented for staged de bridement. Debridement performed at bedside. Excisional debridement performed using a 15 blade, ex cisional debridement of skin and necrotic ligament muscle to ulceration 13 x 3 cm. Estimated blood loss of 15 to 20 mL. Hemostasis achieved with compression and cultures were obtained from the wound . Bactroban 2% ointment was applied to the wound surface and covered with dry sterile dressing. Pa zenia tolerated procedure well. POSTOPERATIVE PLAN: Continue IV antibiotics. Estimated duration for [address] more [address] ment. Proceed with case management assistance with this. If no further bacterial growth, can disco ntinue isolation precautions. Dictated By: JEWELS NEAL/LINNEA Conf#: [id number] DID#: [id number]
[2016-12-30] MEDS: ACCU-CHEK XX SCH (02:37)
[2016-12-30] MEDS: PANTOPRAZOLE (EC) 40 MG TAB PO SCH (05:25)
[2016-12-30] MEDS: ENOXAPARIN 40 MG/0.4 ML SYG SC SCH (05:26)
[2016-12-30 08:04] LABS: ADD SCAN DIFF NO
[2016-12-30 08:06] VITALS: BP 144/72; RESP 18
[2016-12-30 08:08] LABS: BASOPHILS % 0.6 % (0.0-2.0); EOSINOPHILS # 0.4 10^3/ul (0.0-0.5); EOSINOPHILS % 6.2 % (0.0-7.0); HEMATOCRIT 29.2 % (42.0-52.0); HEMOGLOBIN 9.5 g/dl (14.0-18.0); LYMPHOCYTES # 2.2 10^3/ul (0.8-2.9); LYMPHOCYTES % 35.5 % (15.0-51.0); MEAN CORPUSCULAR HGB CONC 32.5 g/dl (32.0-37.0); MEAN PLATELET VOLUME 10.3 fl (7.4-10.4); MONOCYTE # 0.5 10^3/ul (0.3-0.9); MONOCYTES % 7.6 % (0.0-11.0); NEUTROPHIL # 3.1 10^3/ul (1.6-7.5); NEUTROPHILS % 49.9 % (39.0-77.0); PLATELET COUNT 273 10^3/UL (140-415); RED BLOOD COUNT 3.52 10^6/ul (4.70-6.10); RED CELL DISTRIBUTION WIDTH 14.6 % (11.5-14.5); WHITE BLOOD COUNT 6.2 10^3/ul (4.8-10.8)
[2016-12-30] MEDS: CLOPIDOGREL 75 MG TAB PO SCH (08:13)
[2016-12-30] MEDS: INSULIN ASPART [NOVOLOG] 3 ML PEN SC SCH ×4 (08:28→20:29)
[2016-12-30 08:45] LABS: ALBUMIN 3.3 g/dl (3.3-4.9); POTASSIUM 3.8 mmol/L (3.5-5.1)
[2016-12-30 08:47] LABS: CREATININE 1.12 mg/dl (0.61-1.24)
[2016-12-30 08:48] LABS: ALBUMIN/GLOBULIN RATIO 0.97; CALCIUM 8.4 mg/dl (8.4-10.2); TOTAL PROTEIN 6.7 g/dl (6.1-8.1)
[2016-12-30] MEDS: VANCOMYCIN 500MG/NS (PMX) 100 ML IVPB SCH ×2 (11:07→20:28)
[2016-12-30] MEDS: MUPIROCIN 2% 22 GM OINT TOP SCH (11:28)
--- NOTE | 2016-12-30 12:59 | CONS ---
Date/Time of Note Date/Time of Note DATE: 12/30/16 TIME: 12:58 Assessment/Plan Assessment/Plan Chief Complaint/Hosp Course SUBJECTIVE: No acute changes. no fevers. ANTIMICROBIALS: The patient is on: 1. Vanco. 2. Invanz. MICROBIOLOGY: Wound culture growing Klebsiella pneumoniae ESBL, Proteus, enterococcus species and MRSA. Anaerobic culture grew Bacteroides fragilis. PHYSICAL EXAMINATION: GENERAL: Well-developed, middle-aged, man in no distress. HEENT: Head atraumatic, normocephalic. Sclerae anicteric. Buccal mucosa pink. NECK: Supple. CHEST: Rise symmetrical. Breath sounds clear. HEART: S1, S2. ABDOMEN: Soft, bowel sounds present. EXTREMITIES: With right foot dressing intact. ASSESSMENT 1. Right foot infected diabetic ulceration, status post open transmetatarsal amputation==> patho is negative OM. 2. Diabetes. 3. Severe peripheral vascular disease with a history of left above-knee amputation. PLAN: The patient remains stable. Continue abx for 9 more days, pending SNF, ok dc isolation if no drainage from the wound DW staff Problems: Consultation Date/Type/Reason Admit Date/Time Dec 19, 2016 at 14:36 Initial Consult Date 12/21/16 Type of Consultation: ID Referring Provider: JEWELS MCKNIGHT DPM Exam/Review of Systems Vital Signs Vitals Vital Signs Date Time Temp Pulse Resp B/P Pulse Ox O2 Delivery O2 Flow Rate FiO2 12/30/16 08:06 98.0 66 18 144/72 100 12/27/16 20:29 Room Air Intake and Output 12/29/16 12/29/16 12/30/16 15:00 23:00 07:00 Intake Total 900 ml 450 ml Output Total 1600 ml 600 ml Balance -700 ml -150 ml Results Result Diagram: 12/30/16 0758 12/30/16 0758 Results 24 hrs Laboratory Tests Test 12/29/16 16:48 12/29/16 21:05 12/30/16 02:34 12/30/16 07:58 Bedside Glucose 217 199 188 White Blood Count 6.2 # Red Blood Count 3.52 L Hemoglobin 9.5 L Hematocrit 29.2 L Mean Corpuscular Volume 83.0 Mean Corpuscular Hemoglobin 27.0 L Mean Corpuscular Hemoglobin Concent 32.5 Red Cell Distribution Width 14.6 H Platelet Count 273 Mean Platelet Volume 10.3 Neutrophils % 49.9 Lymphocytes % 35.5 Monocytes % 7.6 Eosinophils % 6.2 Basophils % 0.6 Nucleated Red Blood Cells % 0.0 Neutrophils # 3.1 Lymphocytes # 2.2 Monocytes # 0.5 Eosinophils # 0.4 Basophils # 0.0 Nucleated Red Blood Cells # 0.0 Sodium Level 137 Potassium Level 3.8 Chloride Level 102 Carbon Dioxide Level 28 Anion Gap 11 Blood Urea Nitrogen 22 H Creatinine 1.12 Glucose Level 141 Calcium Level 8.4 Total Bilirubin 0.0 L Direct Bilirubin 0.00 Indirect Bilirubin 0.0 Aspartate Amino Transf (AST/SGOT) 16 Alanine Aminotransferase (ALT/SGPT) 25 Alkaline Phosphatase 76 Total Protein 6.7 Albumin 3.3 Globulin 3.40 H Albumin/Globulin Ratio 0.97 Vancomycin Level Trough 13.1 Test 12/30/16 08:12 12/30/16 12:10 Bedside Glucose 143 203 Medications Medications Current Medications Ibuprofen (Motrin) 600 mg Q6H PRN PO PAIN LEVEL 6-10; Start 12/19/16 at 18:30 Acetaminophen/ Hydrocodone Bitart ([place] (5/325)) 1 tab Q6H PRN PO PAIN LEVEL 6 -10 Last administered on 12/29/16 19:16; Admin Dose 1 TAB; Start 12/19/16 at 18 :30 Enoxaparin Sodium (Lovenox) 40 mg DAILY@07 SC Last administered on 12/30/16 05 :26; Admin Dose 40 MG; Start 12/20/16 at 07:00 Diagnostic Test (Pha) (Accucheck) 1 ea 02 XX Last administered on 12/30/16 02: 37; Admin Dose 1 EA; Start 12/20/16 at 02:00 Miscellaneous Information 1 ea NOTE XX ; Start 12/19/16 at 23:00 Glucose (Glutose) 15 gm Q15M PRN PO DECREASED GLUCOSE; Start 12/19/16 at 23:00 Glucose (Glutose) 22.5 gm Q15M PRN PO DECREASED GLUCOSE; Start 12/19/16 at 23: 00 Dextrose (D50w Syringe) 25 ml Q15M PRN IV DECREASED GLUCOSE; Start 12/19/16 at 23:00 Dextrose (D50w Syringe) 50 ml Q15M PRN IV DECREASED GLUCOSE; Start 12/19/16 at 23:00 Glucagon (Glucagen) 1 mg Q15M PRN IM DECREASED GLUCOSE; Start 12/19/16 at 23:00 Glucose 15 gm 15 gm Q15M PRN BUCCAL DECREASED GLUCOSE; Start 12/19/16 at 23:00 Ertapenem/Sodium Chloride (Invanz/NS) 100 ml @ 200 mls/hr Q24H IVPB Last administered on 12/29/16 16:00; Admin Dose 200 MLS/HR; Start 12/21/16 at 15:30 Ondansetron HCl (Zofran Inj) 4 mg Q6H PRN IV NAUSEA AND/OR VOMITING Last administered on 12/23/16 15:56; Admin Dose 4 MG; Start 12/22/16 at 18:00 Diphenhydramine HCl (Benadryl) 25 mg Q6H PRN IV ITCHING; Start 12/22/16 at 18: 00 Pantoprazole (Protonix Tab) 40 mg DAILY@06 PO Last administered on 12/30/16 05 :25; Admin Dose 40 MG; Start 12/23/16 at 06:00 Clonidine (Catapres) 0.1 mg Q6H PRN PO HIGH BP Last administered on 12/27/16 20:08; Admin Dose 0.1 MG; Start 12/22/16 at 21:30 Morphine Sulfate (morphine) 2 mg Q4H PRN IV PAIN Last administered on 11:47; Admin Dose 2 MG; Start 12/23/16 at 16:00 Clopidogrel Bisulfate (plaVIX) 75 mg DAILY PO Last administered on 12/30/16 08 :13; Admin Dose 75 MG; Start 12/23/16 at 17:00 Mupirocin 1 applic 1 applic DAILY TOP Last administered on 12/30/16 11:28; Admin Dose 1 APPLIC; Start 12/23/16 at 21:00 Vancomycin HCl (Vancocin) 100 ml @ 100 mls/hr Q12H IVPB Last administered on 11:07; Admin Dose 100 MLS/HR; Start 12/28/16 at 21:00 SUNNY PRECIADO NP Dec 30, 2016 12:59
[2016-12-30] MEDS: ERTAPENEM SODIUM 1 GM in SOD CHLORIDE 0.9% 100 ML IVPB SCH (16:04)
--- NOTE | 2016-12-30 18:19 | PN ---
Date/Time of Note Date/Time of Note DATE: 12/30/16 TIME: 18:17 Assessment/Plan VTE Prophylaxis VTE Prophylaxis Intervention: other Lines/Catheters IV Catheter Type (from Nrsg): Saline Lock Assessment/Plan Chief Complaint/Hosp Course dm htn ckd pvd s/p tma s/p debridement s/p lower ex angio and intervention esbl wounf mrsa plan per id and vascular and podiatry snf soon Problems: Subjective 24 Hr Interval Summary Gastrointestinal: no complaints Genitourinary: no complaints Musculoskeletal: no complaints Exam/Review of Systems Vital Signs Vitals Vital Signs Date Time Temp Pulse Resp B/P Pulse Ox O2 Delivery O2 Flow Rate FiO2 12/30/16 08:06 98.0 66 18 144/72 100 12/27/16 20:29 Room Air Intake and Output 12/29/16 12/29/16 12/30/16 15:00 23:00 07:00 Intake Total 900 ml 450 ml Output Total 1600 ml 600 ml Balance -700 ml -150 ml Exam Neck: supple Respiratory: clear to auscultation Cardiovascular: regular rate and rhythm Gastrointestinal: soft Musculoskeletal: nl extremities to inspection Extremities: No calf tenderness, No edema Results Result Diagram: 12/30/16 0758 12/30/16 0758 Results 24 hrs Laboratory Tests Test 12/29/16 21:05 12/30/16 02:34 12/30/16 07:58 12/30/16 08:12 Bedside Glucose 199 188 143 White Blood Count 6.2 # Red Blood Count 3.52 L Hemoglobin 9.5 L Hematocrit 29.2 L Mean Corpuscular Volume 83.0 Mean Corpuscular Hemoglobin 27.0 L Mean Corpuscular Hemoglobin Concent 32.5 Red Cell Distribution Width 14.6 H Platelet Count 273 Mean Platelet Volume 10.3 Neutrophils % 49.9 Lymphocytes % 35.5 Monocytes % 7.6 Eosinophils % 6.2 Basophils % 0.6 Nucleated Red Blood Cells % 0.0 Neutrophils # 3.1 Lymphocytes # 2.2 Monocytes # 0.5 Eosinophils # 0.4 Basophils # 0.0 Nucleated Red Blood Cells # 0.0 Sodium Level 137 Potassium Level 3.8 Chloride Level 102 Carbon Dioxide Level 28 Anion Gap 11 Blood Urea Nitrogen 22 H Creatinine 1.12 Glucose Level 141 Calcium Level 8.4 Total Bilirubin 0.0 L Direct Bilirubin 0.00 Indirect Bilirubin 0.0 Aspartate Amino Transf (AST/SGOT) 16 Alanine Aminotransferase (ALT/SGPT) 25 Alkaline Phosphatase 76 Total Protein 6.7 Albumin 3.3 Globulin 3.40 H Albumin/Globulin Ratio 0.97 Vancomycin Level Trough 13.1 Test 12/30/16 12:10 Bedside Glucose 203 Medications Medications Current Medications Ibuprofen (Motrin) 600 mg Q6H PRN PO PAIN LEVEL 6-10; Start 12/19/16 at 18:30 Acetaminophen/ Hydrocodone Bitart ([place] (5/325)) 1 tab Q6H PRN PO PAIN LEVEL 6 -10 Last administered on 12/29/16 19:16; Admin Dose 1 TAB; Start 12/19/16 at 18 :30 Enoxaparin Sodium (Lovenox) 40 mg DAILY@07 SC Last administered on 12/30/16 05 :26; Admin Dose 40 MG; Start 12/20/16 at 07:00 Diagnostic Test (Pha) (Accucheck) 1 ea 02 XX Last administered on 12/30/16 02: 37; Admin Dose 1 EA; Start 12/20/16 at 02:00 Miscellaneous Information 1 ea NOTE XX ; Start 12/19/16 at 23:00 Glucose (Glutose) 15 gm Q15M PRN PO DECREASED GLUCOSE; Start 12/19/16 at 23:00 Glucose (Glutose) 22.5 gm Q15M PRN PO DECREASED GLUCOSE; Start 12/19/16 at 23: 00 Dextrose (D50w Syringe) 25 ml Q15M PRN IV DECREASED GLUCOSE; Start 12/19/16 at 23:00 Dextrose (D50w Syringe) 50 ml Q15M PRN IV DECREASED GLUCOSE; Start 12/19/16 at 23:00 Glucagon (Glucagen) 1 mg Q15M PRN IM DECREASED GLUCOSE; Start 12/19/16 at 23:00 Glucose 15 gm 15 gm Q15M PRN BUCCAL DECREASED GLUCOSE; Start 12/19/16 at 23:00 Ertapenem/Sodium Chloride (Invanz/NS) 100 ml @ 200 mls/hr Q24H IVPB Last administered on 12/30/16 16:04; Admin Dose 200 MLS/HR; Start 12/21/16 at 15:30 Ondansetron HCl (Zofran Inj) 4 mg Q6H PRN IV NAUSEA AND/OR VOMITING Last administered on 12/23/16 15:56; Admin Dose 4 MG; Start 12/22/16 at 18:00 Diphenhydramine HCl (Benadryl) 25 mg Q6H PRN IV ITCHING; Start 12/22/16 at 18: 00 Pantoprazole (Protonix Tab) 40 mg DAILY@06 PO Last administered on 12/30/16 05 :25; Admin Dose 40 MG; Start 12/23/16 at 06:00 Clonidine (Catapres) 0.1 mg Q6H PRN PO HIGH BP Last administered on 12/27/16 20:08; Admin Dose 0.1 MG; Start 12/22/16 at 21:30 Morphine Sulfate (morphine) 2 mg Q4H PRN IV PAIN Last administered on 11:47; Admin Dose 2 MG; Start 12/23/16 at 16:00 Clopidogrel Bisulfate (plaVIX) 75 mg DAILY PO Last administered on 12/30/16 08 :13; Admin Dose 75 MG; Start 12/23/16 at 17:00 Mupirocin 1 applic 1 applic DAILY TOP Last administered on 12/30/16 11:28; Admin Dose 1 APPLIC; Start 12/23/16 at 21:00 Vancomycin HCl (Vancocin) 100 ml @ 100 mls/hr Q12H IVPB Last administered on 11:07; Admin Dose 100 MLS/HR; Start 12/28/16 at 21:00 LUIS ENRIQUE MAN MD Dec 30, 2016 18:19
[2016-12-31] MEDS: ACCU-CHEK XX SCH (02:14)
[2016-12-31] MEDS: PANTOPRAZOLE (EC) 40 MG TAB PO SCH (05:22)
[2016-12-31] MEDS: ENOXAPARIN 40 MG/0.4 ML SYG SC SCH (05:25)
[2016-12-31] MEDS: VANCOMYCIN 500MG/NS (PMX) 100 ML IVPB SCH ×2 (08:28→21:03)
[2016-12-31] MEDS: MUPIROCIN 2% 22 GM OINT TOP SCH (08:29)
[2016-12-31] MEDS: INSULIN ASPART [NOVOLOG] 3 ML PEN SC SCH ×4 (08:32→21:14)
[2016-12-31] MEDS: CLOPIDOGREL 75 MG TAB PO SCH (08:35)
[2016-12-31 09:08] VITALS: BP 115/64; RESP 14
--- NOTE | 2016-12-31 12:28 | CONS ---
Date/Time of Note Date/Time of Note DATE: 12/31/16 TIME: 12:27 Assessment/Plan Assessment/Plan Chief Complaint/Hosp Course SUBJECTIVE: No acute changes. Sleeping. NAD, no fevers. ANTIMICROBIALS: 1. Vanco. 2. Invanz. MICROBIOLOGY: Wound culture growing Klebsiella pneumoniae ESBL, Proteus, enterococcus species and MRSA. Anaerobic culture grew Bacteroides fragilis. PHYSICAL EXAMINATION: GENERAL: Well-developed, middle-aged, man in no distress. HEENT: Head atraumatic, normocephalic. Sclerae anicteric. Buccal mucosa pink. NECK: Supple. CHEST: Rise symmetrical. Breath sounds clear. HEART: S1, S2. ABDOMEN: Soft, bowel sounds present. EXTREMITIES: With right foot dressing intact. ASSESSMENT 1. Right foot infected diabetic ulceration, status post open transmetatarsal amputation==> patho is negative OM. 2. Diabetes. 3. Severe peripheral vascular disease with a history of left above-knee amputation. PLAN: The patient remains stable. Repeat wound cx + yeast, will add Diflucan, continue abx for 8 more days, pending [facility] staff Problems: Consultation Date/Type/Reason Admit Date/Time Dec 19, 2016 at 14:36 Initial Consult Date 12/21/16 Type of Consultation: ID Referring Provider: JEWELS MCKNIGHT DPM Exam/Review of Systems Vital Signs Vitals Vital Signs Date Time Temp Pulse Resp B/P Pulse Ox O2 Delivery O2 Flow Rate FiO2 12/31/16 09:08 98.3 66 14 115/64 98 12/27/16 20:29 Room Air Intake and Output 12/30/16 12/30/16 12/31/16 14:59 22:59 06:59 Intake Total 750 ml Output Total 500 ml Balance 250 ml Results Result Diagram: 12/30/16 0758 12/30/16 0758 Results 24 hrs Laboratory Tests Test 12/30/16 20:23 12/31/16 01:54 12/31/16 08:28 12/31/16 12:18 Bedside Glucose 254 H 271 H 264 H 130 Medications Medications Current Medications Ibuprofen (Motrin) 600 mg Q6H PRN PO PAIN LEVEL 6-10; Start 12/19/16 at 18:30 Acetaminophen/ Hydrocodone Bitart ([place] (5/325)) 1 tab Q6H PRN PO PAIN LEVEL 6 -10 Last administered on 12/29/16 19:16; Admin Dose 1 TAB; Start 12/19/16 at 18 :30 Enoxaparin Sodium (Lovenox) 40 mg DAILY@07 SC Last administered on 12/31/16 05 :25; Admin Dose 40 MG; Start 12/20/16 at 07:00 Diagnostic Test (Pha) (Accucheck) 1 ea 02 XX Last administered on 12/31/16 02: 14; Admin Dose 1 EA; Start 12/20/16 at 02:00 Miscellaneous Information 1 ea NOTE XX ; Start 12/19/16 at 23:00 Glucose (Glutose) 15 gm Q15M PRN PO DECREASED GLUCOSE; Start 12/19/16 at 23:00 Glucose (Glutose) 22.5 gm Q15M PRN PO DECREASED GLUCOSE; Start 12/19/16 at 23: 00 Dextrose (D50w Syringe) 25 ml Q15M PRN IV DECREASED GLUCOSE; Start 12/19/16 at 23:00 Dextrose (D50w Syringe) 50 ml Q15M PRN IV DECREASED GLUCOSE; Start 12/19/16 at 23:00 Glucagon (Glucagen) 1 mg Q15M PRN IM DECREASED GLUCOSE; Start 12/19/16 at 23:00 Glucose 15 gm 15 gm Q15M PRN BUCCAL DECREASED GLUCOSE; Start 12/19/16 at 23:00 Ertapenem/Sodium Chloride (Invanz/NS) 100 ml @ 200 mls/hr Q24H IVPB Last administered on 12/30/16 16:04; Admin Dose 200 MLS/HR; Start 12/21/16 at 15:30 Ondansetron HCl (Zofran Inj) 4 mg Q6H PRN IV NAUSEA AND/OR VOMITING Last administered on 12/23/16 15:56; Admin Dose 4 MG; Start 12/22/16 at 18:00 Diphenhydramine HCl (Benadryl) 25 mg Q6H PRN IV ITCHING; Start 12/22/16 at 18: 00 Pantoprazole (Protonix Tab) 40 mg DAILY@06 PO Last administered on 12/31/16 05 :22; Admin Dose 40 MG; Start 12/23/16 at 06:00 Clonidine (Catapres) 0.1 mg Q6H PRN PO HIGH BP Last administered on 12/27/16 20:08; Admin Dose 0.1 MG; Start 12/22/16 at 21:30 Morphine Sulfate (morphine) 2 mg Q4H PRN IV PAIN Last administered on 11:47; Admin Dose 2 MG; Start 12/23/16 at 16:00 Clopidogrel Bisulfate (plaVIX) 75 mg DAILY PO Last administered on 12/31/16 08 :35; Admin Dose 75 MG; Start 12/23/16 at 17:00 Mupirocin 1 applic 1 applic DAILY TOP Last administered on 12/31/16 08:29; Admin Dose 1 APPLIC; Start 12/23/16 at 21:00 Vancomycin HCl (Vancocin) 100 ml @ 100 mls/hr Q12H IVPB Last administered on 08:28; Admin Dose 100 MLS/HR; Start 12/28/16 at 21:00 SUNNY PRECIADO NP Dec 31, 2016 12:28
[2016-12-31] MEDS: FLUCONAZOLE 100 MG TAB PO SCH (13:23)
[2016-12-31] MEDS: ERTAPENEM SODIUM 1 GM in SOD CHLORIDE 0.9% 100 ML IVPB SCH (15:56)
[2016-12-31 19:35] VITALS: BP 146/69; RESP 18
--- NOTE | 2016-12-31 20:02 | PN ---
Date/Time of Note Date/Time of Note DATE: 12/31/16 TIME: 20:01 Assessment/Plan VTE Prophylaxis VTE Prophylaxis Intervention: other Lines/Catheters IV Catheter Type (from Nrsg): Saline Lock Assessment/Plan Chief Complaint/Hosp Course dm htn ckd pvd s/p tma s/p debridement s/p lower ex angio and intervention esbl wounf mrsa plan per id and vascular and podiatry snf awating Problems: Subjective 24 Hr Interval Summary Respiratory: no complaints Cardiovascular: no complaints Exam/Review of Systems Vital Signs Vitals Vital Signs Date Time Temp Pulse Resp B/P Pulse Ox O2 Delivery O2 Flow Rate FiO2 12/31/16 19:35 97.9 68 18 146/69 100 12/27/16 20:29 Room Air Intake and Output 12/30/16 12/30/16 12/31/16 15:00 23:00 07:00 Intake Total 750 ml Output Total 500 ml Balance 250 ml Exam Respiratory: clear to auscultation Cardiovascular: regular rate and rhythm Gastrointestinal: soft Musculoskeletal: nl extremities to inspection Extremities: No edema Results Result Diagram: 12/30/16 0758 12/30/16 0758 Results 24 hrs Laboratory Tests Test 12/30/16 20:23 12/31/16 01:54 12/31/16 08:28 12/31/16 12:18 Bedside Glucose 254 H 271 H 264 H 130 Test 12/31/16 17:33 Bedside Glucose 361 H Medications Medications Current Medications Ibuprofen (Motrin) 600 mg Q6H PRN PO PAIN LEVEL 6-10; Start 12/19/16 at 18:30 Acetaminophen/ Hydrocodone Bitart ([place] (5/325)) 1 tab Q6H PRN PO PAIN LEVEL 6 -10 Last administered on 12/29/16 19:16; Admin Dose 1 TAB; Start 12/19/16 at 18 :30 Enoxaparin Sodium (Lovenox) 40 mg DAILY@07 SC Last administered on 12/31/16 05 :25; Admin Dose 40 MG; Start 12/20/16 at 07:00 Diagnostic Test (Pha) (Accucheck) 1 ea 02 XX Last administered on 12/31/16 02: 14; Admin Dose 1 EA; Start 12/20/16 at 02:00 Miscellaneous Information 1 ea NOTE XX ; Start 12/19/16 at 23:00 Glucose (Glutose) 15 gm Q15M PRN PO DECREASED GLUCOSE; Start 12/19/16 at 23:00 Glucose (Glutose) 22.5 gm Q15M PRN PO DECREASED GLUCOSE; Start 12/19/16 at 23: 00 Dextrose (D50w Syringe) 25 ml Q15M PRN IV DECREASED GLUCOSE; Start 12/19/16 at 23:00 Dextrose (D50w Syringe) 50 ml Q15M PRN IV DECREASED GLUCOSE; Start 12/19/16 at 23:00 Glucagon (Glucagen) 1 mg Q15M PRN IM DECREASED GLUCOSE; Start 12/19/16 at 23:00 Glucose 15 gm 15 gm Q15M PRN BUCCAL DECREASED GLUCOSE; Start 12/19/16 at 23:00 Ertapenem/Sodium Chloride (Invanz/NS) 100 ml @ 200 mls/hr Q24H IVPB Last administered on 12/31/16 15:56; Admin Dose 200 MLS/HR; Start 12/21/16 at 15:30 Ondansetron HCl (Zofran Inj) 4 mg Q6H PRN IV NAUSEA AND/OR VOMITING Last administered on 12/23/16 15:56; Admin Dose 4 MG; Start 12/22/16 at 18:00 Diphenhydramine HCl (Benadryl) 25 mg Q6H PRN IV ITCHING; Start 12/22/16 at 18: 00 Pantoprazole (Protonix Tab) 40 mg DAILY@06 PO Last administered on 12/31/16 05 :22; Admin Dose 40 MG; Start 12/23/16 at 06:00 Clonidine (Catapres) 0.1 mg Q6H PRN PO HIGH BP Last administered on 12/27/16 20:08; Admin Dose 0.1 MG; Start 12/22/16 at 21:30 Morphine Sulfate (morphine) 2 mg Q4H PRN IV PAIN Last administered on 11:47; Admin Dose 2 MG; Start 12/23/16 at 16:00 Clopidogrel Bisulfate (plaVIX) 75 mg DAILY PO Last administered on 12/31/16 08 :35; Admin Dose 75 MG; Start 12/23/16 at 17:00 Mupirocin 1 applic 1 applic DAILY TOP Last administered on 12/31/16 08:29; Admin Dose 1 APPLIC; Start 12/23/16 at 21:00 Vancomycin HCl (Vancocin) 100 ml @ 100 mls/hr Q12H IVPB Last administered on 08:28; Admin Dose 100 MLS/HR; Start 12/28/16 at 21:00 Fluconazole (Diflucan) 100 mg DAILY PO Last administered on 12/31/16 13:23; Admin Dose 100 MG; Start 12/31/16 at 12:30 LUIS ENRIQUE MAN MD Dec 31, 2016 20:02
[2017-01-01] MEDS: ACCU-CHEK XX SCH (02:00)
[2017-01-01 05:31] LABS: CREATININE 1.04 mg/dl (0.61-1.24)
[2017-01-01] MEDS: PANTOPRAZOLE (EC) 40 MG TAB PO SCH (06:20)
[2017-01-01] MEDS: ENOXAPARIN 40 MG/0.4 ML SYG SC SCH (06:24)
[2017-01-01 08:06] VITALS: BP 166/76; RESP 18
[2017-01-01] MEDS: VANCOMYCIN 500MG/NS (PMX) 100 ML IVPB SCH ×2 (08:55→20:38)
[2017-01-01] MEDS: FLUCONAZOLE 100 MG TAB PO SCH (08:55)
[2017-01-01] MEDS: CLOPIDOGREL 75 MG TAB PO SCH (08:55)
[2017-01-01] MEDS: MUPIROCIN 2% 22 GM OINT TOP SCH (08:56)
[2017-01-01] MEDS: INSULIN ASPART [NOVOLOG] 3 ML PEN SC SCH ×4 (09:02→20:48)
--- NOTE | 2017-01-01 15:41 | PN ---
DATE: 01/01/2017 INFECTIOUS DISEASE PROGRESS NOTE SUBJECTIVE: No acute changes. No fevers. Patient is lying comfortably in bed. No labs today. ANTIMICROBIALS: 1. Diflucan. 2. Vancomycin. 3. Topical Bactroban to nares. 4. Invanz. MICROBIOLOGY: Wound culture grew Bacteroides fragilis, Klebsiella extended-spectrum beta-lactamase, Proteus mirabilis, enterococcus and MRSA. The latest wound culture on 12/29/2016 grew yeast. PHYSICAL EXAMINATION: GENERAL: Well-developed, middle-aged, man, in no distress. HEENT: Head atraumatic, normocephalic. Sclerae anicteric. Buccal mucosa dry. NECK: Supple. CHEST: Chest rise is symmetrical. Breath sounds clear. HEART: S1, S2. ABDOMEN: Soft. Bowel tones present. EXTREMITIES: Right foot dressing intact. ASSESSMENT: 1. Right foot cellulitis, status post debridement, with a history of transmetatarsal amputation. 2. Peripheral vascular disease, with a history of left above knee amputation. 3. Diabetes. 4. Diabetic neuropathy. 5. Chronic kidney disease. PLAN: The patient remains stable, completing antibiotics, pending discharge planning. Continue man agement as per podiatry and primary team. Dictated By: SUNNY PRECIADO ETIQUETTE TEACHER for GHAZALA RIVERA/NTS Conf#: [id number] DID#: [id number]
[2017-01-01] MEDS: ERTAPENEM SODIUM 1 GM in SOD CHLORIDE 0.9% 100 ML IVPB SCH (16:46)
--- NOTE | 2017-01-01 19:34 | PN ---
Date/Time of Note Date/Time of Note DATE: 01/01/17 TIME: 19:33 Assessment/Plan VTE Prophylaxis VTE Prophylaxis Intervention: other Lines/Catheters IV Catheter Type (from Nrsg): Saline Lock Urinary Cath still in place: No Assessment/Plan Chief Complaint/Hosp Course dm htn ckd pvd s/p tma s/p debridement s/p lower ex angio and intervention esbl wounf mrsa plan per id and vascular and podiatry snf awating Problems: Subjective 24 Hr Interval Summary Gastrointestinal: no complaints Genitourinary: no complaints Musculoskeletal: no complaints Exam/Review of Systems Vital Signs Vitals Vital Signs Date Time Temp Pulse Resp B/P Pulse Ox O2 Delivery O2 Flow Rate FiO2 01/01/17 08:06 97.7 66 18 166/76 100 Intake and Output 12/31/16 12/31/16 01/01/17 15:00 23:00 07:00 Intake Total 1608 ml 600 ml Output Total 900 ml 1300 ml Balance 708 ml -700 ml Exam Respiratory: clear to auscultation Cardiovascular: regular rate and rhythm Gastrointestinal: soft Extremities: No edema Results Result Diagram: 12/30/16 0758 01/01/17 0457 Results 24 hrs Laboratory Tests Test 12/31/16 21:01 01/01/17 02:28 01/01/17 04:57 01/01/17 07:58 Bedside Glucose 220 124 149 Blood Urea Nitrogen 18 Creatinine 1.04 Test 01/01/17 11:57 01/01/17 17:13 Bedside Glucose 259 H 122 Medications Medications Current Medications Ibuprofen (Motrin) 600 mg Q6H PRN PO PAIN LEVEL 6-10; Start 12/19/16 at 18:30 Acetaminophen/ Hydrocodone Bitart ([place] (5/325)) 1 tab Q6H PRN PO PAIN LEVEL 6 -10 Last administered on 12/29/16 19:16; Admin Dose 1 TAB; Start 12/19/16 at 18 :30 Enoxaparin Sodium (Lovenox) 40 mg DAILY@07 SC Last administered on 01/01/17 06 :24; Admin Dose 40 MG; Start 12/20/16 at 07:00 Diagnostic Test (Pha) (Accucheck) 1 ea 02 XX Last administered on 12/31/16 02: 14; Admin Dose 1 EA; Start 12/20/16 at 02:00 Miscellaneous Information 1 ea NOTE XX ; Start 12/19/16 at 23:00 Glucose (Glutose) 15 gm Q15M PRN PO DECREASED GLUCOSE; Start 12/19/16 at 23:00 Glucose (Glutose) 22.5 gm Q15M PRN PO DECREASED GLUCOSE; Start 12/19/16 at 23: 00 Dextrose (D50w Syringe) 25 ml Q15M PRN IV DECREASED GLUCOSE; Start 12/19/16 at 23:00 Dextrose (D50w Syringe) 50 ml Q15M PRN IV DECREASED GLUCOSE; Start 12/19/16 at 23:00 Glucagon (Glucagen) 1 mg Q15M PRN IM DECREASED GLUCOSE; Start 12/19/16 at 23:00 Glucose 15 gm 15 gm Q15M PRN BUCCAL DECREASED GLUCOSE; Start 12/19/16 at 23:00 Ertapenem/Sodium Chloride (Invanz/NS) 100 ml @ 200 mls/hr Q24H IVPB Last administered on 01/01/17 16:46; Admin Dose 200 MLS/HR; Start 12/21/16 at 15:30 Ondansetron HCl (Zofran Inj) 4 mg Q6H PRN IV NAUSEA AND/OR VOMITING Last administered on 12/23/16 15:56; Admin Dose 4 MG; Start 12/22/16 at 18:00 Diphenhydramine HCl (Benadryl) 25 mg Q6H PRN IV ITCHING; Start 12/22/16 at 18: 00 Pantoprazole (Protonix Tab) 40 mg DAILY@06 PO Last administered on 01/01/17 06 :20; Admin Dose 40 MG; Start 12/23/16 at 06:00 Clonidine (Catapres) 0.1 mg Q6H PRN PO HIGH BP Last administered on 12/27/16 20:08; Admin Dose 0.1 MG; Start 12/22/16 at 21:30 Morphine Sulfate (morphine) 2 mg Q4H PRN IV PAIN Last administered on 11:47; Admin Dose 2 MG; Start 12/23/16 at 16:00 Clopidogrel Bisulfate (plaVIX) 75 mg DAILY PO Last administered on 01/01/17 08 :55; Admin Dose 75 MG; Start 12/23/16 at 17:00 Mupirocin 1 applic 1 applic DAILY TOP Last administered on 01/01/17 08:56; Admin Dose 1 APPLIC; Start 12/23/16 at 21:00 Vancomycin HCl (Vancocin) 100 ml @ 100 mls/hr Q12H IVPB Last administered on 08:55; Admin Dose 100 MLS/HR; Start 12/28/16 at 21:00 Fluconazole (Diflucan) 100 mg DAILY PO Last administered on 01/01/17 08:55; Admin Dose 100 MG; Start 12/31/16 at 12:30 LUIS ENRIQUE MAN MD Jan 01, 2017 19:34
[2017-01-01 20:01] VITALS: BP 178/78; RESP 18
[2017-01-02] VITALS: BP 114/58; RESP 18
[2017-01-02] MEDS: ACCU-CHEK XX SCH (02:00)
[2017-01-02] MEDS: PANTOPRAZOLE (EC) 40 MG TAB PO SCH (06:30)
[2017-01-02] MEDS: ENOXAPARIN 40 MG/0.4 ML SYG SC SCH (06:32)
[2017-01-02 07:50] VITALS: BP 132/69; RESP 20
[2017-01-02] MEDS: FLUCONAZOLE 100 MG TAB PO SCH (08:41)
[2017-01-02] MEDS: CLOPIDOGREL 75 MG TAB PO SCH (08:41)
[2017-01-02] MEDS: INSULIN ASPART [NOVOLOG] 3 ML PEN SC SCH ×4 (08:47→20:38)
[2017-01-02] MEDS: VANCOMYCIN 500MG/NS (PMX) 100 ML IVPB SCH ×2 (09:08→21:29)
[2017-01-02] MEDS: MUPIROCIN 2% 22 GM OINT TOP SCH (09:08)
--- NOTE | 2017-01-02 12:47 | CONS ---
Date/Time of Note Date/Time of Note DATE: 01/02/17 TIME: 12:42 Assessment/Plan Assessment/Plan Chief Complaint/Hosp Course 1. Diabetes mellitus type II uncontrolled 2. MRSA wound 3. S/p amputation metatarsal level Problems: Additional Assessment/Plan 1. Plan per surgeon and primary 2. Pt can ambulate with crutches Consultation Date/Type/Reason Admit Date/Time Dec 19, 2016 at 14:36 Initial Consult Date 12/21/16 Type of Consultation: nephrology Reason for Consultation Dr Belle Referring Provider: JEWELS MCKNIGHT DPM Exam/Review of Systems Vital Signs Vitals Vital Signs Date Time Temp Pulse Resp B/P Pulse Ox O2 Delivery O2 Flow Rate FiO2 01/02/17 07:50 98.1 75 20 132/69 95 Intake and Output 01/01/17 01/01/17 01/02/17 15:00 23:00 07:00 Intake Total 100 ml 800 ml 750 ml Output Total 1400 ml 750 ml Balance 100 ml -600 ml 0 ml Exam Constitutional: alert Psych: no complaints Head: normocephalic Eyes: nl conjunctiva Neck: supple Cardiovascular: regular rate and rhythm Gastrointestinal: soft Genitourinary - Male: nl penis, other (left AKA, right foot amputee) Results Result Diagram: 12/30/16 0758 01/01/17 0457 Results 24 hrs Laboratory Tests Test 01/01/17 17:13 01/01/17 20:36 01/02/17 01:41 01/02/17 07:56 Bedside Glucose 122 220 215 193 Test 01/02/17 11:59 Bedside Glucose 148 Medications Medications Current Medications Ibuprofen (Motrin) 600 mg Q6H PRN PO PAIN LEVEL 6-10; Start 12/19/16 at 18:30 Acetaminophen/ Hydrocodone Bitart ([place] (5/325)) 1 tab Q6H PRN PO PAIN LEVEL 6 -10 Last administered on 12/29/16 19:16; Admin Dose 1 TAB; Start 12/19/16 at 18 :30 Enoxaparin Sodium (Lovenox) 40 mg DAILY@07 SC Last administered on 01/02/17 06 :32; Admin Dose 40 MG; Start 12/20/16 at 07:00 Diagnostic Test (Pha) (Accucheck) 1 ea 02 XX Last administered on 12/31/16 02: 14; Admin Dose 1 EA; Start 12/20/16 at 02:00 Miscellaneous Information 1 ea NOTE XX ; Start 12/19/16 at 23:00 Glucose (Glutose) 15 gm Q15M PRN PO DECREASED GLUCOSE; Start 12/19/16 at 23:00 Glucose (Glutose) 22.5 gm Q15M PRN PO DECREASED GLUCOSE; Start 12/19/16 at 23: 00 Dextrose (D50w Syringe) 25 ml Q15M PRN IV DECREASED GLUCOSE; Start 12/19/16 at 23:00 Dextrose (D50w Syringe) 50 ml Q15M PRN IV DECREASED GLUCOSE; Start 12/19/16 at 23:00 Glucagon (Glucagen) 1 mg Q15M PRN IM DECREASED GLUCOSE; Start 12/19/16 at 23:00 Glucose 15 gm 15 gm Q15M PRN BUCCAL DECREASED GLUCOSE; Start 12/19/16 at 23:00 Ertapenem/Sodium Chloride (Invanz/NS) 100 ml @ 200 mls/hr Q24H IVPB Last administered on 01/01/17 16:46; Admin Dose 200 MLS/HR; Start 12/21/16 at 15:30 Ondansetron HCl (Zofran Inj) 4 mg Q6H PRN IV NAUSEA AND/OR VOMITING Last administered on 12/23/16 15:56; Admin Dose 4 MG; Start 12/22/16 at 18:00 Diphenhydramine HCl (Benadryl) 25 mg Q6H PRN IV ITCHING; Start 12/22/16 at 18: 00 Pantoprazole (Protonix Tab) 40 mg DAILY@06 PO Last administered on 01/02/17 06 :30; Admin Dose 40 MG; Start 12/23/16 at 06:00 Clonidine (Catapres) 0.1 mg Q6H PRN PO HIGH BP Last administered on 01/01/17 20:39; Admin Dose 0.1 MG; Start 12/22/16 at 21:30 Morphine Sulfate (morphine) 2 mg Q4H PRN IV PAIN Last administered on 11:47; Admin Dose 2 MG; Start 12/23/16 at 16:00 Clopidogrel Bisulfate (plaVIX) 75 mg DAILY PO Last administered on 01/02/17 08 :41; Admin Dose 75 MG; Start 12/23/16 at 17:00 Mupirocin 1 applic 1 applic DAILY TOP Last administered on 01/02/17 09:08; Admin Dose 1 APPLIC; Start 12/23/16 at 21:00 Vancomycin HCl (Vancocin) 100 ml @ 100 mls/hr Q12H IVPB Last administered on 09:08; Admin Dose 100 MLS/HR; Start 12/28/16 at 21:00 Fluconazole (Diflucan) 100 mg DAILY PO Last administered on 01/02/17 08:41; Admin Dose 100 MG; Start 12/31/16 at 12:30 RADHA ESTRADA Jan 02, 2017 12:47
--- NOTE | 2017-01-02 14:48 | CONS ---
Date/Time of Note Date/Time of Note DATE: 01/02/17 TIME: 14:46 Assessment/Plan Assessment/Plan Chief Complaint/Hosp Course SUBJECTIVE: No acute changes. No fevers. Patient is lying comfortably in bed. No labs today. ANTIMICROBIALS: 1. Diflucan. 2. Vancomycin. 3. Topical Bactroban to nares. 4. Invanz. MICROBIOLOGY: Wound culture grew Bacteroides fragilis, Klebsiella extended- spectrum beta-lactamase, Proteus mirabilis, enterococcus and MRSA. The latest wound culture on 12/29/2016 grew yeast. PHYSICAL EXAMINATION: GENERAL: Well-developed, middle-aged, man, in no distress. HEENT: Head atraumatic, normocephalic. Sclerae anicteric. Buccal mucosa dry. NECK: Supple. CHEST: Chest rise is symmetrical. Breath sounds clear. HEART: S1, S2. ABDOMEN: Soft. Bowel tones present. EXTREMITIES: Right foot dressing intact. ASSESSMENT: 1. Right foot cellulitis, status post debridement, with a history of transmetatarsal amputation. 2. Peripheral vascular disease, with a history of left above knee amputation. 3. Diabetes. 4. Diabetic neuropathy. 5. Chronic kidney disease. PLAN: The patient remains stable, completing antibiotics, pending discharge planning. Continue management as per podiatry and primary team. [facility] staff Problems: Consultation Date/Type/Reason Admit Date/Time Dec 19, 2016 at 14:36 Initial Consult Date 12/21/16 Type of Consultation: id Referring Provider: JEWELS MCKNIGHT DPM Exam/Review of Systems Vital Signs Vitals Vital Signs Date Time Temp Pulse Resp B/P Pulse Ox O2 Delivery O2 Flow Rate FiO2 01/02/17 07:50 98.1 75 20 132/69 95 Intake and Output 01/01/17 01/01/17 01/02/17 15:00 23:00 07:00 Intake Total 100 ml 800 ml 750 ml Output Total 1400 ml 750 ml Balance 100 ml -600 ml 0 ml Results Result Diagram: 12/30/16 0758 01/01/17 0457 Results 24 hrs Laboratory Tests Test 01/01/17 17:13 01/01/17 20:36 01/02/17 01:41 01/02/17 07:56 Bedside Glucose 122 220 215 193 Test 01/02/17 11:59 Bedside Glucose 148 Medications Medications Current Medications Ibuprofen (Motrin) 600 mg Q6H PRN PO PAIN LEVEL 6-10; Start 12/19/16 at 18:30 Acetaminophen/ Hydrocodone Bitart ([place] (5/325)) 1 tab Q6H PRN PO PAIN LEVEL 6 -10 Last administered on 12/29/16 19:16; Admin Dose 1 TAB; Start 12/19/16 at 18 :30 Enoxaparin Sodium (Lovenox) 40 mg DAILY@07 SC Last administered on 01/02/17 06 :32; Admin Dose 40 MG; Start 12/20/16 at 07:00 Diagnostic Test (Pha) (Accucheck) 1 ea 02 XX Last administered on 12/31/16 02: 14; Admin Dose 1 EA; Start 12/20/16 at 02:00 Miscellaneous Information 1 ea NOTE XX ; Start 12/19/16 at 23:00 Glucose (Glutose) 15 gm Q15M PRN PO DECREASED GLUCOSE; Start 12/19/16 at 23:00 Glucose (Glutose) 22.5 gm Q15M PRN PO DECREASED GLUCOSE; Start 12/19/16 at 23: 00 Dextrose (D50w Syringe) 25 ml Q15M PRN IV DECREASED GLUCOSE; Start 12/19/16 at 23:00 Dextrose (D50w Syringe) 50 ml Q15M PRN IV DECREASED GLUCOSE; Start 12/19/16 at 23:00 Glucagon (Glucagen) 1 mg Q15M PRN IM DECREASED GLUCOSE; Start 12/19/16 at 23:00 Glucose 15 gm 15 gm Q15M PRN BUCCAL DECREASED GLUCOSE; Start 12/19/16 at 23:00 Ertapenem/Sodium Chloride (Invanz/NS) 100 ml @ 200 mls/hr Q24H IVPB Last administered on 01/01/17 16:46; Admin Dose 200 MLS/HR; Start 12/21/16 at 15:30 Ondansetron HCl (Zofran Inj) 4 mg Q6H PRN IV NAUSEA AND/OR VOMITING Last administered on 12/23/16 15:56; Admin Dose 4 MG; Start 12/22/16 at 18:00 Diphenhydramine HCl (Benadryl) 25 mg Q6H PRN IV ITCHING; Start 12/22/16 at 18: 00 Pantoprazole (Protonix Tab) 40 mg DAILY@06 PO Last administered on 01/02/17 06 :30; Admin Dose 40 MG; Start 12/23/16 at 06:00 Clonidine (Catapres) 0.1 mg Q6H PRN PO HIGH BP Last administered on 01/01/17 20:39; Admin Dose 0.1 MG; Start 12/22/16 at 21:30 Morphine Sulfate (morphine) 2 mg Q4H PRN IV PAIN Last administered on 11:47; Admin Dose 2 MG; Start 12/23/16 at 16:00 Clopidogrel Bisulfate (plaVIX) 75 mg DAILY PO Last administered on 01/02/17 08 :41; Admin Dose 75 MG; Start 12/23/16 at 17:00 Mupirocin 1 applic 1 applic DAILY TOP Last administered on 01/02/17 09:08; Admin Dose 1 APPLIC; Start 12/23/16 at 21:00 Vancomycin HCl (Vancocin) 100 ml @ 100 mls/hr Q12H IVPB Last administered on 09:08; Admin Dose 100 MLS/HR; Start 12/28/16 at 21:00 Fluconazole (Diflucan) 100 mg DAILY PO Last administered on 01/02/17 08:41; Admin Dose 100 MG; Start 12/31/16 at 12:30 SUNNY PRECIADO NP Jan 02, 2017 14:48
[2017-01-02] MEDS: ERTAPENEM SODIUM 1 GM in SOD CHLORIDE 0.9% 100 ML IVPB SCH (16:16)
--- NOTE | 2017-01-02 16:25 | SP ---
DATE OF PROCEDURE: 01/02/2017 SURGEON: Jewels Jenkins DPM ASSOCIATE SOFTWARE ENGINEER: None. PREOPERATIVE DIAGNOSES: 1. Right foot diabetic foot ulceration. 2. Polymicrobial infection. 3. Positive yeast. 4. Cultures on 12/29/2016 and 12/22/2016 Klebsiella pneumoniae, extended spectrum beta lactamase an d methicillin-resistant Staphylococcus aureus. 4. Nonhealing transmetatarsal amputation. 5. Peripheral arterial disease status post endovascular revascularization. 6. Diabetes with peripheral neuropathy. POSTOPERATIVE DIAGNOSES: 1. Right foot diabetic foot ulceration. 2. Polymicrobial infection. 3. Positive yeast. 4. Cultures on 12/29/2016 and 12/22/2016 Klebsiella pneumoniae, extended spectrum beta lactamase an d methicillin-resistant Staphylococcus aureus. 4. Nonhealing transmetatarsal amputation. 5. Peripheral arterial disease status post endovascular revascularization. 6. Diabetes with peripheral neuropathy. PROCEDURE PERFORMED: Right foot excisional debridement, skin, subcutaneous tissue, ligament and mu scle 11 x 2 cm. ANESTHESIA: None. ESTIMATED BLOOD LOSS: 15 mL. MATERIALS: None. COMPLICATIONS: None. INDICATION FOR PROCEDURE: The patient is status post debridement, had yeast in the last culture and prior with MRSA and Bacteroides fragilis and Enterococcus as well as Proteus mirabilis. The patien t has an improved clinical appearance of wound. The patient is awaiting placement in SNF. Recommen d staged debridement as part of goals to eradicate bacterial bioburden of the wound and in preparati on for definitive wound closure with skin grafting. PROCEDURE IN DETAIL: Patient seen at the bedside. Dressings were removed. The patient with absent protective sensation. Skin was cleansed with alcohol and using a 15 blade, excisional debridement of skin, slough, ligament and muscle performed. Ulceration measured 11 x 2 cm, had also estimated b lood loss of 10 to 15 mL. Hemostasis was achieved with compression and wound was irrigated with nor mal saline solution and wound was covered with Xeroform, Bactroban 2% ointment and gauze and Kerlix. The patient tolerated the procedure well. POSTOPERATIVE PLAN: Awaiting SNF placement. The patient currently on Diflucan, vancomycin and Inva nz. Last cultures revealed yeast. There is significant improvement to the wound. Anticipate wound closure in the near future pending clinical appearance. The patient is stable for transfer when be d available. Dictated By: JEWELS JENKINS DPM RB/NTS Conf#: [id number] DID#: [id number]
--- NOTE | 2017-01-02 18:31 | CONS ---
Date/Time of Note Date/Time of Note DATE: 01/02/17 TIME: 18:31 Consult Date/Type/Reason Admit Date/Time Dec 19, 2016 at 14:36 Initial Consult Date 12/21/16 Type of Consultation: Cardiac and VaSCULAR Ordering Provider: JEWELS MCKNIGHT DPM Objective Vital Signs Date Time Temp Pulse Resp B/P Pulse Ox O2 Delivery O2 Flow Rate FiO2 01/02/17 07:50 98.1 75 20 132/69 95 Intake and Output 01/01/17 01/01/17 01/02/17 15:00 23:00 07:00 Intake Total 100 ml 800 ml 750 ml Output Total 1400 ml 750 ml Balance 100 ml -600 ml 0 ml Results/Medications Result Diagram: 12/30/16 0758 01/01/17 0457 Results 24 hrs Laboratory Tests Test 01/01/17 20:36 01/02/17 01:41 01/02/17 07:56 01/02/17 11:59 Bedside Glucose 220 215 193 148 Test 01/02/17 17:04 Bedside Glucose 206 Medications Current Medications Ibuprofen (Motrin) 600 mg Q6H PRN PO PAIN LEVEL 6-10; Start 12/19/16 at 18:30 Acetaminophen/ Hydrocodone Bitart ([place] (5/325)) 1 tab Q6H PRN PO PAIN LEVEL 6 -10 Last administered on 12/29/16 19:16; Admin Dose 1 TAB; Start 12/19/16 at 18 :30 Enoxaparin Sodium (Lovenox) 40 mg DAILY@07 SC Last administered on 01/02/17 06 :32; Admin Dose 40 MG; Start 12/20/16 at 07:00 Diagnostic Test (Pha) (Accucheck) 1 ea 02 XX Last administered on 12/31/16 02: 14; Admin Dose 1 EA; Start 12/20/16 at 02:00 Miscellaneous Information 1 ea NOTE XX ; Start 12/19/16 at 23:00 Glucose (Glutose) 15 gm Q15M PRN PO DECREASED GLUCOSE; Start 12/19/16 at 23:00 Glucose (Glutose) 22.5 gm Q15M PRN PO DECREASED GLUCOSE; Start 12/19/16 at 23: 00 Dextrose (D50w Syringe) 25 ml Q15M PRN IV DECREASED GLUCOSE; Start 12/19/16 at 23:00 Dextrose (D50w Syringe) 50 ml Q15M PRN IV DECREASED GLUCOSE; Start 12/19/16 at 23:00 Glucagon (Glucagen) 1 mg Q15M PRN IM DECREASED GLUCOSE; Start 12/19/16 at 23:00 Glucose 15 gm 15 gm Q15M PRN BUCCAL DECREASED GLUCOSE; Start 12/19/16 at 23:00 Ertapenem/Sodium Chloride (Invanz/NS) 100 ml @ 200 mls/hr Q24H IVPB Last administered on 01/02/17 16:16; Admin Dose 200 MLS/HR; Start 12/21/16 at 15:30 Ondansetron HCl (Zofran Inj) 4 mg Q6H PRN IV NAUSEA AND/OR VOMITING Last administered on 12/23/16 15:56; Admin Dose 4 MG; Start 12/22/16 at 18:00 Diphenhydramine HCl (Benadryl) 25 mg Q6H PRN IV ITCHING; Start 12/22/16 at 18: 00 Pantoprazole (Protonix Tab) 40 mg DAILY@06 PO Last administered on 01/02/17 06 :30; Admin Dose 40 MG; Start 12/23/16 at 06:00 Clonidine (Catapres) 0.1 mg Q6H PRN PO HIGH BP Last administered on 01/01/17 20:39; Admin Dose 0.1 MG; Start 12/22/16 at 21:30 Morphine Sulfate (morphine) 2 mg Q4H PRN IV PAIN Last administered on 11:47; Admin Dose 2 MG; Start 12/23/16 at 16:00 Clopidogrel Bisulfate (plaVIX) 75 mg DAILY PO Last administered on 01/02/17 08 :41; Admin Dose 75 MG; Start 12/23/16 at 17:00 Mupirocin 1 applic 1 applic DAILY TOP Last administered on 01/02/17 09:08; Admin Dose 1 APPLIC; Start 12/23/16 at 21:00 Vancomycin HCl (Vancocin) 100 ml @ 100 mls/hr Q12H IVPB Last administered on 09:08; Admin Dose 100 MLS/HR; Start 12/28/16 at 21:00 Fluconazole (Diflucan) 100 mg DAILY PO Last administered on 01/02/17 08:41; Admin Dose 100 MG; Start 12/31/16 at 12:30 Miscellaneous Information (*Rx Drug Level Order Reminder*) VANCO TROUGH @ 2, 000 ON... ONCE ONCE XX ; Start 01/02/17 at 20:00; Stop 01/02/17 at 20:01 Assessment/Plan Chief Complaint/Hosp Course Patient is 56 year old male with PMH of Dm, HTN, HLD, PAD with leg ampuation of left leg AKA, came in with non healing ulcer s/p debridement. I was consulted for severe PAD and possbile endovascular revascularization for possible severe PAD. Pt does have signs of ischemia on skin. Problems: Additional Assessment/Plan STABLE HEALING WELL D/C PLANNING TANIA SEALS MD Jan 02, 2017 18:31
[2017-01-02 19:00] VITALS: BP 179/82; RESP 18
[2017-01-03 00:20] VITALS: BP 137/67; RESP 19
[2017-01-03] MEDS: ACCU-CHEK XX SCH ×2 (01:39→21:43)
[2017-01-03 05:37] LABS: CREATININE 1.37 mg/dl (0.61-1.24)
[2017-01-03] MEDS: PANTOPRAZOLE (EC) 40 MG TAB PO SCH (06:10)
[2017-01-03] MEDS: ENOXAPARIN 40 MG/0.4 ML SYG SC SCH (06:12)
--- NOTE | 2017-01-03 07:37 | CONS ---
Date/Time of Note Date/Time of Note DATE: 01/03/17 TIME: 07:37 Consult Date/Type/Reason Admit Date/Time Dec 19, 2016 at 14:36 Initial Consult Date 12/21/16 Type of Consultation: Cardiac and VaSCULAR Ordering Provider: JEWELS MCKNIGHT DPM Objective Vital Signs Date Time Temp Pulse Resp B/P Pulse Ox O2 Delivery O2 Flow Rate FiO2 01/03/17 00:20 98.4 85 19 137/67 100 Intake and Output 01/02/17 01/02/17 01/03/17 15:00 23:00 07:00 Intake Total 100 ml 820 ml 700 ml Output Total 1300 ml 750 ml Balance 100 ml -480 ml -50 ml Results/Medications Result Diagram: 12/30/16 0758 01/03/17 0434 Results 24 hrs Laboratory Tests Test 01/02/17 07:56 01/02/17 11:59 01/02/17 17:04 01/02/17 19:40 Bedside Glucose 193 148 206 Vancomycin Level Trough 11.0 Test 01/02/17 20:14 01/03/17 01:35 01/03/17 04:34 Bedside Glucose 249 H 298 H Blood Urea Nitrogen 23 H Creatinine 1.37 H Medications Current Medications Ibuprofen (Motrin) 600 mg Q6H PRN PO PAIN LEVEL 6-10; Start 12/19/16 at 18:30 Acetaminophen/ Hydrocodone Bitart ([place] (5/325)) 1 tab Q6H PRN PO PAIN LEVEL 6 -10 Last administered on 12/29/16 19:16; Admin Dose 1 TAB; Start 12/19/16 at 18 :30 Enoxaparin Sodium (Lovenox) 40 mg DAILY@07 SC Last administered on 01/03/17 06: 12; Admin Dose 40 MG; Start 12/20/16 at 07:00 Diagnostic Test (Pha) (Accucheck) 1 ea 02 XX Last administered on 12/31/16 02: 14; Admin Dose 1 EA; Start 12/20/16 at 02:00 Miscellaneous Information 1 ea NOTE XX ; Start 12/19/16 at 23:00 Glucose (Glutose) 15 gm Q15M PRN PO DECREASED GLUCOSE; Start 12/19/16 at 23:00 Glucose (Glutose) 22.5 gm Q15M PRN PO DECREASED GLUCOSE; Start 12/19/16 at 23: 00 Dextrose (D50w Syringe) 25 ml Q15M PRN IV DECREASED GLUCOSE; Start 12/19/16 at 23:00 Dextrose (D50w Syringe) 50 ml Q15M PRN IV DECREASED GLUCOSE; Start 12/19/16 at 23:00 Glucagon (Glucagen) 1 mg Q15M PRN IM DECREASED GLUCOSE; Start 12/19/16 at 23:00 Glucose 15 gm 15 gm Q15M PRN BUCCAL DECREASED GLUCOSE; Start 12/19/16 at 23:00 Ertapenem/Sodium Chloride (Invanz/NS) 100 ml @ 200 mls/hr Q24H IVPB Last administered on 01/02/17 16:16; Admin Dose 200 MLS/HR; Start 12/21/16 at 15:30 Ondansetron HCl (Zofran Inj) 4 mg Q6H PRN IV NAUSEA AND/OR VOMITING Last administered on 12/23/16 15:56; Admin Dose 4 MG; Start 12/22/16 at 18:00 Diphenhydramine HCl (Benadryl) 25 mg Q6H PRN IV ITCHING; Start 12/22/16 at 18: 00 Pantoprazole (Protonix Tab) 40 mg DAILY@06 PO Last administered on 01/03/17 06: 10; Admin Dose 40 MG; Start 12/23/16 at 06:00 Clonidine (Catapres) 0.1 mg Q6H PRN PO HIGH BP Last administered on 01/02/17 20:41; Admin Dose 0.1 MG; Start 12/22/16 at 21:30 Morphine Sulfate (morphine) 2 mg Q4H PRN IV PAIN Last administered on 11:47; Admin Dose 2 MG; Start 12/23/16 at 16:00 Clopidogrel Bisulfate (plaVIX) 75 mg DAILY PO Last administered on 01/02/17 08 :41; Admin Dose 75 MG; Start 12/23/16 at 17:00 Mupirocin 1 applic 1 applic DAILY TOP Last administered on 01/02/17 09:08; Admin Dose 1 APPLIC; Start 12/23/16 at 21:00 Vancomycin HCl (Vancocin) 100 ml @ 100 mls/hr Q12H IVPB Last administered on 21:29; Admin Dose 100 MLS/HR; Start 12/28/16 at 21:00 Fluconazole (Diflucan) 100 mg DAILY PO Last administered on 01/02/17t 08:41; Admin Dose 100 MG; Start 12/31/16 at 12:30 Assessment/Plan Chief Complaint/Hosp Course Patient is 56 year old male with PMH of Dm, HTN, HLD, PAD with leg ampuation of left leg AKA, came in with non healing ulcer s/p debridement. I was consulted for severe PAD and possbile endovascular revascularization for possible severe PAD. Pt does have signs of ischemia on skin. Problems: Additional Assessment/Plan Med cx contineu podiatry care wound care d/c planning TANIA SEALS MD Jan 03, 2017 07:37
[2017-01-03 07:54] VITALS: BP 120/61; RESP 16
[2017-01-03] MEDS: CLOPIDOGREL 75 MG TAB PO SCH (08:47)
[2017-01-03] MEDS: FLUCONAZOLE 100 MG TAB PO SCH (08:47)
[2017-01-03] MEDS: VANCOMYCIN 500MG/NS (PMX) 100 ML IVPB SCH ×2 (08:48→20:21)
[2017-01-03] MEDS: MUPIROCIN 2% 22 GM OINT TOP SCH (09:00)
[2017-01-03] MEDS: INSULIN ASPART [NOVOLOG] 3 ML PEN SC SCH ×4 (10:08→21:00)
--- NOTE | 2017-01-03 11:22 | CONS ---
DATE OF ADMISSION: 12/19/2016 DATE OF CONSULTATION: 01/03/2017 SUBJECTIVE FINDINGS: The patient is being followed for right foot open transmetatarsal amputation. SNF pending. The patient had decreased bacteria with the last culture from 12/29/2016, it grew yeast. The patient is status post revascularization with improved circulatory status. The patient denies any fever, nausea, vomiting. OBJECTIVE: VITAL SIGNS: Temperature 98.1, pulse 70, respiratory rate 16, blood pressure 120/61, pulse oximetry 99%. GENERAL: The patient is alert and oriented, in no acute distress. Regular respirations. EXTREMITIES: He has 2+ DP, PT pulses. Skin is warm. There is improved granulation tissue. Mild edema. No cellulitis. No malodor. There is bleeding to tissue with debridement. Ulceration measures approximately 11x3 cm. The patient has a good color to the plantar flap. ASSESSMENT: 1. Right foot diabetic ulceration. 2. Polymicrobial infection with yeast. 3. Nonhealing transmetatarsal amputation. 4. Peripheral arterial disease, status post endovascular revascularization. 5. Diabetes with peripheral neuropathy. PLAN: The patient seen at the bedside. Stage debridement performed. Excisional debridement of skin, subcutaneous, ligament and muscle are performed 11 x 3 cm. Estimated blood loss of 20 mL. The patient had been consented for staged debridement. Obtain wound cultures and if no bacterial growth, can schedule for definitive skin closure with skin grafting. Currently, SNF availability is pending. Discussed procedure with the patient. We will coordinate with the surgical team and OR staff. Dictated By: JEWELS NEAL/LINNEA Conf#: [id number] DID#: [id number] MTDD
--- NOTE | 2017-01-03 12:42 | CONS ---
Date/Time of Note Date/Time of Note DATE: 01/03/17 TIME: 12:40 Assessment/Plan Assessment/Plan Chief Complaint/Hosp Course 1. Diabetes mellitus type II uncontrolled 2. MRSA wound 3. S/p amputation metatarsal level Problems: Additional Assessment/Plan 1. Stricter BS control, add Insulin long lasting 10 units sq q HS 2. PT as ordered surgeon Consultation Date/Type/Reason Admit Date/Time Dec 19, 2016 at 14:36 Initial Consult Date 12/21/16 Type of Consultation: nephrology Reason for Consultation [place] Referring Provider: JEWELS MCKNIGHT DPM Exam/Review of Systems Vital Signs Vitals Vital Signs Date Time Temp Pulse Resp B/P Pulse Ox O2 Delivery O2 Flow Rate FiO2 01/03/17 07:54 98.1 70 16 120/61 99 Intake and Output 01/02/17 01/02/17 01/03/17 15:00 23:00 07:00 Intake Total 100 ml 820 ml 700 ml Output Total 1300 ml 750 ml Balance 100 ml -480 ml -50 ml Exam Constitutional: alert, oriented Psych: no complaints Respiratory: clear to auscultation Cardiovascular: regular rate and rhythm Musculoskeletal: other (left AKA and right amputee) Results Result Diagram: 12/30/16 0758 01/03/17 0434 Results 24 hrs Laboratory Tests Test 01/02/17 17:04 01/02/17 19:40 01/02/17 20:14 01/03/17 01:35 Bedside Glucose 206 249 H 298 H Vancomycin Level Trough 11.0 Test 01/03/17 04:34 01/03/17 08:24 01/03/17 12:22 Blood Urea Nitrogen 23 H Creatinine 1.37 H Bedside Glucose 335 H 195 Medications Medications Current Medications Ibuprofen (Motrin) 600 mg Q6H PRN PO PAIN LEVEL 6-10; Start 12/19/16 at 18:30 Acetaminophen/ Hydrocodone Bitart ([place] (5/325)) 1 tab Q6H PRN PO PAIN LEVEL 6 -10 Last administered on 12/29/16 19:16; Admin Dose 1 TAB; Start 12/19/16 at 18 :30 Enoxaparin Sodium (Lovenox) 40 mg DAILY@07 SC Last administered on 01/03/17 06: 12; Admin Dose 40 MG; Start 12/20/16 at 07:00 Diagnostic Test (Pha) (Accucheck) 1 ea 02 XX Last administered on 12/31/16 02: 14; Admin Dose 1 EA; Start 12/20/16 at 02:00 Miscellaneous Information 1 ea NOTE XX ; Start 12/19/16 at 23:00 Glucose (Glutose) 15 gm Q15M PRN PO DECREASED GLUCOSE; Start 12/19/16 at 23:00 Glucose (Glutose) 22.5 gm Q15M PRN PO DECREASED GLUCOSE; Start 12/19/16 at 23: 00 Dextrose (D50w Syringe) 25 ml Q15M PRN IV DECREASED GLUCOSE; Start 12/19/16 at 23:00 Dextrose (D50w Syringe) 50 ml Q15M PRN IV DECREASED GLUCOSE; Start 12/19/16 at 23:00 Glucagon (Glucagen) 1 mg Q15M PRN IM DECREASED GLUCOSE; Start 12/19/16 at 23:00 Glucose 15 gm 15 gm Q15M PRN BUCCAL DECREASED GLUCOSE; Start 12/19/16 at 23:00 Ertapenem/Sodium Chloride (Invanz/NS) 100 ml @ 200 mls/hr Q24H IVPB Last administered on 01/02/17 16:16; Admin Dose 200 MLS/HR; Start 12/21/16 at 15:30 Ondansetron HCl (Zofran Inj) 4 mg Q6H PRN IV NAUSEA AND/OR VOMITING Last administered on 12/23/16 15:56; Admin Dose 4 MG; Start 12/22/16 at 18:00 Diphenhydramine HCl (Benadryl) 25 mg Q6H PRN IV ITCHING; Start 12/22/16 at 18: 00 Pantoprazole (Protonix Tab) 40 mg DAILY@06 PO Last administered on 01/03/17 06: 10; Admin Dose 40 MG; Start 12/23/16 at 06:00 Clonidine (Catapres) 0.1 mg Q6H PRN PO HIGH BP Last administered on 01/02/17 20:41; Admin Dose 0.1 MG; Start 12/22/16 at 21:30 Morphine Sulfate (morphine) 2 mg Q4H PRN IV PAIN Last administered on 11:47; Admin Dose 2 MG; Start 12/23/16 at 16:00 Clopidogrel Bisulfate (plaVIX) 75 mg DAILY PO Last administered on 01/03/17 08: 47; Admin Dose 75 MG; Start 12/23/16 at 17:00 Mupirocin 1 applic 1 applic DAILY TOP Last administered on 01/03/17 09:00; Admin Dose 1 APPLIC; Start 12/23/16 at 21:00 Vancomycin HCl (Vancocin) 100 ml @ 100 mls/hr Q12H IVPB Last administered on 08:48; Admin Dose 100 MLS/HR; Start 12/28/16 at 21:00 Fluconazole (Diflucan) 100 mg DAILY PO Last administered on 01/03/17 08:47; Admin Dose 100 MG; Start 12/31/16 at 12:30 RADHA ESTRADA Jan 03, 2017 12:42
[2017-01-03] MEDS: morphine 2 MG INJ IV PRN (13:40)
[2017-01-03] MEDS: ERTAPENEM SODIUM 1 GM in SOD CHLORIDE 0.9% 100 ML IVPB SCH (15:49)
[2017-01-03 19:00] VITALS: BP 177/84; RESP 18
--- NOTE | 2017-01-03 19:30 | CONS ---
Date/Time of Note Date/Time of Note DATE: 01/03/17 TIME: 19:29 Assessment/Plan Assessment/Plan Chief Complaint/Hosp Course SUBJECTIVE: No acute changes. ANTIMICROBIALS: 1. Diflucan. 2. Vancomycin. 3. Topical Bactroban to nares. 4. Invanz. MICROBIOLOGY: Wound culture grew Bacteroides fragilis, Klebsiella extended- spectrum beta-lactamase, Proteus mirabilis, enterococcus and MRSA. The latest wound culture on 12/29/2016 grew yeast. PHYSICAL EXAMINATION: GENERAL: Well-developed, middle-aged, man, in no distress. HEENT: Head atraumatic, normocephalic. Sclerae anicteric. Buccal mucosa dry. NECK: Supple. CHEST: Chest rise is symmetrical. Breath sounds clear. HEART: S1, S2. ABDOMEN: Soft. Bowel tones present. EXTREMITIES: Right foot dressing intact. ASSESSMENT: 1. Right foot cellulitis, status post debridement, with a history of transmetatarsal amputation. 2. Peripheral vascular disease, with a history of left above knee amputation. 3. Diabetes. 4. Diabetic neuropathy. 5. Chronic kidney disease. PLAN: The patient remains stable, completing antibiotics. Continue management as per podiatry and primary team. DW staff Problems: Consultation Date/Type/Reason Admit Date/Time Dec 19, 2016 at 14:36 Initial Consult Date 12/21/16 Type of Consultation: id Referring Provider: JEWELS MCKNIGHT DPM Exam/Review of Systems Vital Signs Vitals Vital Signs Date Time Temp Pulse Resp B/P Pulse Ox O2 Delivery O2 Flow Rate FiO2 01/03/17 07:54 98.1 70 16 120/61 99 Intake and Output 01/02/17 01/02/17 01/03/17 15:00 23:00 07:00 Intake Total 100 ml 820 ml 700 ml Output Total 1300 ml 750 ml Balance 100 ml -480 ml -50 ml Results Result Diagram: 12/30/16 0758 01/03/17 0434 Results 24 hrs Laboratory Tests Test 01/02/17 19:40 01/02/17 20:14 01/03/17 01:35 01/03/17 04:34 Vancomycin Level Trough 11.0 Bedside Glucose 249 H 298 H Blood Urea Nitrogen 23 H Creatinine 1.37 H Test 01/03/17 08:24 01/03/17 12:22 01/03/17 17:48 Bedside Glucose 335 H 195 203 Medications Medications Current Medications Ibuprofen (Motrin) 600 mg Q6H PRN PO PAIN LEVEL 6-10; Start 12/19/16 at 18:30 Acetaminophen/ Hydrocodone Bitart ([place] (5/325)) 1 tab Q6H PRN PO PAIN LEVEL 6 -10 Last administered on 12/29/16 19:16; Admin Dose 1 TAB; Start 12/19/16 at 18 :30 Enoxaparin Sodium (Lovenox) 40 mg DAILY@07 SC Last administered on 01/03/17 06: 12; Admin Dose 40 MG; Start 12/20/16 at 07:00 Diagnostic Test (Pha) (Accucheck) 1 ea 02 XX Last administered on 12/31/16 02: 14; Admin Dose 1 EA; Start 12/20/16 at 02:00 Miscellaneous Information 1 ea NOTE XX ; Start 12/19/16 at 23:00 Glucose (Glutose) 15 gm Q15M PRN PO DECREASED GLUCOSE; Start 12/19/16 at 23:00 Glucose (Glutose) 22.5 gm Q15M PRN PO DECREASED GLUCOSE; Start 12/19/16 at 23: 00 Dextrose (D50w Syringe) 25 ml Q15M PRN IV DECREASED GLUCOSE; Start 12/19/16 at 23:00 Dextrose (D50w Syringe) 50 ml Q15M PRN IV DECREASED GLUCOSE; Start 12/19/16 at 23:00 Glucagon (Glucagen) 1 mg Q15M PRN IM DECREASED GLUCOSE; Start 12/19/16 at 23:00 Glucose 15 gm 15 gm Q15M PRN BUCCAL DECREASED GLUCOSE; Start 12/19/16 at 23:00 Ertapenem/Sodium Chloride (Invanz/NS) 100 ml @ 200 mls/hr Q24H IVPB Last administered on 01/03/17 15:49; Admin Dose 200 MLS/HR; Start 12/21/16 at 15:30 Ondansetron HCl (Zofran Inj) 4 mg Q6H PRN IV NAUSEA AND/OR VOMITING Last administered on 12/23/16 15:56; Admin Dose 4 MG; Start 12/22/16 at 18:00 Diphenhydramine HCl (Benadryl) 25 mg Q6H PRN IV ITCHING; Start 12/22/16 at 18: 00 Pantoprazole (Protonix Tab) 40 mg DAILY@06 PO Last administered on 01/03/17 06: 10; Admin Dose 40 MG; Start 12/23/16 at 06:00 Clonidine (Catapres) 0.1 mg Q6H PRN PO HIGH BP Last administered on 01/02/17 20:41; Admin Dose 0.1 MG; Start 12/22/16 at 21:30 Morphine Sulfate (morphine) 2 mg Q4H PRN IV PAIN Last administered on 01/03/17 13:40; Admin Dose 2 MG; Start 12/23/16 at 16:00 Clopidogrel Bisulfate (plaVIX) 75 mg DAILY PO Last administered on 01/03/17 08: 47; Admin Dose 75 MG; Start 12/23/16 at 17:00 Mupirocin 1 applic 1 applic DAILY TOP Last administered on 01/03/17 09:00; Admin Dose 1 APPLIC; Start 12/23/16 at 21:00 Vancomycin HCl (Vancocin) 100 ml @ 100 mls/hr Q12H IVPB Last administered on 08:48; Admin Dose 100 MLS/HR; Start 12/28/16 at 21:00 Fluconazole (Diflucan) 100 mg DAILY PO Last administered on 01/03/17 08:47; Admin Dose 100 MG; Start 12/31/16 at 12:30 Insulin Detemir (Levemir) 10 unit QHS SC ; Start 01/03/17 at 21:00 SUNNY PRECIADO NP Jan 03, 2017 19:30
[2017-01-03] MEDS: INSULIN DETEMIR [LEVEMIR] 3ML CART SC SCH (20:19)
[2017-01-03 23:50] VITALS: BP 137/67; PULSE 73; RESP 18
[2017-01-04] MEDS: PANTOPRAZOLE (EC) 40 MG TAB PO SCH (06:05)
[2017-01-04] MEDS: ENOXAPARIN 40 MG/0.4 ML SYG SC SCH (06:15)
[2017-01-04 06:16] LABS: ADD SCAN DIFF NO
[2017-01-04 06:36] LABS: BASOPHIL # 0.1 10^3/ul (0.0-0.1); EOSINOPHILS # 0.5 10^3/ul (0.0-0.5); EOSINOPHILS % 7.4 % (0.0-7.0); HEMATOCRIT 28.9 % (42.0-52.0); HEMOGLOBIN 9.3 g/dl (14.0-18.0); LYMPHOCYTES # 1.9 10^3/ul (0.8-2.9); LYMPHOCYTES % 27.9 % (15.0-51.0); MEAN CORPUSCULAR HGB CONC 32.2 g/dl (32.0-37.0); MEAN CORPUSCULAR VOLUME 83.8 fl (82.0-101.0); MEAN PLATELET VOLUME 11.3 fl (7.4-10.4); MONOCYTE # 0.5 10^3/ul (0.3-0.9); MONOCYTES % 7.2 % (0.0-11.0); NEUTROPHIL # 3.8 10^3/ul (1.6-7.5); NEUTROPHILS % 56.2 % (39.0-77.0); PLATELET COUNT 286 10^3/UL (140-415); RED BLOOD COUNT 3.45 10^6/ul (4.70-6.10); RED CELL DISTRIBUTION WIDTH 14.6 % (11.5-14.5); WHITE BLOOD COUNT 6.8 10^3/ul (4.8-10.8)
[2017-01-04 06:45] LABS: POTASSIUM 3.9 mmol/L (3.5-5.1)
[2017-01-04 06:47] LABS: CREATININE 1.19 mg/dl (0.61-1.24)
[2017-01-04 06:48] LABS: CALCIUM 8.7 mg/dl (8.4-10.2)
[2017-01-04 07:50] VITALS: BP 143/75; RESP 17
[2017-01-04] MEDS: CLOPIDOGREL 75 MG TAB PO SCH (08:35)
[2017-01-04] MEDS: FLUCONAZOLE 100 MG TAB PO SCH (08:35)
[2017-01-04] MEDS: INSULIN ASPART [NOVOLOG] 3 ML PEN SC SCH ×4 (08:37→21:00)
[2017-01-04] MEDS: MUPIROCIN 2% 22 GM OINT TOP SCH (09:00)
[2017-01-04] MEDS: VANCOMYCIN 500MG/NS (PMX) 100 ML IVPB SCH ×2 (09:16→20:58)
--- NOTE | 2017-01-04 11:50 | CONS ---
Date/Time of Note Date/Time of Note DATE: 01/04/17 TIME: 11:50 Consult Date/Type/Reason Admit Date/Time Dec 19, 2016 at 14:36 Initial Consult Date 12/21/16 Type of Consultation: Endovascular Cardiology Ordering Provider: JEWELS MCKNIGHT DPM Objective Vital Signs Date Time Temp Pulse Resp B/P Pulse Ox O2 Delivery O2 Flow Rate FiO2 01/04/17 07:50 98.1 65 17 143/75 96 01/03/17 23:50 Room Air Intake and Output 01/03/17 01/03/17 01/04/17 15:00 23:00 07:00 Intake Total 100 ml 100 ml 1000 ml Output Total 950 ml Balance 100 ml 100 ml 50 ml Results/Medications Result Diagram: 01/04/17 0450 01/04/17 0450 Results 24 hrs Laboratory Tests Test 01/03/17 12:22 01/03/17 17:48 01/03/17 20:13 01/04/17 04:50 Bedside Glucose 195 203 169 White Blood Count 6.8 Red Blood Count 3.45 L Hemoglobin 9.3 L Hematocrit 28.9 L Mean Corpuscular Volume 83.8 Mean Corpuscular Hemoglobin 27.0 L Mean Corpuscular Hemoglobin Concent 32.2 Red Cell Distribution Width 14.6 H Platelet Count 286 Mean Platelet Volume 11.3 H Neutrophils % 56.2 Lymphocytes % 27.9 Monocytes % 7.2 Eosinophils % 7.4 H Basophils % 1.0 Nucleated Red Blood Cells % 0.0 Neutrophils # 3.8 Lymphocytes # 1.9 Monocytes # 0.5 Eosinophils # 0.5 Basophils # 0.1 Nucleated Red Blood Cells # 0.0 Sodium Level 140 Potassium Level 3.9 Chloride Level 100 Carbon Dioxide Level 29 Anion Gap 15 Blood Urea Nitrogen 24 H Creatinine 1.19 Glucose Level 185 Calcium Level 8.7 Test 01/04/17 07:42 01/04/17 11:28 Bedside Glucose 141 126 Medications Current Medications Ibuprofen (Motrin) 600 mg Q6H PRN PO PAIN LEVEL 6-10; Start 12/19/16 at 18:30 Acetaminophen/ Hydrocodone Bitart ([place] (5/325)) 1 tab Q6H PRN PO PAIN LEVEL 6 -10 Last administered on 12/29/16t 19:16; Admin Dose 1 TAB; Start 12/19/16 at 18 :30 Enoxaparin Sodium (Lovenox) 40 mg DAILY@07 SC Last administered on 01/04/17 06: 15; Admin Dose 40 MG; Start 12/20/16 at 07:00 Diagnostic Test (Pha) (Accucheck) 1 ea 02 XX Last administered on 12/31/16 02: 14; Admin Dose 1 EA; Start 12/20/16 at 02:00 Miscellaneous Information 1 ea NOTE XX ; Start 12/19/16 at 23:00 Glucose (Glutose) 15 gm Q15M PRN PO DECREASED GLUCOSE; Start 12/19/16 at 23:00 Glucose (Glutose) 22.5 gm Q15M PRN PO DECREASED GLUCOSE; Start 12/19/16 at 23: 00 Dextrose (D50w Syringe) 25 ml Q15M PRN IV DECREASED GLUCOSE; Start 12/19/16 at 23:00 Dextrose (D50w Syringe) 50 ml Q15M PRN IV DECREASED GLUCOSE; Start 12/19/16 at 23:00 Glucagon (Glucagen) 1 mg Q15M PRN IM DECREASED GLUCOSE; Start 12/19/16 at 23:00 Glucose 15 gm 15 gm Q15M PRN BUCCAL DECREASED GLUCOSE; Start 12/19/16 at 23:00 Ertapenem/Sodium Chloride (Invanz/NS) 100 ml @ 200 mls/hr Q24H IVPB Last administered on 01/03/17 15:49; Admin Dose 200 MLS/HR; Start 12/21/16 at 15:30 Ondansetron HCl (Zofran Inj) 4 mg Q6H PRN IV NAUSEA AND/OR VOMITING Last administered on 12/23/16 15:56; Admin Dose 4 MG; Start 12/22/16 at 18:00 Diphenhydramine HCl (Benadryl) 25 mg Q6H PRN IV ITCHING; Start 12/22/16 at 18: 00 Pantoprazole (Protonix Tab) 40 mg DAILY@06 PO Last administered on 01/04/17 06: 05; Admin Dose 40 MG; Start 12/23/16 at 06:00 Clonidine (Catapres) 0.1 mg Q6H PRN PO HIGH BP Last administered on 01/03/17 20 :16; Admin Dose 0.1 MG; Start 12/22/16 at 21:30 Morphine Sulfate (morphine) 2 mg Q4H PRN IV PAIN Last administered on 01/03/17 13:40; Admin Dose 2 MG; Start 12/23/16 at 16:00 Clopidogrel Bisulfate (plaVIX) 75 mg DAILY PO Last administered on 01/04/17 08: 35; Admin Dose 75 MG; Start 12/23/16 at 17:00 Mupirocin 1 applic 1 applic DAILY TOP Last administered on 01/03/17 09:00; Admin Dose 1 APPLIC; Start 12/23/16 at 21:00 Vancomycin HCl (Vancocin) 100 ml @ 100 mls/hr Q12H IVPB Last administered on 09:16; Admin Dose 100 MLS/HR; Start 12/28/16 at 21:00 Fluconazole (Diflucan) 100 mg DAILY PO Last administered on 01/04/17 08:35; Admin Dose 100 MG; Start 12/31/16 at 12:30 Insulin Detemir (Levemir) 10 unit QHS SC Last administered on 01/03/17 20:19; Admin Dose 10 UNIT; Start 01/03/17 at 21:00 Assessment/Plan Chief Complaint/Hosp Course Patient is 56 year old male with PMH of Dm, HTN, HLD, PAD with leg ampuation of left leg AKA, came in with non healing ulcer s/p debridement. I was consulted for severe PAD and possbile endovascular revascularization for possible severe PAD. Pt does have signs of ischemia on skin. Problems: Additional Assessment/Plan Stable dong fine plan for d/c as per primary and Podiatry TANIA SEALS MD Jan 04, 2017 11:50
[2017-01-04] MEDS: FERROUS SULFATE (EC) 325 MG TAB PO SCH ×2 (12:58→20:58)
--- NOTE | 2017-01-04 13:43 | CONS ---
DATE OF ADMISSION: 12/19/2016 DATE OF CONSULTATION: 01/04/2017 SUBJECTIVE FINDINGS: The patient had been followed for right foot diabetic foot ulceration, status post revascularization. The patient has been on IV antibiotics. The wound has improved and I recommend a definitive closure with a skin graft. The patient consenting. Most recent cultures preliminary no growth. OBJECTIVE FINDINGS: VITAL SIGNS: Temperature 98.1, pulse 65, respiratory rate 17, blood pressure 143/75, pulse oximetry is 96 at room air. GENERAL: The patient alert, oriented, no acute distress. Regular respiration. RIGHT FOOT: Transmetatarsal amputation. No odor. There is mild sanguineous exudate. Ulceration measures 11 x 3 cm. No active bleeding. LEFT LOWER EXTREMITY: Left above-knee amputation. LABORATORIES: WBC is 6.8, hemoglobin 9.3, hematocrit 28.9, platelets 286. Recent cultures is improved. ASSESSMENT: 1. Right foot cellulitis, status post debridement. History of transmetatarsal amputation, delayed healing. 2. Peripheral vascular disease, status post revascularization. 3. Left above knee amputation. 4. Diabetes with peripheral neuropathy. PLAN: The patient has improved with current debridement, IV antibiotics. Awaiting placement. Recent cultures no growth. Advise definitive closure with skin grafting. The patient consenting and can perform. The patient agreeable with surgery, tentatively scheduled for tomorrow afternoon. Recommend n.p.o. status. Obtained no consent. Dictated By: JEWELS MCKNIGHT DPM RB/LINNEA Conf#: [id number] DID#: [id number] CC: GHAZALA LEYVA MD; JEWELS MCKNIGHT DPM;*EndCC* MTDD
[2017-01-04] MEDS: ERTAPENEM SODIUM 1 GM in SOD CHLORIDE 0.9% 100 ML IVPB SCH (15:59)
--- NOTE | 2017-01-04 17:06 | PN ---
Date/Time of Note Date/Time of Note DATE: 01/04/17 TIME: 17:05 Assessment/Plan VTE Prophylaxis VTE Prophylaxis Intervention: other Lines/Catheters IV Catheter Type (from Nrs): Saline Lock Urinary Cath still in place: No Assessment/Plan Chief Complaint/Hosp Course dm htn ckd pvd s/p tma s/p debridement s/p lower ex angio and intervention esbl wounf mrsa plan per id and vascular and podiatry snf awating Problems: Subjective 24 Hr Interval Summary Gastrointestinal: no complaints Genitourinary: no complaints Exam/Review of Systems Vital Signs Vitals Vital Signs Date Time Temp Pulse Resp B/P Pulse Ox O2 Delivery O2 Flow Rate FiO2 01/04/17 07:50 98.1 65 17 143/75 96 01/03/17 23:50 Room Air Intake and Output 01/03/17 01/03/17 01/04/17 15:00 23:00 07:00 Intake Total 100 ml 100 ml 1000 ml Output Total 950 ml Balance 100 ml 100 ml 50 ml Exam Respiratory: clear to auscultation Cardiovascular: regular rate and rhythm Gastrointestinal: soft Musculoskeletal: nl extremities to inspection Extremities: normal pulses Results Result Diagram: 01/04/17 0450 01/04/17 0450 Results 24 hrs Laboratory Tests Test 01/03/17 17:48 01/03/17 20:13 01/04/17 04:50 01/04/17 07:42 Bedside Glucose 203 169 141 White Blood Count 6.8 Red Blood Count 3.45 L Hemoglobin 9.3 L Hematocrit 28.9 L Mean Corpuscular Volume 83.8 Mean Corpuscular Hemoglobin 27.0 L Mean Corpuscular Hemoglobin Concent 32.2 Red Cell Distribution Width 14.6 H Platelet Count 286 Mean Platelet Volume 11.3 H Neutrophils % 56.2 Lymphocytes % 27.9 Monocytes % 7.2 Eosinophils % 7.4 H Basophils % 1.0 Nucleated Red Blood Cells % 0.0 Neutrophils # 3.8 Lymphocytes # 1.9 Monocytes # 0.5 Eosinophils # 0.5 Basophils # 0.1 Nucleated Red Blood Cells # 0.0 Sodium Level 140 Potassium Level 3.9 Chloride Level 100 Carbon Dioxide Level 29 Anion Gap 15 Blood Urea Nitrogen 24 H Creatinine 1.19 Glucose Level 185 Calcium Level 8.7 Test 01/04/17 11:28 Bedside Glucose 126 Medications Medications Current Medications Ibuprofen (Motrin) 600 mg Q6H PRN PO PAIN LEVEL 6-10; Start 12/19/16 at 18:30 Acetaminophen/ Hydrocodone Bitart ([place] (5/325)) 1 tab Q6H PRN PO PAIN LEVEL 6 -10 Last administered on 12/29/16 19:16; Admin Dose 1 TAB; Start 12/19/16 at 18 :30 Enoxaparin Sodium (Lovenox) 40 mg DAILY@07 SC Last administered on 01/04/17 06: 15; Admin Dose 40 MG; Start 12/20/16 at 07:00 Diagnostic Test (Pha) (Accucheck) 1 ea 02 XX Last administered on 12/31/16 02: 14; Admin Dose 1 EA; Start 12/20/16 at 02:00 Miscellaneous Information 1 ea NOTE XX ; Start 12/19/16 at 23:00 Glucose (Glutose) 15 gm Q15M PRN PO DECREASED GLUCOSE; Start 12/19/16 at 23:00 Glucose (Glutose) 22.5 gm Q15M PRN PO DECREASED GLUCOSE; Start 12/19/16 at 23: 00 Dextrose (D50w Syringe) 25 ml Q15M PRN IV DECREASED GLUCOSE; Start 12/19/16 at 23:00 Dextrose (D50w Syringe) 50 ml Q15M PRN IV DECREASED GLUCOSE; Start 12/19/16 at 23:00 Glucagon (Glucagen) 1 mg Q15M PRN IM DECREASED GLUCOSE; Start 12/19/16 at 23:00 Glucose 15 gm 15 gm Q15M PRN BUCCAL DECREASED GLUCOSE; Start 12/19/16 at 23:00 Ertapenem/Sodium Chloride (Invanz/NS) 100 ml @ 200 mls/hr Q24H IVPB Last administered on 01/04/17 15:59; Admin Dose 200 MLS/HR; Start 12/21/16 at 15:30 Ondansetron HCl (Zofran Inj) 4 mg Q6H PRN IV NAUSEA AND/OR VOMITING Last administered on 12/23/16 15:56; Admin Dose 4 MG; Start 12/22/16 at 18:00 Diphenhydramine HCl (Benadryl) 25 mg Q6H PRN IV ITCHING; Start 12/22/16 at 18: 00 Pantoprazole (Protonix Tab) 40 mg DAILY@06 PO Last administered on 01/04/17 06: 05; Admin Dose 40 MG; Start 12/23/16 at 06:00 Clonidine (Catapres) 0.1 mg Q6H PRN PO HIGH BP Last administered on 01/03/17 20 :16; Admin Dose 0.1 MG; Start 12/22/16 at 21:30 Morphine Sulfate (morphine) 2 mg Q4H PRN IV PAIN Last administered on 01/03/17 13:40; Admin Dose 2 MG; Start 12/23/16 at 16:00 Clopidogrel Bisulfate (plaVIX) 75 mg DAILY PO Last administered on 01/04/17 08: 35; Admin Dose 75 MG; Start 12/23/16 at 17:00 Mupirocin 1 applic 1 applic DAILY TOP Last administered on 01/04/17 09:00; Admin Dose 1 APPLIC; Start 12/23/16 at 21:00 Vancomycin HCl (Vancocin) 100 ml @ 100 mls/hr Q12H IVPB Last administered on 09:16; Admin Dose 100 MLS/HR; Start 12/28/16 at 21:00 Fluconazole (Diflucan) 100 mg DAILY PO Last administered on 01/04/17 08:35; Admin Dose 100 MG; Start 12/31/16 at 12:30 Insulin Detemir (Levemir) 10 unit QHS SC Last administered on 01/03/17 20:19; Admin Dose 10 UNIT; Start 01/03/17 at 21:00 Ferrous Sulfate (Ferrous Sulfate (Ec)) 325 mg TID PO Last administered on 12:58; Admin Dose 325 MG; Start 01/04/17 at 13:00 LUIS ENRIQUE MAN MD Jan 04, 2017 17:06
--- NOTE | 2017-01-04 17:26 | CONS ---
Date/Time of Note Date/Time of Note DATE: 01/04/17 TIME: 17:25 Assessment/Plan Assessment/Plan Chief Complaint/Hosp Course SUBJECTIVE: No acute changes. Afebrile, nad ANTIMICROBIALS: 1. Diflucan. 2. Vancomycin. 3. Topical Bactroban to nares. 4. Invanz. MICROBIOLOGY: Wound culture grew Bacteroides fragilis, Klebsiella extended- spectrum beta-lactamase, Proteus mirabilis, enterococcus and MRSA. The latest wound culture on 12/29/2016 grew yeast. PHYSICAL EXAMINATION: GENERAL: Well-developed, middle-aged, man, in no distress. HEENT: Head atraumatic, normocephalic. Sclerae anicteric. Buccal mucosa dry. NECK: Supple. CHEST: Chest rise is symmetrical. Breath sounds clear. HEART: S1, S2. ABDOMEN: Soft. Bowel tones present. EXTREMITIES: Right foot dressing intact. ASSESSMENT: 1. Right foot cellulitis, status post debridement, with a history of transmetatarsal amputation. 2. Peripheral vascular disease, with a history of left above knee amputation. 3. Diabetes. 4. Diabetic neuropathy. 5. Chronic kidney disease. PLAN: The patient remains stable, completing antibiotics. Pending repeat wound cx, pending wound closure/skin graft DW staff Problems: Consultation Date/Type/Reason Admit Date/Time Dec 19, 2016 at 14:36 Initial Consult Date 12/21/16 Type of Consultation: id Referring Provider: JEWELS MCKNIGHT DPM Exam/Review of Systems Vital Signs Vitals Vital Signs Date Time Temp Pulse Resp B/P Pulse Ox O2 Delivery O2 Flow Rate FiO2 01/04/17 07:50 98.1 65 17 143/75 96 01/03/17 23:50 Room Air Intake and Output 01/03/17 01/03/17 01/04/17 15:00 23:00 07:00 Intake Total 100 ml 100 ml 1000 ml Output Total 950 ml Balance 100 ml 100 ml 50 ml Results Result Diagram: 01/04/17 0450 01/04/17 0450 Results 24 hrs Laboratory Tests Test 01/03/17 17:48 01/03/17 20:13 01/04/17 04:50 01/04/17 07:42 Bedside Glucose 203 169 141 White Blood Count 6.8 Red Blood Count 3.45 L Hemoglobin 9.3 L Hematocrit 28.9 L Mean Corpuscular Volume 83.8 Mean Corpuscular Hemoglobin 27.0 L Mean Corpuscular Hemoglobin Concent 32.2 Red Cell Distribution Width 14.6 H Platelet Count 286 Mean Platelet Volume 11.3 H Neutrophils % 56.2 Lymphocytes % 27.9 Monocytes % 7.2 Eosinophils % 7.4 H Basophils % 1.0 Nucleated Red Blood Cells % 0.0 Neutrophils # 3.8 Lymphocytes # 1.9 Monocytes # 0.5 Eosinophils # 0.5 Basophils # 0.1 Nucleated Red Blood Cells # 0.0 Sodium Level 140 Potassium Level 3.9 Chloride Level 100 Carbon Dioxide Level 29 Anion Gap 15 Blood Urea Nitrogen 24 H Creatinine 1.19 Glucose Level 185 Calcium Level 8.7 Test 01/04/17 11:28 01/04/17 17:06 Bedside Glucose 126 251 H Medications Medications Current Medications Ibuprofen (Motrin) 600 mg Q6H PRN PO PAIN LEVEL 6-10; Start 12/19/16 at 18:30 Acetaminophen/ Hydrocodone Bitart ([place] (5/325)) 1 tab Q6H PRN PO PAIN LEVEL 6 -10 Last administered on 12/29/16 19:16; Admin Dose 1 TAB; Start 12/19/16 at 18 :30 Enoxaparin Sodium (Lovenox) 40 mg DAILY@07 SC Last administered on 01/04/17 06: 15; Admin Dose 40 MG; Start 12/20/16 at 07:00 Diagnostic Test (Pha) (Accucheck) 1 ea 02 XX Last administered on 12/31/16 02: 14; Admin Dose 1 EA; Start 12/20/16 at 02:00 Miscellaneous Information 1 ea NOTE XX ; Start 12/19/16 at 23:00 Glucose (Glutose) 15 gm Q15M PRN PO DECREASED GLUCOSE; Start 12/19/16 at 23:00 Glucose (Glutose) 22.5 gm Q15M PRN PO DECREASED GLUCOSE; Start 12/19/16 at 23: 00 Dextrose (D50w Syringe) 25 ml Q15M PRN IV DECREASED GLUCOSE; Start 12/19/16 at 23:00 Dextrose (D50w Syringe) 50 ml Q15M PRN IV DECREASED GLUCOSE; Start 12/19/16 at 23:00 Glucagon (Glucagen) 1 mg Q15M PRN IM DECREASED GLUCOSE; Start 12/19/16 at 23:00 Glucose 15 gm 15 gm Q15M PRN BUCCAL DECREASED GLUCOSE; Start 12/19/16 at 23:00 Ertapenem/Sodium Chloride (Invanz/NS) 100 ml @ 200 mls/hr Q24H IVPB Last administered on 01/04/17 15:59; Admin Dose 200 MLS/HR; Start 12/21/16 at 15:30 Ondansetron HCl (Zofran Inj) 4 mg Q6H PRN IV NAUSEA AND/OR VOMITING Last administered on 12/23/16 15:56; Admin Dose 4 MG; Start 12/22/16 at 18:00 Diphenhydramine HCl (Benadryl) 25 mg Q6H PRN IV ITCHING; Start 12/22/16 at 18: 00 Pantoprazole (Protonix Tab) 40 mg DAILY@06 PO Last administered on 01/04/17 06: 05; Admin Dose 40 MG; Start 12/23/16 at 06:00 Clonidine (Catapres) 0.1 mg Q6H PRN PO HIGH BP Last administered on 01/03/17 20 :16; Admin Dose 0.1 MG; Start 12/22/16 at 21:30 Morphine Sulfate (morphine) 2 mg Q4H PRN IV PAIN Last administered on 01/03/17 13:40; Admin Dose 2 MG; Start 12/23/16 at 16:00 Clopidogrel Bisulfate (plaVIX) 75 mg DAILY PO Last administered on 01/04/17 08: 35; Admin Dose 75 MG; Start 12/23/16 at 17:00 Mupirocin 1 applic 1 applic DAILY TOP Last administered on 01/04/17 09:00; Admin Dose 1 APPLIC; Start 12/23/16 at 21:00 Vancomycin HCl (Vancocin) 100 ml @ 100 mls/hr Q12H IVPB Last administered on 09:16; Admin Dose 100 MLS/HR; Start 12/28/16 at 21:00 Fluconazole (Diflucan) 100 mg DAILY PO Last administered on 01/04/17 08:35; Admin Dose 100 MG; Start 12/31/16 at 12:30 Insulin Detemir (Levemir) 10 unit QHS SC Last administered on 01/03/17 20:19; Admin Dose 10 UNIT; Start 01/03/17 at 21:00 Ferrous Sulfate (Ferrous Sulfate (Ec)) 325 mg TID PO Last administered on t 12:58; Admin Dose 325 MG; Start 01/04/17 at 13:00 SUNNY PRECIADO NP Jan 04, 2017 17:26
[2017-01-04] MEDS: INSULIN DETEMIR [LEVEMIR] 3ML CART SC SCH (21:00)
[2017-01-04 21:38] VITALS: BP 156/70; RESP 18
[2017-01-04] MEDS: ACCU-CHEK XX SCH (21:58)
[2017-01-05] MEDS: ENOXAPARIN 40 MG/0.4 ML SYG SC SCH (04:00)
[2017-01-05] MEDS: PANTOPRAZOLE (EC) 40 MG TAB PO SCH (04:00)
[2017-01-05] MEDS: INSULIN ASPART [NOVOLOG] 3 ML PEN SC SCH ×4 (07:50→20:55)
[2017-01-05] MEDS: FERROUS SULFATE (EC) 325 MG TAB PO SCH ×3 (08:17→20:55)
[2017-01-05] MEDS: CLOPIDOGREL 75 MG TAB PO SCH (08:17)
[2017-01-05 08:55] VITALS: BP 131/74; RESP 18
[2017-01-05] MEDS: FLUCONAZOLE 100 MG TAB PO SCH (09:00)
[2017-01-05] MEDS: VANCOMYCIN 500MG/NS (PMX) 100 ML IVPB SCH ×2 (10:20→20:55)
[2017-01-05] MEDS: MUPIROCIN 2% 22 GM OINT TOP SCH (10:21)
--- NOTE | 2017-01-05 13:52 | CONS ---
Date/Time of Note Date/Time of Note DATE: 01/05/17 TIME: 13:49 Assessment/Plan Assessment/Plan Chief Complaint/Hosp Course 1 SUBJECTIVE: No acute changes. alert, feels good, no fevers ANTIMICROBIALS: 1. Diflucan. 2. Vancomycin. 3. Topical Bactroban to nares. 4. Invanz. MICROBIOLOGY: Wound culture grew Bacteroides fragilis, Klebsiella extended- spectrum beta-lactamase, Proteus mirabilis, enterococcus and MRSA. The latest wound culture on 12/29/2016 and 01/03/17 growing yeast. PHYSICAL EXAMINATION: GENERAL: Well-developed, middle-aged, man, in no distress. HEENT: Head atraumatic, normocephalic. Sclerae anicteric. Buccal mucosa dry. NECK: Supple. CHEST: Chest rise is symmetrical. Breath sounds clear. HEART: S1, S2. ABDOMEN: Soft. Bowel tones present. EXTREMITIES: Right foot dressing intact. ASSESSMENT: 1. Right foot cellulitis, status post debridement, with a history of transmetatarsal amputation. 2. Peripheral vascular disease, with a history of left above knee amputation. 3. Diabetes. 4. Diabetic neuropathy. 5. Chronic kidney disease. PLAN: The patient remains stable, will complete antibiotics for 2 more days, change Diflucan to Vfend. Wound closure/skin graft per podiatry DW staff Problems: Consultation Date/Type/Reason Admit Date/Time Dec 19, 2016 at 14:36 Initial Consult Date 12/21/16 Type of Consultation: id Referring Provider: JEWELS MCKNIGHT DPM Exam/Review of Systems Vital Signs Vitals Vital Signs Date Time Temp Pulse Resp B/P Pulse Ox O2 Delivery O2 Flow Rate FiO2 01/05/17 08:55 97.8 84 18 131/74 100 01/03/17 23:50 Room Air Intake and Output 01/04/17 01/04/17 01/05/17 15:00 23:00 07:00 Intake Total 100 ml 1400 ml 520 ml Output Total 1700 ml 450 ml Balance 100 ml -300 ml 70 ml Results Result Diagram: 01/04/17 0450 01/04/17 0450 Results 24 hrs Laboratory Tests Test 01/04/17 17:06 01/04/17 21:01 01/05/17 08:09 01/05/17 12:13 Bedside Glucose 251 H 180 195 169 Medications Medications Current Medications Ibuprofen (Motrin) 600 mg Q6H PRN PO PAIN LEVEL 6-10; Start 12/19/16 at 18:30 Acetaminophen/ Hydrocodone Bitart ([place] (5/325)) 1 tab Q6H PRN PO PAIN LEVEL 6 -10 Last administered on 12/29/16 19:16; Admin Dose 1 TAB; Start 12/19/16 at 18 :30 Enoxaparin Sodium (Lovenox) 40 mg DAILY@07 SC Last administered on 01/04/17 06: 15; Admin Dose 40 MG; Start 12/20/16 at 07:00 Diagnostic Test (Pha) (Accucheck) 1 ea 02 XX Last administered on 12/31/16 02: 14; Admin Dose 1 EA; Start 12/20/16 at 02:00 Miscellaneous Information 1 ea NOTE XX ; Start 12/19/16 at 23:00 Glucose (Glutose) 15 gm Q15M PRN PO DECREASED GLUCOSE; Start 12/19/16 at 23:00 Glucose (Glutose) 22.5 gm Q15M PRN PO DECREASED GLUCOSE; Start 12/19/16 at 23: 00 Dextrose (D50w Syringe) 25 ml Q15M PRN IV DECREASED GLUCOSE; Start 12/19/16 at 23:00 Dextrose (D50w Syringe) 50 ml Q15M PRN IV DECREASED GLUCOSE; Start 12/19/16 at 23:00 Glucagon (Glucagen) 1 mg Q15M PRN IM DECREASED GLUCOSE; Start 12/19/16 at 23:00 Glucose 15 gm 15 gm Q15M PRN BUCCAL DECREASED GLUCOSE; Start 12/19/16 at 23:00 Ertapenem/Sodium Chloride (Invanz/NS) 100 ml @ 200 mls/hr Q24H IVPB Last administered on 01/04/17 15:59; Admin Dose 200 MLS/HR; Start 12/21/16 at 15:30 Ondansetron HCl (Zofran Inj) 4 mg Q6H PRN IV NAUSEA AND/OR VOMITING Last administered on 12/23/16 15:56; Admin Dose 4 MG; Start 12/22/16 at 18:00 Diphenhydramine HCl (Benadryl) 25 mg Q6H PRN IV ITCHING; Start 12/22/16 at 18: 00 Pantoprazole (Protonix Tab) 40 mg DAILY@06 PO Last administered on 01/04/17 06: 05; Admin Dose 40 MG; Start 12/23/16 at 06:00 Clonidine (Catapres) 0.1 mg Q6H PRN PO HIGH BP Last administered on 01/03/17 20 :16; Admin Dose 0.1 MG; Start 12/22/16 at 21:30 Morphine Sulfate (morphine) 2 mg Q4H PRN IV PAIN Last administered on 01/03/17 13:40; Admin Dose 2 MG; Start 12/23/16 at 16:00 Clopidogrel Bisulfate (plaVIX) 75 mg DAILY PO Last administered on 01/04/17 08: 35; Admin Dose 75 MG; Start 12/23/16 at 17:00 Mupirocin 1 applic 1 applic DAILY TOP Last administered on 01/05/17 10:21; Admin Dose 1 APPLIC; Start 12/23/16 at 21:00 Vancomycin HCl (Vancocin) 100 ml @ 100 mls/hr Q12H IVPB Last administered on 10:20; Admin Dose 100 MLS/HR; Start 12/28/16 at 21:00 Fluconazole (Diflucan) 100 mg DAILY PO Last administered on 01/04/17 08:35; Admin Dose 100 MG; Start 12/31/16 at 12:30 Insulin Detemir (Levemir) 10 unit QHS SC Last administered on 01/03/17 20:19; Admin Dose 10 UNIT; Start 01/03/17 at 21:00; Status Future hold Ferrous Sulfate (Ferrous Sulfate (Ec)) 325 mg TID PO Last administered on 20:58; Admin Dose 325 MG; Start 01/04/17 at 13:00 SUNNY PRECIADO NP Jan 05, 2017 13:51
[2017-01-05] MEDS: ERTAPENEM SODIUM 1 GM in SOD CHLORIDE 0.9% 100 ML IVPB SCH (16:27)
--- NOTE | 2017-01-05 18:24 | CONS ---
Date/Time of Note Date/Time of Note DATE: 01/05/17 TIME: 18:23 Consult Date/Type/Reason Admit Date/Time Dec 19, 2016 at 14:36 Initial Consult Date 12/21/16 Type of Consultation: Cardiology Ordering Provider: JEWELS MCKNIGHT DPM Objective Vital Signs Date Time Temp Pulse Resp B/P Pulse Ox O2 Delivery O2 Flow Rate FiO2 01/05/17 08:55 97.8 84 18 131/74 100 01/03/17 23:50 Room Air Intake and Output 01/04/17 01/04/17 01/05/17 15:00 23:00 07:00 Intake Total 100 ml 1400 ml 520 ml Output Total 1700 ml 450 ml Balance 100 ml -300 ml 70 ml Results/Medications Result Diagram: 01/04/17 0450 01/04/17 0450 Results 24 hrs Laboratory Tests Test 01/04/17 21:01 01/05/17 08:09 01/05/17 12:13 01/05/17 17:48 Bedside Glucose 180 195 169 224 H Medications Current Medications Ibuprofen (Motrin) 600 mg Q6H PRN PO PAIN LEVEL 6-10; Start 12/19/16 at 18:30 Acetaminophen/ Hydrocodone Bitart ([place] (5/325)) 1 tab Q6H PRN PO PAIN LEVEL 6 -10 Last administered on 12/29/16 19:16; Admin Dose 1 TAB; Start 12/19/16 at 18 :30 Enoxaparin Sodium (Lovenox) 40 mg DAILY@07 SC Last administered on 01/04/17 06: 15; Admin Dose 40 MG; Start 12/20/16 at 07:00 Diagnostic Test (Pha) (Accucheck) 1 ea 02 XX Last administered on 12/31/16 02: 14; Admin Dose 1 EA; Start 12/20/16 at 02:00 Miscellaneous Information 1 ea NOTE XX ; Start 12/19/16 at 23:00 Glucose (Glutose) 15 gm Q15M PRN PO DECREASED GLUCOSE; Start 12/19/16 at 23:00 Glucose (Glutose) 22.5 gm Q15M PRN PO DECREASED GLUCOSE; Start 12/19/16 at 23: 00 Dextrose (D50w Syringe) 25 ml Q15M PRN IV DECREASED GLUCOSE; Start 12/19/16 at 23:00 Dextrose (D50w Syringe) 50 ml Q15M PRN IV DECREASED GLUCOSE; Start 12/19/16 at 23:00 Glucagon (Glucagen) 1 mg Q15M PRN IM DECREASED GLUCOSE; Start 12/19/16 at 23:00 Glucose 15 gm 15 gm Q15M PRN BUCCAL DECREASED GLUCOSE; Start 12/19/16 at 23:00 Ertapenem/Sodium Chloride (Invanz/NS) 100 ml @ 200 mls/hr Q24H IVPB Last administered on 01/05/17 16:27; Admin Dose 200 MLS/HR; Start 12/21/16 at 15:30 Ondansetron HCl (Zofran Inj) 4 mg Q6H PRN IV NAUSEA AND/OR VOMITING Last administered on 12/23/16 15:56; Admin Dose 4 MG; Start 12/22/16 at 18:00 Diphenhydramine HCl (Benadryl) 25 mg Q6H PRN IV ITCHING; Start 12/22/16 at 18: 00 Pantoprazole (Protonix Tab) 40 mg DAILY@06 PO Last administered on 01/04/17 06: 05; Admin Dose 40 MG; Start 12/23/16 at 06:00 Clonidine (Catapres) 0.1 mg Q6H PRN PO HIGH BP Last administered on 01/03/17 20 :16; Admin Dose 0.1 MG; Start 12/22/16 at 21:30 Morphine Sulfate (morphine) 2 mg Q4H PRN IV PAIN Last administered on 01/03/17 13:40; Admin Dose 2 MG; Start 12/23/16 at 16:00 Clopidogrel Bisulfate (plaVIX) 75 mg DAILY PO Last administered on 01/04/17 08: 35; Admin Dose 75 MG; Start 12/23/16 at 17:00 Mupirocin 1 applic 1 applic DAILY TOP Last administered on 01/05/17 10:21; Admin Dose 1 APPLIC; Start 12/23/16 at 21:00 Vancomycin HCl (Vancocin) 100 ml @ 100 mls/hr Q12H IVPB Last administered on 10:20; Admin Dose 100 MLS/HR; Start 12/28/16 at 21:00 Insulin Detemir (Levemir) 10 unit QHS SC Last administered on 01/03/17 20:19; Admin Dose 10 UNIT; Start 01/03/17 at 21:00; Status Future hold Ferrous Sulfate (Ferrous Sulfate (Ec)) 325 mg TID PO Last administered on 20:58; Admin Dose 325 MG; Start 01/04/17 at 13:00 Voriconazole (Vfend) 200 mg BID PO ; Start 01/05/17 at 21:00 Assessment/Plan Chief Complaint/Hosp Course Patient is 56 year old male with PMH of Dm, HTN, HLD, PAD with leg ampuation of left leg AKA, came in with non healing ulcer s/p debridement. I was consulted for severe PAD and possbile endovascular revascularization for possible severe PAD. Pt does have signs of ischemia on skin. Problems: Additional Assessment/Plan Pt is stable d/c planning per primary care TANIA SEALS MD Jan 05, 2017 18:24
[2017-01-05 19:00] VITALS: BP 144/69; RESP 18
--- NOTE | 2017-01-05 19:23 | PN ---
Date/Time of Note Date/Time of Note DATE: 01/05/17 TIME: 19:21 Assessment/Plan VTE Prophylaxis VTE Prophylaxis Intervention: other Lines/Catheters IV Catheter Type (from Nrs): Saline Lock Urinary Cath still in place: No Assessment/Plan Chief Complaint/Hosp Course dm htn ckd pvd s/p tma s/p debridement s/p lower ex angio and intervention esbl wounf mrsa plan per id and vascular and podiatry per podiatry Problems: Subjective 24 Hr Interval Summary Respiratory: no complaints Cardiovascular: no complaints Exam/Review of Systems Vital Signs Vitals Vital Signs Date Time Temp Pulse Resp B/P Pulse Ox O2 Delivery O2 Flow Rate FiO2 01/05/17 08:55 97.8 84 18 131/74 100 01/03/17 23:50 Room Air Intake and Output 01/04/17 01/04/17 01/05/17 15:00 23:00 07:00 Intake Total 100 ml 1400 ml 520 ml Output Total 1700 ml 450 ml Balance 100 ml -300 ml 70 ml Exam Neck: supple Respiratory: clear to auscultation Cardiovascular: regular rate and rhythm Gastrointestinal: soft Musculoskeletal: nl extremities to inspection Extremities: normal pulses Results Result Diagram: 01/04/17 0450 01/04/17 0450 Results 24 hrs Laboratory Tests Test 01/04/17 21:01 01/05/17 08:09 01/05/17 12:13 01/05/17 17:48 Bedside Glucose 180 195 169 224 H Medications Medications Current Medications Ibuprofen (Motrin) 600 mg Q6H PRN PO PAIN LEVEL 6-10; Start 12/19/16 at 18:30 Acetaminophen/ Hydrocodone Bitart ([place] (5/325)) 1 tab Q6H PRN PO PAIN LEVEL 6 -10 Last administered on 12/29/16 19:16; Admin Dose 1 TAB; Start 12/19/16 at 18 :30 Enoxaparin Sodium (Lovenox) 40 mg DAILY@07 SC Last administered on 01/04/17 06: 15; Admin Dose 40 MG; Start 12/20/16 at 07:00 Diagnostic Test (Pha) (Accucheck) 1 ea 02 XX Last administered on 12/31/16 02: 14; Admin Dose 1 EA; Start 12/20/16 at 02:00 Miscellaneous Information 1 ea NOTE XX ; Start 12/19/16 at 23:00 Glucose (Glutose) 15 gm Q15M PRN PO DECREASED GLUCOSE; Start 12/19/16 at 23:00 Glucose (Glutose) 22.5 gm Q15M PRN PO DECREASED GLUCOSE; Start 12/19/16 at 23: 00 Dextrose (D50w Syringe) 25 ml Q15M PRN IV DECREASED GLUCOSE; Start 12/19/16 at 23:00 Dextrose (D50w Syringe) 50 ml Q15M PRN IV DECREASED GLUCOSE; Start 12/19/16 at 23:00 Glucagon (Glucagen) 1 mg Q15M PRN IM DECREASED GLUCOSE; Start 12/19/16 at 23:00 Glucose 15 gm 15 gm Q15M PRN BUCCAL DECREASED GLUCOSE; Start 12/19/16 at 23:00 Ertapenem/Sodium Chloride (Invanz/NS) 100 ml @ 200 mls/hr Q24H IVPB Last administered on 01/05/17 16:27; Admin Dose 200 MLS/HR; Start 12/21/16 at 15:30 Ondansetron HCl (Zofran Inj) 4 mg Q6H PRN IV NAUSEA AND/OR VOMITING Last administered on 12/23/16 15:56; Admin Dose 4 MG; Start 12/22/16 at 18:00 Diphenhydramine HCl (Benadryl) 25 mg Q6H PRN IV ITCHING; Start 12/22/16 at 18: 00 Pantoprazole (Protonix Tab) 40 mg DAILY@06 PO Last administered on 01/04/17 06: 05; Admin Dose 40 MG; Start 12/23/16 at 06:00 Clonidine (Catapres) 0.1 mg Q6H PRN PO HIGH BP Last administered on 01/03/17 20 :16; Admin Dose 0.1 MG; Start 12/22/16 at 21:30 Morphine Sulfate (morphine) 2 mg Q4H PRN IV PAIN Last administered on 01/03/17 13:40; Admin Dose 2 MG; Start 12/23/16 at 16:00 Clopidogrel Bisulfate (plaVIX) 75 mg DAILY PO Last administered on 01/04/17 08: 35; Admin Dose 75 MG; Start 12/23/16 at 17:00 Mupirocin 1 applic 1 applic DAILY TOP Last administered on 01/05/17 10:21; Admin Dose 1 APPLIC; Start 12/23/16 at 21:00 Vancomycin HCl (Vancocin) 100 ml @ 100 mls/hr Q12H IVPB Last administered on 10:20; Admin Dose 100 MLS/HR; Start 12/28/16 at 21:00 Insulin Detemir (Levemir) 10 unit QHS SC Last administered on 01/03/17 20:19; Admin Dose 10 UNIT; Start 01/03/17 at 21:00; Status Future hold Ferrous Sulfate (Ferrous Sulfate (Ec)) 325 mg TID PO Last administered on 20:58; Admin Dose 325 MG; Start 01/04/17 at 13:00 Voriconazole (Vfend) 200 mg BID PO ; Start 01/05/17 at 21:00 LUIS ENRIQUE MAN MD Jan 05, 2017 19:23
[2017-01-05] MEDS: VORICONAZOLE 200 MG TAB PO SCH (20:55)
[2017-01-05] MEDS: INSULIN DETEMIR [LEVEMIR] 3ML CART SC SCH (21:00)
[2017-01-06] VITALS (12 sets, daily range): BP systolic 114–163; BP diastolic 64–78; PULSE 60–68; RESP 13–18
[2017-01-06] MEDS: ACCU-CHEK XX SCH (01:16)
[2017-01-06] MEDS: PANTOPRAZOLE (EC) 40 MG TAB PO SCH (05:23)
[2017-01-06 05:59] LABS: CREATININE 1.18 mg/dl (0.61-1.24)
[2017-01-06] MEDS: ENOXAPARIN 40 MG/0.4 ML SYG SC SCH (07:00)
[2017-01-06] MEDS: INSULIN ASPART [NOVOLOG] 3 ML PEN SC SCH ×4 (07:50→21:42)
[2017-01-06] MEDS: CLOPIDOGREL 75 MG TAB PO SCH (09:00)
[2017-01-06] MEDS: VORICONAZOLE 200 MG TAB PO SCH ×2 (09:00→21:33)
[2017-01-06] MEDS: FERROUS SULFATE (EC) 325 MG TAB PO SCH ×3 (09:00→21:33)
[2017-01-06] MEDS: MUPIROCIN 2% 22 GM OINT TOP SCH (09:52)
[2017-01-06] MEDS: VANCOMYCIN 500MG/NS (PMX) 100 ML IVPB SCH ×2 (09:52→21:33)
--- NOTE | 2017-01-06 12:36 | CONS ---
Date/Time of Note Date/Time of Note DATE: 01/06/17 TIME: 12:35 Assessment/Plan Assessment/Plan Chief Complaint/Hosp Course 1 SUBJECTIVE: No acute changes. alert, feels good, no fevers ANTIMICROBIALS: 1. Vfend 2. Vancomycin. 3. Topical Bactroban to nares. 4. Invanz. MICROBIOLOGY: Wound culture grew Bacteroides fragilis, Klebsiella extended- spectrum beta-lactamase, Proteus mirabilis, enterococcus and MRSA. The latest wound culture on 12/29/2016 and 01/03/17 growing yeast. PHYSICAL EXAMINATION: GENERAL: Well-developed, middle-aged, man, in no distress. HEENT: Head atraumatic, normocephalic. Sclerae anicteric. Buccal mucosa dry. NECK: Supple. CHEST: Chest rise is symmetrical. Breath sounds clear. HEART: S1, S2. ABDOMEN: Soft. Bowel tones present. EXTREMITIES: Right foot dressing intact. ASSESSMENT: 1. Right foot cellulitis, status post debridement, with a history of transmetatarsal amputation. 2. Peripheral vascular disease, with a history of left above knee amputation. 3. Diabetes. 4. Diabetic neuropathy. 5. Chronic kidney disease. PLAN: The patient remains stable, will complete antibiotics tomorrow, continue Vfend. Wound closure/skin graft per podiatry [facility] staff Problems: Consultation Date/Type/Reason Admit Date/Time Dec 19, 2016 at 14:36 Initial Consult Date 12/21/16 Type of Consultation: id Referring Provider: JEWELS MCKNIGHT DPM Exam/Review of Systems Vital Signs Vitals Vital Signs Date Time Temp Pulse Resp B/P Pulse Ox O2 Delivery O2 Flow Rate FiO2 01/06/17 08:04 98.7 73 18 142/72 99 01/03/17 23:50 Room Air Intake and Output 01/05/17 01/05/17 01/06/17 15:00 23:00 07:00 Intake Total 200 ml 360 ml Output Total 400 ml Balance 200 ml -40 ml Results Result Diagram: 01/04/17 0450 01/06/17 0442 Results 24 hrs Laboratory Tests Test 01/05/17 17:48 01/05/17 20:54 01/06/17 04:42 01/06/17 07:58 Bedside Glucose 224 H 163 183 Blood Urea Nitrogen 26 H Creatinine 1.18 Test 01/06/17 12:00 Bedside Glucose 181 Medications Medications Current Medications Ibuprofen (Motrin) 600 mg Q6H PRN PO PAIN LEVEL 6-10; Start 12/19/16 at 18:30 Acetaminophen/ Hydrocodone Bitart ([place] (5/325)) 1 tab Q6H PRN PO PAIN LEVEL 6 -10 Last administered on 12/29/16 19:16; Admin Dose 1 TAB; Start 12/19/16 at 18 :30 Enoxaparin Sodium (Lovenox) 40 mg DAILY@07 SC Last administered on 01/04/17 06: 15; Admin Dose 40 MG; Start 12/20/16 at 07:00 Diagnostic Test (Pha) (Accucheck) 1 ea 02 XX Last administered on 12/31/16 02: 14; Admin Dose 1 EA; Start 12/20/16 at 02:00 Miscellaneous Information 1 ea NOTE XX ; Start 12/19/16 at 23:00 Glucose (Glutose) 15 gm Q15M PRN PO DECREASED GLUCOSE; Start 12/19/16 at 23:00 Glucose (Glutose) 22.5 gm Q15M PRN PO DECREASED GLUCOSE; Start 12/19/16 at 23: 00 Dextrose (D50w Syringe) 25 ml Q15M PRN IV DECREASED GLUCOSE; Start 12/19/16 at 23:00 Dextrose (D50w Syringe) 50 ml Q15M PRN IV DECREASED GLUCOSE; Start 12/19/16 at 23:00 Glucagon (Glucagen) 1 mg Q15M PRN IM DECREASED GLUCOSE; Start 12/19/16 at 23:00 Glucose 15 gm 15 gm Q15M PRN BUCCAL DECREASED GLUCOSE; Start 12/19/16 at 23:00 Ertapenem/Sodium Chloride (Invanz/NS) 100 ml @ 200 mls/hr Q24H IVPB Last administered on 01/05/17 16:27; Admin Dose 200 MLS/HR; Start 12/21/16 at 15:30 Ondansetron HCl (Zofran Inj) 4 mg Q6H PRN IV NAUSEA AND/OR VOMITING Last administered on 12/23/16 15:56; Admin Dose 4 MG; Start 12/22/16 at 18:00 Diphenhydramine HCl (Benadryl) 25 mg Q6H PRN IV ITCHING; Start 12/22/16 at 18: 00 Pantoprazole (Protonix Tab) 40 mg DAILY@06 PO Last administered on 01/04/17 06: 05; Admin Dose 40 MG; Start 12/23/16 at 06:00 Clonidine (Catapres) 0.1 mg Q6H PRN PO HIGH BP Last administered on 01/03/17 20 :16; Admin Dose 0.1 MG; Start 12/22/16 at 21:30 Morphine Sulfate (morphine) 2 mg Q4H PRN IV PAIN Last administered on 01/03/17 13:40; Admin Dose 2 MG; Start 12/23/16 at 16:00 Clopidogrel Bisulfate (plaVIX) 75 mg DAILY PO Last administered on 01/04/17 08: 35; Admin Dose 75 MG; Start 12/23/16 at 17:00 Mupirocin 1 applic 1 applic DAILY TOP Last administered on 01/06/17 09:52; Admin Dose 1 APPLIC; Start 12/23/16 at 21:00 Vancomycin HCl (Vancocin) 100 ml @ 100 mls/hr Q12H IVPB Last administered on 09:52; Admin Dose 100 MLS/HR; Start 12/28/16 at 21:00 Insulin Detemir (Levemir) 10 unit QHS SC Last administered on 01/03/17 20:19; Admin Dose 10 UNIT; Start 01/03/17 at 21:00; Status Future hold Ferrous Sulfate (Ferrous Sulfate (Ec)) 325 mg TID PO Last administered on 20:55; Admin Dose 325 MG; Start 01/04/17 at 13:00 Voriconazole (Vfend) 200 mg BID PO Last administered on 01/05/17 20:55; Admin Dose 200 MG; Start 01/05/17 at 21:00 SUNNY PRECIADO NP Jan 06, 2017 12:36
[2017-01-06] MEDS: ERTAPENEM SODIUM 1 GM in SOD CHLORIDE 0.9% 100 ML IVPB SCH (15:30)
[2017-01-06] MEDS ORDERED: FENTAnyl 250MCG INJ ONE (15:45)
[2017-01-06] MEDS ORDERED: MIDAZOLAM 1 MG/ML 2 ML INJ ONE (15:45)
[2017-01-06] MEDS ORDERED: ONDANSETRON 4 MG INJ IV PRN (16:00)
[2017-01-06] MEDS ORDERED: HYDROmorphONE (0.2 MG/ML) 10ML SYG IV PRN ×2 (16:00)
[2017-01-06] MEDS ORDERED: LIDOCAINE 1% (MPF) 30 ML INJ INJ ONE (16:25)
[2017-01-06] MEDS ORDERED: MINERAL OIL LIGHT 10 ML VIAL TOP ONE (16:25)
--- NOTE | 2017-01-06 16:54 | PN ---
Date/Time of Note Date/Time of Note DATE: 01/06/17 TIME: 16:51 Assessment/Plan VTE Prophylaxis VTE Prophylaxis Intervention: other (lovenox held preop) Lines/Catheters [facility] [place] [facility] Urinary Cath still in place: No Assessment/Plan Assessment/Plan Pt seen preop. No changes in health overnight. Discussed consent right foot debridement and split thickness skin graft right foot. Discussed in Turk[place] risks, benefits, potential complications. Foot marked in holding area. Exam/Review of Systems Vital Signs Vitals Vital Signs Date Time Temp Pulse Resp B/P Pulse Ox O2 Delivery O2 Flow Rate FiO2 01/06/17 08:04 98.7 73 18 142/72 99 01/03/17 23:50 Room Air Intake and Output 01/05/17 01/05/17 01/06/17 15:00 23:00 07:00 Intake Total 200 ml 360 ml Output Total 400 ml Balance 200 ml -40 ml Results Result Diagram: 01/04/17 0450 01/06/17 0442 Results 24 hrs Laboratory Tests Test 01/05/17 17:48 01/05/17 20:54 01/06/17 04:42 01/06/17 07:58 Bedside Glucose 224 H 163 183 Blood Urea Nitrogen 26 H Creatinine 1.18 Test 01/06/17 12:00 Bedside Glucose 181 Medications Medications Current Medications Ibuprofen (Motrin) 600 mg Q6H PRN PO PAIN LEVEL 6-10; Start 12/19/16 at 18:30 Acetaminophen/ Hydrocodone Bitart ([place] (5/325)) 1 tab Q6H PRN PO PAIN LEVEL 6 -10 Last administered on 12/29/16 19:16; Admin Dose 1 TAB; Start 12/19/16 at 18 :30 Enoxaparin Sodium (Lovenox) 40 mg DAILY@07 SC Last administered on 01/04/17 06: 15; Admin Dose 40 MG; Start 12/20/16 at 07:00 Diagnostic Test (Pha) (Accucheck) 1 ea 02 XX Last administered on 12/31/16 02: 14; Admin Dose 1 EA; Start 12/20/16 at 02:00 Miscellaneous Information 1 ea NOTE XX ; Start 12/19/16 at 23:00 Glucose (Glutose) 15 gm Q15M PRN PO DECREASED GLUCOSE; Start 12/19/16 at 23:00 Glucose (Glutose) 22.5 gm Q15M PRN PO DECREASED GLUCOSE; Start 12/19/16 at 23: 00 Dextrose (D50w Syringe) 25 ml Q15M PRN IV DECREASED GLUCOSE; Start 12/19/16 at 23:00 Dextrose (D50w Syringe) 50 ml Q15M PRN IV DECREASED GLUCOSE; Start 12/19/16 at 23:00 Glucagon (Glucagen) 1 mg Q15M PRN IM DECREASED GLUCOSE; Start 12/19/16 at 23:00 Glucose 15 gm 15 gm Q15M PRN BUCCAL DECREASED GLUCOSE; Start 12/19/16 at 23:00 Ertapenem/Sodium Chloride (Invanz/NS) 100 ml @ 200 mls/hr Q24H IVPB Last administered on 01/05/17 16:27; Admin Dose 200 MLS/HR; Start 12/21/16 at 15:30 Ondansetron HCl (Zofran Inj) 4 mg Q6H PRN IV NAUSEA AND/OR VOMITING Last administered on 12/23/16 15:56; Admin Dose 4 MG; Start 12/22/16 at 18:00 Diphenhydramine HCl (Benadryl) 25 mg Q6H PRN IV ITCHING; Start 12/22/16 at 18: 00 Pantoprazole (Protonix Tab) 40 mg DAILY@06 PO Last administered on 01/04/17 06: 05; Admin Dose 40 MG; Start 12/23/16 at 06:00 Clonidine (Catapres) 0.1 mg Q6H PRN PO HIGH BP Last administered on 01/03/17 20 :16; Admin Dose 0.1 MG; Start 12/22/16 at 21:30 Morphine Sulfate (morphine) 2 mg Q4H PRN IV PAIN Last administered on 01/03/17 13:40; Admin Dose 2 MG; Start 12/23/16 at 16:00 Clopidogrel Bisulfate (plaVIX) 75 mg DAILY PO Last administered on 01/04/17 08: 35; Admin Dose 75 MG; Start 12/23/16 at 17:00 Mupirocin 1 applic 1 applic DAILY TOP Last administered on 01/06/17 09:52; Admin Dose 1 APPLIC; Start 12/23/16 at 21:00 Vancomycin HCl (Vancocin) 100 ml @ 100 mls/hr Q12H IVPB Last administered on 09:52; Admin Dose 100 MLS/HR; Start 12/28/16 at 21:00 Insulin Detemir (Levemir) 10 unit QHS SC Last administered on 01/03/17 20:19; Admin Dose 10 UNIT; Start 01/03/17 at 21:00; Status Future hold Ferrous Sulfate (Ferrous Sulfate (Ec)) 325 mg TID PO Last administered on 20:55; Admin Dose 325 MG; Start 01/04/17 at 13:00 Voriconazole (Vfend) 200 mg BID PO Last administered on 01/05/17 20:55; Admin Dose 200 MG; Start 01/05/17 at 21:00 JEWELS MCKNIGHT DPM Jan 06, 2017 16:54
--- NOTE | 2017-01-06 16:56 | OPR ---
Date/Time of Note Date/Time of Note DATE: 01/06/17 TIME: 16:54 Operative Report Free Text/Dictation Right foot debridement Procedure Date: Jan 06, 2017 Preoperative Diagnosis Right foot diabetic foot ulceration Right foot open transmetatarsal amputation h/o osteomyelitis h/o left AKA tobacco use DM2 with neuropathy Postoperative Diagnosis same Operation Performed right foot wound bed prep and skin graft Surgeon: JWEELS MCKNIGHT DPM Anesthesia: MAC, other Anesthesiologist: GARCIA ANDRES Tourniquet Time: none Estimated Blood Loss: 10 - 50 ml's Specimens culture tissue Tubes/Drains none Complications: None Pt Condition Post Procedure: stable Disposition: PACU, other (med surg) JEWELS MCKNIGHT DPM Jan 06, 2017 16:56
--- NOTE | 2017-01-06 17:25 | CONS ---
Date/Time of Note Date/Time of Note DATE: 01/06/17 TIME: 17:24 Consult Date/Type/Reason Admit Date/Time Dec 19, 2016 at 14:36 Initial Consult Date 12/21/16 Type of Consultation: Endovascular Cardiology Ordering Provider: JEWELS MCKNIGHT DPM Objective Vital Signs Date Time Temp Pulse Resp B/P Pulse Ox O2 Delivery O2 Flow Rate FiO2 01/06/17 16:53 64 14 114/68 99 Room Air 01/06/17 16:43 98.0 Intake and Output 01/05/17 01/05/17 01/06/17 15:00 23:00 07:00 Intake Total 200 ml 360 ml Output Total 400 ml Balance 200 ml -40 ml Results/Medications Result Diagram: 01/04/17 0450 01/06/17 0442 Results 24 hrs Laboratory Tests Test 01/05/17 17:48 01/05/17 20:54 01/06/17 04:42 01/06/17 07:58 Bedside Glucose 224 H 163 183 Blood Urea Nitrogen 26 H Creatinine 1.18 Test 01/06/17 12:00 Bedside Glucose 181 Medications Current Medications Ibuprofen (Motrin) 600 mg Q6H PRN PO PAIN LEVEL 6-10; Start 12/19/16 at 18:30 Acetaminophen/ Hydrocodone Bitart ([place] (5/325)) 1 tab Q6H PRN PO PAIN LEVEL 6 -10 Last administered on 12/29/16 19:16; Admin Dose 1 TAB; Start 12/19/16 at 18 :30 Enoxaparin Sodium (Lovenox) 40 mg DAILY@07 SC Last administered on 01/04/17 06: 15; Admin Dose 40 MG; Start 12/20/16 at 07:00 Diagnostic Test (Pha) (Accucheck) 1 ea 02 XX Last administered on 12/31/16 02: 14; Admin Dose 1 EA; Start 12/20/16 at 02:00 Miscellaneous Information 1 ea NOTE XX ; Start 12/19/16 at 23:00 Glucose (Glutose) 15 gm Q15M PRN PO DECREASED GLUCOSE; Start 12/19/16 at 23:00 Glucose (Glutose) 22.5 gm Q15M PRN PO DECREASED GLUCOSE; Start 12/19/16 at 23: 00 Dextrose (D50w Syringe) 25 ml Q15M PRN IV DECREASED GLUCOSE; Start 12/19/16 at 23:00 Dextrose (D50w Syringe) 50 ml Q15M PRN IV DECREASED GLUCOSE; Start 12/19/16 at 23:00 Glucagon (Glucagen) 1 mg Q15M PRN IM DECREASED GLUCOSE; Start 12/19/16 at 23:00 Glucose 15 gm 15 gm Q15M PRN BUCCAL DECREASED GLUCOSE; Start 12/19/16 at 23:00 Ertapenem/Sodium Chloride (Invanz/NS) 100 ml @ 200 mls/hr Q24H IVPB Last administered on 01/05/17 16:27; Admin Dose 200 MLS/HR; Start 12/21/16 at 15:30 Ondansetron HCl (Zofran Inj) 4 mg Q6H PRN IV NAUSEA AND/OR VOMITING Last administered on 12/23/16 15:56; Admin Dose 4 MG; Start 12/22/16 at 18:00 Diphenhydramine HCl (Benadryl) 25 mg Q6H PRN IV ITCHING; Start 12/22/16 at 18: 00 Pantoprazole (Protonix Tab) 40 mg DAILY@06 PO Last administered on 01/04/17 06: 05; Admin Dose 40 MG; Start 12/23/16 at 06:00 Clonidine (Catapres) 0.1 mg Q6H PRN PO HIGH BP Last administered on 01/03/17 20 :16; Admin Dose 0.1 MG; Start 12/22/16 at 21:30 Morphine Sulfate (morphine) 2 mg Q4H PRN IV PAIN Last administered on 01/03/17 13:40; Admin Dose 2 MG; Start 12/23/16 at 16:00 Clopidogrel Bisulfate (plaVIX) 75 mg DAILY PO Last administered on 01/04/17 08: 35; Admin Dose 75 MG; Start 12/23/16 at 17:00 Mupirocin 1 applic 1 applic DAILY TOP Last administered on 01/06/17 09:52; Admin Dose 1 APPLIC; Start 12/23/16 at 21:00 Vancomycin HCl (Vancocin) 100 ml @ 100 mls/hr Q12H IVPB Last administered on 09:52; Admin Dose 100 MLS/HR; Start 12/28/16 at 21:00 Insulin Detemir (Levemir) 10 unit QHS SC Last administered on 01/03/17 20:19; Admin Dose 10 UNIT; Start 01/03/17 at 21:00; Status Future hold Ferrous Sulfate (Ferrous Sulfate (Ec)) 325 mg TID PO Last administered on 20:55; Admin Dose 325 MG; Start 01/04/17 at 13:00 Voriconazole (Vfend) 200 mg BID PO Last administered on 01/05/17 20:55; Admin Dose 200 MG; Start 01/05/17 at 21:00 Assessment/Plan Chief Complaint/Hosp Course Patient is 56 year old male with PMH of Dm, HTN, HLD, PAD with leg ampuation of left leg AKA, came in with non healing ulcer s/p debridement. I was consulted for severe PAD and possbile endovascular revascularization for possible severe PAD. Pt does have signs of ischemia on skin. Problems: Additional Assessment/Plan Pt going for procedure. Will have better out come of healing after revascularization. will .TANIA Gan MD Jan 06, 2017 17:25
--- NOTE | 2017-01-06 18:02 | OPR ---
DATE OF OPERATION: 01/06/2017 PREOPERATIVE DIAGNOSES: 1. Right foot diabetic foot ulceration. 2. Diabetes with peripheral neuropathy. 3. Right foot transmetatarsal amputation. 4. Left above-knee amputation. POSTOPERATIVE DIAGNOSES: 1. Right foot diabetic foot ulceration. 2. Diabetes with peripheral neuropathy. 3. Right foot transmetatarsal amputation. 4. Left above-knee amputation. PROCEDURES PERFORMED: 1. Right foot wound bed preparation for skin grafting. 2. Right foot split-thickness skin graft. SURGEON: Jewels Jenkins DPM CHARGER OPERATOR: None. PATHOLOGY: Culture right foot. ANESTHESIA: MAC with local lidocaine 1% plain, 30 mL. HEMOSTASIS: Compression. ESTIMATED BLOOD LOSS: 30 mL. COMPLICATIONS: None. INDICATION FOR PROCEDURE: This is a 56-year-old gentleman who was admitted for infected ulceration. The patient grew polymicrobial organisms. Last culture revealed [place]. The patient has been on antifungal therapy. He has also been revascularized with improved circulation and improved wound a ppearance with granular wound bed. Discussed treatment options and informed consent was obtained. Recommend coverage of the wound due to improved clinical appearance and delayed wound healing. DESCRIPTION OF PROCEDURE: The patient brought into the operating room and placed in the supine posi tion. Formal timeout was performed. The foot was prepped with Betadine and the lower extremity pre pped with chlorhexidine. The patient has been on IV antibiotics as well as antifungals including Vf end, vancomycin, Invanz. The extremity was prepped and draped in the usual sterile fashion. At this time, attention was directed to the right foot. The wound bed was prepared for skin graftin g using a curettestalin and cultures were obtained. The patient had estimated blood loss of 20 m L. There was improved granulation of tissue in the wound bed. Attention was directed to the right lateral thigh and this was injected with lidocaine 1% plain. Mineral oil was applied to the surface of the skin and a split-thickness skin graft harvested 18 one thousandths of an inch and meshed 1.5 :1. The graft was secured to the recipient site with skin jerson and hemostasis achieved from the donor site with compression. The foot wound measured 11 x 2.5 cm. The patient tolerated the proced ure well. Wounds were dressed with Xeroform, 4 x 4, Webril, and bias. The patient transferred to t he PACU with vital signs stable. POSTOPERATIVE PLAN: We will follow up on the culture results, monitor bleeding. Recommend keeping the leg elevated and anticipate placement in a half-way facility to allow time for healing. Dictated By: JEWELS NEAL/LINNEA Conf#: [id number] DID#: [id number]
[2017-01-06] MEDS: INSULIN DETEMIR [LEVEMIR] 3ML CART SC SCH (21:00)
--- NOTE | 2017-01-06 21:26 | PN ---
Date/Time of Note Date/Time of Note DATE: 01/06/17 TIME: 21:25 Assessment/Plan VTE Prophylaxis VTE Prophylaxis Intervention: other Lines/Catheters IV Catheter Type (from Nrsg): Peripheral IV Urinary Cath still in place: No Assessment/Plan Chief Complaint/Hosp Course dm htn ckd pvd s/p tma s/p debridement s/p lower ex angio and intervention esbl wounf mrsa plan per id and vascular and podiatry LABS AM Problems: Subjective 24 Hr Interval Summary Subjective hx not possible: other (S/P RT FOOT SURGERY) Gastrointestinal: no complaints Genitourinary: no complaints Exam/Review of Systems Vital Signs Vitals Vital Signs Date Time Temp Pulse Resp B/P Pulse Ox O2 Delivery O2 Flow Rate FiO2 01/06/17 20:28 98.7 77 18 163/78 100 01/06/17 17:23 Room Air Intake and Output 01/05/17 01/05/17 01/06/17 15:00 23:00 07:00 Intake Total 200 ml 360 ml Output Total 400 ml Balance 200 ml -40 ml Exam Respiratory: clear to auscultation Cardiovascular: regular rate and rhythm Musculoskeletal: nl extremities to inspection Extremities: normal pulses Results Result Diagram: 01/04/17 0450 01/06/17 0442 Results 24 hrs Laboratory Tests Test 01/06/17 04:42 01/06/17 07:58 01/06/17 12:00 01/06/17 17:54 Blood Urea Nitrogen 26 H Creatinine 1.18 Bedside Glucose 183 181 132 Medications Medications Current Medications Ibuprofen (Motrin) 600 mg Q6H PRN PO PAIN LEVEL 6-10; Start 12/19/16 at 18:30 Acetaminophen/ Hydrocodone Bitart ([place] (5/325)) 1 tab Q6H PRN PO PAIN LEVEL 6 -10 Last administered on 12/29/16 19:16; Admin Dose 1 TAB; Start 12/19/16 at 18 :30 Enoxaparin Sodium (Lovenox) 40 mg DAILY@07 SC Last administered on 01/04/17 06: 15; Admin Dose 40 MG; Start 12/20/16 at 07:00 Diagnostic Test (Pha) (Accucheck) 1 ea 02 XX Last administered on 12/31/16 02: 14; Admin Dose 1 EA; Start 12/20/16 at 02:00 Miscellaneous Information 1 ea NOTE XX ; Start 12/19/16 at 23:00 Glucose (Glutose) 15 gm Q15M PRN PO DECREASED GLUCOSE; Start 12/19/16 at 23:00 Glucose (Glutose) 22.5 gm Q15M PRN PO DECREASED GLUCOSE; Start 12/19/16 at 23: 00 Dextrose (D50w Syringe) 25 ml Q15M PRN IV DECREASED GLUCOSE; Start 12/19/16 at 23:00 Dextrose (D50w Syringe) 50 ml Q15M PRN IV DECREASED GLUCOSE; Start 12/19/16 at 23:00 Glucagon (Glucagen) 1 mg Q15M PRN IM DECREASED GLUCOSE; Start 12/19/16 at 23:00 Glucose 15 gm 15 gm Q15M PRN BUCCAL DECREASED GLUCOSE; Start 12/19/16 at 23:00 Ertapenem/Sodium Chloride (Invanz/NS) 100 ml @ 200 mls/hr Q24H IVPB Last administered on 01/05/17 16:27; Admin Dose 200 MLS/HR; Start 12/21/16 at 15:30 Ondansetron HCl (Zofran Inj) 4 mg Q6H PRN IV NAUSEA AND/OR VOMITING Last administered on 12/23/16 15:56; Admin Dose 4 MG; Start 12/22/16 at 18:00 Diphenhydramine HCl (Benadryl) 25 mg Q6H PRN IV ITCHING; Start 12/22/16 at 18: 00 Pantoprazole (Protonix Tab) 40 mg DAILY@06 PO Last administered on 01/04/17 06: 05; Admin Dose 40 MG; Start 12/23/16 at 06:00 Clonidine (Catapres) 0.1 mg Q6H PRN PO HIGH BP Last administered on 01/03/17 20 :16; Admin Dose 0.1 MG; Start 12/22/16 at 21:30 Morphine Sulfate (morphine) 2 mg Q4H PRN IV PAIN Last administered on 01/03/17 13:40; Admin Dose 2 MG; Start 12/23/16 at 16:00 Clopidogrel Bisulfate (plaVIX) 75 mg DAILY PO Last administered on 01/04/17 08: 35; Admin Dose 75 MG; Start 12/23/16 at 17:00 Mupirocin 1 applic 1 applic DAILY TOP Last administered on 01/06/17 09:52; Admin Dose 1 APPLIC; Start 12/23/16 at 21:00 Vancomycin HCl (Vancocin) 100 ml @ 100 mls/hr Q12H IVPB Last administered on 09:52; Admin Dose 100 MLS/HR; Start 12/28/16 at 21:00 Insulin Detemir (Levemir) 10 unit QHS SC Last administered on 01/03/17 20:19; Admin Dose 10 UNIT; Start 01/03/17 at 21:00; Status Future hold Ferrous Sulfate (Ferrous Sulfate (Ec)) 325 mg TID PO Last administered on 20:55; Admin Dose 325 MG; Start 01/04/17 at 13:00 Voriconazole (Vfend) 200 mg BID PO Last administered on 01/05/17 20:55; Admin Dose 200 MG; Start 01/05/17 at 21:00 LUIS ENRIQUE MAN MD Jan 06, 2017 21:25
[2017-01-07] MEDS: ACCU-CHEK XX SCH (02:47)
[2017-01-07 05:11] LABS: ADD SCAN DIFF NO
[2017-01-07 05:26] LABS: BASOPHIL # 0.1 10^3/ul (0.0-0.1); BASOPHILS % 0.7 % (0.0-2.0); EOSINOPHILS # 0.4 10^3/ul (0.0-0.5); EOSINOPHILS % 6.1 % (0.0-7.0); HEMATOCRIT 29.3 % (42.0-52.0); HEMOGLOBIN 9.3 g/dl (14.0-18.0); LYMPHOCYTES # 2.1 10^3/ul (0.8-2.9); LYMPHOCYTES % 29.2 % (15.0-51.0); MEAN CORPUSCULAR HEMOGLOBIN 26.6 pg (29.0-33.0); MEAN CORPUSCULAR HGB CONC 31.7 g/dl (32.0-37.0); MEAN PLATELET VOLUME 11.5 fl (7.4-10.4); MONOCYTE # 0.6 10^3/ul (0.3-0.9); MONOCYTES % 8.3 % (0.0-11.0); NEUTROPHILS % 55.4 % (39.0-77.0); PLATELET COUNT 270 10^3/UL (140-415); RED BLOOD COUNT 3.49 10^6/ul (4.70-6.10); RED CELL DISTRIBUTION WIDTH 14.6 % (11.5-14.5); WHITE BLOOD COUNT 7.2 10^3/ul (4.8-10.8)
[2017-01-07] MEDS: PANTOPRAZOLE (EC) 40 MG TAB PO SCH (05:48)
[2017-01-07 05:58] LABS: ALBUMIN 3.3 g/dl (3.3-4.9)
[2017-01-07 05:59] LABS: POTASSIUM 3.8 mmol/L (3.5-5.1)
[2017-01-07 06:01] LABS: ALBUMIN/GLOBULIN RATIO 0.97; BILIRUBIN,INDIRECT 0.1 mg/dl (0-1.1); BILIRUBIN,TOTAL 0.1 mg/dl (0.2-1.3); CREATININE 1.24 mg/dl (0.61-1.24); TOTAL PROTEIN 6.7 g/dl (6.1-8.1)
[2017-01-07 06:02] LABS: CALCIUM 8.8 mg/dl (8.4-10.2)
[2017-01-07] MEDS: INSULIN ASPART [NOVOLOG] 3 ML PEN SC SCH ×4 (07:50→21:00)
[2017-01-07 08:11] VITALS: BP 147/71; RESP 65
[2017-01-07] MEDS: VANCOMYCIN 500MG/NS (PMX) 100 ML IVPB SCH (08:33)
[2017-01-07] MEDS: CLOPIDOGREL 75 MG TAB PO SCH (08:33)
[2017-01-07] MEDS: ENOXAPARIN 40 MG/0.4 ML SYG SC SCH (08:33)
[2017-01-07] MEDS: VORICONAZOLE 200 MG TAB PO SCH ×2 (08:34→21:52)
[2017-01-07] MEDS: MUPIROCIN 2% 22 GM OINT TOP SCH (08:34)
[2017-01-07] MEDS: FERROUS SULFATE (EC) 325 MG TAB PO SCH ×3 (08:34→21:52)
--- NOTE | 2017-01-07 15:15 | CONS ---
Date/Time of Note Date/Time of Note DATE: 01/07/17 TIME: 15:13 Assessment/Plan Assessment/Plan Chief Complaint/Hosp Course 1 SUBJECTIVE: No acute changes. alert, feels good, no fevers ANTIMICROBIALS: 1. Vfend 2. Vancomycin. 3. Topical Bactroban to nares. 4. Invanz. MICROBIOLOGY: Wound culture grew Bacteroides fragilis, Klebsiella extended- spectrum beta-lactamase, Proteus mirabilis, enterococcus and MRSA. The latest wound culture on 12/29/2016 and 01/03/17 growing yeast. PHYSICAL EXAMINATION: GENERAL: Well-developed, middle-aged, man, in no distress. HEENT: Head atraumatic, normocephalic. Sclerae anicteric. Buccal mucosa dry. NECK: Supple. CHEST: Chest rise is symmetrical. Breath sounds clear. HEART: S1, S2. ABDOMEN: Soft. Bowel tones present. EXTREMITIES: Right foot dressing intact. ASSESSMENT: 1. Right foot cellulitis, status post debridement, with a history of transmetatarsal amputation. 2. Peripheral vascular disease, with a history of left above knee amputation. 3. Diabetes. 4. Diabetic neuropathy. 5. Chronic kidney disease. 6. S/p skin graft/wound closure 01/06/17 PLAN: Stable, dc antibiotics and isolation, continue Vfend for 7 more days. Wound care per podiatry rec-s [facility] staff Problems: Consultation Date/Type/Reason Admit Date/Time Dec 19, 2016 at 14:36 Initial Consult Date 12/21/16 Type of Consultation: id Referring Provider: JEWELS MCKNIGHT DPM Exam/Review of Systems Vital Signs Vitals Vital Signs Date Time Temp Pulse Resp B/P Pulse Ox O2 Delivery O2 Flow Rate FiO2 01/07/17 08:11 98.1 65 65 147/71 99 01/06/17 21:00 Room Air Intake and Output 01/06/17 01/06/17 01/07/17 15:00 23:00 07:00 Intake Total 700 ml 100 ml Output Total 910 ml Balance -210 ml 100 ml Results Result Diagram: 01/07/17 0438 01/07/17 0438 Results 24 hrs Laboratory Tests Test 01/06/17 17:54 01/06/17 21:31 01/06/17 23:22 01/07/17 02:38 Bedside Glucose 132 189 143 157 Test 01/07/17 04:38 01/07/17 08:01 01/07/17 12:09 White Blood Count 7.2 Red Blood Count 3.49 L Hemoglobin 9.3 L Hematocrit 29.3 L Mean Corpuscular Volume 84.0 Mean Corpuscular Hemoglobin 26.6 L Mean Corpuscular Hemoglobin Concent 31.7 L Red Cell Distribution Width 14.6 H Platelet Count 270 Mean Platelet Volume 11.5 H Neutrophils % 55.4 Lymphocytes % 29.2 Monocytes % 8.3 Eosinophils % 6.1 Basophils % 0.7 Nucleated Red Blood Cells % 0.0 Neutrophils # 4.0 Lymphocytes # 2.1 Monocytes # 0.6 Eosinophils # 0.4 Basophils # 0.1 Nucleated Red Blood Cells # 0.0 Sodium Level 141 Potassium Level 3.8 Chloride Level 103 Carbon Dioxide Level 26 Anion Gap 16 Blood Urea Nitrogen 26 H Creatinine 1.24 Glucose Level 181 Calcium Level 8.8 Total Bilirubin 0.1 L Direct Bilirubin 0.00 Indirect Bilirubin 0.1 Aspartate Amino Transf (AST/SGOT) 19 Alanine Aminotransferase (ALT/SGPT) 30 Alkaline Phosphatase 78 Total Protein 6.7 Albumin 3.3 Globulin 3.40 H Albumin/Globulin Ratio 0.97 Bedside Glucose 143 152 Medications Medications Current Medications Ibuprofen (Motrin) 600 mg Q6H PRN PO PAIN LEVEL 6-10; Start 12/19/16 at 18:30 Acetaminophen/ Hydrocodone Bitart ([place] (5/325)) 1 tab Q6H PRN PO PAIN LEVEL 6 -10 Last administered on 12/29/16 19:16; Admin Dose 1 TAB; Start 12/19/16 at 18 :30 Enoxaparin Sodium (Lovenox) 40 mg DAILY@07 SC Last administered on 01/07/17 08: 33; Admin Dose 40 MG; Start 12/20/16 at 07:00 Diagnostic Test (Pha) (Accucheck) 1 ea 02 XX Last administered on 01/07/17 02: 47; Admin Dose 1 EA; Start 12/20/16 at 02:00 Miscellaneous Information 1 ea NOTE XX ; Start 12/19/16 at 23:00 Glucose (Glutose) 15 gm Q15M PRN PO DECREASED GLUCOSE; Start 12/19/16 at 23:00 Glucose (Glutose) 22.5 gm Q15M PRN PO DECREASED GLUCOSE; Start 12/19/16 at 23: 00 Dextrose (D50w Syringe) 25 ml Q15M PRN IV DECREASED GLUCOSE; Start 12/19/16 at 23:00 Dextrose (D50w Syringe) 50 ml Q15M PRN IV DECREASED GLUCOSE; Start 12/19/16 at 23:00 Glucagon (Glucagen) 1 mg Q15M PRN IM DECREASED GLUCOSE; Start 12/19/16 at 23:00 Glucose 15 gm 15 gm Q15M PRN BUCCAL DECREASED GLUCOSE; Start 12/19/16 at 23:00 Ertapenem/Sodium Chloride (Invanz/NS) 100 ml @ 200 mls/hr Q24H IVPB Last administered on 01/05/17 16:27; Admin Dose 200 MLS/HR; Start 12/21/16 at 15:30 Ondansetron HCl (Zofran Inj) 4 mg Q6H PRN IV NAUSEA AND/OR VOMITING Last administered on 12/23/16 15:56; Admin Dose 4 MG; Start 12/22/16 at 18:00 Diphenhydramine HCl (Benadryl) 25 mg Q6H PRN IV ITCHING; Start 12/22/16 at 18: 00 Pantoprazole (Protonix Tab) 40 mg DAILY@06 PO Last administered on 01/07/17 05: 48; Admin Dose 40 MG; Start 12/23/16 at 06:00 Clonidine (Catapres) 0.1 mg Q6H PRN PO HIGH BP Last administered on 01/03/17 20 :16; Admin Dose 0.1 MG; Start 12/22/16 at 21:30 Morphine Sulfate (morphine) 2 mg Q4H PRN IV PAIN Last administered on 01/03/17 13:40; Admin Dose 2 MG; Start 12/23/16 at 16:00 Clopidogrel Bisulfate (plaVIX) 75 mg DAILY PO Last administered on 01/07/17 08: 33; Admin Dose 75 MG; Start 12/23/16 at 17:00 Mupirocin 1 applic 1 applic DAILY TOP Last administered on 01/06/17 09:52; Admin Dose 1 APPLIC; Start 12/23/16 at 21:00 Vancomycin HCl (Vancocin) 100 ml @ 100 mls/hr Q12H IVPB Last administered on 08:33; Admin Dose 100 MLS/HR; Start 12/28/16 at 21:00 Insulin Detemir (Levemir) 10 unit QHS SC Last administered on 01/03/17 20:19; Admin Dose 10 UNIT; Start 01/03/17 at 21:00; Status Future hold Ferrous Sulfate (Ferrous Sulfate (Ec)) 325 mg TID PO Last administered on 12:10; Admin Dose 325 MG; Start 01/04/17 at 13:00 Voriconazole (Vfend) 200 mg BID PO Last administered on 01/07/17 08:34; Admin Dose 200 MG; Start 01/05/17 at 21:00 Miscellaneous Information (*Rx Drug Level Order Reminder*) VANCOMYCIN TROUGH 01/07 AT 2000 ONCE ONCE XX ; Start 01/07/17 at 20:00; Stop 01/07/17 at 20:01 SUNNY PRECIADO NP Jan 07, 2017 15:14
--- NOTE | 2017-01-07 18:31 | CONS ---
Date/Time of Note Date/Time of Note DATE: 01/07/17 TIME: 18:30 Consult Date/Type/Reason Admit Date/Time Dec 19, 2016 at 14:36 Initial Consult Date 12/21/16 Type of Consultation: Cardiac Ordering Provider: JEWELS MCKNIGHT DPM Objective Vital Signs Date Time Temp Pulse Resp B/P Pulse Ox O2 Delivery O2 Flow Rate FiO2 01/07/17 08:11 98.1 65 65 147/71 99 01/06/17 21:00 Room Air Intake and Output 01/06/17 01/06/17 01/07/17 14:59 22:59 06:59 Intake Total 700 ml 100 ml Output Total 910 ml Balance -210 ml 100 ml Results/Medications Result Diagram: 01/07/17 0438 01/07/17 0438 Results 24 hrs Laboratory Tests Test 01/06/17 21:31 01/06/17 23:22 01/07/17 02:38 01/07/17 04:38 Bedside Glucose 189 143 157 White Blood Count 7.2 Red Blood Count 3.49 L Hemoglobin 9.3 L Hematocrit 29.3 L Mean Corpuscular Volume 84.0 Mean Corpuscular Hemoglobin 26.6 L Mean Corpuscular Hemoglobin Concent 31.7 L Red Cell Distribution Width 14.6 H Platelet Count 270 Mean Platelet Volume 11.5 H Neutrophils % 55.4 Lymphocytes % 29.2 Monocytes % 8.3 Eosinophils % 6.1 Basophils % 0.7 Nucleated Red Blood Cells % 0.0 Neutrophils # 4.0 Lymphocytes # 2.1 Monocytes # 0.6 Eosinophils # 0.4 Basophils # 0.1 Nucleated Red Blood Cells # 0.0 Sodium Level 141 Potassium Level 3.8 Chloride Level 103 Carbon Dioxide Level 26 Anion Gap 16 Blood Urea Nitrogen 26 H Creatinine 1.24 Glucose Level 181 Calcium Level 8.8 Total Bilirubin 0.1 L Direct Bilirubin 0.00 Indirect Bilirubin 0.1 Aspartate Amino Transf (AST/SGOT) 19 Alanine Aminotransferase (ALT/SGPT) 30 Alkaline Phosphatase 78 Total Protein 6.7 Albumin 3.3 Globulin 3.40 H Albumin/Globulin Ratio 0.97 Test 01/07/17 08:01 01/07/17 12:09 01/07/17 17:48 Bedside Glucose 143 152 218 Medications Current Medications Ibuprofen (Motrin) 600 mg Q6H PRN PO PAIN LEVEL 6-10; Start 12/19/16 at 18:30 Acetaminophen/ Hydrocodone Bitart ([place] (5/325)) 1 tab Q6H PRN PO PAIN LEVEL 6 -10 Last administered on 12/29/16 19:16; Admin Dose 1 TAB; Start 12/19/16 at 18 :30 Enoxaparin Sodium (Lovenox) 40 mg DAILY@07 SC Last administered on 01/07/17 08: 33; Admin Dose 40 MG; Start 12/20/16 at 07:00 Diagnostic Test (Pha) (Accucheck) 1 ea 02 XX Last administered on 01/07/17 02: 47; Admin Dose 1 EA; Start 12/20/16 at 02:00 Miscellaneous Information 1 ea NOTE XX ; Start 12/19/16 at 23:00 Glucose (Glutose) 15 gm Q15M PRN PO DECREASED GLUCOSE; Start 12/19/16 at 23:00 Glucose (Glutose) 22.5 gm Q15M PRN PO DECREASED GLUCOSE; Start 12/19/16 at 23: 00 Dextrose (D50w Syringe) 25 ml Q15M PRN IV DECREASED GLUCOSE; Start 12/19/16 at 23:00 Dextrose (D50w Syringe) 50 ml Q15M PRN IV DECREASED GLUCOSE; Start 12/19/16 at 23:00 Glucagon (Glucagen) 1 mg Q15M PRN IM DECREASED GLUCOSE; Start 12/19/16 at 23:00 Glucose (Glutose) 15 gm Q15M PRN BUCCAL DECREASED GLUCOSE; Start 12/19/16 at 23 :00 Ondansetron HCl (Zofran Inj) 4 mg Q6H PRN IV NAUSEA AND/OR VOMITING Last administered on 12/23/16 15:56; Admin Dose 4 MG; Start 12/22/16 at 18:00 Diphenhydramine HCl (Benadryl) 25 mg Q6H PRN IV ITCHING; Start 12/22/16 at 18: 00 Pantoprazole (Protonix Tab) 40 mg DAILY@06 PO Last administered on 01/07/17 05: 48; Admin Dose 40 MG; Start 12/23/16 at 06:00 Clonidine (Catapres) 0.1 mg Q6H PRN PO HIGH BP Last administered on 01/03/17 20 :16; Admin Dose 0.1 MG; Start 12/22/16 at 21:30 Morphine Sulfate (morphine) 2 mg Q4H PRN IV PAIN Last administered on 01/03/17 13:40; Admin Dose 2 MG; Start 12/23/16 at 16:00 Clopidogrel Bisulfate (plaVIX) 75 mg DAILY PO Last administered on 01/07/17 08: 33; Admin Dose 75 MG; Start 12/23/16 at 17:00 Mupirocin (Bactroban) 1 applic DAILY TOP Last administered on 01/06/17 09:52; Admin Dose 1 APPLIC; Start 12/23/16 at 21:00 Insulin Detemir (Levemir) 10 unit QHS SC Last administered on 01/03/17 20:19; Admin Dose 10 UNIT; Start 01/03/17 at 21:00; Status Future hold Ferrous Sulfate (Ferrous Sulfate (Ec)) 325 mg TID PO Last administered on 12:10; Admin Dose 325 MG; Start 01/04/17 at 13:00 Voriconazole (Vfend) 200 mg BID PO Last administered on 01/07/17 08:34; Admin Dose 200 MG; Start 01/05/17 at 21:00 Assessment/Plan Chief Complaint/Hosp Course Patient is 56 year old male with PMH of Dm, HTN, HLD, PAD with leg ampuation of left leg AKA, came in with non healing ulcer s/p debridement. I was consulted for severe PAD and possbile endovascular revascularization for possible severe PAD. Pt does have signs of ischemia on skin. Problems: Additional Assessment/Plan pt stable plan per PMD and Podiatry TANIA SEALS MD Jan 07, 2017 18:31
--- NOTE | 2017-01-07 19:14 | CONS ---
DATE OF ADMISSION: 12/19/2016 DATE OF CONSULTATION: 01/07/2017 SUBJECTIVE FINDINGS: The patient is status postop day #1 wound bed preparation, skin graft. The pa zenia had intraoperative cultures, which results are pending. Prior patient had yeast within the ul ceration. The patient remains afebrile. Denies any pain, chest pain, shortness of breath, or pain to the donor or recipient site. PHYSICAL EXAMINATION: VITAL SIGNS: Temperature 98.1, pulse is 65, respiratory rate 65, blood pressure 147/71, pulse ox is 99 on room air. GENERAL: The patient alert, oriented. PULMONARY: Regular respiration. EXTREMITIES: The patient with warm extremity. There are dressings intact to the right thigh and fo ot. No evidence of strikethrough drainage, no malodor. LABORATORY DATA: Fungal cultures pending. Intraoperative cultures pending. White count 7.2, hemog lobin 9.3, hematocrit 29.3, platelets 270. Sodium 141, potassium 3.8, chloride 103, CO2 of 26, BUN 26, creatinine 1.24. ASSESSMENT: 1. Right foot diabetic foot ulceration. 2. Postoperative day 1, wound debridement and skin grafting. 3. Peripheral vascular disease, status post revascularization. 4. Left above-knee amputation. 5. Diabetes with peripheral neuropathy. PLAN: The patient is stable for discharge. I appreciate ID recommendations. Can be discharged on antibiotics in isolation at the time of discharge. Continue Vfend for 7 more days. The patient is stable for discharge [facility] Dictated By: JEWELS NEAL/LINNEA Conf#: [id number] DID#: [id number]
[2017-01-07 20:00] VITALS: BP 133/63; RESP 20
--- NOTE | 2017-01-07 20:16 | PN ---
Date/Time of Note Date/Time of Note DATE: 01/07/17 TIME: 20:15 Assessment/Plan VTE Prophylaxis VTE Prophylaxis Intervention: other Lines/Catheters [facility] [place] Urinary Cath still in place: No Assessment/Plan Chief Complaint/Hosp Course dm htn ckd pvd s/p tma s/p debridement s/p lower ex angio and intervention esbl wounf mrsa plan per id and vascular and podiatry LABS AM wound care Problems: Subjective 24 Hr Interval Summary Cardiovascular: no complaints Gastrointestinal: no complaints Genitourinary: no complaints Exam/Review of Systems Vital Signs Vitals Vital Signs Date Time Temp Pulse Resp B/P Pulse Ox O2 Delivery O2 Flow Rate FiO2 01/07/17 20:00 98.5 75 20 133/63 98 01/06/17 21:00 Room Air Intake and Output 01/06/17 01/06/17 01/07/17 15:00 23:00 07:00 Intake Total 700 ml 100 ml Output Total 910 ml Balance -210 ml 100 ml Exam Neck: supple Respiratory: clear to auscultation Cardiovascular: regular rate and rhythm Gastrointestinal: soft Musculoskeletal: nl extremities to inspection Results Result Diagram: 01/07/17 0438 01/07/17 0438 Results 24 hrs Laboratory Tests Test 01/06/17 21:31 01/06/17 23:22 01/07/17 02:38 01/07/17 04:38 Bedside Glucose 189 143 157 White Blood Count 7.2 Red Blood Count 3.49 L Hemoglobin 9.3 L Hematocrit 29.3 L Mean Corpuscular Volume 84.0 Mean Corpuscular Hemoglobin 26.6 L Mean Corpuscular Hemoglobin Concent 31.7 L Red Cell Distribution Width 14.6 H Platelet Count 270 Mean Platelet Volume 11.5 H Neutrophils % 55.4 Lymphocytes % 29.2 Monocytes % 8.3 Eosinophils % 6.1 Basophils % 0.7 Nucleated Red Blood Cells % 0.0 Neutrophils # 4.0 Lymphocytes # 2.1 Monocytes # 0.6 Eosinophils # 0.4 Basophils # 0.1 Nucleated Red Blood Cells # 0.0 Sodium Level 141 Potassium Level 3.8 Chloride Level 103 Carbon Dioxide Level 26 Anion Gap 16 Blood Urea Nitrogen 26 H Creatinine 1.24 Glucose Level 181 Calcium Level 8.8 Total Bilirubin 0.1 L Direct Bilirubin 0.00 Indirect Bilirubin 0.1 Aspartate Amino Transf (AST/SGOT) 19 Alanine Aminotransferase (ALT/SGPT) 30 Alkaline Phosphatase 78 Total Protein 6.7 Albumin 3.3 Globulin 3.40 H Albumin/Globulin Ratio 0.97 Test 01/07/17 08:01 01/07/17 12:09 01/07/17 17:48 Bedside Glucose 143 152 218 Medications Medications Current Medications Ibuprofen (Motrin) 600 mg Q6H PRN PO PAIN LEVEL 6-10; Start 12/19/16 at 18:30 Acetaminophen/ Hydrocodone Bitart ([place] (5/325)) 1 tab Q6H PRN PO PAIN LEVEL 6 -10 Last administered on 12/29/16 19:16; Admin Dose 1 TAB; Start 12/19/16 at 18 :30 Enoxaparin Sodium (Lovenox) 40 mg DAILY@07 SC Last administered on 01/07/17 08: 33; Admin Dose 40 MG; Start 12/20/16 at 07:00 Diagnostic Test (Pha) (Accucheck) 1 ea 02 XX Last administered on 01/07/17 02: 47; Admin Dose 1 EA; Start 12/20/16 at 02:00 Miscellaneous Information 1 ea NOTE XX ; Start 12/19/16 at 23:00 Glucose (Glutose) 15 gm Q15M PRN PO DECREASED GLUCOSE; Start 12/19/16 at 23:00 Glucose (Glutose) 22.5 gm Q15M PRN PO DECREASED GLUCOSE; Start 12/19/16 at 23: 00 Dextrose (D50w Syringe) 25 ml Q15M PRN IV DECREASED GLUCOSE; Start 12/19/16 at 23:00 Dextrose (D50w Syringe) 50 ml Q15M PRN IV DECREASED GLUCOSE; Start 12/19/16 at 23:00 Glucagon (Glucagen) 1 mg Q15M PRN IM DECREASED GLUCOSE; Start 12/19/16 at 23:00 Glucose (Glutose) 15 gm Q15M PRN BUCCAL DECREASED GLUCOSE; Start 12/19/16 at 23 :00 Ondansetron HCl (Zofran Inj) 4 mg Q6H PRN IV NAUSEA AND/OR VOMITING Last administered on 12/23/16 15:56; Admin Dose 4 MG; Start 12/22/16 at 18:00 Diphenhydramine HCl (Benadryl) 25 mg Q6H PRN IV ITCHING; Start 12/22/16 at 18: 00 Pantoprazole (Protonix Tab) 40 mg DAILY@06 PO Last administered on 01/07/17 05: 48; Admin Dose 40 MG; Start 12/23/16 at 06:00 Clonidine (Catapres) 0.1 mg Q6H PRN PO HIGH BP Last administered on 01/03/17 20 :16; Admin Dose 0.1 MG; Start 12/22/16 at 21:30 Morphine Sulfate (morphine) 2 mg Q4H PRN IV PAIN Last administered on 01/03/17 13:40; Admin Dose 2 MG; Start 12/23/16 at 16:00 Clopidogrel Bisulfate (plaVIX) 75 mg DAILY PO Last administered on 01/07/17 08: 33; Admin Dose 75 MG; Start 12/23/16 at 17:00 Mupirocin (Bactroban) 1 applic DAILY TOP Last administered on 01/06/17 09:52; Admin Dose 1 APPLIC; Start 12/23/16 at 21:00 Insulin Detemir (Levemir) 10 unit QHS SC Last administered on 01/03/17 20:19; Admin Dose 10 UNIT; Start 01/03/17 at 21:00; Status Future hold Ferrous Sulfate (Ferrous Sulfate (Ec)) 325 mg TID PO Last administered on 12:10; Admin Dose 325 MG; Start 01/04/17 at 13:00 Voriconazole (Vfend) 200 mg BID PO Last administered on 01/07/17 08:34; Admin Dose 200 MG; Start 01/05/17 at 21:00 LUIS ENRIQUE MAN MD Jan 07, 2017 20:16
[2017-01-07] MEDS: INSULIN DETEMIR [LEVEMIR] 3ML CART SC SCH (21:00)
[2017-01-08] MEDS: ACCU-CHEK XX SCH (00:16)
[2017-01-08 06:03] LABS: CREATININE 1.36 mg/dl (0.61-1.24)
[2017-01-08] MEDS: PANTOPRAZOLE (EC) 40 MG TAB PO SCH (06:24)
[2017-01-08] MEDS: ENOXAPARIN 40 MG/0.4 ML SYG SC SCH (06:25)
[2017-01-08 08:25] VITALS: BP 136/73; RESP 18
[2017-01-08] MEDS: FERROUS SULFATE (EC) 325 MG TAB PO SCH ×3 (08:47→20:37)
[2017-01-08] MEDS: CLOPIDOGREL 75 MG TAB PO SCH (08:47)
[2017-01-08] MEDS: VORICONAZOLE 200 MG TAB PO SCH ×2 (08:47→20:37)
[2017-01-08] MEDS: INSULIN ASPART [NOVOLOG] 3 ML PEN SC SCH ×4 (08:49→20:46)
[2017-01-08] MEDS: MUPIROCIN 2% 22 GM OINT TOP SCH (08:52)
[2017-01-08] MEDS: HYDROCODONE/APAP (5/325) TAB PO PRN (08:54)
--- NOTE | 2017-01-08 19:49 | CONS ---
Date/Time of Note Date/Time of Note DATE: 01/08/17 TIME: 19:48 Consult Date/Type/Reason Admit Date/Time Dec 19, 2016 at 14:36 Initial Consult Date 12/21/16 Type of Consultation: Cardiac and Vascular Ordering Provider: JEWELS MCKNIGHT DPM Objective Vital Signs Date Time Temp Pulse Resp B/P Pulse Ox O2 Delivery O2 Flow Rate FiO2 01/08/17 08:25 98.2 78 18 136/73 100 01/06/17 21:00 Room Air Intake and Output 01/07/17 01/07/17 01/08/17 15:00 23:00 07:00 Intake Total 580 ml 1420 ml 800 ml Output Total 600 ml 400 ml 1400 ml Balance -20 ml 1020 ml -600 ml Results/Medications Result Diagram: 01/07/17 0438 01/08/17 0447 Results 24 hrs Laboratory Tests Test 01/07/17 21:50 01/08/17 04:47 01/08/17 08:06 01/08/17 12:09 Bedside Glucose 173 164 234 H Blood Urea Nitrogen 24 H Creatinine 1.36 H Test 01/08/17 17:51 Bedside Glucose 306 H Medications Current Medications Ibuprofen (Motrin) 600 mg Q6H PRN PO PAIN LEVEL 6-10; Start 12/19/16 at 18:30 Acetaminophen/ Hydrocodone Bitart ([place] (5/325)) 1 tab Q6H PRN PO PAIN LEVEL 6 -10 Last administered on 01/08/17 08:54; Admin Dose 1 TAB; Start 12/19/16 at 18: 30 Enoxaparin Sodium (Lovenox) 40 mg DAILY@07 SC Last administered on 01/08/17 06: 25; Admin Dose 40 MG; Start 12/20/16 at 07:00 Diagnostic Test (Pha) (Accucheck) 1 ea 02 XX Last administered on 01/07/17 02: 47; Admin Dose 1 EA; Start 12/20/16 at 02:00 Miscellaneous Information 1 ea NOTE XX ; Start 12/19/16 at 23:00 Glucose (Glutose) 15 gm Q15M PRN PO DECREASED GLUCOSE; Start 12/19/16 at 23:00 Glucose (Glutose) 22.5 gm Q15M PRN PO DECREASED GLUCOSE; Start 12/19/16 at 23: 00 Dextrose (D50w Syringe) 25 ml Q15M PRN IV DECREASED GLUCOSE; Start 12/19/16 at 23:00 Dextrose (D50w Syringe) 50 ml Q15M PRN IV DECREASED GLUCOSE; Start 12/19/16 at 23:00 Glucagon (Glucagen) 1 mg Q15M PRN IM DECREASED GLUCOSE; Start 12/19/16 at 23:00 Glucose (Glutose) 15 gm Q15M PRN BUCCAL DECREASED GLUCOSE; Start 12/19/16 at 23 :00 Ondansetron HCl (Zofran Inj) 4 mg Q6H PRN IV NAUSEA AND/OR VOMITING Last administered on 12/23/16 15:56; Admin Dose 4 MG; Start 12/22/16 at 18:00 Diphenhydramine HCl (Benadryl) 25 mg Q6H PRN IV ITCHING; Start 12/22/16 at 18: 00 Pantoprazole (Protonix Tab) 40 mg DAILY@06 PO Last administered on 01/08/17 06: 24; Admin Dose 40 MG; Start 12/23/16 at 06:00 Clonidine (Catapres) 0.1 mg Q6H PRN PO HIGH BP Last administered on 01/03/17 20 :16; Admin Dose 0.1 MG; Start 12/22/16 at 21:30 Morphine Sulfate (morphine) 2 mg Q4H PRN IV PAIN Last administered on 01/03/17 13:40; Admin Dose 2 MG; Start 12/23/16 at 16:00 Clopidogrel Bisulfate (plaVIX) 75 mg DAILY PO Last administered on 01/08/17 08: 47; Admin Dose 75 MG; Start 12/23/16 at 17:00 Mupirocin (Bactroban) 1 applic DAILY TOP Last administered on 01/06/17 09:52; Admin Dose 1 APPLIC; Start 12/23/16 at 21:00 Ferrous Sulfate (Ferrous Sulfate (Ec)) 325 mg TID PO Last administered on 12:54; Admin Dose 325 MG; Start 01/04/17 at 13:00 Voriconazole (Vfend) 200 mg BID PO Last administered on 01/08/17 08:47; Admin Dose 200 MG; Start 01/05/17 at 21:00 Insulin Detemir (Levemir) 15 unit QHS SC ; Start 01/08/17 at 21:00 Assessment/Plan Chief Complaint/Hosp Course Patient is 56 year old male with PMH of Dm, HTN, HLD, PAD with leg ampuation of left leg AKA, came in with non healing ulcer s/p debridement. I was consulted for severe PAD and possbile endovascular revascularization for possible severe PAD. Pt does have signs of ischemia on skin. Problems: Additional Assessment/Plan Stable contineu podiatry f/u pt wound is healing stable TANIA SEALS MD Jan 08, 2017 19:49
[2017-01-08 20:34] VITALS: BP 173/77; RESP 20
--- NOTE | 2017-01-08 20:46 | PDOCDIS ---
Discharge Instructions CONDITION Patient Condition: Stable HOME CARE INSTRUCTIONS: Diet Instructions: Low Fat /CholesterolSpecial Diet: carb controlled, low fat low chol, 2gna ACTIVITY: Activity Restrictions: Slowly Increase Activity Rest between Activity Avoid heavy lifting Do not operate Machinery Do not operate Power Tool Avoid Heavy Housework Bathing Restrictions: Sponge Bath REFERRALS Agency Name and Phone Number: [facility] Other Referrals f/u dr cobb [address] baker 1 wk LUIS ENRIQUE MAN MD Jan 08, 2017 20:46
--- NOTE | 2017-01-08 20:49 | PN ---
Date/Time of Note Date/Time of Note DATE: 01/08/17 TIME: 20:47 Assessment/Plan VTE Prophylaxis VTE Prophylaxis Intervention: other Lines/Catheters IV Catheter Type (from Nrs): Saline Lock Urinary Cath still in place: No Assessment/Plan Chief Complaint/Hosp Course dm htn ckd pvd s/p tma s/p debridement s/p lower ex angio and intervention esbl wounf mrsa s/p skin grafting plan per id and vascular and podiatry wound care snf Problems: Subjective 24 Hr Interval Summary Respiratory: no complaints Cardiovascular: no complaints Gastrointestinal: no complaints Exam/Review of Systems Vital Signs Vitals Vital Signs Date Time Temp Pulse Resp B/P Pulse Ox O2 Delivery O2 Flow Rate FiO2 01/08/17 20:34 97.9 81 20 173/77 100 01/06/17 21:00 Room Air Intake and Output 01/07/17 01/07/17 01/08/17 15:00 23:00 07:00 Intake Total 580 ml 1420 ml 800 ml Output Total 600 ml 400 ml 1400 ml Balance -20 ml 1020 ml -600 ml Exam Respiratory: clear to auscultation Cardiovascular: regular rate and rhythm Gastrointestinal: soft Musculoskeletal: No joint tenderness Extremities: edema (tr) Results Result Diagram: 01/07/17 0438 01/08/17 0447 Results 24 hrs Laboratory Tests Test 01/07/17 21:50 01/08/17 04:47 01/08/17 08:06 01/08/17 12:09 Bedside Glucose 173 164 234 H Blood Urea Nitrogen 24 H Creatinine 1.36 H Test 01/08/17 17:51 Bedside Glucose 306 H Medications Medications Current Medications Ibuprofen (Motrin) 600 mg Q6H PRN PO PAIN LEVEL 6-10; Start 12/19/16 at 18:30 Acetaminophen/ Hydrocodone Bitart ([place] (5/325)) 1 tab Q6H PRN PO PAIN LEVEL 6 -10 Last administered on 01/08/17 08:54; Admin Dose 1 TAB; Start 12/19/16 at 18: 30 Enoxaparin Sodium (Lovenox) 40 mg DAILY@07 SC Last administered on 01/08/17 06: 25; Admin Dose 40 MG; Start 12/20/16 at 07:00 Diagnostic Test (Pha) (Accucheck) 1 ea 02 XX Last administered on 01/07/17 02: 47; Admin Dose 1 EA; Start 12/20/16 at 02:00 Miscellaneous Information 1 ea NOTE XX ; Start 12/19/16 at 23:00 Glucose (Glutose) 15 gm Q15M PRN PO DECREASED GLUCOSE; Start 12/19/16 at 23:00 Glucose (Glutose) 22.5 gm Q15M PRN PO DECREASED GLUCOSE; Start 12/19/16 at 23: 00 Dextrose (D50w Syringe) 25 ml Q15M PRN IV DECREASED GLUCOSE; Start 12/19/16 at 23:00 Dextrose (D50w Syringe) 50 ml Q15M PRN IV DECREASED GLUCOSE; Start 12/19/16 at 23:00 Glucagon (Glucagen) 1 mg Q15M PRN IM DECREASED GLUCOSE; Start 12/19/16 at 23:00 Glucose (Glutose) 15 gm Q15M PRN BUCCAL DECREASED GLUCOSE; Start 12/19/16 at 23 :00 Ondansetron HCl (Zofran Inj) 4 mg Q6H PRN IV NAUSEA AND/OR VOMITING Last administered on 12/23/16 15:56; Admin Dose 4 MG; Start 12/22/16 at 18:00 Diphenhydramine HCl (Benadryl) 25 mg Q6H PRN IV ITCHING; Start 12/22/16 at 18: 00 Pantoprazole (Protonix Tab) 40 mg DAILY@06 PO Last administered on 01/08/17 06: 24; Admin Dose 40 MG; Start 12/23/16 at 06:00 Clonidine (Catapres) 0.1 mg Q6H PRN PO HIGH BP Last administered on 01/03/17 20 :16; Admin Dose 0.1 MG; Start 12/22/16 at 21:30 Morphine Sulfate (morphine) 2 mg Q4H PRN IV PAIN Last administered on 01/03/17 13:40; Admin Dose 2 MG; Start 12/23/16 at 16:00 Clopidogrel Bisulfate (plaVIX) 75 mg DAILY PO Last administered on 01/08/17 08: 47; Admin Dose 75 MG; Start 12/23/16 at 17:00 Mupirocin (Bactroban) 1 applic DAILY TOP Last administered on 01/06/17 09:52; Admin Dose 1 APPLIC; Start 12/23/16 at 21:00 Ferrous Sulfate (Ferrous Sulfate (Ec)) 325 mg TID PO Last administered on 12:54; Admin Dose 325 MG; Start 01/04/17 at 13:00 Voriconazole (Vfend) 200 mg BID PO Last administered on 01/08/17 08:47; Admin Dose 200 MG; Start 01/05/17 at 21:00 Insulin Detemir (Levemir) 15 unit QHS SC ; Start 01/08/17 at 21:00 LUIS ENRIQUE MAN MD Jan 08, 2017 20:49
[2017-01-08] MEDS ORDERED: INSULIN DETEMIR [LEVEMIR] 3ML CART SC SCH (21:00)
[2017-01-09 01:00] VITALS: BP 126/60; PULSE 78; RESP 18
[2017-01-09] MEDS: ACCU-CHEK XX SCH (02:00)
[2017-01-09] MEDS: PANTOPRAZOLE (EC) 40 MG TAB PO SCH (05:33)
[2017-01-09] MEDS: ENOXAPARIN 40 MG/0.4 ML SYG SC SCH (05:35)
[2017-01-09 08:37] VITALS: BP 128/70; RESP 18
[2017-01-09] MEDS: CLOPIDOGREL 75 MG TAB PO SCH (08:42)
[2017-01-09] MEDS: VORICONAZOLE 200 MG TAB PO SCH (08:42)
[2017-01-09] MEDS: FERROUS SULFATE (EC) 325 MG TAB PO SCH ×2 (08:42→12:59)
[2017-01-09] MEDS: INSULIN ASPART [NOVOLOG] 3 ML PEN SC SCH ×3 (08:48→17:45)
[2017-01-09] MEDS: MUPIROCIN 2% 22 GM OINT TOP SCH (09:00)
--- NOTE | 2017-01-09 09:18 | CONS ---
Date/Time of Note Date/Time of Note DATE: 01/09/17 TIME: :17 Consult Date/Type/Reason Admit Date/Time Dec 19, 2016 at 14:36 Initial Consult Date 12/21/16 Type of Consultation: Cardiac and Vascular Ordering Provider: JEWELS MCKNIGHT DPM Objective Vital Signs Date Time Temp Pulse Resp B/P Pulse Ox O2 Delivery O2 Flow Rate FiO2 01/09/17 08:37 97.8 79 18 128/70 99 01/09/17 01:00 Room Air Intake and Output 01/08/17 01/08/17 01/09/17 15:00 23:00 07:00 Intake Total 920 ml 700 ml Output Total 600 ml 1000 ml Balance 320 ml -300 ml Results/Medications Result Diagram: 01/07/17 0438 01/08/17 0447 Results 24 hrs Laboratory Tests Test 01/08/17 12:09 01/08/17 17:51 01/08/17 20:40 01/09/17 02:06 Bedside Glucose 234 H 306 H 275 H 243 H Test 01/09/17 07:48 Bedside Glucose 195 Medications Current Medications Ibuprofen (Motrin) 600 mg Q6H PRN PO PAIN LEVEL 6-10; Start 12/19/16 at 18:30 Acetaminophen/ Hydrocodone Bitart ([place] (5/325)) 1 tab Q6H PRN PO PAIN LEVEL 6 -10 Last administered on 01/08/17 08:54; Admin Dose 1 TAB; Start 12/19/16 at 18: 30 Enoxaparin Sodium (Lovenox) 40 mg DAILY@07 SC Last administered on 01/09/17 05: 35; Admin Dose 40 MG; Start 12/20/16 at 07:00 Diagnostic Test (Pha) (Accucheck) 1 ea 02 XX Last administered on 01/07/17 02: 47; Admin Dose 1 EA; Start 12/20/16 at 02:00 Miscellaneous Information 1 ea NOTE XX ; Start 12/19/16 at 23:00 Glucose (Glutose) 15 gm Q15M PRN PO DECREASED GLUCOSE; Start 12/19/16 at 23:00 Glucose (Glutose) 22.5 gm Q15M PRN PO DECREASED GLUCOSE; Start 12/19/16 at 23: 00 Dextrose (D50w Syringe) 25 ml Q15M PRN IV DECREASED GLUCOSE; Start 12/19/16 at 23:00 Dextrose (D50w Syringe) 50 ml Q15M PRN IV DECREASED GLUCOSE; Start 12/19/16 at 23:00 Glucagon (Glucagen) 1 mg Q15M PRN IM DECREASED GLUCOSE; Start 12/19/16 at 23:00 Glucose (Glutose) 15 gm Q15M PRN BUCCAL DECREASED GLUCOSE; Start 12/19/16 at 23 :00 Ondansetron HCl (Zofran Inj) 4 mg Q6H PRN IV NAUSEA AND/OR VOMITING Last administered on 12/23/16 15:56; Admin Dose 4 MG; Start 12/22/16 at 18:00 Diphenhydramine HCl (Benadryl) 25 mg Q6H PRN IV ITCHING; Start 12/22/16 at 18: 00 Pantoprazole (Protonix Tab) 40 mg DAILY@06 PO Last administered on 01/09/17 05: 33; Admin Dose 40 MG; Start 12/23/16 at 06:00 Clonidine (Catapres) 0.1 mg Q6H PRN PO HIGH BP Last administered on 01/08/17 20 :37; Admin Dose 0.1 MG; Start 12/22/16 at 21:30 Morphine Sulfate (morphine) 2 mg Q4H PRN IV PAIN Last administered on 01/03/17 13:40; Admin Dose 2 MG; Start 12/23/16 at 16:00 Clopidogrel Bisulfate (plaVIX) 75 mg DAILY PO Last administered on 01/09/17 08: 42; Admin Dose 75 MG; Start 12/23/16 at 17:00 Mupirocin (Bactroban) 1 applic DAILY TOP Last administered on 01/06/17 09:52; Admin Dose 1 APPLIC; Start 12/23/16 at 21:00 Ferrous Sulfate (Ferrous Sulfate (Ec)) 325 mg TID PO Last administered on 08:42; Admin Dose 325 MG; Start 01/04/17 at 13:00 Voriconazole (Vfend) 200 mg BID PO Last administered on 01/09/17 08:42; Admin Dose 200 MG; Start 01/05/17 at 21:00 Insulin Detemir (Levemir) 15 unit QHS SC ; Start 01/08/17 at 21:00 Assessment/Plan Chief Complaint/Hosp Course Patient is 56 year old male with PMH of Dm, HTN, HLD, PAD with leg ampuation of left leg AKA, came in with non healing ulcer s/p debridement. I was consulted for severe PAD and possbile endovascular revascularization for possible severe PAD. Pt does have signs of ischemia on skin. Problems: Additional Assessment/Plan d/ planning pt is stable SNF awaiting doing fine Dr Hedrick will cover this and thursday. TANIA SEALS MD Jan 09, 2017 09:18
[2017-01-09 18:30] VITALS: BP 154/70; PULSE 75; RESP 17
== END 2017-01-09 18:35 | DRG 271 ==
LOC: REC 14:36 → EDSTATUS 17:00 → MS1 19:46
PROVIDERS: ADMIT Podiatrist Foot & Ankle Surgery; ATTEND Podiatrist Foot & Ankle Surgery
PROC: 0JDQ0ZZ Extraction of Right Foot Subcutaneous Tissue and Fascia, Open Approach (ICD-10-PCS; 2016-12-19)
PROC: 0QBN0ZX Excision of Right Metatarsal, Open Approach, Diagnostic (ICD-10-PCS; 2016-12-19)
PROC: 0QBN0ZX Excision of Right Metatarsal, Open Approach, Diagnostic (ICD-10-PCS; 2016-12-22)
PROC: 0QBN0ZZ Excision of Right Metatarsal, Open Approach (ICD-10-PCS; 2016-12-22)
PROC: 047K341 Dilation of Right Femoral Artery with Drug-eluting Intraluminal Device, using Drug-Coated Balloon, Percutaneous Approach (ICD-10-PCS; 2016-12-23)
PROC: 047M3Z1 Dilation of Right Popliteal Artery using Drug-Coated Balloon, Percutaneous Approach (ICD-10-PCS; 2016-12-23)
PROC: 04CT3ZZ Extirpation of Matter from Right Peroneal Artery, Percutaneous Approach (ICD-10-PCS; 2016-12-23)
PROC: 047T3ZZ Dilation of Right Peroneal Artery, Percutaneous Approach (ICD-10-PCS; 2016-12-23)
PROC: 04CR3ZZ Extirpation of Matter from Right Posterior Tibial Artery, Percutaneous Approach (ICD-10-PCS; 2016-12-23)
PROC: 047R3ZZ Dilation of Right Posterior Tibial Artery, Percutaneous Approach (ICD-10-PCS; 2016-12-23)
PROC: 04CP3ZZ Extirpation of Matter from Right Anterior Tibial Artery, Percutaneous Approach (ICD-10-PCS; 2016-12-23)
PROC: 047P3ZZ Dilation of Right Anterior Tibial Artery, Percutaneous Approach (ICD-10-PCS; 2016-12-23)
PROC: [UNRECOGNIZED PROCEDURE] (2016-12-23)
PROC: 04CM3ZZ Extirpation of Matter from Right Popliteal Artery, Percutaneous Approach (ICD-10-PCS; 2016-12-23)
PROC: 04CK3ZZ Extirpation of Matter from Right Femoral Artery, Percutaneous Approach (ICD-10-PCS; principal; 2016-12-23 11:30)
PROC: 0KBV0ZZ Excision of Right Foot Muscle, Open Approach (ICD-10-PCS; 2016-12-29)
PROC: 0MBV0ZZ Excision of Right Lower Extremity Bursa and Ligament, Open Approach (ICD-10-PCS; 2016-12-29)
PROC: 0KBV0ZZ Excision of Right Foot Muscle, Open Approach (ICD-10-PCS; 2017-01-02)
PROC: 0MBV0ZZ Excision of Right Lower Extremity Bursa and Ligament, Open Approach (ICD-10-PCS; 2017-01-02)
PROC: 0HRMX74 Replacement of Right Foot Skin with Autologous Tissue Substitute, Partial Thickness, External Approach (ICD-10-PCS; 2017-01-06)
PROC: 0HBHXZZ Excision of Right Upper Leg Skin, External Approach (ICD-10-PCS; 2017-01-06)
DX: E11.51 Type 2 diabetes mellitus with diabetic peripheral angiopathy without gangrene (principal); L03.115 Cellulitis of right lower limb; E11.22 Type 2 diabetes mellitus with diabetic chronic kidney disease; E11.42 Type 2 diabetes mellitus with diabetic polyneuropathy; I70.235 Atherosclerosis of native arteries of right leg with ulceration of other part of foot; I74.3 Embolism and thrombosis of arteries of the lower extremities; E11.621 Type 2 diabetes mellitus with foot ulcer; F17.200 Nicotine dependence, unspecified, uncomplicated; Z79.84 Long term (current) use of oral hypoglycemic drugs; I12.9 Hypertensive chronic kidney disease with stage 1 through stage 4 chronic kidney disease, or unspecified chronic kidney disease; B96.1 Klebsiella pneumoniae [K. pneumoniae] as the cause of diseases classified elsewhere; B96.4 Proteus (mirabilis) (morganii) as the cause of diseases classified elsewhere; N18.9 Chronic kidney disease, unspecified; T81.89XA Other complications of procedures, not elsewhere classified, initial encounter; Y92.238 Other place in hospital as the place of occurrence of the external cause; Y83.5 Amputation of limb(s) as the cause of abnormal reaction of the patient, or of later complication, without mention of misadventure at the time of the procedure; B95.2 Enterococcus as the cause of diseases classified elsewhere; B95.62 Methicillin resistant Staphylococcus aureus infection as the cause of diseases classified elsewhere; Z89.612 Acquired absence of left leg above knee
CPT/HCPCS: 75630; 80048; 80053; 80202; 82565; 82962; 84520; 85025; 87070; 87075; 87102; 87116; 88304; 88311; 93306; 93922; 93926; C1714; C1725; C1760; C1769; C1874; C1887; C1894; C2623; J0690; J1335; J1644; J1650; J1815; J2250; J2270; J2405; J2543; J2997; J3010; J3370; J7030; J7040; J7050; Q9967

== ENCOUNTER 2017-07-13 15:31 | Inpatient (IN) | payer OTHER ==
[~2017-07-13] VITALS: Ht 170.2 cm; Wt 90.2 kg
[~2017-07-13 15:31] MED LIST changes: -ASC500 PO; -CEFAZOLIN 1 GM INJ ONE; -CLOP75TA27 PO; -CRAN425C PO; +DEXT38GE15 PO; -DOCU-144 PO; -ENAL10TA PO; -FURO20TA3 PO; -MULTI PO; -MUPI15CR9 TOP; +NITR0.4T32 SL; -NITR0.4T6 SL
[2017-07-13 17:56] VITALS: TEMP 99.1
[2017-07-13] MEDS ORDERED: PIPER-TAZO 3.375 GM IV (PMX) 100 ML IVPB STA (18:18)
[2017-07-13] MEDS ORDERED: VANCOMYCIN 1 GM (PMX) 250 ML IVPB ONE (18:30)
[2017-07-13 18:39] LABS: BASOPHILS % 0.3 % (0.0-2.0); EOSINOPHILS # 0.1 10^3/ul (0.0-0.5); EOSINOPHILS % 0.8 % (0.0-7.0); HEMATOCRIT 36.3 % (42.0-52.0); LYMPHOCYTES # 1.3 10^3/ul (0.8-2.9); LYMPHOCYTES % 10.2 % (15.0-51.0); MEAN CORPUSCULAR HEMOGLOBIN 28.4 pg (29.0-33.0); MEAN CORPUSCULAR HGB CONC 33.1 g/dl (32.0-37.0); MEAN PLATELET VOLUME 10.7 fl (7.4-10.4); MONOCYTE # 0.9 10^3/ul (0.3-0.9); MONOCYTES % 7.4 % (0.0-11.0); NEUTROPHIL # 10.2 10^3/ul (1.6-7.5); NEUTROPHILS % 80.8 % (39.0-77.0); PLATELET COUNT 251 10^3/UL (140-415); RED BLOOD COUNT 4.22 10^6/ul (4.70-6.10); WHITE BLOOD COUNT 12.7 10^3/ul (4.8-10.8)
[2017-07-13 18:59] LABS: ALBUMIN/GLOBULIN RATIO 0.9; BILIRUBIN,INDIRECT 0.2 mg/dl (0-1.1); BILIRUBIN,TOTAL 0.2 mg/dl (0.2-1.3); C-REACTIVE PROTEIN 7.6 mg/dl (0.0-0.9); CALCIUM 9.2 mg/dl (8.4-10.2); CREATININE 1.41 mg/dl (0.61-1.24); POTASSIUM 4.8 mmol/L (3.5-5.1); TOTAL PROTEIN 8.4 g/dl (6.1-8.1)
[2017-07-13] MEDS ORDERED: SODIUM CHLORIDE 0.9% 1L BAG IV* STA (19:20)
[2017-07-13] MEDS ORDERED: ONDANSETRON 4 MG INJ IV PRN ×2 (19:30→20:30)
[2017-07-13] MEDS ORDERED: ACETAMINOPHEN 325 MG TAB PO PRN ×3 (19:30→20:30)
--- NOTE | 2017-07-13 19:54 | ERA ---
ER Documentation Chief Complaint Date/Time DATE: 07/13/17 TIME: 19:[address] Chief Complaint [address] BY DR[address] MAN FOR RIGHT FOOT WOUND CHECK HPI 56-year-old male history of diabetes who presents to the emergency department for evaluation of a wound to the right foot. The patient is status post partial metatarsal amputation approximately 6 months to 1 year ago. He went to an urgent care clinic because of opening of the wound to the right foot along the medial aspect. He denies any fevers or chills drainage or discharge, no significant pain. He otherwise has no complaints. A director phone was used. ROS All systems reviewed and are negative except as per history of present illness. Medications Home Meds Active Scripts Pantoprazole* (Pantoprazole*) 40 Mg Tablet., 40 MG PO DAILY@06 for 28 Days Prov:LUIS ENRIQUE MAN MD 04/02/16 Reported Medications Dextrose (Glucose Gel) 38 Gm Gel..gram., 22.5 GM PO [id number] 12/19/16 Acetaminophen* (Acetaminophen*) 650 Mg Tablet, 650 MG PO Q4H WHILE AWAKE Y for PAIN LEVEL 1-5, #30 TAB 10/10/16 Hydrocodone/Acetaminophen ([place] 5-325 Tablet) 1 Each Tablet, 1 EACH PO Q4H WHILE AWAKE Y for PAIN LEVEL 6-10, TAB 10/10/16 Magnesium Hydroxide* (Milk Of Magnesia*) 400 Mg/5 Ml Oral.susp, 30 ML PO DAILY Y for CONSTIPATION, ML 10/10/16 Glimepiride* (Glimepiride*) 1 Mg Tablet, 1 MG PO WITH BREAKFAST LUNCH, TAB 10/10/16 Na Phos,M-B/Na Phos,Di-Ba (ENEMA READY TO USE) 135 Ml Enema, 135 ML RC Q48 HOURS Y for CONSTIPATION, ENEMA 10/10/16 Bisacodyl (Dulcolax) 10 Mg Supp.rect, 10 MG RC, SUPP.RECT 10/10/16 Nitroglycerin* (Nitroglycerin* SL) 0.4 Mg Tab.subl, 0.4 MG SL Q5MIN Y for CHEST PAIN, BOTTLE 03/25/16 Metformin* (Glucophage*) 850 Mg Tablet, 850 MG PO WITH BREAKFAST DINNE, #30 TAB 03/25/16 Allergies Allergies: Coded Allergies: No Known Allergy (Unverified , 12/19/16) PMhx/Soc History of Surgery: Yes (RT FOOT SURGERY,RT TOE AMPUTATION,LT AKA) Anesthesia Reaction: No Hx Neurological Disorder: No Hx Respiratory Disorders: No Hx Cardiac Disorders: Yes (HTN,HLD) Hx Psychiatric Problems: No Hx Miscellaneous Medical Probl: Yes (PVD,ANEMIA) Hx Alcohol Use: No Hx Substance Use: No Hx Tobacco Use: Yes Smoking Status: Current every day smoker FmHx Family History: diabetes Physical Exam Vitals Vital Signs Date Time Temp Pulse Resp B/P Pulse Ox O2 Delivery O2 Flow Rate FiO2 07/13/17 17:56 99.1 104 20 173/84 98 07/13/17 16:12 99.4 102 18 192/82 98 Physical Exam General: Well developed, well nourished, no acute distress Head: Normocephalic, atraumatic. Eyes: Pupils equally reactive, EOM intact ENT: Moist mucous membranes Neck: Supple, no lymphadenopathy Respiratory: Lungs clear bilaterally, no distress Cardiovascular: RRR, no murmurs, rubs, or gallops Abdominal: Soft, non-tender, non-distended, no peritoneal signs : Deferred MSK: Left lower extremity AKA, right lower extremity with partial metatarsal amputation, the medial aspect of the surgical wound has dehisced, no drainage or discharge or malodorous smell. 1+ dorsalis pedis pulses. No streaking or warmth or tenderness at this point. No crepitus. Neurologic: Alert and oriented, moving all extremities, normal speech, no focal weakness, no cerebellar signs Skin: No rash Psych: Normal mood Result Diagram: 07/13/17 1615 07/13/17 1615 Results 24 hrs Laboratory Tests Test 07/13/17 16:15 White Blood Count 12.710^3/ul Red Blood Count 4.2210^6/ul Hemoglobin 12.0g/dl Hematocrit 36.3% Mean Corpuscular Volume 86.0fl Mean Corpuscular Hemoglobin 28.4pg Mean Corpuscular Hemoglobin Concent 33.1g/dl Red Cell Distribution Width 13.0% Platelet Count 59576^3/UL Mean Platelet Volume 10.7fl Neutrophils % 80.8% Lymphocytes % 10.2% Monocytes % 7.4% Eosinophils % 0.8% Basophils % 0.3% Nucleated Red Blood Cells % 0.0/100WBC Neutrophils # 10.210^3/ul Lymphocytes # 1.310^3/ul Monocytes # 0.910^3/ul Eosinophils # 0.110^3/ul Basophils # 0.010^3/ul Nucleated Red Blood Cells # 0.010^3/ul Erythrocyte Sedimentation Rate 125mm/Hr Sodium Level 141mmol/L Potassium Level 4.8mmol/L Chloride Level 103mmol/L Carbon Dioxide Level 27mmol/L Anion Gap 16 Blood Urea Nitrogen 18mg/dl Creatinine 1.41mg/dl Glucose Level 206mg/dl Lactic Acid Level 2.5mmol/L Calcium Level 9.2mg/dl Total Bilirubin 0.2mg/dl Direct Bilirubin 0.00mg/dl Indirect Bilirubin 0.2mg/dl Aspartate Amino Transf (AST/SGOT) 12IU/L Alanine Aminotransferase (ALT/SGPT) 23IU/L Alkaline Phosphatase 102IU/L C-Reactive Protein 7.6mg/dl Total Protein 8.4g/dl Albumin 4.0g/dl Globulin 4.40g/dl Albumin/Globulin Ratio 0.90 Current Medications Medications (Trade) Dose Ordered Sig/Eryn Route PRN Reason Start Time Stop Time Status Last Admin Dose Admin Vancomycin HCl 250 ml @ 125 mls/hr ONCE ONCE IVPB 07/13/17 18:30 07/13/17 20:29 Piperacillin Sod/ Tazobactam Sod (Zosyn 3.375gm/ 100 ml (Pmx)) 100 ml @ 200 mls/hr ONCE STAT IVPB 07/13/17 18:18 07/13/17 18:47 DC 07/13/17 19:25 Ondansetron HCl (Zofran Inj) 4 mg BRIDGE ORDER PRN IV NAUSEA AND/OR VOMITING 07/13/17 19:30 07/14/17 19:29 Acetaminophen (Tylenol Tab) 650 mg ER BRIDGE PRN PO MILD PAIN/FEVER 07/13/17 19:30 07/14/17 19:29 Sodium Chloride (NS) 2,710 ml BOLUS OVER 2 HOURS STAT IV* 07/13/17 19:20 07/13/17 19:21 DC 07/13/17 19:25 Procedures/MDM EKG, MONITORS, & DIAGNOSTIC IMAGING: X-ray right foot: PENDING READ LAB INTERPRETATION: Leukocytosis of 12.7, elevated ESR, lactic acid 2.5, elevated CRP MEDICAL DECISION MAKING: The patient presents to the emergency room for evaluation of right foot wound. This appears to be subacute and chronic however the patient technically qualifies for Sirs criteria with potential source. This is likely consistent with osteomyelitis, no evidence of necrotizing process. ER COURSE: The patient was given 30 cc/kg of saline. No indication for antipyretics. Vancomycin and Zosyn provided. I spoke to the patient's library technical assistant, Dr. King will consult on the case. Patient is hemodynamically stable and does not require pressors or central line. Continue to monitor lactic acid clearance. He is otherwise well-appearing in the emergency department. I kept the patient and/or family informed of laboratory and diagnostic imaging results throughout the emergency room course. DISPOSITION PLAN: Medical surgical admission for management of osteomyelitis of the right lower extremity CONSULTATION: Accepting care team and consultations: I discussed the current laboratory data, diagnostic imaging and emergency care provided. Admitting team: Dr. Man Admitting team indication: Insurance directed Consulting services: Indoor Plant Technician, Dr. King Sepsis Documentation: Patient's infectious symptoms have not stabilized and the patient is at risk of rapid decompensation. The patient will be admitted for careful hydration, antibiotic therapy, and infectious source control. SEVERE SEPSIS CRITERIA: Infectious source: Right lower extremity and foot osteomyelitis End organ damage indicated by: [Lactate > 2.0 mmol/L SEPSIS MANAGEMENT Time of recognition of severe sepsis/septic shock: Approximately 7 PM upon laboratory results 3 HOUR BUNDLE Blood cultures x 2 before broad-spectrum antibiotics: Yes 30 ml/kg NS bolus pending completion Initial lactate 2.5 Repeat lactate pending repeat SEPTIC SHOCK ASSESSMENT: No lactic acid > 4.0 No persistent hypotension (SBP < 90 or 40 mmHg drop, MAP < 65) despite 30 mL/kg IV fluid bolus VOLUME REASSESSMENT FOR SEPTIC SHOCK: No criteria for septic shock PERSISTENT HYPOTENSION TREATMENT: Comfort care No Central line Not Required Vasopressor started Not required I considered further perfusion assessment with CVP measurement, SCVO2, bedside ultrasound volume assessment, passive leg raise, trial of further fluid bolus. And proceeded with 30 ml/kg fluid bolus of NSS, broad spectrum antbiotics, and admission. CRITICAL CARE Critical care time 35 minutes Emergent fluid management while maintaining close respiratory support. Provision of immediate and broad-spectrum antibiotic therapy. Simultaneous assessment for possible sources in order to direct targeted therapy. Consideration for invasive and chemical support to prevent cardiopulmonary collapse. Critical care time is independent of procedures performed. Departure Diagnosis: Primary Impression: Foot osteomyelitis, right Qualified Code: M86.9 - Osteomyelitis of right foot, unspecified type Additional Impressions: Sepsis Qualified Code: A41.9 - Sepsis, due to unspecified organism Acute renal insufficiency Condition: Stable FELIPE WHITE MD Jul 13, 2017 19:54
[2017-07-13] MEDS: GLUCOSE GEL 15 GRAM TUBE PO SCH (20:00)
[2017-07-13] MEDS ORDERED: MAGNESIUM HYDROXIDE 30ML CUP PO PRN ×2 (20:00→20:30)
[2017-07-13] MEDS ORDERED: NITROGLYCERIN (SL) 0.4 MG TAB SL PRN (20:00)
[2017-07-13] MEDS ORDERED: HYDROCODONE/APAP (5/325) TAB PO PRN (20:00)
--- NOTE | 2017-07-13 20:17 | RADRPT ---
PROCEDURE: XR Foot 3 Views. CLINICAL INDICATION: Right foot pain. Possible osteomyelitis. TECHNIQUE: AP, oblique and lateral views of the right foot were obtained. The images were reviewe d on a PACS workstation. COMPARISON: March 25, 2016 FINDINGS: Midfoot amputation at the level of the mid metatarsals is identified. The osseous structures are oth erwise intact. No gross destructive bony lesion or gross bony erosion is identified. Severe narrow ing with near fusion of the first tarsometatarsal joint is identified. Severe narrowing with near fu kanika of the third tarsometatarsal joint is observed. Vascular calcifications are seen surrounding t he ankle and in the foot. Mild soft tissue irregularity is identified over the first metatarsal stum p and may reflect the site of skin ulceration. IMPRESSION: No visualized radiographic evidence of osteomyelitis. If there is clinical suspicion for osteomyelit is, further characterization with MRI or bone scan is recommended. Midfoot amputation. Severe degenerative change at the first and third tarsometatarsal joints. Soft tissue irregularity over the first metatarsal stump that may reflect a site of skin ulceration. Vascular calcifications. RPTAT: AA .Rusty Hart MD, MD Date Time Electronically viewed and signed by .Rusty Hart MD, MD on 07/13/2017 20:17 .P/
--- NOTE | 2017-07-13 20:18 | QN ---
Documentation Comment [id number] LUIS ENRIQUE MAN MD Jul 13, 2017 20:18
[2017-07-13 20:27] VITALS: Ht 170.2 cm; Wt 90.2 kg
[2017-07-13] MEDS ORDERED: BISACODYL (EC) 5 MG TAB PO PRN (20:30)
[2017-07-13] MEDS ORDERED: ZOLPIDEM 5 MG TAB PO PRN (20:30)
[2017-07-13] MEDS ORDERED: DOCUSATE SODIUM 100 MG CAP PO PRN (20:30)
[2017-07-13] MEDS ORDERED: NACL 0.9% 3 ML SYG IV SCH (20:30)
[2017-07-13 20:33] VITALS: BP 169/80; PULSE 75; RESP 19
[2017-07-13] MEDS ORDERED: GLUCOSE GEL 15 GRAM TUBE BUCCAL PRN (21:00)
[2017-07-13] MEDS: INSULIN ASPART [NOVOLOG] 3 ML PEN SC SCH (21:00)
[2017-07-13] MEDS ORDERED: GLUCOSE GEL 15 GRAM TUBE PO PRN ×2 (21:00)
[2017-07-13] MEDS ORDERED: DEXTROSE 50% 50 ML SYRINGE IV PRN ×2 (21:00)
[2017-07-13] MEDS ORDERED: GLUCAGON 1 MG INJ IM PRN (21:00)
[2017-07-13] MEDS: SOD CHLORIDE 0.9% 1,000 ML IV SCH (21:54)
[2017-07-14 02:00] VITALS: BP 145/67; RESP 20
[2017-07-14] MEDS: ACCU-CHEK XX SCH (02:00)
--- NOTE | 2017-07-14 03:51 | HP ---
DATE OF ADMISSION: 07/13/2017 HISTORY OF PRESENT ILLNESS: The patient is with a history of diabetic foot. The patient has a hist ory of hypertension, diabetes mellitus, CKD, PVD, history of right foot transmetatarsal amputation, history of ESBL, history of atherosclerotic heart disease and dyslipidemia. The patient's other pas t medical history is positive for left [id number] amputation, presented with right foot wound, s ent from the clinic. The patient denies any fever, chills or rigors. He is normally seen by Dr. Rafael gilmore. Blood pressure 173/84, temperature 99.1. WBC 12.7, hematocrit 36.3, lactic acid 2.5, BUN 18 , creatinine 1.41. PAST MEDICAL HISTORY: As mentioned above, diabetes mellitus, hypertension, CKD, PVD, right transmet atarsal amputation, left [id number] amputation, dyslipidemia, history of ATN. ALLERGY HISTORY: NEGATIVE. FAMILY HISTORY: Negative. SOCIAL HISTORY: Negative. MEDICATION HISTORY: 1. Tylenol. 2. Bisacodyl. 3. Amaryl. 4. Hydrocodone. 5. Magnesium oxide. 6. Metformin. 7. Nitroglycerin. 8. Protonix. REVIEW OF SYSTEMS: HEENT: . RESPIRATORY: Unremarkable. CARDIOVASCULAR: Unremarkable. ABDOMEN: Unremarkable. EXTREMITIES: As mentioned above. CENTRAL NERVOUS SYSTEM: Unremarkable. PHYSICAL EXAMINATION: GENERAL: The patient is awake and alert. VITAL SIGNS: Pulse 80, blood pressure of 173/84. HEAD: Atraumatic, normocephalic. Pupils, no pallor or conjunctival icterus. NECK: Supple. LUNGS: Clear. CARDIOVASCULAR: S1, S2 normal. ABDOMEN: Soft, nontender. Bowel sounds present. No palpable mass. EXTREMITIES: Left above-knee amputation noted. Right transmetatarsal amputation site has redness a nd discharge noted. CENTRAL NERVOUS SYSTEM: The patient is awake, alert, no deficit. LABORATORY DATA: As mentioned above. IMPRESSION: 1. Right foot wound cellulitis. 2. Other diagnoses of diabetes mellitus, hypertension, chronic kidney disease. PLAN: To obtain podiatry consultation. Continue home medications, sliding scale, antibiotics. Ord ers were done. Dictated By: LUIS ENRIQUE MERCADO/NTS Conf#: [id number] DID#: [id number]
[2017-07-14] MEDS: PANTOPRAZOLE (EC) 40 MG TAB PO SCH (05:54)
--- NOTE | 2017-07-14 07:08 | CONS ---
Date/Time of Note Date/Time of Note DATE: 07/14/17 TIME: 07:05 Assessment/Plan Assessment/Plan Chief Complaint/Hosp Course Left AKA. Stable. Right foot S/P TMA. Medial side with open wound. Continue Vanco and Zosyn. Awaiting ID consult. Consent for bedside debridement done. Will plan for bedside debridement. Wound care with gentamicin ointment, Mepilex, and DSD q24h. Will monitor. Problems: Consultation Date/Type/Reason Admit Date/Time Jul 13, 2017 at 19:12 Date of Consultation: Jul 14, 2017 Type of Consultation: Podiatry: coverage Reason for Consultation Right foot wound, cellulitis. Hx of Present Illness Pt came through ED for right foot wound. S/P right foot TMA. Pt concerned about medial side of TMA site with open wound. Past Surgical History Past Surgical Hx: other Social History Smoking Status: Smoker,current status unk Exam/Review of Systems Vital Signs Vitals Vital Signs Date Time Temp Pulse Resp B/P Pulse Ox O2 Delivery O2 Flow Rate FiO2 07/14/17 02:00 100.6 99 20 145/67 98 07/13/17 20:33 Room Air Intake and Output 07/13/17 07/13/17 07/14/17 15:00 23:00 07:00 Intake Total 100 ml 1450 ml Output Total 500 ml Balance 100 ml 950 ml Exam Extremities: Left lower extremity AKA. Right lower extremity with TMA, Medial border of TMA open 1.5 x 1.5 cm, to subcutaneous layer, mixed granular and fibrotic. No drainage, no malodor. No undermining. No probing. Results Result Diagram: 07/13/17 1615 07/13/17 1615 Results 24 hrs Laboratory Tests Test 07/13/17 16:15 07/13/17 20:00 07/13/17 21:51 07/13/17 22:44 White Blood Count 12.7 #H Red Blood Count 4.22 #L Hemoglobin 12.0 #L Hematocrit 36.3 #L Mean Corpuscular Volume 86.0 Mean Corpuscular Hemoglobin 28.4 L Mean Corpuscular Hemoglobin Concent 33.1 Red Cell Distribution Width 13.0 Platelet Count 251 Mean Platelet Volume 10.7 H Neutrophils % 80.8 H Lymphocytes % 10.2 L Monocytes % 7.4 Eosinophils % 0.8 Basophils % 0.3 Nucleated Red Blood Cells % 0.0 Neutrophils # 10.2 H Lymphocytes # 1.3 Monocytes # 0.9 Eosinophils # 0.1 Basophils # 0.0 Nucleated Red Blood Cells # 0.0 Erythrocyte Sedimentation Rate 125 H Sodium Level 141 Potassium Level 4.8 Chloride Level 103 Carbon Dioxide Level 27 Anion Gap 16 Blood Urea Nitrogen 18 Creatinine 1.41 H Glucose Level 206 Lactic Acid Level 2.5 *H 1.3 1.1 Calcium Level 9.2 Total Bilirubin 0.2 Direct Bilirubin 0.00 Indirect Bilirubin 0.2 Aspartate Amino Transf (AST/SGOT) 12 L Alanine Aminotransferase (ALT/SGPT) 23 Alkaline Phosphatase 102 C-Reactive Protein 7.6 H Total Protein 8.4 H Albumin 4.0 Globulin 4.40 H Albumin/Globulin Ratio 0.90 Bedside Glucose 177 Medications Medications Current Medications Glucose (Glutose) 22.5 gm [id number] PO ; Start 07/13/17 at 20:00 Magnesium Hydroxide (Milk Of Mag) 30 ml DAILY PRN PO CONSTIPATION; Start at 20:00 Nitroglycerin (Nitroglycerin (Sl Tab) 0.4 Mg) 1 tab [id number] PRN SL CHEST PAIN ; Start 07/13/17 at 20:00 Pantoprazole (Protonix Tab) 40 mg DAILY@06 PO Last administered on 07/14/17 05:54; Admin Dose 40 MG; Start 07/14/17 at 06:00 Diagnostic Test (Pha) 1 ea 1 ea 02 XX ; Start 07/14/17 at 02:00 Sodium Chloride (NS) 1,000 ml @ 50 mls/hr Q20H IV Last administered on 21:54; Admin Dose 50 MLS/HR; Start 07/13/17 at 20:01 Ondansetron HCl (Zofran Inj) 4 mg Q6H PRN IV NAUSEA AND/OR VOMITING; Start 07/13/17 at 20:30 Acetaminophen (Tylenol Tab) 650 mg Q6H PRN PO PAIN LEVEL 1-3 OR FEVER Last administered on 07/14/17 04:40; Admin Dose 650 MG; Start 07/13/17 at 20:30 Docusate Sodium (Colace) 100 mg Q12H PRN PO CONSTIPATION; Start 07/13/17 at 20: 30 Magnesium Hydroxide (Milk Of Mag) 30 ml DAILY PRN PO CONSTIPATION; Start at 20:30 Bisacodyl (Dulcolax) 5 mg DAILY PRN PO CONSTIPATION; Start 07/13/17 at 20:30 Zolpidem Tartrate (Ambien) 5 mg QHS PRN PO SLEEP; Start 07/13/17 at 20:30 Enoxaparin Sodium 40 mg 40 mg DAILY SC ; Start 07/14/17 at 09:00 Cefepime HCl (Maxipime 1gm/50 ml (Pmx)) 50 ml @ 100 mls/hr DAILY IVPB ; Start 07/14/17 at 09:00 Miscellaneous Information 1 ea NOTE XX ; Start 07/13/17 at 21:00 Glucose (Glutose) 15 gm Q15M PRN PO DECREASED GLUCOSE; Start 07/13/17 at 21:00 Glucose (Glutose) 22.5 gm Q15M PRN PO DECREASED GLUCOSE; Start 07/13/17 at 21: 00 Dextrose (D50w Syringe) 25 ml Q15M PRN IV DECREASED GLUCOSE; Start 07/13/17 at 21:00 Dextrose (D50w Syringe) 50 ml Q15M PRN IV DECREASED GLUCOSE; Start 07/13/17 at 21:00 Glucagon (Glucagen) 1 mg Q15M PRN IM DECREASED GLUCOSE; Start 07/13/17 at 21:00 Glucose (Glutose) 15 gm Q15M PRN BUCCAL DECREASED GLUCOSE; Start 07/13/17 at 21 :00 BARRY OQUENDO DPM Jul 14, 2017 07:08
[2017-07-14 07:24] VITALS: BP 143/74; RESP 20
[2017-07-14] MEDS: ENOXAPARIN 40 MG/0.4 ML SYG SC SCH (08:14)
[2017-07-14] MEDS: CEFEPIME 1GM/50 ML (PMX) 50 ML IVPB SCH (08:15)
[2017-07-14] MEDS: INSULIN ASPART [NOVOLOG] 3 ML PEN SC SCH ×4 (08:15→20:16)
[2017-07-14 14:13] VITALS: BP 121/69; RESP 20
[2017-07-14] MEDS: SOD CHLORIDE 0.9% 1,000 ML IV SCH (14:33)
--- NOTE | 2017-07-14 18:39 | PN ---
Date/Time of Note Date/Time of Note DATE: 07/14/17 TIME: 18:38 Assessment/Plan VTE Prophylaxis VTE Prophylaxis Intervention: other Lines/Catheters IV Catheter Type (from Nrs): Peripheral IV Assessment/Plan Chief Complaint/Hosp Course IMPRESSION: 1. Right foot wound cellulitis. 2. Other diagnoses of diabetes mellitus, hypertension, chronic kidney disease. PLAN PER PODIATRY ANTIBIOTIC Problems: Subjective 24 Hr Interval Summary Subjective hx not possible: other (FOOT WOUND+) Exam/Review of Systems Vital Signs Vitals Vital Signs Date Time Temp Pulse Resp B/P Pulse Ox O2 Delivery O2 Flow Rate FiO2 07/14/17 14:13 98.3 75 20 121/69 98 07/13/17 20:33 Room Air Intake and Output 07/13/17 07/13/17 07/14/17 15:00 23:00 07:00 Intake Total 100 ml 1450 ml Output Total 500 ml Balance 100 ml 950 ml Exam Neck: supple Respiratory: clear to auscultation Cardiovascular: regular rate and rhythm Gastrointestinal: bowel sounds, soft Extremities: edema (+) Results Result Diagram: 07/13/17 1615 07/13/17 1615 Results 24 hrs Laboratory Tests Test 07/13/17 20:00 07/13/17 21:51 07/13/17 22:44 07/14/17 08:04 Lactic Acid Level 1.3 1.1 Bedside Glucose 177 141 Test 07/14/17 12:13 07/14/17 17:20 Bedside Glucose 182 140 Medications Medications Current Medications Glucose (Glutose) 22.5 gm [id number] PO ; Start 07/13/17 at 20:00 Magnesium Hydroxide (Milk Of Mag) 30 ml DAILY PRN PO CONSTIPATION; Start at 20:00 Nitroglycerin (Nitroglycerin (Sl Tab) 0.4 Mg) 1 tab [id number] PRN SL CHEST PAIN ; Start 07/13/17 at 20:00 Pantoprazole (Protonix Tab) 40 mg DAILY@06 PO Last administered on 07/14/17 05:54; Admin Dose 40 MG; Start 07/14/17 at 06:00 Diagnostic Test (Pha) 1 ea 1 ea 02 XX ; Start 07/14/17 at 02:00 Sodium Chloride (NS) 1,000 ml @ 50 mls/hr Q20H IV Last administered on 14:33; Admin Dose 50 MLS/HR; Start 07/13/17 at 20:01 Ondansetron HCl (Zofran Inj) 4 mg Q6H PRN IV NAUSEA AND/OR VOMITING; Start 07/13/17 at 20:30 Acetaminophen (Tylenol Tab) 650 mg Q6H PRN PO PAIN LEVEL 1-3 OR FEVER Last administered on 07/14/17 04:40; Admin Dose 650 MG; Start 07/13/17 at 20:30 Docusate Sodium (Colace) 100 mg Q12H PRN PO CONSTIPATION; Start 07/13/17 at 20: 30 Magnesium Hydroxide (Milk Of Mag) 30 ml DAILY PRN PO CONSTIPATION; Start at 20:30 Bisacodyl (Dulcolax) 5 mg DAILY PRN PO CONSTIPATION; Start 07/13/17 at 20:30 Zolpidem Tartrate (Ambien) 5 mg QHS PRN PO SLEEP; Start 07/13/17 at 20:30 Enoxaparin Sodium 40 mg 40 mg DAILY SC Last administered on 07/14/17 08:14; Admin Dose 40 MG; Start 07/14/17 at 09:00 Cefepime HCl (Maxipime 1gm/50 ml (Pmx)) 50 ml @ 100 mls/hr DAILY IVPB Last administered on 07/14/17 08:15; Admin Dose 100 MLS/HR; Start 07/14/17 at 09: 00 Miscellaneous Information 1 ea NOTE XX ; Start 07/13/17 at 21:00 Glucose (Glutose) 15 gm Q15M PRN PO DECREASED GLUCOSE; Start 07/13/17 at 21:00 Glucose (Glutose) 22.5 gm Q15M PRN PO DECREASED GLUCOSE; Start 07/13/17 at 21: 00 Dextrose (D50w Syringe) 25 ml Q15M PRN IV DECREASED GLUCOSE; Start 07/13/17 at 21:00 Dextrose (D50w Syringe) 50 ml Q15M PRN IV DECREASED GLUCOSE; Start 07/13/17 at 21:00 Glucagon (Glucagen) 1 mg Q15M PRN IM DECREASED GLUCOSE; Start 07/13/17 at 21:00 Glucose (Glutose) 15 gm Q15M PRN BUCCAL DECREASED GLUCOSE; Start 07/13/17 at 21 :00 Gentamicin Sulfate (Gentamicin 0.1% Oint) 1 applic Q24H TOP ; Start 07/14/17 at 09:00 LUIS ENRIQUE MAN MD Jul 14, 2017 18:39
[2017-07-14] MEDS ORDERED: VANCOMYCIN IV PER PHARMACY XX SCH (19:30)
[2017-07-14 19:39] VITALS: BP 171/80; RESP 19
[2017-07-14] MEDS: GLUCOSE GEL 15 GRAM TUBE PO SCH (20:00)
[2017-07-14 20:16] VITALS: BP 167/76
[2017-07-14] MEDS: VANCOMYCIN 1 GM in NS 250 ML IVPB SCH (20:16)
[2017-07-14] MEDS: GENTAMICIN 0.1% 15 GM OINT TOP SCH (21:27)
[2017-07-14 21:28] VITALS: BP 138/63; PULSE 74
[2017-07-15] VITALS (7 sets, daily range): BP systolic 143–179; BP diastolic 67–84; PULSE 68–80; RESP 17–20
[2017-07-15] MEDS ORDERED: LOSA100T7 PO (00:30)
[2017-07-15] MEDS: ACCU-CHEK XX SCH (02:00)
[2017-07-15] MEDS: PANTOPRAZOLE (EC) 40 MG TAB PO SCH (05:08)
[2017-07-15] MEDS: SOD CHLORIDE 0.9% 1,000 ML IV SCH ×2 (05:08→12:03)
[2017-07-15] MEDS: VANCOMYCIN 1 GM in NS 250 ML IVPB SCH ×2 (08:00→20:21)
[2017-07-15] MEDS: ENOXAPARIN 40 MG/0.4 ML SYG SC SCH (08:04)
[2017-07-15] MEDS: INSULIN ASPART [NOVOLOG] 3 ML PEN SC SCH ×4 (08:05→20:29)
[2017-07-15] MEDS: CEFEPIME 1GM/50 ML (PMX) 50 ML IVPB SCH (10:09)
[2017-07-15] MEDS: GENTAMICIN 0.1% 15 GM OINT TOP SCH (11:45)
[2017-07-15] MEDS: GLUCOSE GEL 15 GRAM TUBE PO SCH (20:00)
--- NOTE | 2017-07-15 20:59 | PN ---
Date/Time of Note Date/Time of Note DATE: 07/15/17 TIME: 20:58 Assessment/Plan VTE Prophylaxis VTE Prophylaxis Intervention: other Lines/Catheters IV Catheter Type (from Nrsg): Peripheral IV Assessment/Plan Chief Complaint/Hosp Course IMPRESSION: 1. Right foot wound cellulitis. 2. Other diagnoses of diabetes mellitus, hypertension, chronic kidney disease. PLAN PER PODIATRY ANTIBIOTIC DR CASTRO CALLED Problems: Subjective 24 Hr Interval Summary Respiratory: no complaints Cardiovascular: no complaints Exam/Review of Systems Vital Signs Vitals Vital Signs Date Time Temp Pulse Resp B/P Pulse Ox O2 Delivery O2 Flow Rate FiO2 07/15/17 20:00 98.5 75 20 171/83 98 07/13/17 20:33 Room Air Intake and Output 07/14/17 07/14/17 07/15/17 15:00 23:00 07:00 Intake Total 1050 ml 1530 ml 1100 ml Output Total 1050 ml 1450 ml Balance 1050 ml 480 ml -350 ml Exam Neck: supple Respiratory: clear to auscultation Cardiovascular: regular rate and rhythm Gastrointestinal: bowel sounds (+), soft Extremities: tenderness (+) Results Result Diagram: 07/13/17 1615 07/13/17 1615 Results 24 hrs Laboratory Tests Test 07/15/17 07:51 07/15/17 11:30 07/15/17 17:15 07/15/17 18:58 Bedside Glucose 223 H 252 H 172 Vancomycin Level Trough 12.7 Test 07/15/17 20:20 Bedside Glucose 240 H Medications Medications Current Medications Glucose (Glutose) 22.5 gm [id number] PO ; Start 07/13/17 at 20:00 Magnesium Hydroxide (Milk Of Mag) 30 ml DAILY PRN PO CONSTIPATION; Start at 20:00 Nitroglycerin (Nitroglycerin (Sl Tab) 0.4 Mg) 1 tab [id number] PRN SL CHEST PAIN ; Start 07/13/17 at 20:00 Pantoprazole (Protonix Tab) 40 mg DAILY@06 PO Last administered on 07/15/17t 05:08; Admin Dose 40 MG; Start 07/14/17 at 06:00 Diagnostic Test (Pha) 1 ea 1 ea 02 XX ; Start 07/14/17 at 02:00 Sodium Chloride (NS) 1,000 ml @ 50 mls/hr Q20H IV Last administered on 12:03; Admin Dose 50 MLS/HR; Start 07/13/17 at 20:01 Ondansetron HCl (Zofran Inj) 4 mg Q6H PRN IV NAUSEA AND/OR VOMITING; Start 07/13/17 at 20:30 Acetaminophen (Tylenol Tab) 650 mg Q6H PRN PO PAIN LEVEL 1-3 OR FEVER Last administered on 07/14/17 04:40; Admin Dose 650 MG; Start 07/13/17 at 20:30 Docusate Sodium (Colace) 100 mg Q12H PRN PO CONSTIPATION; Start 07/13/17 at 20: 30 Magnesium Hydroxide (Milk Of Mag) 30 ml DAILY PRN PO CONSTIPATION; Start at 20:30 Bisacodyl (Dulcolax) 5 mg DAILY PRN PO CONSTIPATION; Start 07/13/17 at 20:30 Zolpidem Tartrate (Ambien) 5 mg QHS PRN PO SLEEP; Start 07/13/17 at 20:30 Enoxaparin Sodium 40 mg 40 mg DAILY SC Last administered on 07/15/17 08:04; Admin Dose 40 MG; Start 07/14/17 at 09:00 Cefepime HCl (Maxipime 1gm/50 ml (Pmx)) 50 ml @ 100 mls/hr DAILY IVPB Last administered on 07/15/17 10:09; Admin Dose 100 MLS/HR; Start 07/14/17 at 09: 00 Miscellaneous Information 1 ea NOTE XX ; Start 07/13/17 at 21:00 Glucose (Glutose) 15 gm Q15M PRN PO DECREASED GLUCOSE; Start 07/13/17 at 21:00 Glucose (Glutose) 22.5 gm Q15M PRN PO DECREASED GLUCOSE; Start 07/13/17 at 21: 00 Dextrose (D50w Syringe) 25 ml Q15M PRN IV DECREASED GLUCOSE; Start 07/13/17 at 21:00 Dextrose (D50w Syringe) 50 ml Q15M PRN IV DECREASED GLUCOSE; Start 07/13/17 at 21:00 Glucagon (Glucagen) 1 mg Q15M PRN IM DECREASED GLUCOSE; Start 07/13/17 at 21:00 Glucose (Glutose) 15 gm Q15M PRN BUCCAL DECREASED GLUCOSE; Start 07/13/17 at 21 :00 Gentamicin Sulfate 1 applic 1 applic Q24H TOP Last administered on 07/15/17 11:45; Admin Dose 1 APPLIC; Start 07/14/17 at 09:00 Vancomycin HCl (Vancocin) 250 ml @ 125 mls/hr Q12H IVPB Last administered on 07/15/17 20:21; Admin Dose 125 MLS/HR; Start 07/14/17 at 20:00 Clonidine (Catapres) 0.1 mg Q8H PRN PO SBP GREATER THAN 170 Last administered on 07/15/17 08:06; Admin Dose 0.1 MG; Start 07/14/17 at 21:00 LUIS ENRIQUE MAN MD Jul 15, 2017 20:59
[2017-07-16 02:00] VITALS: BP 172/80; PULSE 76; RESP 20
[2017-07-16] MEDS: ACCU-CHEK XX SCH ×2 (02:00→17:41)
[2017-07-16] MEDS: SOD CHLORIDE 0.9% 1,000 ML IV SCH ×2 (05:10→08:01)
[2017-07-16] MEDS: PANTOPRAZOLE (EC) 40 MG TAB PO SCH (05:10)
[2017-07-16 05:46] LABS: BASOPHIL # 0.1 10^3/ul (0.0-0.1); BASOPHILS % 0.6 % (0.0-2.0); EOSINOPHILS # 0.2 10^3/ul (0.0-0.5); EOSINOPHILS % 2.8 % (0.0-7.0); HEMATOCRIT 31.4 % (42.0-52.0); HEMOGLOBIN 10.3 g/dl (14.0-18.0); LYMPHOCYTES # 1.6 10^3/ul (0.8-2.9); MEAN CORPUSCULAR HEMOGLOBIN 27.7 pg (29.0-33.0); MEAN CORPUSCULAR HGB CONC 32.8 g/dl (32.0-37.0); MEAN CORPUSCULAR VOLUME 84.4 fl (82.0-101.0); MEAN PLATELET VOLUME 10.6 fl (7.4-10.4); MONOCYTE # 0.7 10^3/ul (0.3-0.9); NEUTROPHIL # 5.9 10^3/ul (1.6-7.5); NEUTROPHILS % 69.2 % (39.0-77.0); PLATELET COUNT 270 10^3/UL (140-415); RED BLOOD COUNT 3.72 10^6/ul (4.70-6.10); RED CELL DISTRIBUTION WIDTH 12.7 % (11.5-14.5); WHITE BLOOD COUNT 8.5 10^3/ul (4.8-10.8)
[2017-07-16 05:59] LABS: CREATININE 1.33 mg/dl (0.61-1.24)
[2017-07-16 06:03] LABS: CALCIUM 8.4 mg/dl (8.4-10.2); CREATININE 1.3 mg/dl (0.61-1.24); POTASSIUM 3.9 mmol/L (3.5-5.1)
[2017-07-16 06:31] VITALS: BP 177/66; PULSE 77
--- NOTE | 2017-07-16 07:31 | CONS ---
DATE OF ADMISSION: 07/13/2017 DATE OF CONSULTATION: 07/15/2017 INFECTIOUS DISEASE CONSULT REASON FOR CONSULTATION: Antibiotic management. HISTORY OF PRESENT ILLNESS: Claus Parks is a 57-year-old male who comes in with right foot cellulitis and is being seen for antibiotic management. His problems include: 1. Adult-onset diabetes mellitus. 2. Diabetic foot. 3. Diabetic neuropathy. 4. Hypertension. 5. Chronic renal disease. 6. Peripheral vascular disease. 7. History of right foot transmetatarsal amputation. 8. History of ESBL. 9. Atherosclerotic cardiovascular disease. 10. Dyslipidemia. 11. Left above knee amputation. The patient presented with right foot wound sent from the [facility]. Denies fever, chills normally seen by Dr. Jenkins. His BUN and creatinine was 18/1.41. His white count was 12.7, H and H of 12 and 36.3, platelet count 251,000. Lactic acid 2.5. His blood cultures are growing out Staph aureus . His foot x-ray shows no visualized radiographic evidence of osteomyelitis. He has a mid foot amp utation, severe degenerative changes at the first and third tarsometatarsal joints, soft tissue irre gularity over the first metatarsal stump that may reflect a site of skin ulceration, vascular calcif ications are surrounding the ankle and the foot. The patient is currently on vancomycin and cefepim e. PAST MEDICAL HISTORY: Operations as outlined. FAMILY HISTORY: Noncontributory. PAST SURGICAL HISTORY: Right transmetatarsal amputation, left above knee amputation. MEDICATIONS: Per chart. REVIEW OF SYSTEMS: Noncontributory. PHYSICAL EXAMINATION: GENERAL: The patient is a chronically ill-appearing male who is awake, responsive, in no acute dist ress. VITAL SIGNS: Stable. He is afebrile. SKIN: Without generalized rash. HEENT: Within normal limits. NECK: Supple. LYMPH NODES: None palpable. CHEST: Decreased breath sounds at the bases. HEART: Without murmur or gallop. ABDOMEN: Soft, nontender, without organosplenomegaly or masses. EXTREMITIES: He has left above knee amputation, right transmetatarsal amputation site with redness and discharge. RECTAL AND GENITAL: Deferred. NEUROLOGIC: No focal neurological abnormalities. He has decreased sensation in distal extremities of course. IMPRESSION AND PLAN: The patient has Staphylococcus aureus, probably methicillin-resistant Staphylo coccus aureus. We probably should repeat his blood cultures. If they persist, he should get a 2D e chocardiogram. I will dictate my findings to the hospitalist. Dictated By: GHAZALA LEYVA MD, JD/LINNEA Conf#: [id number] DID#: [id number]
[2017-07-16] MEDS: VANCOMYCIN 1 GM in NS 250 ML IVPB SCH ×2 (08:06→20:09)
[2017-07-16] MEDS: ENOXAPARIN 40 MG/0.4 ML SYG SC SCH (08:25)
[2017-07-16] MEDS: INSULIN ASPART [NOVOLOG] 3 ML PEN SC SCH ×2 (08:25→12:12)
[2017-07-16 08:34] VITALS: BP 158/72; RESP 18
[2017-07-16] MEDS: CEFEPIME 1GM/50 ML (PMX) 50 ML IVPB SCH (09:00)
--- NOTE | 2017-07-16 09:00 | OPR ---
DATE OF OPERATION: 07/15/2017 SURGEON: Jewels Jenkins DPM ELECTROLYSIS ENGINEER: None. PREOPERATIVE DIAGNOSES: 1. Right foot diabetic foot ulceration. 2. History of osteomyelitis. 3. Left transmetatarsal amputation and left above-knee amputation. 4. Cellulitis, right foot. POSTOPERATIVE DIAGNOSES: 1. Right foot diabetic foot ulceration. 2. History of osteomyelitis. 3. Left transmetatarsal amputation and left above-knee amputation. 4. Cellulitis, right foot. OPERATION PERFORMED: Right foot excisional debridement of necrotic skin subcutaneous tissue, ligament, muscle and bone, right foot less than 20 cm2. PATHOLOGY: Wound cultures. ESTIMATED BLOOD LOSS: 20 mL. HEMOSTASIS: Compression. COMPLICATIONS: None. DESCRIPTION OF PROCEDURE: Patient seen at bedside. Informed consent had been obtained. The ulceration was cleansed with Betadine irrigation using sharp instrumentation, pickup and scissors, excisional debridement performed. The patient had ulceration on the medial aspect of the transmetatarsal amputation stump with exposed bone. The wound tunneled to the plantar aspect where he had an seroma/hematoma. The patient with absent protective sensation. Excision of necrotic tissue, ligament and bone performed, cultures obtained, wound was irrigated with saline and Betadine. The patient with positive blood cultures, Staph aureus. Wound cultures are pending. Discussed possible revision of amputation stump, would benefit from further diagnostic imaging which is a bone scan or MRI of the right foot. Dictated By: JEWELS NEAL/LINNEA Conf#: [id number] DID#: [id number] [facility] FACILITYVadim
--- NOTE | 2017-07-16 10:05 | CONS ---
Date/Time of Note Date/Time of Note DATE: 07/16/17 TIME: 10:00 Assessment/Plan Assessment/Plan Chief Complaint/Hosp Course Left AKA. Stable. Right foot S/P TMA. --> S/P bedside debridement involving bone and muscle 08/2017. May require serial bedside debridements. Local wound care with gentamicin ointment, Mepilex, and dry sterile dressing q24 hours. Continue Vanco and Cefepime. Consider repeat blood cultures. Consider surgical debridement with pulse-vac. Today: performed bedside debridement involving muscle and wound probes to bone. Will monitor. Problems: Consultation Date/Type/Reason Admit Date/Time Jul 13, 2017 at 19:12 Initial Consult Date 07/14/17 Type of Consultation: Podiatry: Dr.Belczyk winston Reason for Consultation Rt TMA site foot ulcer. Exam/Review of Systems Vital Signs Vitals Vital Signs Date Time Temp Pulse Resp B/P Pulse Ox O2 Delivery O2 Flow Rate FiO2 07/16/17 08:34 99.8 69 18 158/72 98 07/16/17 02:00 Room Air Intake and Output 07/15/17 07/15/17 07/16/17 15:00 23:00 07:00 Intake Total 1300 ml 1600 ml 1150 ml Output Total 1000 ml 800 ml Balance 1300 ml 600 ml 350 ml Exam Left AKA Right foot dressing D/C/I. Moderate drainage. Moderate malodor. Right TMA site, medial and lateral ulcer. The lateral ulcer is 0.6 x 0.6 cm involving subcutaneous layer. The medial ulcer is 1.5 x 1.5 cm involving bone and communicates to a plantar ulcer. Results Result Diagram: 07/16/17 0515 07/16/17 0515 Results 24 hrs Laboratory Tests Test 07/15/17 11:30 07/15/17 17:15 07/15/17 18:58 07/15/17 20:20 Bedside Glucose 252 H 172 240 H Vancomycin Level Trough 12.7 Test 07/16/17 02:01 07/16/17 05:15 07/16/17 08:10 Bedside Glucose 228 H 207 White Blood Count 8.5 # Red Blood Count 3.72 L Hemoglobin 10.3 L Hematocrit 31.4 L Mean Corpuscular Volume 84.4 Mean Corpuscular Hemoglobin 27.7 L Mean Corpuscular Hemoglobin Concent 32.8 Red Cell Distribution Width 12.7 Platelet Count 270 Mean Platelet Volume 10.6 H Neutrophils % 69.2 Lymphocytes % 19.0 Monocytes % 8.0 Eosinophils % 2.8 Basophils % 0.6 Nucleated Red Blood Cells % 0.0 Neutrophils # 5.9 Lymphocytes # 1.6 Monocytes # 0.7 Eosinophils # 0.2 Basophils # 0.1 Nucleated Red Blood Cells # 0.0 Sodium Level 139 Potassium Level 3.9 Chloride Level 106 Carbon Dioxide Level 25 Anion Gap 12 Blood Urea Nitrogen 17 Creatinine 1.30 H Glucose Level 195 Calcium Level 8.4 Medications Medications Current Medications Glucose (Glutose) 22.5 gm [id number] PO ; Start 07/13/17 at 20:00 Magnesium Hydroxide (Milk Of Mag) 30 ml DAILY PRN PO CONSTIPATION; Start at 20:00 Nitroglycerin (Nitroglycerin (Sl Tab) 0.4 Mg) 1 tab [id number] PRN SL CHEST PAIN ; Start 07/13/17 at 20:00 Pantoprazole (Protonix Tab) 40 mg DAILY@06 PO Last administered on 07/16/17 05:10; Admin Dose 40 MG; Start 07/14/17 at 06:00 Diagnostic Test (Pha) 1 ea 1 ea 02 XX ; Start 07/14/17 at 02:00 Sodium Chloride (NS) 1,000 ml @ 50 mls/hr Q20H IV Last administered on 05:10; Admin Dose 50 MLS/HR; Start 07/13/17 at 20:01 Ondansetron HCl (Zofran Inj) 4 mg Q6H PRN IV NAUSEA AND/OR VOMITING; Start 07/13/17 at 20:30 Acetaminophen (Tylenol Tab) 650 mg Q6H PRN PO PAIN LEVEL 1-3 OR FEVER Last administered on 07/14/17 04:40; Admin Dose 650 MG; Start 07/13/17 at 20:30 Docusate Sodium (Colace) 100 mg Q12H PRN PO CONSTIPATION; Start 07/13/17 at 20: 30 Magnesium Hydroxide (Milk Of Mag) 30 ml DAILY PRN PO CONSTIPATION; Start at 20:30 Bisacodyl (Dulcolax) 5 mg DAILY PRN PO CONSTIPATION; Start 07/13/17 at 20:30 Zolpidem Tartrate (Ambien) 5 mg QHS PRN PO SLEEP; Start 07/13/17 at 20:30 Enoxaparin Sodium 40 mg 40 mg DAILY SC Last administered on 07/16/17 08:25; Admin Dose 40 MG; Start 07/14/17 at 09:00 Cefepime HCl (Maxipime 1gm/50 ml (Pmx)) 50 ml @ 100 mls/hr DAILY IVPB Last administered on 07/15/17 10:09; Admin Dose 100 MLS/HR; Start 07/14/17 at 09: 00 Miscellaneous Information 1 ea NOTE XX ; Start 07/13/17 at 21:00 Glucose (Glutose) 15 gm Q15M PRN PO DECREASED GLUCOSE; Start 07/13/17 at 21:00 Glucose (Glutose) 22.5 gm Q15M PRN PO DECREASED GLUCOSE; Start 07/13/17 at 21: 00 Dextrose (D50w Syringe) 25 ml Q15M PRN IV DECREASED GLUCOSE; Start 07/13/17 at 21:00 Dextrose (D50w Syringe) 50 ml Q15M PRN IV DECREASED GLUCOSE; Start 07/13/17 at 21:00 Glucagon (Glucagen) 1 mg Q15M PRN IM DECREASED GLUCOSE; Start 07/13/17 at 21:00 Glucose (Glutose) 15 gm Q15M PRN BUCCAL DECREASED GLUCOSE; Start 07/13/17 at 21 :00 Gentamicin Sulfate 1 applic 1 applic Q24H TOP Last administered on 07/15/17 11:45; Admin Dose 1 APPLIC; Start 07/14/17 at 09:00 Vancomycin HCl (Vancocin) 250 ml @ 125 mls/hr Q12H IVPB Last administered on 07/16/17 08:06; Admin Dose 125 MLS/HR; Start 07/14/17 at 20:00 Clonidine (Catapres) 0.1 mg Q8H PRN PO SBP GREATER THAN 170 Last administered on 07/16/17 05:16; Admin Dose 0.1 MG; Start 07/14/17 at 21:00 BARRY OQUENDO DPM Jul 16, 2017 10:05 BARRY OQUENDO DPM Jul 16, 2017 10:05
[2017-07-16] MEDS: GENTAMICIN 0.1% 15 GM OINT TOP SCH (10:30)
[2017-07-16] MEDS ORDERED: HYPOGLYCEMIA PROTOCOL when Glucose is <70 mg/dL or symptomatic <90 mg/dL. XX ONE (14:00)
[2017-07-16] MEDS ORDERED: Discontinue current oral sulfonylureas (glyburide, glipizide, and/or glimepiride) prior to XX ONE (14:00)
[2017-07-16 16:02] VITALS: BP 137/74; RESP 18
--- NOTE | 2017-07-16 17:04 | PN ---
Date/Time of Note Date/Time of Note DATE: 07/16/17 TIME: 17:02 Assessment/Plan VTE Prophylaxis VTE Prophylaxis Intervention: other Lines/Catheters IV Catheter Type (from Nrsg): Peripheral IV Assessment/Plan Chief Complaint/Hosp Course IMPRESSION: 1. Right foot wound cellulitis. 2. Other diagnoses of diabetes mellitus, hypertension, chronic kidney disease. 3 sepsis PLAN PER PODIATRY ANTIBIOTIC per id insulin Problems: Subjective 24 Hr Interval Summary Respiratory: no complaints Cardiovascular: no complaints Gastrointestinal: no complaints Exam/Review of Systems Vital Signs Vitals Vital Signs Date Time Temp Pulse Resp B/P Pulse Ox O2 Delivery O2 Flow Rate FiO2 07/16/17 16:02 98.9 75 18 137/74 98 07/16/17 02:00 Room Air Intake and Output 07/15/17 07/15/17 07/16/17 15:00 23:00 07:00 Intake Total 1300 ml 1600 ml 1150 ml Output Total 1000 ml 800 ml Balance 1300 ml 600 ml 350 ml Exam Neck: supple Respiratory: diminished breath sounds Cardiovascular: regular rate and rhythm Gastrointestinal: bowel sounds (+), soft Extremities: edema (_) Results Result Diagram: 07/16/17 0515 07/16/17 0515 Results 24 hrs Laboratory Tests Test 07/15/17 17:15 07/15/17 18:58 07/15/17 20:20 07/16/17 02:01 Bedside Glucose 172 240 H 228 H Vancomycin Level Trough 12.7 Test 07/16/17 05:15 07/16/17 08:10 07/16/17 12:09 White Blood Count 8.5 # Red Blood Count 3.72 L Hemoglobin 10.3 L Hematocrit 31.4 L Mean Corpuscular Volume 84.4 Mean Corpuscular Hemoglobin 27.7 L Mean Corpuscular Hemoglobin Concent 32.8 Red Cell Distribution Width 12.7 Platelet Count 270 Mean Platelet Volume 10.6 H Neutrophils % 69.2 Lymphocytes % 19.0 Monocytes % 8.0 Eosinophils % 2.8 Basophils % 0.6 Nucleated Red Blood Cells % 0.0 Neutrophils # 5.9 Lymphocytes # 1.6 Monocytes # 0.7 Eosinophils # 0.2 Basophils # 0.1 Nucleated Red Blood Cells # 0.0 Sodium Level 139 Potassium Level 3.9 Chloride Level 106 Carbon Dioxide Level 25 Anion Gap 12 Blood Urea Nitrogen 17 Creatinine 1.30 H Glucose Level 195 Calcium Level 8.4 Bedside Glucose 207 288 H Medications Medications Current Medications Glucose (Glutose) 22.5 gm [id number] PO ; Start 07/13/17 at 20:00 Nitroglycerin (Nitroglycerin (Sl Tab) 0.4 Mg) 1 tab [id number] PRN SL CHEST PAIN ; Start 07/13/17 at 20:00 Pantoprazole (Protonix Tab) 40 mg DAILY@06 PO Last administered on 07/16/17 05:10; Admin Dose 40 MG; Start 07/14/17 at 06:00 Diagnostic Test (Pha) 1 ea 1 ea 02 XX ; Start 07/14/17 at 02:00 Sodium Chloride (NS) 1,000 ml @ 50 mls/hr Q20H IV Last administered on 05:10; Admin Dose 50 MLS/HR; Start 07/13/17 at 20:01 Ondansetron HCl (Zofran Inj) 4 mg Q6H PRN IV NAUSEA AND/OR VOMITING; Start 07/13/17 at 20:30 Acetaminophen (Tylenol Tab) 650 mg Q6H PRN PO PAIN LEVEL 1-3 OR FEVER Last administered on 07/14/17 04:40; Admin Dose 650 MG; Start 07/13/17 at 20:30 Docusate Sodium (Colace) 100 mg Q12H PRN PO CONSTIPATION; Start 07/13/17 at 20: 30 Magnesium Hydroxide (Milk Of Mag) 30 ml DAILY PRN PO CONSTIPATION; Start at 20:30 Bisacodyl (Dulcolax) 5 mg DAILY PRN PO CONSTIPATION; Start 07/13/17 at 20:30 Zolpidem Tartrate (Ambien) 5 mg QHS PRN PO SLEEP; Start 07/13/17 at 20:30 Enoxaparin Sodium 40 mg 40 mg DAILY SC Last administered on 07/16/17 08:25; Admin Dose 40 MG; Start 07/14/17 at 09:00 Cefepime HCl (Maxipime 1gm/50 ml (Pmx)) 50 ml @ 100 mls/hr DAILY IVPB Last administered on 07/16/17 09:00; Admin Dose 100 MLS/HR; Start 07/14/17 at 09: 00 Miscellaneous Information 1 ea NOTE XX ; Start 07/13/17 at 21:00 Glucose (Glutose) 15 gm Q15M PRN PO DECREASED GLUCOSE; Start 07/13/17 at 21:00 Glucose (Glutose) 22.5 gm Q15M PRN PO DECREASED GLUCOSE; Start 07/13/17 at 21: 00 Dextrose (D50w Syringe) 25 ml Q15M PRN IV DECREASED GLUCOSE; Start 07/13/17 at 21:00 Dextrose (D50w Syringe) 50 ml Q15M PRN IV DECREASED GLUCOSE; Start 07/13/17 at 21:00 Glucagon (Glucagen) 1 mg Q15M PRN IM DECREASED GLUCOSE; Start 07/13/17 at 21:00 Glucose (Glutose) 15 gm Q15M PRN BUCCAL DECREASED GLUCOSE; Start 07/13/17 at 21 :00 Gentamicin Sulfate 1 applic 1 applic Q24H TOP Last administered on 07/16/17 10:30; Admin Dose 1 APPLIC; Start 07/14/17 at 09:00 Vancomycin HCl (Vancocin) 250 ml @ 125 mls/hr Q12H IVPB Last administered on 07/16/17 08:06; Admin Dose 125 MLS/HR; Start 07/14/17 at 20:00 Clonidine (Catapres) 0.1 mg Q8H PRN PO SBP GREATER THAN 170 Last administered on 07/16/17 05:16; Admin Dose 0.1 MG; Start 07/14/17 at 21:00 Sodium Hypochlorite (Dakin'S (1/4 Strength)) 1 applic DAILY IRR ; Start at 09:00 Insulin Glargine (Lantus) 10 unit DAILY SC ; Start 07/17/17 at 09:00 LUIS ENRIQUE MAN MD Jul 16, 2017 17:04
[2017-07-16] MEDS: Insulin NOVOLOG SS MODERATE Algorithm (SS with meals and bedtime) SC SCH ×2 (17:41→20:12)
[2017-07-16] MEDS ORDERED: INSULIN ASPART [NOVOLOG] 3 ML PEN SC SCH (18:00)
[2017-07-16 19:25] VITALS: BP 147/76; RESP 20
[2017-07-16] MEDS: GLUCOSE GEL 15 GRAM TUBE PO SCH (20:00)
--- NOTE | 2017-07-16 21:10 | RADRPT ---
Echocardiogram Report Patient Name: YASIR PINTO Gender: Male Date: 1960 Study Date: 16-Jul-2017 Heavy Machinery Assembler: Shira Kate [facility] Location: 619 Ref. Physician: SUNNY PRECIADO Quality: Adequate Procedures: Transthoracic echocardiogram with complete 2D, M-Mode, and doppler examination. Indications: r/o vegetations. 2D/M Mode Doppler Measurement Value Normal Ranges Measurement Value Normal Ranges LVIDd 2D 4.7 3.5 - 5.6 cm AV Peak Humberto 1.3 m/sec LVIDs 2D 2.5 2.1 - 4.1 cm AV Peak PG 6.5 mmHg LVPWd 2D 1.1 0.6 - 1.1 cm LVOT Peak Humberto 0.8 m/sec IVSd 2D 1.2 0.6 - 1.1 cm LVOT Peak PG 2.6 mmHg AoR Diam 2D 3.3 2.0 - 3.7 cm MV E Peak Humberto 0.7 m/sec EDV 2D 104.0 cm3 MV A Peak Humberto 0.8 m/sec ESV 2D 16.2 cm3 MV E/A 0.8 LA Dimen 2D 3.3 2.3 - 4.0 cm MV Decel Time 195 msec MV Decel Buchanan 3 MV E/A 0.8 Findings Left Ventricle: Normal left ventricular systolic function. Normal left ventricular cavity size. Mild concentric left ventricular hypertrophy. Ejection fraction is visually estimated at 55 %. Tissue Doppler/Mitral Doppler indices are consistent with impaired relaxation (Stage I diastolic dysfunction). Right Ventricle: Normal right ventricular size. Normal right ventricular systolic function. Left Atrium: The left atrium is normal in size. Right Atrium: The right atrium is normal in size. Mitral Valve: Normal appearance and function of the mitral valve with trace physiologic regurgitation. Aortic Valve: Normal appearance of the aortic valve. No significant aortic stenosis or insufficiency. Tricuspid Valve: Normal appearance of the tricuspid valve. Unable to obtain RVSP due to minimal presence of tricuspid regurgitation. Pulmonic Valve: Normal pulmonic valve appearance. There is mild to moderate pulmonic regurgitation. Pericardium: Normal pericardium with no significant pericardial effusion. Aorta: Normal aortic root. IVC: Normal size and normal respiratory collapse consistent with normal right atrial pressure. Conclusions 1.Normal left ventricular systolic function. Normal left ventricular cavity size. Mild concentric left ventricular hypertrophy. Ejection fraction is visually estimated at 55 %. Tissue Doppler/Mitral Doppler indices are consistent with impaired relaxation (Stage I diastolic dysfunction). 2.Normal appearance of the tricuspid valve. Unable to obtain RVSP due to minimal presence of tricuspid regurgitation. 3.Normal pulmonic valve appearance. There is mild to moderate pulmonic regurgitation. 4.Normal pericardium with no significant pericardial effusion. 5.Normal appearance and function of the mitral valve with trace physiologic regurgitation. 6.No definite vegetations noted on any of the well visualized valvular apparati. Electronically Signed By: Stevenson Alonso 16-Jul-2017 21:09:59 -0700 Patient Name: YASIR PINTO Study Date: 16-Jul-[id number]
[2017-07-17] MEDS: ACCU-CHEK XX SCH ×4 (01:03→17:45)
[2017-07-17 01:47] VITALS: BP 170/83; RESP 20
[2017-07-17] MEDS ORDERED: ACCU-CHEK XX SCH (02:00)
[2017-07-17] MEDS: PANTOPRAZOLE (EC) 40 MG TAB PO SCH (05:08)
[2017-07-17] MEDS: SOD CHLORIDE 0.9% 1,000 ML IV SCH (05:09)
--- NOTE | 2017-07-17 07:07 | PN ---
DATE: 07/16/2017 SUBJECTIVE: The patient is alert, feels good. Denies pain, no fevers. WBC today 8.5, no shift, no bands. BUN 17, creatinine 1.30. Blood sugar 288. ANTIMICROBIALS: The patient is on: 1. Vancomycin. 2. Cefepime. MICROBIOLOGY: Blood culture growing Staphylococcus aureus, oxacillin sensitive. Wound culture grow ing gram-negative rods. PHYSICAL EXAMINATION: GENERAL: Well-developed, well-nourished, middle-aged man who is alert, in no distress. HEENT: Head atraumatic, normocephalic. Sclerae anicteric. Buccal mucosa pink. NECK: Supple. CHEST: Rise symmetrical. Breath sounds clear. HEART: S1, S2. ABDOMEN: Soft. Bowel tones present. ASSESSMENT: 1. Sepsis with oxacillin sensitive Staphylococcus aureus bacteremia. 2. Right foot ulceration with a history of osteomyelitis ulceration, status post incision and drain age. Possible osteomyelitis, cultures growing gram-negative rods, preliminary. 3. Peripheral vascular disease with a history of left above knee amputation. 4. Hypertension. PLAN: The patient remains stable. We are going to repeat blood cultures. Order a 2D echo. Tae loving on current antibiotics for now. Await final wound cultures. Follow podiatry recommendations. Consider PICC line placement once cultures are negative. Dictated By: SUNNY PRECIAOD WATER TAXI DRIVER for GHAZALA RIVERA/LINNEA Conf#: [id number] DID#: [id number]
[2017-07-17 07:47] VITALS: BP 175/84; RESP 16
[2017-07-17] MEDS: VANCOMYCIN 1 GM in NS 250 ML IVPB SCH (08:09)
[2017-07-17] MEDS: GENTAMICIN 0.1% 15 GM OINT TOP SCH (08:10)
[2017-07-17] MEDS: Insulin NOVOLOG SS MODERATE Algorithm (SS with meals and bedtime) SC SCH ×4 (08:15→21:00)
[2017-07-17] MEDS: INSULIN GLARGINE [LANtus] 3 ML PEN SC SCH ×3 (08:15→13:25)
[2017-07-17] MEDS: ENOXAPARIN 40 MG/0.4 ML SYG SC SCH (08:15)
[2017-07-17] MEDS: CEFEPIME 1GM/50 ML (PMX) 50 ML IVPB SCH ×2 (10:37→21:15)
[2017-07-17] MEDS: SODIUM HYPOCHLORITE 0.125% 473 ML BTL IRR SCH (10:38)
[2017-07-17 11:53] VITALS: BP 145/71; PULSE 68; RESP 22
--- NOTE | 2017-07-17 14:10 | PN ---
DATE: 07/17/2017 INFECTIOUS DISEASE PROGRESS NOTE SUBJECTIVE: No acute changes. The patient is alert, feels good. Denies pain, no fevers. No labs this morning. MICROBIOLOGY: Blood culture on admission grew oxacillin-sensitive Staphylococcus aureus susceptible to majority of the antibiotics, resistant only to penicillin G and erythromycin. Repeat blood cultu re on 07/15/2017 negative. Right foot culture growing Streptococcus agalactiae and gram-negative ro ds. ANTIMICROBIALS: The patient is on: 1. Cefepime. 2. Vancomycin. PHYSICAL EXAMINATION: GENERAL: This is a well-developed, middle-aged man who is alert, in no distress. HEENT: Head atraumatic, normocephalic. Sclerae anicteric. Buccal mucosa pink. NECK: Supple. CHEST: Rise symmetrical. Breath sounds clear. HEART: S1, S2. ABDOMEN: Soft. Bowel tones present. ASSESSMENT: 1. Resolving sepsis. 2. Oxacillin-sensitive Staphylococcus aureus bacteremia, likely secondary to #3. 3. Right foot ulceration, possible osteomyelitis, status post incision and drainage. 4. Peripheral vascular disease with a history of left above knee amputation. 5. Hypertension. 6. Diabetes with diabetic neuropathy. PLAN: The patient remains stable. A 2D echo on admission was negative. Repeat blood cultures nega tive. We are going to discontinue vancomycin, keep patient on cefepime for now, consider PICC line placement. The patient will require long-term IV antibiotics. Final recommendations for antibiotic s once cultures finalized. Dictated By: SUNNY PRECIADO FOXING CUTTING MACHINE OPERATOR for GHAZALA RIVERA/LINNEA Conf#: [id number] DID#: [id number]
[2017-07-17 14:24] VITALS: BP 125/66; RESP 20
--- NOTE | 2017-07-17 18:03 | PN ---
Date/Time of Note Date/Time of Note DATE: 07/17/17 TIME: 18:02 Assessment/Plan VTE Prophylaxis VTE Prophylaxis Intervention: other Lines/Catheters IV Catheter Type (from Nrs): Peripheral IV Assessment/Plan Chief Complaint/Hosp Course IMPRESSION: 1. Right foot wound cellulitis. 2. Other diagnoses of diabetes mellitus, 3 hypertension, 4chronic kidney disease. 5 sepsis 6 S/P I AND D PLAN PER PODIATRY ANTIBIOTIC per id REFUSING INSULIN Problems: Subjective 24 Hr Interval Summary Cardiovascular: no complaints Gastrointestinal: no complaints Exam/Review of Systems Vital Signs Vitals Vital Signs Date Time Temp Pulse Resp B/P Pulse Ox O2 Delivery O2 Flow Rate FiO2 07/17/17 14:24 98.5 68 20 125/66 97 07/17/17 11:53 Room Air Intake and Output 07/16/17 07/16/17 07/17/17 15:00 23:00 07:00 Intake Total 300 ml 1915 ml 1250 ml Output Total 3100 ml 1000 ml Balance 300 ml -1185 ml 250 ml Exam Neck: supple Respiratory: clear to auscultation Cardiovascular: regular rate and rhythm Gastrointestinal: soft Musculoskeletal: nl extremities to inspection Extremities: normal pulses Results Result Diagram: 07/16/1751407/16/1715 Results 24 hrs Laboratory Tests Test 07/16/17 20:11 07/17/17 07:55 07/17/17 11:53 07/17/17 13:19 Bedside Glucose 158 206 257 H 275 H Test 07/17/17 17:33 Bedside Glucose 253 H Medications Medications Current Medications Glucose (Glutose) 22.5 gm [id number] PO ; Start 07/13/17 at 20:00 Nitroglycerin (Nitroglycerin (Sl Tab) 0.4 Mg) 1 tab [id number] PRN SL CHEST PAIN ; Start 07/13/17 at 20:00 Pantoprazole (Protonix Tab) 40 mg DAILY@06 PO Last administered on 07/17/17 05:08; Admin Dose 40 MG; Start 07/14/17 at 06:00 Diagnostic Test (Pha) 1 ea 1 ea 02 XX ; Start 07/14/17 at 02:00 Sodium Chloride (NS) 1,000 ml @ 50 mls/hr Q20H IV Last administered on 05:09; Admin Dose 50 MLS/HR; Start 07/13/17 at 20:01 Ondansetron HCl (Zofran Inj) 4 mg Q6H PRN IV NAUSEA AND/OR VOMITING; Start 07/13/17 at 20:30 Acetaminophen (Tylenol Tab) 650 mg Q6H PRN PO PAIN LEVEL 1-3 OR FEVER Last administered on 07/14/17 04:40; Admin Dose 650 MG; Start 07/13/17 at 20:30 Docusate Sodium (Colace) 100 mg Q12H PRN PO CONSTIPATION; Start 07/13/17 at 20: 30 Magnesium Hydroxide (Milk Of Mag) 30 ml DAILY PRN PO CONSTIPATION; Start at 20:30 Bisacodyl (Dulcolax) 5 mg DAILY PRN PO CONSTIPATION; Start 07/13/17 at 20:30 Zolpidem Tartrate (Ambien) 5 mg QHS PRN PO SLEEP; Start 07/13/17 at 20:30 Enoxaparin Sodium (Lovenox) 40 mg DAILY SC Last administered on 07/17/17 08: 15; Admin Dose 40 MG; Start 07/14/17 at 09:00 Miscellaneous Information 1 ea NOTE XX ; Start 07/13/17 at 21:00 Glucose (Glutose) 15 gm Q15M PRN PO DECREASED GLUCOSE; Start 07/13/17 at 21:00 Glucose (Glutose) 22.5 gm Q15M PRN PO DECREASED GLUCOSE; Start 07/13/17 at 21: 00 Dextrose (D50w Syringe) 25 ml Q15M PRN IV DECREASED GLUCOSE; Start 07/13/17 at 21:00 Dextrose (D50w Syringe) 50 ml Q15M PRN IV DECREASED GLUCOSE; Start 07/13/17 at 21:00 Glucagon (Glucagen) 1 mg Q15M PRN IM DECREASED GLUCOSE; Start 07/13/17 at 21:00 Glucose (Glutose) 15 gm Q15M PRN BUCCAL DECREASED GLUCOSE; Start 07/13/17 at 21 :00 Gentamicin Sulfate (Gentamicin 0.1% Oint) 1 applic Q24H TOP Last administered on 07/17/17 08:10; Admin Dose 1 APPLIC; Start 07/14/17 at 09:00 Sodium Hypochlorite (Dakin'S (1/4 Strength)) 1 applic DAILY IRR Last administered on 07/17/17 10:38; Admin Dose 1 APPLIC; Start 07/17/17 at 09:00 Clonidine (Catapres) 0.1 mg QID PRN PO sbp greater than 170 Last administered on 07/17/17 09:31; Admin Dose 0.1 MG; Start 07/17/17 at 09:00 Insulin Glargine 8 unit 8 unit DAILY SC Last administered on 07/17/17 13:25; Admin Dose 8 UNIT; Start 07/18/17 at 09:00 Cefepime HCl (Maxipime 1gm/50 ml (Pmx)) 50 ml @ 100 mls/hr Q12 IVPB ; Start at 21:00 LUIS ENRIQUE MAN MD Jul 17, 2017 18:03
[2017-07-17 20:00] VITALS: BP 163/77; RESP 20
[2017-07-17] MEDS: GLUCOSE GEL 15 GRAM TUBE PO SCH (20:00)
[2017-07-18] MEDS: ACCU-CHEK XX SCH ×4 (01:34→17:39)
[2017-07-18 02:00] VITALS: BP 167/84; RESP 20
[2017-07-18 02:45] VITALS: BP 142/80
[2017-07-18] MEDS: PANTOPRAZOLE (EC) 40 MG TAB PO SCH (05:52)
[2017-07-18] MEDS: SOD CHLORIDE 0.9% 1,000 ML IV SCH ×2 (05:59→20:01)
[2017-07-18 07:54] VITALS: BP 172/82; RESP 18
[2017-07-18] MEDS: Insulin NOVOLOG SS MODERATE Algorithm (SS with meals and bedtime) SC SCH ×4 (08:00→20:53)
[2017-07-18] MEDS: CEFEPIME 1GM/50 ML (PMX) 50 ML IVPB SCH ×2 (08:36→20:51)
[2017-07-18] MEDS: GENTAMICIN 0.1% 15 GM OINT TOP SCH (08:37)
[2017-07-18] MEDS: INSULIN GLARGINE [LANtus] 3 ML PEN SC SCH (08:39)
[2017-07-18] MEDS: ENOXAPARIN 40 MG/0.4 ML SYG SC SCH (08:41)
[2017-07-18] MEDS: SODIUM HYPOCHLORITE 0.125% 473 ML BTL IRR SCH (08:42)
--- NOTE | 2017-07-18 12:22 | CONS ---
Date/Time of Note Date/Time of Note DATE: 07/18/17 TIME: 12:21 Assessment/Plan Assessment/Plan Chief Complaint/Hosp Course ID PROGRESS NOTE CURRENT ABX: DAY # => Vanco IV + Cefepime 24H INTERVAL SUMMARY * A/A/O -> in process of podiatry evaluation of left foot wound -> DSG and packing removed, no pain per patient * VSS, no fevers, NAD Physical Exam Physical Exam Constitutional: VSS, NAD HEENT: Unremarkable Neck: Supple, full ROM Respiratory: Equal chest rise bilaterally without dyspnea on observation Cardiovascular: nl pulse Gastrointestinal: Soft, NT Extremities: Warm -> right foot DSG removed / packing removed from tunnel -> Hx of TMA Hx of L-AKA Neurological: nl mental status, nl speech, nl strength ID ASSESSMENT 57 yo M admit with: 1. Resolving sepsis on admission 11/06 #2 #3 2. Oxacillin-sensitive Staphylococcus aureus bacteremia on admission, likely secondary to #3 * Repeat BCx 07/15 (-); 07/17 (-) to date . 3. Right foot ulceration, probable osteomyelitis (ESR 125), status post incision and drainage. * WOUND CULTURE Preliminary Organism 1 K PNEUMO ESBL Organism 2 STREP AGALACTIAE - (GROUP B) Organism 3 STAPHYLOCOCCUS AUREUS Organism 4 STAPHYLOCOCCUS SPECIES Organism 5 ENTEROCOCCUS SPECIES 4. Peripheral vascular disease with a history of left above knee amputation. 5. Hypertension. 6. Diabetes with diabetic neuropathy. 7. CKD ABX ALLERGIES: KNDA CURRENT ABX: DAY # => => Vanco IV + Cefepime ID RECOMMENDATIONS 1. Continue current ABX -- await final micro results still pending . Problems: Consultation Date/Type/Reason Admit Date/Time Jul 13, 2017 at 19:12 Initial Consult Date 07/14/17 Type of Consultation: ID Exam/Review of Systems Vital Signs Vitals Vital Signs Date Time Temp Pulse Resp B/P Pulse Ox O2 Delivery O2 Flow Rate FiO2 07/18/17 07:54 97.9 74 18 172/82 95 07/17/17 11:53 Room Air Intake and Output 07/17/17 07/17/17 07/18/17 15:00 23:00 07:00 Intake Total 522 ml 1560 ml 1250 ml Output Total 360 ml 1625 ml 1025 ml Balance 162 ml -65 ml 225 ml Results Result Diagram: 07/16/17 0515 07/16/17 0515 Results 24 hrs Laboratory Tests Test 07/17/17 13:19 07/17/17 17:33 07/17/17 21:17 07/18/17 05:05 Bedside Glucose 275 H 253 H 106 Hemoglobin A1c 10.4 H Test 07/18/17 07:47 07/18/17 12:04 Bedside Glucose 136 162 Medications Medications Current Medications Glucose (Glutose) 22.5 gm [id number] PO ; Start 07/13/17 at 20:00 Nitroglycerin (Nitroglycerin (Sl Tab) 0.4 Mg) 1 tab [id number] PRN SL CHEST PAIN ; Start 07/13/17 at 20:00 Pantoprazole (Protonix Tab) 40 mg DAILY@06 PO Last administered on 07/18/17 05:52; Admin Dose 40 MG; Start 07/14/17 at 06:00 Diagnostic Test (Pha) 1 ea 1 ea 02 XX ; Start 07/14/17 at 02:00 Sodium Chloride (NS) 1,000 ml @ 50 mls/hr Q20H IV Last administered on 05:59; Admin Dose 50 MLS/HR; Start 07/13/17 at 20:01 Ondansetron HCl (Zofran Inj) 4 mg Q6H PRN IV NAUSEA AND/OR VOMITING; Start 07/13/17 at 20:30 Acetaminophen (Tylenol Tab) 650 mg Q6H PRN PO PAIN LEVEL 1-3 OR FEVER Last administered on 07/14/17 04:40; Admin Dose 650 MG; Start 07/13/17 at 20:30 Docusate Sodium (Colace) 100 mg Q12H PRN PO CONSTIPATION; Start 07/13/17 at 20: 30 Magnesium Hydroxide (Milk Of Mag) 30 ml DAILY PRN PO CONSTIPATION; Start at 20:30 Bisacodyl (Dulcolax) 5 mg DAILY PRN PO CONSTIPATION; Start 07/13/17 at 20:30 Zolpidem Tartrate (Ambien) 5 mg QHS PRN PO SLEEP; Start 07/13/17 at 20:30 Enoxaparin Sodium (Lovenox) 40 mg DAILY SC Last administered on 07/18/17 08: 41; Admin Dose 40 MG; Start 07/14/17 at 09:00 Miscellaneous Information 1 ea NOTE XX ; Start 07/13/17 at 21:00 Glucose (Glutose) 15 gm Q15M PRN PO DECREASED GLUCOSE; Start 07/13/17 at 21:00 Glucose (Glutose) 22.5 gm Q15M PRN PO DECREASED GLUCOSE; Start 07/13/17 at 21: 00 Dextrose (D50w Syringe) 25 ml Q15M PRN IV DECREASED GLUCOSE; Start 07/13/17 at 21:00 Dextrose (D50w Syringe) 50 ml Q15M PRN IV DECREASED GLUCOSE; Start 07/13/17 at 21:00 Glucagon (Glucagen) 1 mg Q15M PRN IM DECREASED GLUCOSE; Start 07/13/17 at 21:00 Glucose (Glutose) 15 gm Q15M PRN BUCCAL DECREASED GLUCOSE; Start 07/13/17 at 21 :00 Gentamicin Sulfate (Gentamicin 0.1% Oint) 1 applic Q24H TOP Last administered on 07/18/17 08:37; Admin Dose 1 APPLIC; Start 07/14/17 at 09:00 Sodium Hypochlorite (Dakin'S (1/4 Strength)) 1 applic DAILY IRR Last administered on 07/18/17 08:42; Admin Dose 1 APPLIC; Start 07/17/17 at 09:00 Clonidine (Catapres) 0.1 mg QID PRN PO sbp greater than 170 Last administered on 07/17/17 09:31; Admin Dose 0.1 MG; Start 07/17/17 at 09:00 Insulin Glargine 8 unit 8 unit DAILY SC Last administered on 07/17/17 13:25; Admin Dose 8 UNIT; Start 07/18/17 at 09:00 Cefepime HCl (Maxipime 1gm/50 ml (Pmx)) 50 ml @ 100 mls/hr Q12 IVPB Last administered on 07/18/17 08:36; Admin Dose 100 MLS/HR; Start 07/17/17 at 21: 00 CAMILLE ENCISO NP Jul 18, 2017 12:22
[2017-07-18 13:47] VITALS: BP 186/87; RESP 20
[2017-07-18 14:27] VITALS: BP 174/83
--- NOTE | 2017-07-18 15:19 | PN ---
Date/Time of Note Date/Time of Note DATE: 07/18/17 TIME: 15:18 Assessment/Plan VTE Prophylaxis VTE Prophylaxis Intervention: other Lines/Catheters IV Catheter Type (from Nrs): Peripheral IV Assessment/Plan Chief Complaint/Hosp Course IMPRESSION: 1. Right foot wound cellulitis. 2. Other diagnoses of diabetes mellitus, 3 hypertension, 4chronic kidney disease. 5 sepsis 6 S/P I AND D 7 POLYMICROBIAL INF PLAN PER PODIATRY ANTIBIOTIC per id REFUSING INSULIN BP MEDS Problems: Subjective 24 Hr Interval Summary Subjective hx not possible: other (POLYMICROBIAL INF) Exam/Review of Systems Vital Signs Vitals Vital Signs Date Time Temp Pulse Resp B/P Pulse Ox O2 Delivery O2 Flow Rate FiO2 07/18/17 14:27 174/83 07/18/17 13:47 97.7 80 20 99 07/17/17 11:53 Room Air Intake and Output 07/17/17 07/17/17 07/18/17 15:00 23:00 07:00 Intake Total 522 ml 1560 ml 1250 ml Output Total 360 ml 1625 ml 1025 ml Balance 162 ml -65 ml 225 ml Exam Respiratory: clear to auscultation Gastrointestinal: soft Musculoskeletal: nl extremities to inspection Extremities: edema (+) Results Result Diagram: 07/16/1715 07/16/1715 Results 24 hrs Laboratory Tests Test 07/17/17 17:33 07/17/17 21:17 07/18/17 05:05 07/18/17 07:47 Bedside Glucose 253 H 106 136 Hemoglobin A1c 10.4 H Test 07/18/17 12:04 Bedside Glucose 162 Medications Medications Current Medications Glucose (Glutose) 22.5 gm [id number] PO ; Start 07/13/17 at 20:00 Nitroglycerin (Nitroglycerin (Sl Tab) 0.4 Mg) 1 tab [id number] PRN SL CHEST PAIN ; Start 07/13/17 at 20:00 Pantoprazole (Protonix Tab) 40 mg DAILY@06 PO Last administered on 07/18/17t 05:52; Admin Dose 40 MG; Start 07/14/17 at 06:00 Diagnostic Test (Pha) 1 ea 1 ea 02 XX ; Start 07/14/17 at 02:00 Sodium Chloride (NS) 1,000 ml @ 50 mls/hr Q20H IV Last administered on 05:59; Admin Dose 50 MLS/HR; Start 07/13/17 at 20:01 Ondansetron HCl (Zofran Inj) 4 mg Q6H PRN IV NAUSEA AND/OR VOMITING; Start 07/13/17 at 20:30 Acetaminophen (Tylenol Tab) 650 mg Q6H PRN PO PAIN LEVEL 1-3 OR FEVER Last administered on 07/14/17 04:40; Admin Dose 650 MG; Start 07/13/17 at 20:30 Docusate Sodium (Colace) 100 mg Q12H PRN PO CONSTIPATION; Start 07/13/17 at 20: 30 Magnesium Hydroxide (Milk Of Mag) 30 ml DAILY PRN PO CONSTIPATION; Start at 20:30 Bisacodyl (Dulcolax) 5 mg DAILY PRN PO CONSTIPATION; Start 07/13/17 at 20:30 Zolpidem Tartrate (Ambien) 5 mg QHS PRN PO SLEEP; Start 07/13/17 at 20:30 Enoxaparin Sodium (Lovenox) 40 mg DAILY SC Last administered on 07/18/17 08: 41; Admin Dose 40 MG; Start 07/14/17 at 09:00 Miscellaneous Information 1 ea NOTE XX ; Start 07/13/17 at 21:00 Glucose (Glutose) 15 gm Q15M PRN PO DECREASED GLUCOSE; Start 07/13/17 at 21:00 Glucose (Glutose) 22.5 gm Q15M PRN PO DECREASED GLUCOSE; Start 07/13/17 at 21: 00 Dextrose (D50w Syringe) 25 ml Q15M PRN IV DECREASED GLUCOSE; Start 07/13/17 at 21:00 Dextrose (D50w Syringe) 50 ml Q15M PRN IV DECREASED GLUCOSE; Start 07/13/17 at 21:00 Glucagon (Glucagen) 1 mg Q15M PRN IM DECREASED GLUCOSE; Start 07/13/17 at 21:00 Glucose (Glutose) 15 gm Q15M PRN BUCCAL DECREASED GLUCOSE; Start 07/13/17 at 21 :00 Gentamicin Sulfate (Gentamicin 0.1% Oint) 1 applic Q24H TOP Last administered on 07/18/17 08:37; Admin Dose 1 APPLIC; Start 07/14/17 at 09:00 Sodium Hypochlorite (Dakin'S (1/4 Strength)) 1 applic DAILY IRR Last administered on 07/18/17 08:42; Admin Dose 1 APPLIC; Start 07/17/17 at 09:00 Clonidine (Catapres) 0.1 mg QID PRN PO sbp greater than 170 Last administered on 07/18/17 14:26; Admin Dose 0.1 MG; Start 07/17/17 at 09:00 Insulin Glargine 8 unit 8 unit DAILY SC Last administered on 07/17/17 13:25; Admin Dose 8 UNIT; Start 07/18/17 at 09:00 Cefepime HCl (Maxipime 1gm/50 ml (Pmx)) 50 ml @ 100 mls/hr Q12 IVPB Last administered on 07/18/17 08:36; Admin Dose 100 MLS/HR; Start 07/17/17 at 21: 00 LUIS ENRIQUE MAN MD Jul 18, 2017 15:19
[2017-07-18] MEDS: LOSARTAN 50 MG TAB PO SCH (15:21)
[2017-07-18 19:38] VITALS: BP 180/80; RESP 20
[2017-07-18] MEDS: GLUCOSE GEL 15 GRAM TUBE PO SCH (20:00)
[2017-07-19] MEDS: ACCU-CHEK XX SCH ×4 (01:25→17:22)
[2017-07-19 02:05] VITALS: BP 159/73; RESP 18
[2017-07-19] MEDS: SOD CHLORIDE 0.9% 1,000 ML IV SCH ×2 (03:25→16:01)
[2017-07-19] MEDS: PANTOPRAZOLE (EC) 40 MG TAB PO SCH (05:39)
--- NOTE | 2017-07-19 06:21 | OPR ---
DATE OF OPERATION: 07/18/2017 SURGEON: Jewels Jenkins DPM OXYGEN FURNACE OPERATOR: None. PREOPERATIVE DIAGNOSES: 1. Right foot ulceration with polymicrobial infection with staph, enterococcus, Klebsiella, ESBL. 2. History of right foot osteomyelitis. 3. History of right foot transmetatarsal amputation. 4. Diabetes, poorly controlled. 5. Left above-knee amputation. 6. Sepsis. 7. Cellulitis. PROCEDURES PERFORMED: Right foot excisional debridement of necrotic skin, subcutaneous tissue, liga ment, muscle and bone, less than 20 cm2. PATHOLOGY: Wound culture. ESTIMATED BLOOD LOSS: 15 mL. HEMOSTASIS: Compression. COMPLICATIONS: None. PROCEDURE IN DETAIL: The patient seen at bedside and consented for staged debridement. The ulcerat ion was irrigated with Betadine, Dakin's, and saline using a combination of sharp instrumentation, e xcision, and debridement of skin, subcutaneous tissue, fascia and bone debrided. Patient had an est imated 20 mL of sanguineous exudate. Ulcer was irrigated with pulse lavage. The wound was cultured and subsequently irrigated with Dakin's irrigation and the wound was packed open with wet-to-dry gau ze and Kerlix. The patient tolerated the procedure well. Dictated By: JEWELS NEAL/LINNEA Conf#: [id number] DID#: [id number]
[2017-07-19 08:00] VITALS: BP 166/79; RESP 18
[2017-07-19] MEDS: LOSARTAN 50 MG TAB PO SCH (08:08)
[2017-07-19] MEDS: CEFEPIME 1GM/50 ML (PMX) 50 ML IVPB SCH ×2 (08:09→20:29)
[2017-07-19] MEDS: GENTAMICIN 0.1% 15 GM OINT TOP SCH (08:09)
[2017-07-19] MEDS: SODIUM HYPOCHLORITE 0.125% 473 ML BTL IRR SCH (08:10)
[2017-07-19] MEDS: INSULIN GLARGINE [LANtus] 3 ML PEN SC SCH (08:15)
[2017-07-19] MEDS: ENOXAPARIN 40 MG/0.4 ML SYG SC SCH (08:21)
[2017-07-19] MEDS: Insulin NOVOLOG SS MODERATE Algorithm (SS with meals and bedtime) SC SCH ×4 (08:21→20:37)
--- NOTE | 2017-07-19 13:11 | CONS ---
Date/Time of Note Date/Time of Note DATE: 07/19/17 TIME: 13:00 Consultation Date/Type/Reason Admit Date/Time Jul 13, 2017 at 19:12 Initial Consult Date INFECTIOUS DISEASE PROGRESS NOTE SUBJECTIVE: Rt foot DM ulcer with cellulitis and S/P surgical debridement 07/18. Cultures were obtained at the time of surgery and pending for results. The patient is alert, feeling ok. Denies pain, no fevers. VS: 166/79 P:71 R:18 T:98.6 SO2: 97% LABS: none for today. Reviewed. MICROBIOLOGY: Blood culture on admission grew oxacillin-sensitive Staphylococcus aureus susceptible to majority of the antibiotics, resistant only to penicillin G and erythromycin. Repeat blood culture on 07/15/2017 negative. Right foot culture growing Streptococcus agalactiae and gram- negative rods. ANTIMICROBIALS: The patient is on: 1. Cefepime. PHYSICAL EXAMINATION: GENERAL: This is a well-developed, middle-aged man who is alert, in no distress. HEENT: Head atraumatic, normocephalic. Sclerae anicteric. Buccal mucosa pink. NECK: Supple. CHEST: Rise symmetrical. Breath sounds clear. HEART: S1, S2. ABDOMEN: Soft. Bowel tones present. ASSESSMENT: 1. Resolving sepsis. 2. Oxacillin-sensitive Staphylococcus aureus bacteremia, likely secondary to # 3. 3. Right foot ulceration, possible osteomyelitis, status post incision and drainage. 4. Peripheral vascular disease with a history of left above knee amputation. 5. Hypertension. 6. Diabetes (poorly controlled) with diabetic neuropathy. PLAN: The patient remains stable. Continue with current IV antbx. Awaiting for wound culture. Wound care and pain management. Recommendations of podiatry. Type of Consultation: ID Exam/Review of Systems Vital Signs Vitals Vital Signs Date Time Temp Pulse Resp B/P Pulse Ox O2 Delivery O2 Flow Rate FiO2 07/19/17 08:00 98.6 71 18 166/79 97 07/17/17 11:53 Room Air Intake and Output 07/18/17 07/18/17 07/19/17 15:00 23:00 07:00 Intake Total 50 ml 1470 ml 1480 ml Output Total 2000 ml 520 ml Balance 50 ml -530 ml 960 ml Results Result Diagram: 07/16/17 0515 07/16/17 0515 Results 24 hrs Laboratory Tests Test 07/18/17 17:16 07/18/17 20:48 07/19/17 01:23 07/19/17 08:06 Bedside Glucose 278 H 269 H 200 199 Test 07/19/17 12:07 Bedside Glucose 245 H Medications Medications Current Medications Glucose (Glutose) 22.5 gm [id number] PO ; Start 07/13/17 at 20:00 Nitroglycerin (Nitroglycerin (Sl Tab) 0.4 Mg) 1 tab [id number] PRN SL CHEST PAIN ; Start 07/13/17 at 20:00 Pantoprazole (Protonix Tab) 40 mg DAILY@06 PO Last administered on 07/19/17 05:39; Admin Dose 40 MG; Start 07/14/17 at 06:00 Diagnostic Test (Pha) 1 ea 1 ea 02 XX ; Start 07/14/17 at 02:00 Sodium Chloride (NS) 1,000 ml @ 50 mls/hr Q20H IV Last administered on 03:25; Admin Dose 50 MLS/HR; Start 07/13/17 at 20:01 Ondansetron HCl (Zofran Inj) 4 mg Q6H PRN IV NAUSEA AND/OR VOMITING; Start 07/13/17 at 20:30 Acetaminophen (Tylenol Tab) 650 mg Q6H PRN PO PAIN LEVEL 1-3 OR FEVER Last administered on 07/14/17 04:40; Admin Dose 650 MG; Start 07/13/17 at 20:30 Docusate Sodium (Colace) 100 mg Q12H PRN PO CONSTIPATION; Start 07/13/17 at 20: 30 Magnesium Hydroxide (Milk Of Mag) 30 ml DAILY PRN PO CONSTIPATION; Start at 20:30 Bisacodyl (Dulcolax) 5 mg DAILY PRN PO CONSTIPATION; Start 07/13/17 at 20:30 Zolpidem Tartrate (Ambien) 5 mg QHS PRN PO SLEEP; Start 07/13/17 at 20:30 Enoxaparin Sodium (Lovenox) 40 mg DAILY SC Last administered on 07/19/17 08: 21; Admin Dose 40 MG; Start 07/14/17 at 09:00 Miscellaneous Information 1 ea NOTE XX ; Start 07/13/17 at 21:00 Glucose (Glutose) 15 gm Q15M PRN PO DECREASED GLUCOSE; Start 07/13/17 at 21:00 Glucose (Glutose) 22.5 gm Q15M PRN PO DECREASED GLUCOSE; Start 07/13/17 at 21: 00 Dextrose (D50w Syringe) 25 ml Q15M PRN IV DECREASED GLUCOSE; Start 07/13/17 at 21:00 Dextrose (D50w Syringe) 50 ml Q15M PRN IV DECREASED GLUCOSE; Start 07/13/17 at 21:00 Glucagon (Glucagen) 1 mg Q15M PRN IM DECREASED GLUCOSE; Start 07/13/17 at 21:00 Glucose (Glutose) 15 gm Q15M PRN BUCCAL DECREASED GLUCOSE; Start 07/13/17 at 21 :00 Gentamicin Sulfate (Gentamicin 0.1% Oint) 1 applic Q24H TOP Last administered on 07/19/17 08:09; Admin Dose 1 APPLIC; Start 07/14/17 at 09:00 Sodium Hypochlorite (Dakin'S (1/4 Strength)) 1 applic DAILY IRR Last administered on 07/19/17 08:10; Admin Dose 1 APPLIC; Start 07/17/17 at 09:00 Clonidine (Catapres) 0.1 mg QID PRN PO sbp greater than 170 Last administered on 07/18/17 14:26; Admin Dose 0.1 MG; Start 07/17/17 at 09:00 Insulin Glargine 8 unit 8 unit DAILY SC Last administered on 07/17/17 13:25; Admin Dose 8 UNIT; Start 07/18/17 at 09:00 Cefepime HCl (Maxipime 1gm/50 ml (Pmx)) 50 ml @ 100 mls/hr Q12 IVPB Last administered on 07/19/17 08:09; Admin Dose 100 MLS/HR; Start 07/17/17 at 21: 00 Losartan Potassium (Cozaar) 100 mg DAILY PO Last administered on 07/19/17 08: 08; Admin Dose 100 MG; Start 07/18/17 at 15:30 Clonidine (Catapres) 0.1 mg TID PO Last administered on 07/19/17 12:09; Admin Dose 0.1 MG; Start 07/18/17 at 21:00 AMANDA FERGUSON Jul 19, 2017 13:11
[2017-07-19 14:59] VITALS: BP 144/74; RESP 20
--- NOTE | 2017-07-19 19:05 | PN ---
Date/Time of Note Date/Time of Note DATE: 07/19/17 TIME: 19:03 Assessment/Plan VTE Prophylaxis VTE Prophylaxis Intervention: other Lines/Catheters IV Catheter Type (from Nrs): Peripheral IV Assessment/Plan Chief Complaint/Hosp Course IMPRESSION: 1. Right foot wound /cellulitis.S/P DEBRIDEMENT 2. Other diagnoses of diabetes mellitus, 3 hypertension, 4chronic kidney disease. 5 sepsis 6 S/P I AND D 7 POLYMICROBIAL INF PLAN PER PODIATRY ANTIBIOTIC per id REFUSING INSULIN OCC BP MEDS Problems: Subjective 24 Hr Interval Summary Subjective hx not possible: other (S/P DEBRIDEMENT) Respiratory: no complaints Cardiovascular: no complaints Exam/Review of Systems Vital Signs Vitals Vital Signs Date Time Temp Pulse Resp B/P Pulse Ox O2 Delivery O2 Flow Rate FiO2 07/19/17 14:59 98.8 65 20 144/74 98 07/17/17 11:53 Room Air Intake and Output 07/18/17 07/18/17 07/19/17 15:00 23:00 07:00 Intake Total 50 ml 1470 ml 1480 ml Output Total 2000 ml 520 ml Balance 50 ml -530 ml 960 ml Exam Respiratory: clear to auscultation Cardiovascular: regular rate and rhythm Gastrointestinal: soft Skin: other (FOOT WOUND+) Results Result Diagram: 07/16/1751407/16/17514 Results 24 hrs Laboratory Tests Test 07/18/17 20:48 07/19/17 01:23 07/19/17 08:06 07/19/17 12:07 Bedside Glucose 269 H 200 199 245 H Test 07/19/17 17:20 Bedside Glucose 271 H Medications Medications Current Medications Glucose (Glutose) 22.5 gm [id number] PO ; Start 07/13/17 at 20:00 Nitroglycerin (Nitroglycerin (Sl Tab) 0.4 Mg) 1 tab [id number] PRN SL CHEST PAIN ; Start 07/13/17 at 20:00 Pantoprazole (Protonix Tab) 40 mg DAILY@06 PO Last administered on 07/19/17t 05:39; Admin Dose 40 MG; Start 07/14/17 at 06:00 Diagnostic Test (Pha) 1 ea 1 ea 02 XX ; Start 07/14/17 at 02:00 Sodium Chloride (NS) 1,000 ml @ 50 mls/hr Q20H IV Last administered on 03:25; Admin Dose 50 MLS/HR; Start 07/13/17 at 20:01 Ondansetron HCl (Zofran Inj) 4 mg Q6H PRN IV NAUSEA AND/OR VOMITING; Start 07/13/17 at 20:30 Acetaminophen (Tylenol Tab) 650 mg Q6H PRN PO PAIN LEVEL 1-3 OR FEVER Last administered on 07/14/17 04:40; Admin Dose 650 MG; Start 07/13/17 at 20:30 Docusate Sodium (Colace) 100 mg Q12H PRN PO CONSTIPATION; Start 07/13/17 at 20: 30 Magnesium Hydroxide (Milk Of Mag) 30 ml DAILY PRN PO CONSTIPATION; Start at 20:30 Bisacodyl (Dulcolax) 5 mg DAILY PRN PO CONSTIPATION; Start 07/13/17 at 20:30 Zolpidem Tartrate (Ambien) 5 mg QHS PRN PO SLEEP; Start 07/13/17 at 20:30 Enoxaparin Sodium (Lovenox) 40 mg DAILY SC Last administered on 07/19/17 08: 21; Admin Dose 40 MG; Start 07/14/17 at 09:00 Miscellaneous Information 1 ea NOTE XX ; Start 07/13/17 at 21:00 Glucose (Glutose) 15 gm Q15M PRN PO DECREASED GLUCOSE; Start 07/13/17 at 21:00 Glucose (Glutose) 22.5 gm Q15M PRN PO DECREASED GLUCOSE; Start 07/13/17 at 21: 00 Dextrose (D50w Syringe) 25 ml Q15M PRN IV DECREASED GLUCOSE; Start 07/13/17 at 21:00 Dextrose (D50w Syringe) 50 ml Q15M PRN IV DECREASED GLUCOSE; Start 07/13/17 at 21:00 Glucagon (Glucagen) 1 mg Q15M PRN IM DECREASED GLUCOSE; Start 07/13/17 at 21:00 Glucose (Glutose) 15 gm Q15M PRN BUCCAL DECREASED GLUCOSE; Start 07/13/17 at 21 :00 Gentamicin Sulfate (Gentamicin 0.1% Oint) 1 applic Q24H TOP Last administered on 07/19/17 08:09; Admin Dose 1 APPLIC; Start 07/14/17 at 09:00 Sodium Hypochlorite (Dakin'S (1/4 Strength)) 1 applic DAILY IRR Last administered on 07/19/17 08:10; Admin Dose 1 APPLIC; Start 07/17/17 at 09:00 Clonidine (Catapres) 0.1 mg QID PRN PO sbp greater than 170 Last administered on 07/18/17 14:26; Admin Dose 0.1 MG; Start 07/17/17 at 09:00 Insulin Glargine 8 unit 8 unit DAILY SC Last administered on 07/17/17 13:25; Admin Dose 8 UNIT; Start 07/18/17 at 09:00 Cefepime HCl (Maxipime 1gm/50 ml (Pmx)) 50 ml @ 100 mls/hr Q12 IVPB Last administered on 07/19/17 08:09; Admin Dose 100 MLS/HR; Start 07/17/17 at 21: 00 Losartan Potassium (Cozaar) 100 mg DAILY PO Last administered on 07/19/17 08: 08; Admin Dose 100 MG; Start 07/18/17 at 15:30 Clonidine (Catapres) 0.1 mg TID PO Last administered on 07/19/17 12:09; Admin Dose 0.1 MG; Start 07/18/17 at 21:00 LUIS ENRIQUE MAN MD Jul 19, 2017 19:05
[2017-07-19] MEDS: GLUCOSE GEL 15 GRAM TUBE PO SCH (20:00)
[2017-07-19 20:12] VITALS: BP 170/79; RESP 18
[2017-07-19 22:00] VITALS: BP 181/83; PULSE 57; RESP 18
[2017-07-20] VITALS (11 sets, daily range): BP systolic 110–181; BP diastolic 58–87; PULSE 60–67; RESP 18–20
[2017-07-20] MEDS: hydrALAzine 20 MG INJ IV PRN (01:36)
[2017-07-20] MEDS: ACCU-CHEK XX SCH ×4 (02:10→17:32)
[2017-07-20] MEDS: PANTOPRAZOLE (EC) 40 MG TAB PO SCH (06:23)
[2017-07-20] MEDS: SOD CHLORIDE 0.9% 1,000 ML IV SCH ×2 (06:25→11:58)
[2017-07-20 06:38] LABS: CALCIUM 8.6 mg/dl (8.4-10.2); CREATININE 1.28 mg/dl (0.61-1.24); POTASSIUM 3.6 mmol/L (3.5-5.1)
[2017-07-20] MEDS: CEFEPIME 1GM/50 ML (PMX) 50 ML IVPB SCH (08:32)
[2017-07-20] MEDS: LOSARTAN 50 MG TAB PO SCH (08:34)
[2017-07-20] MEDS: INSULIN GLARGINE [LANtus] 3 ML PEN SC SCH (08:35)
[2017-07-20] MEDS: SODIUM HYPOCHLORITE 0.125% 473 ML BTL IRR SCH (08:36)
[2017-07-20] MEDS: GENTAMICIN 0.1% 15 GM OINT TOP SCH (08:36)
[2017-07-20] MEDS: Insulin NOVOLOG SS MODERATE Algorithm (SS with meals and bedtime) SC SCH ×4 (08:48→20:40)
[2017-07-20] MEDS: ENOXAPARIN 40 MG/0.4 ML SYG SC SCH (08:48)
--- NOTE | 2017-07-20 10:56 | PN ---
Date/Time of Note Date/Time of Note DATE: 07/20/17 TIME: 10:45 Assessment/Plan VTE Prophylaxis VTE Prophylaxis Intervention: LMWH Lines/Catheters IV Catheter Type (from Nrs): Peripheral IV Urinary Cath still in place: No Assessment/Plan Chief Complaint/Hosp Course 57 y/o with 1. sepsis. improved 2. Oxacillin-sensitive Staphylococcus aureus bacteremia, repeat bld cx negative 3. Right foot ulceration, possible osteomyelitis, status post incision and drainage. x2 with polymicrobial 4. Peripheral vascular disease with a history of left above knee amputation. 5. Hypertension. 6. Diabetes (poorly controlled) with diabetic neuropathy. Plan - ID started Daptomycin and Ertapenam today - Lantus and ISS pt was reinforced - c/w Losartan and clonidine - Further recs per ID and Podiatry - Labs am - GI/DVT prophylaxsis Problems: Subjective 24 Hr Interval Summary Free Text/Dictation Pt was refusing insulin stating that it does not work and would rather take oral Spoke with help of bhutanese translation and pt agreed to take insulin Exam/Review of Systems Vital Signs Vitals Vital Signs Date Time Temp Pulse Resp B/P Pulse Ox O2 Delivery O2 Flow Rate FiO2 07/20/17 02:58 66 18 143/76 97 Room Air 07/20/17 02:06 97.9 Intake and Output 07/19/17 07/19/17 07/20/17 14:59 22:59 06:59 Intake Total 1360 ml 1100 ml Output Total 1000 ml 1400 ml Balance 360 ml -300 ml Exam Gen: awake and alert Respiratory: clear to auscultation Gastrointestinal: soft Musculoskeletal: nl extremities to inspection Extremities: left BKA and rt foot wrapped in bandage Results Result Diagram: 07/16/17 0515 07/20/17 0515 Results 24 hrs Laboratory Tests Test 07/19/17 12:07 07/19/17 17:20 07/19/17 20:32 07/20/17 02:09 Bedside Glucose 245 H 271 H 221 H 232 H Test 07/20/17 05:15 07/20/17 08:30 Sodium Level 140 Potassium Level 3.6 Chloride Level 106 Carbon Dioxide Level 23 Anion Gap 15 Blood Urea Nitrogen 21 H Creatinine 1.28 H Glucose Level 242 H Calcium Level 8.6 Bedside Glucose 219 Medications Medications Current Medications Glucose (Glutose) 22.5 gm [id number] PO ; Start 07/13/17 at 20:00 Nitroglycerin (Nitroglycerin (Sl Tab) 0.4 Mg) 1 tab [id number] PRN SL CHEST PAIN ; Start 07/13/17 at 20:00 Pantoprazole (Protonix Tab) 40 mg DAILY@06 PO Last administered on 07/20/17 06:23; Admin Dose 40 MG; Start 07/14/17 at 06:00 Diagnostic Test (Pha) 1 ea 1 ea 02 XX Last administered on 07/20/17 02:10; Admin Dose 1 EA; Start 07/14/17 at 02:00 Sodium Chloride (NS) 1,000 ml @ 50 mls/hr Q20H IV Last administered on 06:25; Admin Dose 50 MLS/HR; Start 07/13/17 at 20:01 Ondansetron HCl (Zofran Inj) 4 mg Q6H PRN IV NAUSEA AND/OR VOMITING; Start 07/13/17 at 20:30 Acetaminophen (Tylenol Tab) 650 mg Q6H PRN PO PAIN LEVEL 1-3 OR FEVER Last administered on 07/14/17 04:40; Admin Dose 650 MG; Start 07/13/17 at 20:30 Docusate Sodium (Colace) 100 mg Q12H PRN PO CONSTIPATION; Start 07/13/17 at 20: 30 Magnesium Hydroxide (Milk Of Mag) 30 ml DAILY PRN PO CONSTIPATION; Start at 20:30 Bisacodyl (Dulcolax) 5 mg DAILY PRN PO CONSTIPATION; Start 07/13/17 at 20:30 Zolpidem Tartrate (Ambien) 5 mg QHS PRN PO SLEEP; Start 07/13/17 at 20:30 Enoxaparin Sodium (Lovenox) 40 mg DAILY SC Last administered on 07/20/17 08: 48; Admin Dose 40 MG; Start 07/14/17 at 09:00 Miscellaneous Information 1 ea NOTE XX ; Start 07/13/17 at 21:00 Glucose (Glutose) 15 gm Q15M PRN PO DECREASED GLUCOSE; Start 07/13/17 at 21:00 Glucose (Glutose) 22.5 gm Q15M PRN PO DECREASED GLUCOSE; Start 07/13/17 at 21: 00 Dextrose (D50w Syringe) 25 ml Q15M PRN IV DECREASED GLUCOSE; Start 07/13/17 at 21:00 Dextrose (D50w Syringe) 50 ml Q15M PRN IV DECREASED GLUCOSE; Start 07/13/17 at 21:00 Glucagon (Glucagen) 1 mg Q15M PRN IM DECREASED GLUCOSE; Start 07/13/17 at 21:00 Glucose (Glutose) 15 gm Q15M PRN BUCCAL DECREASED GLUCOSE; Start 07/13/17 at 21 :00 Gentamicin Sulfate (Gentamicin 0.1% Oint) 1 applic Q24H TOP Last administered on 07/20/17 08:36; Admin Dose 1 APPLIC; Start 07/14/17 at 09:00 Sodium Hypochlorite (Dakin'S (1/4 Strength)) 1 applic DAILY IRR Last administered on 07/20/17 08:36; Admin Dose 1 APPLIC; Start 07/17/17 at 09:00 Clonidine (Catapres) 0.1 mg QID PRN PO sbp greater than 170 Last administered on 07/19/17 23:07; Admin Dose 0.1 MG; Start 07/17/17 at 09:00 Insulin Glargine (Lantus) 8 unit DAILY SC Last administered on 07/17/17 13:25 ; Admin Dose 8 UNIT; Start 07/18/17 at 09:00 Losartan Potassium (Cozaar) 100 mg DAILY PO Last administered on 07/20/17 08: 34; Admin Dose 100 MG; Start 07/18/17 at 15:30 Clonidine (Catapres) 0.1 mg TID PO Last administered on 07/20/17 08:34; Admin Dose 0.1 MG; Start 07/18/17 at 21:00 Hydralazine HCl 10 mg 10 mg Q6H PRN IV ELEVATED BLOOD PRESSURE Last administered on 07/20/17 01:36; Admin Dose 10 MG; Start 07/20/17 at 01:30 Daptomycin 540 mg/ Sodium Chloride 100 ml @ 200 mls/hr Q24H IVPB ; Start 07/20 at 10:30; Status UNV Ertapenem/Sodium Chloride (Invanz/NS) 100 ml @ 200 mls/hr Q24H IVPB ; Start at 11:30 Fluconazole (Diflucan) 100 mg DAILY PO ; Start 10/16/17 at 10:30 ELLY ANDERSON MD Jul 20, 2017 10:56
[2017-07-20] MEDS ORDERED: DAPTOMYCIN 540 MG in SOD CHLORIDE 0.9% 100 ML IVPB SCH (11:30)
[2017-07-20] MEDS: FLUCONAZOLE 100 MG TAB PO SCH (11:37)
[2017-07-20] MEDS: INSULIN ASPART [NOVOLOG] 3 ML PEN SC SCH ×2 (12:05→17:38)
[2017-07-20] MEDS: ERTAPENEM SODIUM 1 GM in SOD CHLORIDE 0.9% 100 ML IVPB SCH (12:49)
--- NOTE | 2017-07-20 15:14 | CONS ---
Date/Time of Note Date/Time of Note DATE: 07/20/17 TIME: 15:05 Consultation Date/Type/Reason Admit Date/Time Jul 13, 2017 at 19:12 Initial Consult Date INFECTIOUS DISEASE PROGRESS NOTE SUBJECTIVE: Rt foot DM ulcer with cellulitis and S/P surgical debridement 07/18. Cultures were obtained at the time of surgery. Treatment will be changed accordingly. The patient is alert, feeling ok. Denies pain, no fevers. VS: 110/58 P:66 R:20 T:98.0 SO2: 98% LABS: Reviewed. BUN-21 Creat-1.28 MICROBIOLOGY: Blood culture on admission grew oxacillin-sensitive Staphylococcus aureus susceptible to majority of the antibiotics, resistant only to penicillin G and erythromycin. Repeat blood culture on 07/15/2017 negative. Right foot culture growing Streptococcus agalactiae and gram- negative rods. Wound culture report from 07/18 [facility] STAIN Final POLYMORPH. LEUKOCYTE RARE GRAM POS COCCI IN PAIRS RARE WOUND CULTURE Preliminary Organism 1 ENTEROCOCCUS SPECIES QUANTITY SCANT GROWTH Organism 2 STAPHYLOCOCCUS SPECIES QUANTITY SCANT GROWTH Organism 3 GRAM NEGATIVE GERALD QUANTITY ISOLATED FROM BROTH ONLY Organism 4 STREP AGALACTIAE - (GROUP B) QUANTITY SCANT GROWTH Organism 5 LIVIA ALBICANS QUANTITY SCANT GROWTH . ANTIMICROBIALS: The patient is on: 1. Daptomycin 2. Invanz 3. Diflucan PHYSICAL EXAMINATION: GENERAL: This is a well-developed, middle-aged man who is alert, in no distress. HEENT: Head atraumatic, normocephalic. Sclerae anicteric. Buccal mucosa pink. NECK: Supple. CHEST: Rise symmetrical. Breath sounds clear. HEART: S1, S2. ABDOMEN: Soft. Bowel tones present. ASSESSMENT: 1. Resolving sepsis. 2. Oxacillin-sensitive Staphylococcus aureus bacteremia, likely secondary to # 3. 3. Right foot ulceration, possible osteomyelitis, status post incision and drainage. 4. Peripheral vascular disease with a history of left above knee amputation. 5. Hypertension. 6. Diabetes (poorly controlled) with diabetic neuropathy. PLAN: The patient remains stable. Continue with current IV antbx. D/C cefepime. Recommending PICC line placement for longterm treatment with IV antbx. (4-6wks). Wound care and pain management. Recommendations of podiatry. Type of Consultation: ID Exam/Review of Systems Vital Signs Vitals Vital Signs Date Time Temp Pulse Resp B/P Pulse Ox O2 Delivery O2 Flow Rate FiO2 07/20/17 14:00 98.0 66 20 110/58 96 07/20/17 02:58 Room Air Intake and Output 07/19/17 07/19/17 07/20/17 15:00 23:00 07:00 Intake Total 1360 ml 1100 ml Output Total 1000 ml 1400 ml Balance 360 ml -300 ml Results Result Diagram: 07/16/17 0515 07/20/17 0515 Results 24 hrs Laboratory Tests Test 07/19/17 17:20 07/19/17 20:32 07/20/17 02:09 07/20/17 05:15 Bedside Glucose 271 H 221 H 232 H Sodium Level 140 Potassium Level 3.6 Chloride Level 106 Carbon Dioxide Level 23 Anion Gap 15 Blood Urea Nitrogen 21 H Creatinine 1.28 H Glucose Level 242 H Calcium Level 8.6 Test 07/20/17 08:30 07/20/17 12:00 Bedside Glucose 219 158 Medications Medications Current Medications Glucose (Glutose) 22.5 gm [id number] PO ; Start 07/13/17 at 20:00 Nitroglycerin (Nitroglycerin (Sl Tab) 0.4 Mg) 1 tab [id number] PRN SL CHEST PAIN ; Start 07/13/17 at 20:00 Pantoprazole (Protonix Tab) 40 mg DAILY@06 PO Last administered on 07/20/17 06:23; Admin Dose 40 MG; Start 07/14/17 at 06:00 Diagnostic Test (Pha) 1 ea 1 ea 02 XX Last administered on 07/20/17 02:10; Admin Dose 1 EA; Start 07/14/17 at 02:00 Sodium Chloride (NS) 1,000 ml @ 50 mls/hr Q20H IV Last administered on 06:25; Admin Dose 50 MLS/HR; Start 07/13/17 at 20:01 Ondansetron HCl (Zofran Inj) 4 mg Q6H PRN IV NAUSEA AND/OR VOMITING; Start 07/13/17 at 20:30 Acetaminophen (Tylenol Tab) 650 mg Q6H PRN PO PAIN LEVEL 1-3 OR FEVER Last administered on 07/14/17 04:40; Admin Dose 650 MG; Start 07/13/17 at 20:30 Docusate Sodium (Colace) 100 mg Q12H PRN PO CONSTIPATION; Start 07/13/17 at 20: 30 Magnesium Hydroxide (Milk Of Mag) 30 ml DAILY PRN PO CONSTIPATION; Start at 20:30 Bisacodyl (Dulcolax) 5 mg DAILY PRN PO CONSTIPATION; Start 07/13/17 at 20:30 Zolpidem Tartrate (Ambien) 5 mg QHS PRN PO SLEEP; Start 07/13/17 at 20:30 Enoxaparin Sodium (Lovenox) 40 mg DAILY SC Last administered on 07/20/17 08: 48; Admin Dose 40 MG; Start 07/14/17 at 09:00 Miscellaneous Information 1 ea NOTE XX ; Start 07/13/17 at 21:00 Glucose (Glutose) 15 gm Q15M PRN PO DECREASED GLUCOSE; Start 07/13/17 at 21:00 Glucose (Glutose) 22.5 gm Q15M PRN PO DECREASED GLUCOSE; Start 07/13/17 at 21: 00 Dextrose (D50w Syringe) 25 ml Q15M PRN IV DECREASED GLUCOSE; Start 07/13/17 at 21:00 Dextrose (D50w Syringe) 50 ml Q15M PRN IV DECREASED GLUCOSE; Start 07/13/17 at 21:00 Glucagon (Glucagen) 1 mg Q15M PRN IM DECREASED GLUCOSE; Start 07/13/17 at 21:00 Glucose (Glutose) 15 gm Q15M PRN BUCCAL DECREASED GLUCOSE; Start 07/13/17 at 21 :00 Gentamicin Sulfate (Gentamicin 0.1% Oint) 1 applic Q24H TOP Last administered on 07/20/17 08:36; Admin Dose 1 APPLIC; Start 07/14/17 at 09:00 Sodium Hypochlorite (Dakin'S (1/4 Strength)) 1 applic DAILY IRR Last administered on 07/20/17 08:36; Admin Dose 1 APPLIC; Start 07/17/17 at 09:00 Clonidine (Catapres) 0.1 mg QID PRN PO sbp greater than 170 Last administered on 07/19/17 23:07; Admin Dose 0.1 MG; Start 07/17/17 at 09:00 Losartan Potassium (Cozaar) 100 mg DAILY PO Last administered on 07/20/17 08: 34; Admin Dose 100 MG; Start 07/18/17 at 15:30 Clonidine (Catapres) 0.1 mg TID PO Last administered on 07/20/17 08:34; Admin Dose 0.1 MG; Start 07/18/17 at 21:00 Hydralazine HCl 10 mg 10 mg Q6H PRN IV ELEVATED BLOOD PRESSURE Last administered on 07/20/17 01:36; Admin Dose 10 MG; Start 07/20/17 at 01:30 Daptomycin 540 mg/ Sodium Chloride 100 ml @ 200 mls/hr Q24H IVPB Last administered on 07/20/17 13:33; Admin Dose 200 MLS/HR; Start 07/20/17 at 11: 30 Ertapenem/Sodium Chloride (Invanz/NS) 100 ml @ 200 mls/hr Q24H IVPB Last administered on 07/20/17 12:49; Admin Dose 200 MLS/HR; Start 07/20/17 at 11: 30 Fluconazole (Diflucan) 100 mg DAILY PO Last administered on 07/20/17 11:37; Admin Dose 100 MG; Start 07/20/17 at 10:30 Insulin Glargine (Lantus) 10 unit DAILY SC ; Start 07/21/17 at 09:00 Diagnostic Test (Pha) (Accu-Chek) 1 ea 02 XX ; Start 07/21/17 at 02:00 AMANDA FERGUSON Jul 20, 2017 15:14
--- NOTE | 2017-07-20 17:34 | OPR ---
DATE OF OPERATION: 07/20/2017 SURGEON: Jewels Jenkins DPM. LOCOMOTIVE DRIVER: None. PREOPERATIVE DIAGNOSES: 1. Right foot diabetic foot ulceration. 2. Osteomyelitis. 3. Polymicrobial infection with enterococcus, Staphylococcus, gram-negative rods, Streptococcus aga lactiae, and [place] albicans. POSTOPERATIVE DIAGNOSES: 1. Right foot diabetic foot ulceration. 2. Osteomyelitis. 3. Polymicrobial infection with enterococcus, Staphylococcus gram-negative rods, Streptococcus agal actiae, and [place] albicans. OPERATION PERFORMED: Right foot excisional debridement of skin, subcutaneous tissue, ligament and b one, first metatarsal and fifth metatarsal, less than 20 cm2. PATHOLOGY: None. ANESTHESIA: None. The patient is insensate. HEMOSTASIS: Compression. ESTIMATED BLOOD LOSS: 5 to 10 mL. COMPLICATIONS: None. INDICATION FOR PROCEDURE: A 57-year-old gentleman with nonhealing wounds, right foot, with diabetic foot ulceration with persistent exposed bone. Last cultures revealed polymicrobial infection. The patient is pending PICC line placement. He had education on diabetes and management today and nutr itional optimization. Patient with history of left above knee amputation at risk for more proximal level amputation. The patient is status post prior debridement while in house. Clinically wound is improving. Has persistent ulcerations with bone exposure and presence of nonviable tissue within t he wound. DESCRIPTION OF PROCEDURE: Patient seen at bedside and informed consent obtained for serial debridem ent. The wound was irrigated with Betadine and Dakin's. At this time, using a 15 blade pickup and scissors, excisional debridement performed of the wound on the distal transmetatarsal amputation sit e. There is wound with bone exposed, fifth metatarsal, measuring approximately 0.5 x 3 mm with bone debrided. There is a small wound on the plantar aspect which tunneled to the first metatarsal. Th ere is a third wound with exposed first metatarsal measuring approximately 2 x 1 cm. The wound was irrigated once again with saline, Betadine and Dakin's, and wrapped with 4 x 4 gauze, Kerlix and Bassam wrap. The patient tolerated procedure well. POSTOPERATIVE PLAN: Continue IV antibiotics. Discussed with the ID. The patient is pending discha rge planning. Would benefit from outpatient followup. Appreciate ID recommendations. The patient currently on vancomycin and cefepime. Would obtain serial cultures. Can obtained with next dressin g change. Dictated By: JEWELS BUI Conf#: [id number] DID#: [id number]
[2017-07-20] MEDS: GLUCOSE GEL 15 GRAM TUBE PO SCH (20:00)
[2017-07-21] MEDS: ACCU-CHEK XX SCH ×5 (01:30→17:43)
[2017-07-21] MEDS: SOD CHLORIDE 0.9% 1,000 ML IV SCH (03:49)
[2017-07-21 03:55] VITALS: BP 136/73; PULSE 77; RESP 20
[2017-07-21] MEDS: PANTOPRAZOLE (EC) 40 MG TAB PO SCH (05:39)
--- NOTE | 2017-07-21 07:18 | CONS ---
Date/Time of Note Date/Time of Note DATE: 07/21/17 TIME: 07:13 Assessment/Plan Assessment/Plan Chief Complaint/Hosp Course Left AKA. Stable. Right foot S/P TMA. --> S/P multiple bedside debridement involving bone and muscle. Local wound care with gentamicin ointment, Mepilex, and dry sterile dressing q24 hours. ID recommendation of IV Daptomycin, Ertapenem, and Dilfucan. Pending PICC for Abx treatment, will require 4-6 weeks. Will monitor. Problems: Consultation Date/Type/Reason Admit Date/Time Jul 13, 2017 at 19:12 Initial Consult Date 07/14/17 Type of Consultation: Podiatry: Dr. Jenkins coverage Reason for Consultation Right TMA site ulcer, sepsis. Exam/Review of Systems Vital Signs Vitals Vital Signs Date Time Temp Pulse Resp B/P Pulse Ox O2 Delivery O2 Flow Rate FiO2 07/21/17 03:55 98.0 77 20 136/73 96 Room Air Intake and Output 07/20/17 07/20/17 07/21/17 15:00 23:00 07:00 Intake Total 250 ml 840 ml 1050 ml Output Total 900 ml 800 ml Balance 250 ml -60 ml 250 ml Exam Dressing D/C/I. Wound is stable. Lateral wound 0.5 x 0.3 cm. to muscle. Medial wound 2 x 3 cm. to bone. Medial plantar wound, 0.3x 0.3 cm. communicates with medial wound, involving bone. Results Result Diagram: 07/20/17 0515 Results 24 hrs Laboratory Tests Test 07/20/17 08:30 07/20/17 12:00 07/20/17 17:34 07/20/17 20:39 Bedside Glucose 219 158 157 150 Medications Medications Current Medications Glucose (Glutose) 22.5 gm Q1MWCKQS PO ; Start 07/13/17 at 20:00 Nitroglycerin (Nitroglycerin (Sl Tab) 0.4 Mg) 1 tab [id number] PRN SL CHEST PAIN ; Start 07/13/17 at 20:00 Pantoprazole (Protonix Tab) 40 mg DAILY@06 PO Last administered on 07/21/17 05:39; Admin Dose 40 MG; Start 07/14/17 at 06:00 Diagnostic Test (Pha) 1 ea 1 ea 02 XX Last administered on 07/20/17 02:10; Admin Dose 1 EA; Start 07/14/17 at 02:00 Sodium Chloride (NS) 1,000 ml @ 50 mls/hr Q20H IV Last administered on 03:49; Admin Dose 50 MLS/HR; Start 07/13/17 at 20:01 Ondansetron HCl (Zofran Inj) 4 mg Q6H PRN IV NAUSEA AND/OR VOMITING; Start 07/13/17 at 20:30 Acetaminophen (Tylenol Tab) 650 mg Q6H PRN PO PAIN LEVEL 1-3 OR FEVER Last administered on 07/14/17 04:40; Admin Dose 650 MG; Start 07/13/17 at 20:30 Docusate Sodium (Colace) 100 mg Q12H PRN PO CONSTIPATION; Start 07/13/17 at 20: 30 Magnesium Hydroxide (Milk Of Mag) 30 ml DAILY PRN PO CONSTIPATION; Start at 20:30 Bisacodyl (Dulcolax) 5 mg DAILY PRN PO CONSTIPATION; Start 07/13/17 at 20:30 Zolpidem Tartrate (Ambien) 5 mg QHS PRN PO SLEEP; Start 07/13/17 at 20:30 Enoxaparin Sodium (Lovenox) 40 mg DAILY SC Last administered on 07/20/17 08: 48; Admin Dose 40 MG; Start 07/14/17 at 09:00 Miscellaneous Information 1 ea NOTE XX ; Start 07/13/17 at 21:00 Glucose (Glutose) 15 gm Q15M PRN PO DECREASED GLUCOSE; Start 07/13/17 at 21:00 Glucose (Glutose) 22.5 gm Q15M PRN PO DECREASED GLUCOSE; Start 07/13/17 at 21: 00 Dextrose (D50w Syringe) 25 ml Q15M PRN IV DECREASED GLUCOSE; Start 07/13/17 at 21:00 Dextrose (D50w Syringe) 50 ml Q15M PRN IV DECREASED GLUCOSE; Start 07/13/17 at 21:00 Glucagon (Glucagen) 1 mg Q15M PRN IM DECREASED GLUCOSE; Start 07/13/17 at 21:00 Glucose (Glutose) 15 gm Q15M PRN BUCCAL DECREASED GLUCOSE; Start 07/13/17 at 21 :00 Gentamicin Sulfate (Gentamicin 0.1% Oint) 1 applic Q24H TOP Last administered on 07/20/17 08:36; Admin Dose 1 APPLIC; Start 07/14/17 at 09:00 Sodium Hypochlorite (Dakin'S (1/4 Strength)) 1 applic DAILY IRR Last administered on 07/20/17 08:36; Admin Dose 1 APPLIC; Start 07/17/17 at 09:00 Clonidine (Catapres) 0.1 mg QID PRN PO sbp greater than 170 Last administered on 07/19/17 23:07; Admin Dose 0.1 MG; Start 07/17/17 at 09:00 Losartan Potassium (Cozaar) 100 mg DAILY PO Last administered on 07/20/17 08: 34; Admin Dose 100 MG; Start 07/18/17 at 15:30 Clonidine (Catapres) 0.1 mg TID PO Last administered on 07/20/17 20:37; Admin Dose 0.1 MG; Start 07/18/17 at 21:00 Hydralazine HCl 10 mg 10 mg Q6H PRN IV ELEVATED BLOOD PRESSURE Last administered on 07/20/17 01:36; Admin Dose 10 MG; Start 07/20/17 at 01:30 Ertapenem/Sodium Chloride (Invanz/NS) 100 ml @ 200 mls/hr Q24H IVPB Last administered on 07/20/17 12:49; Admin Dose 200 MLS/HR; Start 07/20/17 at 11: 30 Fluconazole (Diflucan) 100 mg DAILY PO Last administered on 07/20/17 11:37; Admin Dose 100 MG; Start 07/20/17 at 10:30 Insulin Glargine (Lantus) 10 unit DAILY SC ; Start 07/21/17 at 09:00 Diagnostic Test (Pha) 1 ea 1 ea 02 XX ; Start 07/21/17 at 02:00 Daptomycin/Sodium Chloride (Cubicin/NS) 100 ml @ 200 mls/hr Q24H IVPB ; Start 07/21/17 at 13:00 BARRY OQUENDO DPM Jul 21, 2017 07:18 BARRY OQUENDO DPM Jul 21, 2017 07:18
[2017-07-21 07:58] VITALS: BP 130/67; RESP 20
[2017-07-21] MEDS: LOSARTAN 50 MG TAB PO SCH (08:33)
[2017-07-21] MEDS: FLUCONAZOLE 100 MG TAB PO SCH (08:34)
[2017-07-21] MEDS: Insulin NOVOLOG SS MODERATE Algorithm (SS with meals and bedtime) SC SCH ×4 (08:39→20:37)
[2017-07-21] MEDS: ENOXAPARIN 40 MG/0.4 ML SYG SC SCH (08:40)
[2017-07-21] MEDS: INSULIN ASPART [NOVOLOG] 3 ML PEN SC SCH ×3 (08:40→17:24)
[2017-07-21 08:41] LABS: BASOPHIL # 0.1 10^3/ul (0.0-0.1); BASOPHILS % 0.7 % (0.0-2.0); EOSINOPHILS # 0.2 10^3/ul (0.0-0.5); EOSINOPHILS % 2.3 % (0.0-7.0); HEMATOCRIT 33.2 % (42.0-52.0); HEMOGLOBIN 11.2 g/dl (14.0-18.0); LYMPHOCYTES # 1.8 10^3/ul (0.8-2.9); LYMPHOCYTES % 24.7 % (15.0-51.0); MEAN CORPUSCULAR HEMOGLOBIN 28.6 pg (29.0-33.0); MEAN CORPUSCULAR HGB CONC 33.7 g/dl (32.0-37.0); MEAN CORPUSCULAR VOLUME 84.9 fl (82.0-101.0); MEAN PLATELET VOLUME 10.5 fl (7.4-10.4); MONOCYTE # 0.5 10^3/ul (0.3-0.9); MONOCYTES % 7.3 % (0.0-11.0); NEUTROPHIL # 4.8 10^3/ul (1.6-7.5); NEUTROPHILS % 64.6 % (39.0-77.0); PLATELET COUNT 301 10^3/UL (140-415); RED BLOOD COUNT 3.91 10^6/ul (4.70-6.10); WHITE BLOOD COUNT 7.4 10^3/ul (4.8-10.8)
[2017-07-21] MEDS: INSULIN GLARGINE [LANtus] 3 ML PEN SC SCH (09:00)
[2017-07-21 09:26] LABS: CALCIUM 8.9 mg/dl (8.4-10.2); CREATININE 1.22 mg/dl (0.61-1.24); POTASSIUM 3.8 mmol/L (3.5-5.1)
[2017-07-21] MEDS: ERTAPENEM SODIUM 1 GM in SOD CHLORIDE 0.9% 100 ML IVPB SCH (11:30)
[2017-07-21] MEDS: DAPTOMYCIN 500 MG in SOD CHLORIDE 0.9% 100 ML IVPB SCH (13:45)
--- NOTE | 2017-07-21 13:57 | CONS ---
Date/Time of Note Date/Time of Note DATE: 07/21/17 TIME: 13:55 Consult Date/Type/Reason Admit Date/Time Jul 13, 2017 at 19:12 Initial Consult Date 07/14/17 Type of Consultation: ID Objective Vital Signs Date Time Temp Pulse Resp B/P Pulse Ox O2 Delivery O2 Flow Rate FiO2 07/21/17 07:58 98.5 80 20 130/67 97 07/21/17 03:55 Room Air Intake and Output 07/20/17 07/20/17 07/21/17 15:00 23:00 07:00 Intake Total 250 ml 840 ml 1050 ml Output Total 900 ml 800 ml Balance 250 ml -60 ml 250 ml Results/Medications Result Diagram: 07/21/17 0754 07/21/17 0754 Results 24 hrs Laboratory Tests Test 07/20/17 17:34 07/20/17 20:39 07/21/17 07:54 07/21/17 08:03 Bedside Glucose 157 150 153 White Blood Count 7.4 Red Blood Count 3.91 L Hemoglobin 11.2 L Hematocrit 33.2 L Mean Corpuscular Volume 84.9 Mean Corpuscular Hemoglobin 28.6 L Mean Corpuscular Hemoglobin Concent 33.7 Red Cell Distribution Width 13.0 Platelet Count 301 Mean Platelet Volume 10.5 H Neutrophils % 64.6 Lymphocytes % 24.7 Monocytes % 7.3 Eosinophils % 2.3 Basophils % 0.7 Nucleated Red Blood Cells % 0.0 Neutrophils # 4.8 Lymphocytes # 1.8 Monocytes # 0.5 Eosinophils # 0.2 Basophils # 0.1 Nucleated Red Blood Cells # 0.0 Sodium Level 140 Potassium Level 3.8 Chloride Level 106 Carbon Dioxide Level 25 Anion Gap 13 Blood Urea Nitrogen 19 Creatinine 1.22 Glucose Level 150 Calcium Level 8.9 Creatine Kinase 27 Test 07/21/17 12:15 Bedside Glucose 138 Medications Current Medications Glucose (Glutose) 22.5 gm [id number] PO ; Start 07/13/17 at 20:00 Nitroglycerin (Nitroglycerin (Sl Tab) 0.4 Mg) 1 tab [id number] PRN SL CHEST PAIN ; Start 07/13/17 at 20:00 Pantoprazole (Protonix Tab) 40 mg DAILY@06 PO Last administered on 07/21/17t 05:39; Admin Dose 40 MG; Start 07/14/17 at 06:00 Diagnostic Test (Pha) 1 ea 1 ea 02 XX Last administered on 07/20/17 02:10; Admin Dose 1 EA; Start 07/14/17 at 02:00 Sodium Chloride (NS) 1,000 ml @ 50 mls/hr Q20H IV Last administered on 03:49; Admin Dose 50 MLS/HR; Start 07/13/17 at 20:01 Ondansetron HCl (Zofran Inj) 4 mg Q6H PRN IV NAUSEA AND/OR VOMITING; Start 07/13/17 at 20:30 Acetaminophen (Tylenol Tab) 650 mg Q6H PRN PO PAIN LEVEL 1-3 OR FEVER Last administered on 07/14/17 04:40; Admin Dose 650 MG; Start 07/13/17 at 20:30 Docusate Sodium (Colace) 100 mg Q12H PRN PO CONSTIPATION; Start 07/13/17 at 20: 30 Magnesium Hydroxide (Milk Of Mag) 30 ml DAILY PRN PO CONSTIPATION; Start at 20:30 Bisacodyl (Dulcolax) 5 mg DAILY PRN PO CONSTIPATION; Start 07/13/17 at 20:30 Zolpidem Tartrate (Ambien) 5 mg QHS PRN PO SLEEP; Start 07/13/17 at 20:30 Enoxaparin Sodium (Lovenox) 40 mg DAILY SC Last administered on 07/21/17 08: 40; Admin Dose 40 MG; Start 07/14/17 at 09:00 Miscellaneous Information 1 ea NOTE XX ; Start 07/13/17 at 21:00 Glucose (Glutose) 15 gm Q15M PRN PO DECREASED GLUCOSE; Start 07/13/17 at 21:00 Glucose (Glutose) 22.5 gm Q15M PRN PO DECREASED GLUCOSE; Start 07/13/17 at 21: 00 Dextrose (D50w Syringe) 25 ml Q15M PRN IV DECREASED GLUCOSE; Start 07/13/17 at 21:00 Dextrose (D50w Syringe) 50 ml Q15M PRN IV DECREASED GLUCOSE; Start 07/13/17 at 21:00 Glucagon (Glucagen) 1 mg Q15M PRN IM DECREASED GLUCOSE; Start 07/13/17 at 21:00 Glucose (Glutose) 15 gm Q15M PRN BUCCAL DECREASED GLUCOSE; Start 07/13/17 at 21 :00 Gentamicin Sulfate (Gentamicin 0.1% Oint) 1 applic Q24H TOP Last administered on 07/20/17 08:36; Admin Dose 1 APPLIC; Start 07/14/17 at 09:00 Sodium Hypochlorite (Dakin'S (1/4 Strength)) 1 applic DAILY IRR Last administered on 07/20/17 08:36; Admin Dose 1 APPLIC; Start 07/17/17 at 09:00 Clonidine (Catapres) 0.1 mg QID PRN PO sbp greater than 170 Last administered on 07/19/17 23:07; Admin Dose 0.1 MG; Start 07/17/17 at 09:00 Losartan Potassium (Cozaar) 100 mg DAILY PO Last administered on 07/21/17 08: 33; Admin Dose 100 MG; Start 07/18/17 at 15:30 Clonidine (Catapres) 0.1 mg TID PO Last administered on 07/21/17 12:35; Admin Dose 0.1 MG; Start 07/18/17 at 21:00 Hydralazine HCl 10 mg 10 mg Q6H PRN IV ELEVATED BLOOD PRESSURE Last administered on 07/20/17 01:36; Admin Dose 10 MG; Start 07/20/17 at 01:30 Ertapenem/Sodium Chloride (Invanz/NS) 100 ml @ 200 mls/hr Q24H IVPB Last administered on 07/21/17 11:30; Admin Dose 200 MLS/HR; Start 07/20/17 at 11: 30 Fluconazole (Diflucan) 100 mg DAILY PO Last administered on 07/21/17 08:34; Admin Dose 100 MG; Start 07/20/17 at 10:30 Insulin Glargine (Lantus) 10 unit DAILY SC ; Start 07/21/17 at 09:00 Diagnostic Test (Pha) 1 ea 1 ea 02 XX ; Start 07/21/17 at 02:00 Daptomycin/Sodium Chloride (Cubicin/NS) 100 ml @ 200 mls/hr Q24H IVPB Last administered on 07/21/17 13:45; Admin Dose 200 MLS/HR; Start 07/21/17 at 13: 00 Assessment/Plan Chief Complaint/Hosp Course SUBJECTIVE: No acute changes. The patient is alert, feels good. Denies pain, no fevers. ANTIMICROBIALS: The patient is on Daptomycin, Invanz, Diflucan PHYSICAL EXAMINATION: GENERAL: This is a well-developed, middle-aged man who is alert, in no distress. HEENT: Head atraumatic, normocephalic. Sclerae anicteric. Buccal mucosa pink. NECK: Supple. CHEST: Rise symmetrical. Breath sounds clear. HEART: S1, S2. ABDOMEN: Soft. Bowel tones present. ASSESSMENT: 1. Resolving sepsis. 2. Oxacillin-sensitive Staphylococcus aureus bacteremia, likely secondary to # 3. 3. Right foot ulceration/osteomyelitis, status post incision and drainage. 4. Peripheral vascular disease with a history of left above knee amputation. 5. Hypertension. 6. Diabetes with diabetic neuropathy. PLAN: The patient remains stable. Repeat bld cx negative, continue present care , wound care per podiatry rec-s, consider PICC for 6 weeks IV abx NIURKA Jenkins Problems: SUNNY PRECIADO NP Jul 21, 2017 13:57
[2017-07-21 14:00] VITALS: BP 170/81; RESP 20
[2017-07-21] MEDS ORDERED: LIDOCAINE 1% (MPF) 5 ML VIAL SC ONE (14:00)
[2017-07-21] MEDS: SODIUM HYPOCHLORITE 0.125% 473 ML BTL IRR SCH (14:03)
[2017-07-21] MEDS: GENTAMICIN 0.1% 15 GM OINT TOP SCH (14:03)
--- NOTE | 2017-07-21 15:31 | PN ---
Date/Time of Note Date/Time of Note DATE: 07/21/17 TIME: 15:29 Assessment/Plan VTE Prophylaxis VTE Prophylaxis Intervention: LMWH Lines/Catheters IV Catheter Type (from Nrs): Peripheral IV Urinary Cath still in place: No Assessment/Plan Chief Complaint/Hosp Course 57 y/o with 1. sepsis. improved 2. Oxacillin-sensitive Staphylococcus aureus bacteremia, repeat bld cx negative 3. Right foot ulceration, possible osteomyelitis, status post incision and drainage. x3 with polymicrobial 4. Peripheral vascular disease with a history of left above knee amputation. 5. Hypertension. 6. Diabetes (poorly controlled) with diabetic neuropathy. Plan - ID started Daptomycin and Ertapenam - PICC line - wireless retail manager to arrange for iv abx at home - Lantus and ISS pt was reinforced - c/w Losartan and clonidine - Further recs per ID and Podiatry - Labs am - GI/DVT prophylaxsis Problems: Subjective 24 Hr Interval Summary Free Text/Dictation S/p Debridement again yesterday at bedside Pt refusing Lantus Exam/Review of Systems Vital Signs Vitals Vital Signs Date Time Temp Pulse Resp B/P Pulse Ox O2 Delivery O2 Flow Rate FiO2 07/21/17 14:00 97.5 71 20 170/81 96 07/21/17 03:55 Room Air Intake and Output 07/20/17 07/20/17 07/21/17 15:00 23:00 07:00 Intake Total 250 ml 840 ml 1050 ml Output Total 900 ml 800 ml Balance 250 ml -60 ml 250 ml Exam n: awake and alert Respiratory: clear to auscultation Gastrointestinal: soft Musculoskeletal: nl extremities to inspection Extremities: left BKA and rt foot wrapped in bandage pics reviewed Results Result Diagram: 07/21/17 0754 07/21/17 0754 Results 24 hrs Laboratory Tests Test 07/20/17 17:34 07/20/17 20:39 07/21/17 07:54 07/21/17 08:03 Bedside Glucose 157 150 153 White Blood Count 7.4 Red Blood Count 3.91 L Hemoglobin 11.2 L Hematocrit 33.2 L Mean Corpuscular Volume 84.9 Mean Corpuscular Hemoglobin 28.6 L Mean Corpuscular Hemoglobin Concent 33.7 Red Cell Distribution Width 13.0 Platelet Count 301 Mean Platelet Volume 10.5 H Neutrophils % 64.6 Lymphocytes % 24.7 Monocytes % 7.3 Eosinophils % 2.3 Basophils % 0.7 Nucleated Red Blood Cells % 0.0 Neutrophils # 4.8 Lymphocytes # 1.8 Monocytes # 0.5 Eosinophils # 0.2 Basophils # 0.1 Nucleated Red Blood Cells # 0.0 Sodium Level 140 Potassium Level 3.8 Chloride Level 106 Carbon Dioxide Level 25 Anion Gap 13 Blood Urea Nitrogen 19 Creatinine 1.22 Glucose Level 150 Calcium Level 8.9 Creatine Kinase 27 Test 07/21/17 12:15 Bedside Glucose 138 Medications Medications Current Medications Glucose (Glutose) 22.5 gm [id number] PO ; Start 07/13/17 at 20:00 Nitroglycerin (Nitroglycerin (Sl Tab) 0.4 Mg) 1 tab [id number] PRN SL CHEST PAIN ; Start 07/13/17 at 20:00 Pantoprazole (Protonix Tab) 40 mg DAILY@06 PO Last administered on 07/21/17 05:39; Admin Dose 40 MG; Start 07/14/17 at 06:00 Diagnostic Test (Pha) 1 ea 1 ea 02 XX Last administered on 07/20/17 02:10; Admin Dose 1 EA; Start 07/14/17 at 02:00 Sodium Chloride (NS) 1,000 ml @ 50 mls/hr Q20H IV Last administered on 03:49; Admin Dose 50 MLS/HR; Start 07/13/17 at 20:01 Ondansetron HCl (Zofran Inj) 4 mg Q6H PRN IV NAUSEA AND/OR VOMITING; Start 07/13/17 at 20:30 Acetaminophen (Tylenol Tab) 650 mg Q6H PRN PO PAIN LEVEL 1-3 OR FEVER Last administered on 07/14/17 04:40; Admin Dose 650 MG; Start 07/13/17 at 20:30 Docusate Sodium (Colace) 100 mg Q12H PRN PO CONSTIPATION; Start 07/13/17 at 20: 30 Magnesium Hydroxide (Milk Of Mag) 30 ml DAILY PRN PO CONSTIPATION; Start at 20:30 Bisacodyl (Dulcolax) 5 mg DAILY PRN PO CONSTIPATION; Start 07/13/17 at 20:30 Zolpidem Tartrate (Ambien) 5 mg QHS PRN PO SLEEP; Start 07/13/17 at 20:30 Enoxaparin Sodium (Lovenox) 40 mg DAILY SC Last administered on 07/21/17 08: 40; Admin Dose 40 MG; Start 07/14/17 at 09:00 Miscellaneous Information 1 ea NOTE XX ; Start 07/13/17 at 21:00 Glucose (Glutose) 15 gm Q15M PRN PO DECREASED GLUCOSE; Start 07/13/17 at 21:00 Glucose (Glutose) 22.5 gm Q15M PRN PO DECREASED GLUCOSE; Start 07/13/17 at 21: 00 Dextrose (D50w Syringe) 25 ml Q15M PRN IV DECREASED GLUCOSE; Start 07/13/17 at 21:00 Dextrose (D50w Syringe) 50 ml Q15M PRN IV DECREASED GLUCOSE; Start 07/13/17 at 21:00 Glucagon (Glucagen) 1 mg Q15M PRN IM DECREASED GLUCOSE; Start 07/13/17 at 21:00 Glucose (Glutose) 15 gm Q15M PRN BUCCAL DECREASED GLUCOSE; Start 07/13/17 at 21 :00 Gentamicin Sulfate (Gentamicin 0.1% Oint) 1 applic Q24H TOP Last administered on 07/21/17 14:03; Admin Dose 1 APPLIC; Start 07/14/17 at 09:00 Sodium Hypochlorite (Dakin'S (1/4 Strength)) 1 applic DAILY IRR Last administered on 07/21/17 14:03; Admin Dose 1 APPLIC; Start 07/17/17 at 09:00 Clonidine (Catapres) 0.1 mg QID PRN PO sbp greater than 170 Last administered on 07/19/17 23:07; Admin Dose 0.1 MG; Start 07/17/17 at 09:00 Losartan Potassium (Cozaar) 100 mg DAILY PO Last administered on 07/21/17 08: 33; Admin Dose 100 MG; Start 07/18/17 at 15:30 Clonidine (Catapres) 0.1 mg TID PO Last administered on 07/21/17 12:35; Admin Dose 0.1 MG; Start 07/18/17 at 21:00 Hydralazine HCl 10 mg 10 mg Q6H PRN IV ELEVATED BLOOD PRESSURE Last administered on 07/20/17 01:36; Admin Dose 10 MG; Start 07/20/17 at 01:30 Ertapenem/Sodium Chloride (Invanz/NS) 100 ml @ 200 mls/hr Q24H IVPB Last administered on 07/21/17 11:30; Admin Dose 200 MLS/HR; Start 07/20/17 at 11: 30 Fluconazole (Diflucan) 100 mg DAILY PO Last administered on 07/21/17 08:34; Admin Dose 100 MG; Start 07/20/17 at 10:30 Insulin Glargine (Lantus) 10 unit DAILY SC ; Start 07/21/17 at 09:00 Diagnostic Test (Pha) 1 ea 1 ea 02 XX ; Start 07/21/17 at 02:00 Daptomycin/Sodium Chloride (Cubicin/NS) 100 ml @ 200 mls/hr Q24H IVPB Last administered on 07/21/17 13:45; Admin Dose 200 MLS/HR; Start 07/21/17 at 13: 00 ELLY ANDERSON MD Jul 21, 2017 15:31
[2017-07-21 20:34] VITALS: BP 176/81; RESP 20
[2017-07-22] MEDS: ACCU-CHEK XX SCH ×4 (02:00→17:33)
[2017-07-22 02:24] VITALS: BP 139/75; RESP 18
[2017-07-22] MEDS: PANTOPRAZOLE (EC) 40 MG TAB PO SCH (04:59)
[2017-07-22] MEDS: SOD CHLORIDE 0.9% 1,000 ML IV SCH (04:59)
[2017-07-22 06:20] LABS: BASOPHIL # 0.1 10^3/ul (0.0-0.1); BASOPHILS % 0.7 % (0.0-2.0); EOSINOPHILS # 0.2 10^3/ul (0.0-0.5); HEMATOCRIT 33.5 % (42.0-52.0); LYMPHOCYTES # 1.9 10^3/ul (0.8-2.9); LYMPHOCYTES % 28.4 % (15.0-51.0); MEAN CORPUSCULAR HGB CONC 32.8 g/dl (32.0-37.0); MEAN CORPUSCULAR VOLUME 85.2 fl (82.0-101.0); MEAN PLATELET VOLUME 10.4 fl (7.4-10.4); MONOCYTE # 0.5 10^3/ul (0.3-0.9); MONOCYTES % 7.6 % (0.0-11.0); NEUTROPHILS % 59.9 % (39.0-77.0); PLATELET COUNT 301 10^3/UL (140-415); RED BLOOD COUNT 3.93 10^6/ul (4.70-6.10); RED CELL DISTRIBUTION WIDTH 12.9 % (11.5-14.5); WHITE BLOOD COUNT 6.7 10^3/ul (4.8-10.8)
[2017-07-22 07:27] VITALS: BP 160/76; RESP 18
[2017-07-22] MEDS: Insulin NOVOLOG SS MODERATE Algorithm (SS with meals and bedtime) SC SCH ×4 (07:51→20:33)
[2017-07-22] MEDS: LOSARTAN 50 MG TAB PO SCH (08:34)
[2017-07-22] MEDS: INSULIN GLARGINE [LANtus] 3 ML PEN SC SCH (08:35)
[2017-07-22] MEDS: FLUCONAZOLE 100 MG TAB PO SCH (08:35)
[2017-07-22] MEDS: INSULIN ASPART [NOVOLOG] 3 ML PEN SC SCH ×3 (08:40→17:33)
[2017-07-22] MEDS: ENOXAPARIN 40 MG/0.4 ML SYG SC SCH (08:46)
--- NOTE | 2017-07-22 11:37 | PN ---
Date/Time of Note Date/Time of Note DATE: 07/22/17 TIME: 11:35 Assessment/Plan VTE Prophylaxis VTE Prophylaxis Intervention: LMWH Lines/Catheters IV Catheter Type (from Nrs): Peripheral IV Urinary Cath still in place: No Assessment/Plan Chief Complaint/Hosp Course 57 y/o with 1. sepsis. improved 2. Oxacillin-sensitive Staphylococcus aureus bacteremia, repeat bld cx negative 3. Right foot ulceration, possible osteomyelitis, status post incision and drainage. x3 with polymicrobial 4. Peripheral vascular disease with a history of left above knee amputation. 5. Hypertension. 6. Diabetes (poorly controlled) with diabetic neuropathy. Plan - ID started Daptomycin and Ertapenam - PICC line today - station manager to arrange for iv abx at home - Lantus and ISS pt was reinforced - c/w Losartan and clonidine - Further recs per ID and Podiatry - Labs am - GI/DVT prophylaxsis - Possible dc tmw if iv abx arranged Problems: Subjective 24 Hr Interval Summary Free Text/Dictation PICC line today Exam/Review of Systems Vital Signs Vitals Vital Signs Date Time Temp Pulse Resp B/P Pulse Ox O2 Delivery O2 Flow Rate FiO2 07/22/17 07:27 98.2 79 18 160/76 97 07/21/17 03:55 Room Air Intake and Output 07/21/17 07/21/17 07/22/17 15:00 23:00 07:00 Intake Total 200 ml 2560 ml 1320 ml Output Total 2000 ml 1025 ml Balance 200 ml 560 ml 295 ml Exam Gen: awake and alert Respiratory: clear to auscultation Gastrointestinal: soft Musculoskeletal: nl extremities to inspection Extremities: left BKA and rt foot wrapped in bandage pics reviewed Results Result Diagram: 07/22/17 0537 07/21/17 0754 Results 24 hrs Laboratory Tests Test 07/21/17 12:15 07/21/17 17:13 07/21/17 20:32 07/22/17 05:37 Bedside Glucose 138 174 139 White Blood Count 6.7 Red Blood Count 3.93 L Hemoglobin 11.0 L Hematocrit 33.5 L Mean Corpuscular Volume 85.2 Mean Corpuscular Hemoglobin 28.0 L Mean Corpuscular Hemoglobin Concent 32.8 Red Cell Distribution Width 12.9 Platelet Count 301 Mean Platelet Volume 10.4 Neutrophils % 59.9 Lymphocytes % 28.4 Monocytes % 7.6 Eosinophils % 3.0 Basophils % 0.7 Nucleated Red Blood Cells % 0.0 Neutrophils # 4.0 Lymphocytes # 1.9 Monocytes # 0.5 Eosinophils # 0.2 Basophils # 0.1 Nucleated Red Blood Cells # 0.0 Test 07/22/17 07:49 Bedside Glucose 144 Medications Medications Current Medications Nitroglycerin (Nitroglycerin (Sl Tab) 0.4 Mg) 1 tab [id number] PRN SL CHEST PAIN ; Start 07/13/17 at 20:00 Pantoprazole 40 mg 40 mg DAILY@06 PO Last administered on 07/22/17 04:59; Admin Dose 40 MG; Start 07/14/17 at 06:00 Sodium Chloride (NS) 1,000 ml @ 50 mls/hr Q20H IV Last administered on 04:59; Admin Dose 50 MLS/HR; Start 07/13/17 at 20:01 Ondansetron HCl (Zofran Inj) 4 mg Q6H PRN IV NAUSEA AND/OR VOMITING; Start 07/13/17 at 20:30 Acetaminophen (Tylenol Tab) 650 mg Q6H PRN PO PAIN LEVEL 1-3 OR FEVER Last administered on 07/14/17 04:40; Admin Dose 650 MG; Start 07/13/17 at 20:30 Docusate Sodium (Colace) 100 mg Q12H PRN PO CONSTIPATION; Start 07/13/17 at 20: 30 Magnesium Hydroxide (Milk Of Mag) 30 ml DAILY PRN PO CONSTIPATION; Start at 20:30 Bisacodyl (Dulcolax) 5 mg DAILY PRN PO CONSTIPATION; Start 07/13/17 at 20:30 Zolpidem Tartrate (Ambien) 5 mg QHS PRN PO SLEEP; Start 07/13/17 at 20:30 Enoxaparin Sodium (Lovenox) 40 mg DAILY SC Last administered on 07/22/17 08: 46; Admin Dose 40 MG; Start 07/14/17 at 09:00 Miscellaneous Information 1 ea NOTE XX ; Start 07/13/17 at 21:00 Glucose (Glutose) 15 gm Q15M PRN PO DECREASED GLUCOSE; Start 07/13/17 at 21:00 Glucose (Glutose) 22.5 gm Q15M PRN PO DECREASED GLUCOSE; Start 07/13/17 at 21: 00 Dextrose (D50w Syringe) 25 ml Q15M PRN IV DECREASED GLUCOSE; Start 07/13/17 at 21:00 Dextrose (D50w Syringe) 50 ml Q15M PRN IV DECREASED GLUCOSE; Start 07/13/17 at 21:00 Glucagon (Glucagen) 1 mg Q15M PRN IM DECREASED GLUCOSE; Start 07/13/17 at 21:00 Glucose (Glutose) 15 gm Q15M PRN BUCCAL DECREASED GLUCOSE; Start 07/13/17 at 21 :00 Gentamicin Sulfate (Gentamicin 0.1% Oint) 1 applic Q24H TOP Last administered on 07/21/17 14:03; Admin Dose 1 APPLIC; Start 07/14/17 at 09:00 Sodium Hypochlorite (Dakin'S (1/4 Strength)) 1 applic DAILY IRR Last administered on 07/21/17 14:03; Admin Dose 1 APPLIC; Start 07/17/17 at 09:00 Clonidine (Catapres) 0.1 mg QID PRN PO sbp greater than 170 Last administered on 07/19/17 23:07; Admin Dose 0.1 MG; Start 07/17/17 at 09:00 Losartan Potassium (Cozaar) 100 mg DAILY PO Last administered on 07/22/17 08: 34; Admin Dose 100 MG; Start 07/18/17 at 15:30 Clonidine (Catapres) 0.1 mg TID PO Last administered on 07/22/17 08:34; Admin Dose 0.1 MG; Start 07/18/17 at 21:00 Hydralazine HCl 10 mg 10 mg Q6H PRN IV ELEVATED BLOOD PRESSURE Last administered on 07/20/17 01:36; Admin Dose 10 MG; Start 07/20/17 at 01:30 Ertapenem/Sodium Chloride (Invanz/NS) 100 ml @ 200 mls/hr Q24H IVPB Last administered on 07/21/17 11:30; Admin Dose 200 MLS/HR; Start 07/20/17 at 11: 30 Fluconazole (Diflucan) 100 mg DAILY PO Last administered on 07/22/17 08:35; Admin Dose 100 MG; Start 07/20/17 at 10:30 Insulin Glargine (Lantus) 10 unit DAILY SC ; Start 07/21/17 at 09:00 Diagnostic Test (Pha) 1 ea 1 ea 02 XX ; Start 07/21/17 at 02:00 Daptomycin/Sodium Chloride (Cubicin/NS) 100 ml @ 200 mls/hr Q24H IVPB Last administered on 07/21/17t 13:45; Admin Dose 200 MLS/HR; Start 07/21/17 at 13: 00 ELLY ANDERSON MD Jul 22, 2017 11:37
[2017-07-22] MEDS: ERTAPENEM SODIUM 1 GM in SOD CHLORIDE 0.9% 100 ML IVPB SCH (12:48)
--- NOTE | 2017-07-22 12:52 | CONS ---
Date/Time of Note Date/Time of Note DATE: 07/22/17 TIME: 12:51 Consult Date/Type/Reason Admit Date/Time Jul 13, 2017 at 19:12 Initial Consult Date 07/14/17 Type of Consultation: ID Objective Vital Signs Date Time Temp Pulse Resp B/P Pulse Ox O2 Delivery O2 Flow Rate FiO2 07/22/17 07:27 98.2 79 18 160/76 97 07/21/17 03:55 Room Air Intake and Output 07/21/17 07/21/17 07/22/17 15:00 23:00 07:00 Intake Total 200 ml 2560 ml 1320 ml Output Total 2000 ml 1025 ml Balance 200 ml 560 ml 295 ml Results/Medications Result Diagram: 07/22/17 0537 07/21/17 0754 Results 24 hrs Laboratory Tests Test 07/21/17 17:13 07/21/17 20:32 07/22/17 05:37 07/22/17 07:49 Bedside Glucose 174 139 144 White Blood Count 6.7 Red Blood Count 3.93 L Hemoglobin 11.0 L Hematocrit 33.5 L Mean Corpuscular Volume 85.2 Mean Corpuscular Hemoglobin 28.0 L Mean Corpuscular Hemoglobin Concent 32.8 Red Cell Distribution Width 12.9 Platelet Count 301 Mean Platelet Volume 10.4 Neutrophils % 59.9 Lymphocytes % 28.4 Monocytes % 7.6 Eosinophils % 3.0 Basophils % 0.7 Nucleated Red Blood Cells % 0.0 Neutrophils # 4.0 Lymphocytes # 1.9 Monocytes # 0.5 Eosinophils # 0.2 Basophils # 0.1 Nucleated Red Blood Cells # 0.0 Test 07/22/17 12:24 Bedside Glucose 161 Medications Current Medications Nitroglycerin (Nitroglycerin (Sl Tab) 0.4 Mg) 1 tab [id number] PRN SL CHEST PAIN ; Start 07/13/17 at 20:00 Pantoprazole 40 mg 40 mg DAILY@06 PO Last administered on 07/22/17 04:59; Admin Dose 40 MG; Start 07/14/17 at 06:00 Sodium Chloride (NS) 1,000 ml @ 50 mls/hr Q20H IV Last administered on 04:59; Admin Dose 50 MLS/HR; Start 07/13/17 at 20:01 Ondansetron HCl (Zofran Inj) 4 mg Q6H PRN IV NAUSEA AND/OR VOMITING; Start 07/13/17 at 20:30 Acetaminophen (Tylenol Tab) 650 mg Q6H PRN PO PAIN LEVEL 1-3 OR FEVER Last administered on 07/14/17 04:40; Admin Dose 650 MG; Start 07/13/17 at 20:30 Docusate Sodium (Colace) 100 mg Q12H PRN PO CONSTIPATION; Start 07/13/17 at 20: 30 Magnesium Hydroxide (Milk Of Mag) 30 ml DAILY PRN PO CONSTIPATION; Start at 20:30 Bisacodyl (Dulcolax) 5 mg DAILY PRN PO CONSTIPATION; Start 07/13/17 at 20:30 Zolpidem Tartrate (Ambien) 5 mg QHS PRN PO SLEEP; Start 07/13/17 at 20:30 Enoxaparin Sodium (Lovenox) 40 mg DAILY SC Last administered on 07/22/17 08: 46; Admin Dose 40 MG; Start 07/14/17 at 09:00 Miscellaneous Information 1 ea NOTE XX ; Start 07/13/17 at 21:00 Glucose (Glutose) 15 gm Q15M PRN PO DECREASED GLUCOSE; Start 07/13/17 at 21:00 Glucose (Glutose) 22.5 gm Q15M PRN PO DECREASED GLUCOSE; Start 07/13/17 at 21: 00 Dextrose (D50w Syringe) 25 ml Q15M PRN IV DECREASED GLUCOSE; Start 07/13/17 at 21:00 Dextrose (D50w Syringe) 50 ml Q15M PRN IV DECREASED GLUCOSE; Start 07/13/17 at 21:00 Glucagon (Glucagen) 1 mg Q15M PRN IM DECREASED GLUCOSE; Start 07/13/17 at 21:00 Glucose (Glutose) 15 gm Q15M PRN BUCCAL DECREASED GLUCOSE; Start 07/13/17 at 21 :00 Gentamicin Sulfate (Gentamicin 0.1% Oint) 1 applic Q24H TOP Last administered on 07/21/17 14:03; Admin Dose 1 APPLIC; Start 07/14/17 at 09:00 Sodium Hypochlorite (Dakin'S (1/4 Strength)) 1 applic DAILY IRR Last administered on 07/21/17 14:03; Admin Dose 1 APPLIC; Start 07/17/17 at 09:00 Clonidine (Catapres) 0.1 mg QID PRN PO sbp greater than 170 Last administered on 07/19/17 23:07; Admin Dose 0.1 MG; Start 07/17/17 at 09:00 Losartan Potassium (Cozaar) 100 mg DAILY PO Last administered on 07/22/17 08: 34; Admin Dose 100 MG; Start 07/18/17 at 15:30 Clonidine (Catapres) 0.1 mg TID PO Last administered on 07/22/17 08:34; Admin Dose 0.1 MG; Start 07/18/17 at 21:00 Hydralazine HCl 10 mg 10 mg Q6H PRN IV ELEVATED BLOOD PRESSURE Last administered on 07/20/17 01:36; Admin Dose 10 MG; Start 07/20/17 at 01:30 Ertapenem/Sodium Chloride (Invanz/NS) 100 ml @ 200 mls/hr Q24H IVPB Last administered on 07/21/17 11:30; Admin Dose 200 MLS/HR; Start 07/20/17 at 11: 30 Fluconazole (Diflucan) 100 mg DAILY PO Last administered on 07/22/17 08:35; Admin Dose 100 MG; Start 07/20/17 at 10:30 Insulin Glargine (Lantus) 10 unit DAILY SC ; Start 07/21/17 at 09:00 Diagnostic Test (Pha) 1 ea 1 ea 02 XX ; Start 07/21/17 at 02:00 Daptomycin/Sodium Chloride (Cubicin/NS) 100 ml @ 200 mls/hr Q24H IVPB Last administered on 07/21/17 13:45; Admin Dose 200 MLS/HR; Start 07/21/17 at 13: 00 Assessment/Plan Chief Complaint/Hosp Course SUBJECTIVE: No acute changes. The patient is alert, feels good. Denies pain, no fevers. ANTIMICROBIALS: Daptomycin, Invanz, Diflucan PHYSICAL EXAMINATION: GENERAL: This is a well-developed, middle-aged man who is alert, in no distress. HEENT: Head atraumatic, normocephalic. Sclerae anicteric. Buccal mucosa pink. NECK: Supple. CHEST: Rise symmetrical. Breath sounds clear. HEART: S1, S2. ABDOMEN: Soft. Bowel tones present. ASSESSMENT: 1. Resolving sepsis. 2. Oxacillin-sensitive Staphylococcus aureus bacteremia, likely secondary to # 3. 3. Right foot ulceration/osteomyelitis, status post incision and drainage. 4. Peripheral vascular disease with a history of left above knee amputation. 5. Hypertension. 6. Diabetes with diabetic neuropathy. 7. S/p ARF PLAN: The patient remains stable. Will need to be on current abx for 6 more weeks, pending PICC DW Dr Jenkins Problems: SUNNY PRECIADO NP Jul 22, 2017 12:52
[2017-07-22] MEDS: DAPTOMYCIN 500 MG in SOD CHLORIDE 0.9% 100 ML IVPB SCH (13:19)
[2017-07-22 14:25] VITALS: BP 179/99; RESP 18
[2017-07-22] MEDS ORDERED: SOD CHLORIDE 0.9% 100 ML ONE (14:57)
--- NOTE | 2017-07-22 15:33 | RADRPT ---
PROCEDURE: XR Chest. CLINICAL INDICATION: PICC line placement TECHNIQUE: Single frontal view of the chest was obtained COMPARISON: CR PORT CHEST 05/19/2016 FINDINGS: There is a new left-sided PICC line in place with its tip overlying the cavoatrial junction. The heart, mediastinum, and lungs are unchanged. The heart is normal in size. The lungs are clear. There is no pleural effusion or pneumothorax. RPTAT: AA IMPRESSION: New PICC line in appropriate position. .Geraldo Hartman MD, MD Date Time Electronically viewed and signed by .Geraldo Hartman MD, MD on 07/22/2017 15:33 .S/
[2017-07-22] MEDS: hydrALAzine 20 MG INJ IV PRN (15:56)
[2017-07-22 16:00] VITALS: BP 195/90
[2017-07-22] MEDS: SODIUM HYPOCHLORITE 0.125% 473 ML BTL IRR SCH (16:00)
[2017-07-22] MEDS: GENTAMICIN 0.1% 15 GM OINT TOP SCH (16:00)
--- NOTE | 2017-07-22 16:18 | RADRPT ---
PROCEDURE: US guidance for PICC line CLINICAL INDICATION: PICC line placement TECHNIQUE: Multiple real-time images were acquired of the patient's arm utilizing a high resolutio n transducer. This was performed by the PICC line nurse for venous access. COMPARISON: None FINDINGS: Ultrasound guidance for PICC line placement. IMPRESSION: Ultrasound guidance for PICC line placement. RPTAT: AA .Geraldo Hartman MD, MD Date Time Electronically viewed and signed by .Geraldo Hartman MD, on 07/22/2017 16:18 .S/
[2017-07-22 16:31] VITALS: BP 144/73
[2017-07-22 20:00] VITALS: BP 122/65; RESP 20
[2017-07-23] MEDS: SOD CHLORIDE 0.9% 1,000 ML IV SCH ×2 (00:01→01:58)
[2017-07-23 02:00] VITALS: BP 110/58; RESP 20
[2017-07-23] MEDS: ACCU-CHEK XX SCH ×4 (02:00→17:45)
[2017-07-23] MEDS: PANTOPRAZOLE (EC) 40 MG TAB PO SCH (05:23)
[2017-07-23 05:49] LABS: BASOPHILS % 0.4 % (0.0-2.0); EOSINOPHILS # 0.2 10^3/ul (0.0-0.5); EOSINOPHILS % 3.3 % (0.0-7.0); HEMATOCRIT 33.1 % (42.0-52.0); HEMOGLOBIN 10.8 g/dl (14.0-18.0); LYMPHOCYTES # 1.8 10^3/ul (0.8-2.9); LYMPHOCYTES % 25.3 % (15.0-51.0); MEAN CORPUSCULAR HEMOGLOBIN 27.6 pg (29.0-33.0); MEAN CORPUSCULAR HGB CONC 32.6 g/dl (32.0-37.0); MEAN CORPUSCULAR VOLUME 84.7 fl (82.0-101.0); MEAN PLATELET VOLUME 10.4 fl (7.4-10.4); MONOCYTE # 0.5 10^3/ul (0.3-0.9); MONOCYTES % 7.2 % (0.0-11.0); NEUTROPHIL # 4.4 10^3/ul (1.6-7.5); NEUTROPHILS % 63.5 % (39.0-77.0); PLATELET COUNT 283 10^3/UL (140-415); RED BLOOD COUNT 3.91 10^6/ul (4.70-6.10); RED CELL DISTRIBUTION WIDTH 13.2 % (11.5-14.5)
[2017-07-23 07:40] VITALS: BP 134/70; RESP 20
[2017-07-23] MEDS: INSULIN ASPART [NOVOLOG] 3 ML PEN SC SCH ×2 (08:02→12:15)
[2017-07-23] MEDS: Insulin NOVOLOG SS MODERATE Algorithm (SS with meals and bedtime) SC SCH ×2 (08:02→12:31)
[2017-07-23] MEDS: SODIUM HYPOCHLORITE 0.125% 473 ML BTL IRR SCH (08:03)
[2017-07-23] MEDS: INSULIN GLARGINE [LANtus] 3 ML PEN SC SCH (08:03)
[2017-07-23] MEDS: GENTAMICIN 0.1% 15 GM OINT TOP SCH (08:03)
[2017-07-23] MEDS: LOSARTAN 50 MG TAB PO SCH (08:04)
[2017-07-23] MEDS: FLUCONAZOLE 100 MG TAB PO SCH (08:04)
[2017-07-23] MEDS: ENOXAPARIN 40 MG/0.4 ML SYG SC SCH (08:11)
--- NOTE | 2017-07-23 10:12 | PDOCDIS ---
Discharge Instructions DIAGNOSIS Discharge Diagnosis Diabetic foot ulcer s/op debridement CONDITION Patient Condition: Fair HOME CARE INSTRUCTIONS: Special Diet: carb controlled diet ACTIVITY: Activity Restrictions: No Weight Bearing FOLLOW UP/APPOINTMENTS Follow-up Plan f/u PCP in 2 week f/u Podiatry in 2-3 weeks ELLY ANDERSON MD Jul 23, 2017 10:12
[2017-07-23] MEDS ORDERED: LANT3I SC (10:16)
[2017-07-23] MEDS ORDERED: FLUC100T PO (10:16)
[2017-07-23] MEDS: ERTAPENEM SODIUM 1 GM in SOD CHLORIDE 0.9% 100 ML IVPB SCH (12:13)
[2017-07-23] MEDS: DAPTOMYCIN 500 MG in SOD CHLORIDE 0.9% 100 ML IVPB SCH (13:17)
[2017-07-23 13:55] VITALS: BP 173/83; RESP 18
--- NOTE | 2017-07-23 22:18 | CONS ---
Date/Time of Note Date/Time of Note DATE: 07/23/17 TIME: 22:18 Consult Date/Type/Reason Admit Date/Time Jul 13, 2017 at 19:12 Initial Consult Date 07/14/17 Type of Consultation: ID Objective Vital Signs Date Time Temp Pulse Resp B/P Pulse Ox O2 Delivery O2 Flow Rate FiO2 07/23/17 13:55 97.3 70 18 173/83 98 07/21/17 03:55 Room Air Intake and Output 07/22/17 07/22/17 07/23/17 15:00 23:00 07:00 Intake Total 1810 ml 970 ml Output Total 950 ml 350 ml Balance 860 ml 620 ml Results/Medications Result Diagram: 07/23/17 0522 07/21/17 0754 Results 24 hrs Laboratory Tests Test 07/23/17 05:22 07/23/17 08:01 07/23/17 12:15 White Blood Count 7.0 Red Blood Count 3.91 L Hemoglobin 10.8 L Hematocrit 33.1 L Mean Corpuscular Volume 84.7 Mean Corpuscular Hemoglobin 27.6 L Mean Corpuscular Hemoglobin Concent 32.6 Red Cell Distribution Width 13.2 Platelet Count 283 Mean Platelet Volume 10.4 Neutrophils % 63.5 Lymphocytes % 25.3 Monocytes % 7.2 Eosinophils % 3.3 Basophils % 0.4 Nucleated Red Blood Cells % 0.0 Neutrophils # 4.4 Lymphocytes # 1.8 Monocytes # 0.5 Eosinophils # 0.2 Basophils # 0.0 Nucleated Red Blood Cells # 0.0 Bedside Glucose 138 169 Assessment/Plan Chief Complaint/Hosp Course SUBJECTIVE: No acute changes. The patient is alert, feels good. Denies pain, no fevers. ANTIMICROBIALS: Daptomycin, Invanz, Diflucan PHYSICAL EXAMINATION: GENERAL: This is a well-developed, middle-aged man who is alert, in no distress. HEENT: Head atraumatic, normocephalic. Sclerae anicteric. Buccal mucosa pink. NECK: Supple. CHEST: Rise symmetrical. Breath sounds clear. HEART: S1, S2. ABDOMEN: Soft. Bowel tones present. ASSESSMENT: 1. Resolving sepsis. 2. Oxacillin-sensitive Staphylococcus aureus bacteremia, likely secondary to # 3. 3. Right foot ulceration/osteomyelitis, status post incision and drainage. 4. Peripheral vascular disease with a history of left above knee amputation. 5. Hypertension. 6. Diabetes with diabetic neuropathy. 7. S/p ARF PLAN: The patient remains stable. Pending PICC, dc on current abx for 6 more weeks, f/u with podiatry [facility] staff/pt Problems: SUNNY PRECIADO NP Jul 23, 2017 22:18
--- NOTE | 2017-07-24 04:29 | DS ---
DATE OF ADMISSION: 07/13/2017 DATE OF DISCHARGE: 07/23/2017 HISTORY OF PRESENTING ILLNESS AND HOSPITAL COURSE: This is a patient with a history of diabetic danna t, history of hypertension, diabetes, CKD, peripheral vascular disease, status post right foot trans metatarsal amputation, atherosclerotic heart disease, and dyslipidemia, presented to the wound clini c after being sent to the clinic for worsening right foot wound. Patient denied any fevers, chills. On admission, he was normally seen by Dr. Jenkins, blood pressure was 123/84 on admission, tempera ture was 99.1. White count was 12.7. Lactic acid 2.5, BUN of 18 and creatinine 1.41. The patient was found to have right wound cellulitis. The patient was seen, was started on vancomycin and cefep harika. The patient was seen by Dr. Williams Berman. The patient had a bedside debridement done. Wound ca re was done with gentamicin ointment, Mepilex. The left AKA was stable. The patient again was seen by ID consultation with Dr. Lane. Patient also had oxacillin sensitive Staph bacteremia, likely secondary to foot wound. Repeat blood cultures were done, which were negative. The patient was see n by Dr. Jenkins again and had a second debridement of the foot ulcer that was done. The patient marks d another third debridement that was done on 07/20/2017 and there was polymicrobial infection and in fection with enterococcus, Staphylococcus gram-negative berkley, Streptococcus agalactiae and [place] al bicans. Per ID, the gram stain culture showed enterococcus coagulase negative Staph, , ESBL St reptococcus agalactiae, [place] albicans, Staph aureus. The patient also got a PICC line per ID. T he patient was started on daptomycin and ertapenem per ID. The patient is much better and can go ho me on IV daptomycin and IV ertapenem for 6 weeks. The patient was also started on Lantus insulin, b ut the patient had been refusing, would only take minimal dose of Lantus. HbA1c was 10.4. Repeated conversations were done with the patient explaining about the importance of needing insulin complia nce. However, patient would refuse. Patient was also started on Diflucan. FINAL DISCHARGE DIAGNOSES: 1. Sepsis secondary to foot wound, resolving. 2. Oxacillin-sensitive Staphylococcus aureus bacteremia, likely secondary to right foot ulceration, osteomyelitis, improving. The patient will be going home on IV daptomycin and ertapenem for 6 week s. 3. Right foot ulceration, osteomyelitis, status post incision and drainage x3. 4. Peripheral vascular disease, history of left above-knee amputation. 5. Hypertension. 6. Diabetes or diabetic neuropathy. 7. Chronic kidney disease. 8. Diabetes. DISCHARGE INSTRUCTIONS: The patient will be followed, arrangements made for home care with IV dapto mycin 500 mg IV daily for 6 weeks and weekly CK levels will be sent to office and ertapene m 1 gram daily for 6 weeks, Fluconazole 100 mg for 7 more days. Continue with gentamicin cream and wound dressing and wound care, losartan 100 mg, clonidine 0.1 t.i.d., Lantus 10 units at bedtime. T he patient was instructed to follow with the PCP in about 1 to 2 weeks. Dictated By: ELLY NEAL/LINNEA Conf#: [id number] DID#: [id number]
== END 2017-07-23 18:00 | disposition home health service (06) | DRG 854 ==
LOC: E/R 15:31 → MS2 19:12
PROVIDERS: ADMIT Internal Medicine Nephrology; ATTEND Internal Medicine Nephrology
PROC: 0QBN0ZZ Excision of Right Metatarsal, Open Approach (ICD-10-PCS; principal; 2017-07-15)
PROC: 0QBN0ZZ Excision of Right Metatarsal, Open Approach (ICD-10-PCS; 2017-07-18)
PROC: 0QBN0ZZ Excision of Right Metatarsal, Open Approach (ICD-10-PCS; 2017-07-20)
PROC: 02HV33Z Insertion of Infusion Device into Superior Vena Cava, Percutaneous Approach (ICD-10-PCS; 2017-07-22)
DX: A41.01 Sepsis due to Methicillin susceptible Staphylococcus aureus (principal); N17.9 Acute kidney failure, unspecified; E11.22 Type 2 diabetes mellitus with diabetic chronic kidney disease; E11.40 Type 2 diabetes mellitus with diabetic neuropathy, unspecified; E11.621 Type 2 diabetes mellitus with foot ulcer; I12.9 Hypertensive chronic kidney disease with stage 1 through stage 4 chronic kidney disease, or unspecified chronic kidney disease; I25.10 Atherosclerotic heart disease of native coronary artery without angina pectoris; B37.9 Candidiasis, unspecified; L03.115 Cellulitis of right lower limb; M86.8X7 Other osteomyelitis, ankle and foot; R65.20 Severe sepsis without septic shock; L97.519 Non-pressure chronic ulcer of other part of right foot with unspecified severity; N18.9 Chronic kidney disease, unspecified; Z79.4 Long term (current) use of insulin; E78.5 Hyperlipidemia, unspecified; I73.9 Peripheral vascular disease, unspecified; E11.628 Type 2 diabetes mellitus with other skin complications; E11.65 Type 2 diabetes mellitus with hyperglycemia; E11.69 Type 2 diabetes mellitus with other specified complication; B95.2 Enterococcus as the cause of diseases classified elsewhere; B95.1 Streptococcus, group B, as the cause of diseases classified elsewhere; Z89.612 Acquired absence of left leg above knee
CPT/HCPCS: 36415; 36569; 71010; 73630; 76937; 80048; 80053; 80202; 82550; 82565; 82962; 83036; 83605; 84520; 85025; 85651; 86140; 87040; 87070; 87081; 93306; 96365; J0360; J0692; J1335; J1650; J1815; J2543; J3370; J7030

== ENCOUNTER 2017-09-12 08:24 | Emergency (ER) | payer OTHER ==
[~2017-09-12] VITALS: Ht 167.6 cm; Wt 81.0 kg
[~2017-09-12 08:24] MED LIST changes: +FLUC100T PO; +LANT3I SC; +LOSA100T7 PO; -METF-480 PO
[2017-09-12 08:27] VITALS: Ht 167.6 cm; Wt 81.0 kg
[2017-09-12 11:51] LABS: BASOPHIL # 0.1 10^3/ul (0.0-0.1); BASOPHILS % 0.7 % (0.0-2.0); EOSINOPHILS # 0.2 10^3/ul (0.0-0.5); EOSINOPHILS % 2.3 % (0.0-7.0); HEMATOCRIT 35.2 % (42.0-52.0); HEMOGLOBIN 11.8 g/dl (14.0-18.0); LYMPHOCYTES # 1.7 10^3/ul (0.8-2.9); LYMPHOCYTES % 22.4 % (15.0-51.0); MEAN CORPUSCULAR HEMOGLOBIN 28.1 pg (29.0-33.0); MEAN CORPUSCULAR HGB CONC 33.5 g/dl (32.0-37.0); MEAN CORPUSCULAR VOLUME 83.8 fl (82.0-101.0); MEAN PLATELET VOLUME 11.3 fl (7.4-10.4); MONOCYTE # 0.5 10^3/ul (0.3-0.9); MONOCYTES % 6.6 % (0.0-11.0); NEUTROPHIL # 5.1 10^3/ul (1.6-7.5); NEUTROPHILS % 67.6 % (39.0-77.0); PLATELET COUNT 241 10^3/UL (140-415); RED CELL DISTRIBUTION WIDTH 13.2 % (11.5-14.5); WHITE BLOOD COUNT 7.5 10^3/ul (4.8-10.8)
[2017-09-12 12:10] LABS: ALANINE AMINOTRANSFERASE 33 IU/L (13-69); ALBUMIN 3.9 g/dl (3.3-4.9); ALBUMIN/GLOBULIN RATIO 1.02; ALKALINE PHOSPHATASE 118 IU/L (42-121); ANION GAP 15 (8-16); ASPARTATE AMINO TRANSFERASE 17 IU/L (15-46); BILIRUBIN,INDIRECT 0.1 mg/dl (0-1.1); BILIRUBIN,TOTAL 0.1 mg/dl (0.2-1.3); BLOOD UREA NITROGEN 17 mg/dl (7-20); CALCIUM 9.1 mg/dl (8.4-10.2); CARBON DIOXIDE 24 mmol/L (21-31); CHLORIDE 106 mmol/L (97-110); CREATININE 1.22 mg/dl (0.61-1.24); GLUCOSE 197 mg/dl (70-220); POTASSIUM 4.2 mmol/L (3.5-5.1); SODIUM 141 mmol/L (135-144); TOTAL PROTEIN 7.7 g/dl (6.1-8.1)
[2017-09-12 12:18] LABS: C-REACTIVE PROTEIN < 0.5 mg/dl (0.0-0.9)
--- NOTE | 2017-09-12 12:42 | RADRPT ---
PROCEDURE: XR Foot. CLINICAL INDICATION: Pain and foot wound. Diabetes mellitus. TECHNIQUE: AP, lateral and oblique views of the right foot was obtained. The images were reviewed on a PACS workstation. COMPARISON: July 13, 2017 FINDINGS: The patient is status post forefoot amputation. Soft tissue swelling with irregularity of the great toe through fifth toe metatarsal distal aspects is seen. Underlying osteomyelitis may be present. A Charcot's joint of the ankle is also noted with atherosclerotic vascular calcifications. Additional imaging with MRI is suggested. IMPRESSION: Status post forefoot amputation. Soft tissue swelling with bony irregularity of the great toe throug h fifth toe metatarsal distal aspects. Underlying osteomyelitis is of consideration. Additional imag ing with MRI is suggested. RPTAT: EE .Noni Manning MD, Date Time Electronically viewed and signed by .Noni Manning MD, on 09/12/2017 12:41 .F/
--- NOTE | 2017-09-12 13:10 | ERD ---
ER Documentation Chief Complaint Chief Complaint c/o yellow discharge from diabetic foot ulcer rt foot HPI This is a 57-year-old [place]-speaking male. [employer] Work[employer] used. The patient is a history of diabetes, peripheral arterial disease. The patient has a left [id number] amputation, a partial limitation of the right foot. The patient had just completed a course of antibiotics for osteomyelitis in the right foot. The patient has a persistent amount of very mild drainage from the wound. However he is concerned about black eschar formation on the dorsum of his foot and heel. He states this is been present over the last several weeks. His home health care nurse told to come to the emergency room. He denies any pain fevers or chills. The patient try to follow-up with his desulfurizer operator Dr. Mcknight without success ROS All systems reviewed and are negative except as per history of present illness. Medications Home Meds Active Scripts Insulin Glargine* (Lantus*) 100 Unit/Ml Soln, 10 UNIT SC QHS, #1 Prov:ELLY ANDERSON MD 07/23/17 Fluconazole* (Diflucan*) 100 Mg Tablet, 100 MG PO DAILY for 10 Days, TAB Prov:ELLY ANDERSON MD 07/23/17 Pantoprazole* (Pantoprazole*) 40 Mg Tablet.dr, 40 MG PO DAILY@06 for 28 Days Prov:LUIS ENRIQUE MAN MD 04/02/16 Reported Medications Losartan Potassium* (Losartan Potassium*) 100 Mg Tablet, 100 MG PO DAILY, TAB 07/15/17 Dextrose (Glucose Gel) 38 Gm Gel..gram., 22.5 GM PO [id number] 12/19/16 Acetaminophen* (Acetaminophen*) 650 Mg Tablet, 650 MG PO Q4H WHILE AWAKE Y for PAIN LEVEL 1-5, #30 TAB 10/10/16 Hydrocodone/Acetaminophen ([place] 5-325 Tablet) 1 Each Tablet, 1 EACH PO Q4H WHILE AWAKE Y for PAIN LEVEL 6-10, TAB 10/10/16 Magnesium Hydroxide* (Milk Of Magnesia*) 400 Mg/5 Ml Oral.susp, 30 ML PO DAILY Y for CONSTIPATION, ML 10/10/16 Glimepiride* (Glimepiride*) 1 Mg Tablet, 1 MG PO WITH BREAKFAST LUNCH, TAB 10/10/16 Na Phos,M-B/Na Phos,Di-Ba (ENEMA READY TO USE) 135 Ml Enema, 135 ML RC Q48 HOURS Y for CONSTIPATION, ENEMA 10/10/16 Bisacodyl (Dulcolax) 10 Mg Supp.rect, 10 MG RC, SUPP.RECT 10/10/16 Nitroglycerin* (Nitroglycerin* SL) 0.4 Mg Tab.subl, 0.4 MG SL Q5MIN Y for CHEST PAIN, BOTTLE 03/25/16 Allergies Allergies: Coded Allergies: No Known Allergy (Unverified , 12/19/16) PMhx/Soc History of Surgery: Yes (LEFT AKA (9 YRS AGO IN [place]),RIGTH METATARSAL AMPUTATION(03/2016)) Anesthesia Reaction: No Hx Neurological Disorder: No Hx Respiratory Disorders: No Hx Cardiac Disorders: Yes (HTN, HIGH CHOLESTEROL, PVD) Hx Psychiatric Problems: No Hx Miscellaneous Medical Probl: Yes (ANEMIA, MRSA, VANCOMYCIN RESISTANT) Hx Alcohol Use: No Hx Substance Use: No Hx Tobacco Use: Yes (LAST ONE 3 MONTHS AGO) FmHx Family History: diabetes Physical Exam Vitals Vital Signs Date Time Temp Pulse Resp B/P Pulse Ox O2 Delivery O2 Flow Rate FiO2 09/12/17 08:27 97.5 98 18 210/102 98 Physical Exam General: Well developed, well nourished, no acute distress Head: Normocephalic, atraumatic. Eyes: Pupils equally reactive, EOM intact ENT: Moist mucous membranes Neck: Supple, no lymphadenopathy Respiratory: Lungs clear bilaterally, no distress Cardiovascular: RRR, no murmurs, rubs, or gallops Abdominal: Soft, non-tender, non-distended, no peritoneal signs : Deferred MSK: The patient's right foot has a metatarsal amputation. The wound is well- appearing with slight opening along the medial aspect with only a very small amount of drainage that is non-malodorous. The patient has a small black eschar on the dorsum of the foot that appears to be subacute in a small black eschar in the posterior aspect of the heel that also appears to be subacute. Slightly decreased pulses to this area but sensation is intact. Neurologic: Alert and oriented, moving all extremities, normal speech, no focal weakness, no cerebellar signs Skin: As described above Psych: Normal mood Result Diagram: 09/12/17 1135 09/12/17 1135 Results 24 hrs Laboratory Tests Test 09/12/17 11:35 White Blood Count 7.510^3/ul Red Blood Count 4.2010^6/ul Hemoglobin 11.8g/dl Hematocrit 35.2% Mean Corpuscular Volume 83.8fl Mean Corpuscular Hemoglobin 28.1pg Mean Corpuscular Hemoglobin Concent 33.5g/dl Red Cell Distribution Width 13.2% Platelet Count 83109^3/UL Mean Platelet Volume 11.3fl Neutrophils % 67.6% Lymphocytes % 22.4% Monocytes % 6.6% Eosinophils % 2.3% Basophils % 0.7% Nucleated Red Blood Cells % 0.0/100WBC Neutrophils # 5.110^3/ul Lymphocytes # 1.710^3/ul Monocytes # 0.510^3/ul Eosinophils # 0.210^3/ul Basophils # 0.110^3/ul Nucleated Red Blood Cells # 0.010^3/ul Sodium Level 141mmol/L Potassium Level 4.2mmol/L Chloride Level 106mmol/L Carbon Dioxide Level 24mmol/L Anion Gap 15 Blood Urea Nitrogen 17mg/dl Creatinine 1.22mg/dl Glucose Level 197mg/dl Lactic Acid Level 2.0mmol/L Calcium Level 9.1mg/dl Total Bilirubin 0.1mg/dl Direct Bilirubin 0.00mg/dl Indirect Bilirubin 0.1mg/dl Aspartate Amino Transf (AST/SGOT) 17IU/L Alanine Aminotransferase (ALT/SGPT) 33IU/L Alkaline Phosphatase 118IU/L C-Reactive Protein < 0.5mg/dl Total Protein 7.7g/dl Albumin 3.9g/dl Globulin 3.80g/dl Albumin/Globulin Ratio 1.02 Procedures/MDM EKG, MONITORS, & DIAGNOSTIC IMAGING: EKG: I reviewed and interpreted a 12-lead EKG. Rhythm: Normal sinus rhythm Ectopy: None Intervals: No abnormalities ST segments: No elevations or depressions T waves: No contiguous inversions X-ray right foot: IMPRESSION: Status post forefoot amputation. Soft tissue swelling with bony irregularity of the great toe through fifth toe metatarsal distal aspects. Underlying osteomyelitis is of consideration. Additional imaging with MRI is suggested. RPTAT: EE LAB INTERPRETATION: No significant leukocytosis, normal CRP, normal lactic acid MEDICAL DECISION MAKING: The patient's right lower extremity appears to have subacute changes likely secondary to chronic diabetes and chronic peripheral arterial disease. He has no pain out of proportion. The patient's skin appears to have an eschar formation on the dorsum of the foot and posterior aspect of the foot however this appears to be subacute. I do not believe that the patient's exam is consistent with infection. The patient has no evidence of acute vascular occlusion. This is likely consistent with chronic vascular disease. Outpatient management would be appropriate. ER COURSE: Patient's laboratory testing is otherwise unrevealing. His diagnostic imaging is likely consistent with chronic osteomyelitis but he just completed treatment. I spoke to the patient's desulfurizer operator, Dr. Mcknight and discussed inpatient versus outpatient management. He felt comfortable with outpatient management and does recommend outpatient vascular surgery consultation. Referral information to Dr. Childs divided to the patient. The patient can be managed as an outpatient basis at this time. He was given discharge information and all questions were answered. I kept the patient and/or family informed of laboratory and diagnostic imaging results throughout the emergency room course. DISPOSITION PLAN: We discussed follow up with the patient's primary care doctor within 24 to 48 hours as needed. We also discussed return to the emergency room for worsening symptoms or worsening condition. Outpatient referral: Podiatry, vascular surgery Discharge Medications: None required Departure Diagnosis: Primary Impression: PAD (peripheral artery disease) Additional Impression: History of diabetes mellitus Condition: Stable Patient Instructions: Diabetes and Peripheral Arterial Disease (PAD) Referrals: JADE DE JESUS (PCP) JEWELS MCKNIGHT DPM, SAMMY D. MD Additional Instructions: Llame al doctor kiley amezquita (Referral Sources) MAANA y nilsa kadie DEANNA PARA DENTRO DE KADIE SEMANA. Dgale a la secretaria que nosotros le instruimos hacer esta deanna.Avise o llame si amador condicin se empeora antes de la deanna. FELIPE WHITE MD Sep 12, 2017 13:10
[2017-09-12 13:18] VITALS: BP 161/85; PULSE 90; RESP 18; TEMP 98.2
== END 2017-09-12 13:38 | disposition home or self-care (01) ==
LOC: E/R 08:24
DX: I73.9 Peripheral vascular disease, unspecified (principal); E11.9 Type 2 diabetes mellitus without complications; I10 Essential (primary) hypertension; Z87.891 Personal history of nicotine dependence; Z79.84 Long term (current) use of oral hypoglycemic drugs
CPT/HCPCS: 36415; 73630; 80053; 83605; 85025; 85651; 86140; 87040; Z7502; 93005

== ENCOUNTER 2019-02-08 11:17 | Emergency (ER) | payer OTHER ==
[~2019-02-08] VITALS: Ht 172.7 cm; Wt 84.9 kg
[~2019-02-08 11:17] MED LIST changes: +HYDR-4011 PO; -HYDR-906 PO; +LOSA100T15 PO; -LOSA100T7 PO; +MAGN400O19 PO; -MAGN400O4 PO
[2019-02-08 11:24] VITALS: Ht 172.7 cm; Wt 84.9 kg
[2019-02-08] MEDS ORDERED: KETOROLAC 30 MG INJ IM STA (12:31)
--- NOTE | 2019-02-08 12:34 | ERD ---
ER Documentation Chief Complaint Chief Complaint DIABETIC RIGHT FOOT - INCREASED BP HPI This is a 58-year-old man with a known history of osteomyelitis, left above-knee amputation and right forefoot amputation presenting with firm painful nondraining ulcer to the tip of the mid forefoot. He denies redness or recent swelling but states he has mild intermittent pain with ambulation, no purulent discharge, no chest pain or shortness of breath. Patient states he does have a history of diabetes mellitus and is worried about the ulcer becoming infected without antibiotics. ROS All systems reviewed and are negative except as per history of present illness. Medications Home Meds Active Scripts Cephalexin* (Keflex*) 500 Mg Capsule, 500 MG PO QID for 5 Days, CAP Prov:VINCE BOURGEOIS MD 02/08/19 Ibuprofen* (Motrin*) 600 Mg Tab, 600 MG PO Q8 PRN for PAIN AND/OR INFLAMMATION, #30 TAB Prov:VINCE BOURGEOIS MD 02/08/19 Reported Medications Atorvastatin* (Atorvastatin*) 40 Mg Tablet, 40 MG PO QHS, #30 TAB 02/08/19 Enalapril Maleate* (Enalapril Maleate*) 10 Mg Tablet, 10 MG PO DAILY, TAB 02/08/19 Ferrous Sulfate* (Ferrous Sulfate*) 325 Mg Tabec, 325 MG PO BID, TAB 02/08/19 Metformin Hcl* (Metformin Hcl*) 1,000 Mg Tablet, 1000 MG PO WITH BREAKFAST DINNE, #60 TAB 02/08/19 Gemfibrozil* (Gemfibrozil*) 600 Mg Tablet, 600 MG PO BID, TAB 02/08/19 Losartan Potassium* (Losartan Potassium*) 100 Mg Tablet, 100 MG PO DAILY, TAB 02/08/19 Glimepiride* (Glimepiride*) 2 Mg Tablet, 2 MG PO WITH BREAKFAST DINNE, TAB 02/08/19 Discontinued Reported Medications Losartan Potassium* (Losartan Potassium*) 100 Mg Tablet, 100 MG PO DAILY, TAB 07/15/17 Dextrose (Glucose Gel) 38 Gm Gel..gram., 22.5 GM PO [id number] 12/19/16 Acetaminophen* (Acetaminophen*) 650 Mg Tablet, 650 MG PO Q4H WHILE AWAKE PRN for PAIN LEVEL 1-5, #30 TAB 10/10/16 Hydrocodone/Acetaminophen ([place] 5-325 Tablet) 1 Each Tablet, 1 EACH PO Q4H WHILE AWAKE PRN for PAIN LEVEL 6-10, TAB 10/10/16 Magnesium Hydroxide* (Milk Of Magnesia*) 400 Mg/5 Ml Oral.susp, 30 ML PO DAILY PRN for CONSTIPATION, ML 10/10/16 Glimepiride* (Glimepiride*) 1 Mg Tablet, 1 MG PO WITH BREAKFAST LUNCH, TAB 10/10/16 Na Phos,M-B/Na Phos,Di-Ba (ENEMA READY TO USE) 135 Ml Enema, 135 ML RC Q48 HOURS PRN for CONSTIPATION, ENEMA 10/10/16 Bisacodyl (Dulcolax) 10 Mg Supp.rect, 10 MG RC, SUPP.RECT 10/10/16 Nitroglycerin* (Nitroglycerin* SL) 0.4 Mg Tab.subl, 0.4 MG SL Q5MIN PRN for CHEST PAIN, BOTTLE 03/25/16 Discontinued Scripts Insulin Glargine* (Lantus*) 100 Unit/Ml Soln, 10 UNIT SC QHS, #1 Prov:ELLY ANDERSON MD 07/23/17 Fluconazole* (Diflucan*) 100 Mg Tablet, 100 MG PO DAILY for 10 Days, TAB Prov:ELLY ANDERSON MD 07/23/17 Pantoprazole* (Pantoprazole*) 40 Mg Tablet.dr, 40 MG PO DAILY@06 for 28 Days Prov:LUIS ENRIQUE MAN MD 04/02/16 Allergies Allergies: Coded Allergies: No Known Allergy (Unverified , 02/08/19) PMhx/Soc Diabetes mellitus, peripheral arterial disease, history of osteomyelitis to the right foot status post right forefoot amputation, hypertension History of Surgery: Yes (LEFT AKA (9 YRS AGO IN [place]),RIGTH METATARSAL AMPUTATION(03/2016)) Anesthesia Reaction: No Hx Neurological Disorder: No Hx Respiratory Disorders: No Hx Cardiac Disorders: Yes (HTN, HIGH CHOLESTEROL, PVD) Hx Psychiatric Problems: No Hx Miscellaneous Medical Probl: Yes (ANEMIA, MRSA, VANCOMYCIN RESISTANT) Hx Alcohol Use: No Hx Substance Use: No Hx Tobacco Use: Yes Smoking Status: Current every day smoker FmHx Family History: No diabetes Physical Exam Vitals Vital Signs Date Temp Pulse Resp B/P (MAP) Pulse Ox O2 O2 Flow FiO2 Time Delivery Rate 02/08/19 90 18 147/81 96 Room Air 14:03 (103) 02/08/19 97.8 108 22 201/84 98 11:24 (123) Physical Exam Const: No acute distress, afebrile Resp: Clear to auscultation bilaterally Cardio: Regular rate and rhythm, no murmurs Abd: Soft, non tender, non distended. Normal bowel sounds Skin: No petechiae or rashes. Firm circular pressure ulcer to mostly the sole side of the mid right foot at the tip of the stump. There is no purulent discharge and no skin erythema, mild tenderness to touch Back: No midline or flank tenderness Ext: No cyanosis, or edema Neur: Awake and alert x3, no focal deficits or facial asymmetry Results 24 hrs Current Medications Medications Dose Sig/Eryn Start Time Status Last (Trade) Ordered Route PRN Stop Time Admin Dose Reason Admin Ketorolac 30 mg ONCE STAT 02/08/19 DC Tromethamine IM 12:31 02/08/19 (Toradol) 12:34 Procedures/MDM X-ray Foot 3V Interpreted by me: Bones: Forefoot amputation, metatarsal shaft appear otherwise without fractures or osteolytic changes. No sign of active osteomyelitis Joints: No dislocation Foreign body: None Administered Toradol 30 mg IM x1 I will prescribe an antibiotic as prophylactic therapy given the patient has a history of diabetes mellitus and recommended he follow-up with his PMD and in amputation prevention center on fourth floor Patient feels much better at this time, and vital signs are normal, symptoms have improved. I did give strict instructions to return to the ED if symptoms continue or worsen, patient will otherwise follow-up with primary care physician. Patient understood instructions and agreed to plan. Disclaimer: Inadvertent spelling and grammatical errors are likely due to EHR/dictation software use and do not reflect on the overall quality of patient care. Also, please note that the electronic time recorded on this note does not necessarily reflect the actual time of the patient encounter. Departure Diagnosis: Primary Impression: PAD (peripheral artery disease) Additional Impression: Pressure ulcer, stage 1 Pressure injury location: foot, unspecified location Laterality: right Qualified Codes: L89.891 - Pressure ulcer of other site, stage 1 Condition: Good VINCE BOURGEOIS MD February 08, 2019 12:34
[2019-02-08] MEDS ORDERED: LOSA100T15 PO (13:02)
[2019-02-08] MEDS ORDERED: GEMF600T8 PO (13:02)
[2019-02-08] MEDS ORDERED: GLIM2TAB PO (13:02)
[2019-02-08] MEDS ORDERED: METF100010 PO (13:03)
[2019-02-08] MEDS ORDERED: ATOR40TA68 PO (13:03)
[2019-02-08] MEDS ORDERED: ENAL10TA PO (13:03)
[2019-02-08] MEDS ORDERED: FER325 PO (13:03)
[2019-02-08] MEDS ORDERED: IBUP-1542 PO (13:18)
[2019-02-08] MEDS ORDERED: CEPH-443 PO (13:18)
[2019-02-08 14:03] VITALS: BP 147/81; PULSE 90; RESP 18
== END 2019-02-08 14:06 | disposition home or self-care (01) ==
LOC: E/R 11:17
DX: I77.9 Disorder of arteries and arterioles, unspecified (principal); I10 Essential (primary) hypertension; F17.210 Nicotine dependence, cigarettes, uncomplicated; E11.9 Type 2 diabetes mellitus without complications; Z79.84 Long term (current) use of oral hypoglycemic drugs
CPT/HCPCS: 73630; Z7502